=== PATIENT | male | born 1955 | race Caucasian/White ===

== ENCOUNTER → 2016-08-06 | Outpatient (REF) | payer MEDICARE, MEDICAID ==
[~2016-08-06] MED LIST: ASPI81TA83 OR; COLA100C2 OR; INSUDET SC; INSULIN SUBQ; LIPI80TA PO; LISI10TA4 OR; NOVOLOG100 MG/ML SC; POLYSPORIN TOP; PRAV20TA2 OR
[2016-08-06 18:33] LABS: MEAN CORPUSCULAR HEMOGLOBIN 32.2 pg (27.0-33.0); MEAN CORPUSCULAR VOLUME 97.4 fl (80.0-96.0); RED CELL DISTRIBUTION WIDTH 13.8 % (11.5-14.5); WHITE BLOOD COUNT 3.7 K/mm3 (4.0-10.0)
[2016-08-06 19:04] LABS: ALBUMIN 3.6 GM/DL (3.2-5.2); ALBUMIN/GLOBULIN RATIO 1.16 (1.00-1.93); ALKALINE PHOSPHATASE 85 U/L (45-117); ALT/SGPT 12 U/L (12-78); ANION GAP 7 MEQ/L (8-16); AST/SGOT 11 U/L (15-37); BILIRUBIN,TOTAL 0.4 MG/DL (0.2-1.0); BLOOD UREA NITROGEN 5 MG/DL (7-18); CALCIUM LEVEL 8.6 MG/DL (8.8-10.2); CARBON DIOXIDE LEVEL 29 MEQ/L (21-32); CHLORIDE LEVEL 94 MEQ/L (98-107); CHOLESTEROL LEVEL 192 MG/DL (<200); CREATININE FOR GFR 0.78 MG/DL (0.70-1.30); GLOMERULAR FILTRATION RATE > 60.0 (>49); GLUCOSE, FASTING 147 MG/DL (80-110); POTASSIUM SERUM 4.8 MEQ/L (3.5-5.1); SODIUM LEVEL 130 MEQ/L (136-145); TOTAL PROTEIN 6.7 GM/DL (6.4-8.2); TRIGLYCERIDES LEVEL 169 MG/DL (<150)
== END ==
LOC: M SFHCCLAY 08:35
PROVIDERS: ATTEND Nurse Practitioner
DX: D64.9 Anemia, unspecified (principal); Z79.899 Other long term (current) drug therapy
CPT/HCPCS: 36415; 80053; 80061; 83036; 85027; G0463

== ENCOUNTER 2016-09-15 14:47 | Emergency (ER) | payer MEDICARE, MEDICAID ==
[2016-09-15] MEDS ORDERED: DEXTROSE 50% 50 ML SYRINGE IV STA (15:40)
[2016-09-15 16:16] LABS: ANION GAP 6 MEQ/L (8-16); BLOOD UREA NITROGEN 20 MG/DL (7-18); CALCIUM LEVEL 8.8 MG/DL (8.8-10.2); CARBON DIOXIDE LEVEL 30 MEQ/L (21-32); CHLORIDE LEVEL 99 MEQ/L (98-107); CREATININE FOR GFR 0.78 MG/DL (0.70-1.30); GLOMERULAR FILTRATION RATE > 60.0 (>49); GLUCOSE, FASTING 179 MG/DL (80-110); POTASSIUM SERUM 4.4 MEQ/L (3.5-5.1); SODIUM LEVEL 135 MEQ/L (136-145)
[2016-09-15 16:25] LABS: BASO % 0.1 % (0.0-1.0); EOS % 0.5 % (0.0-3.0); LARGE UNSTAINED CELL # 0.1 K/mm3 (0.0-0.4); LARGE UNSTAINED CELL % 1.7 % (0.0-4.0); LYMPH # 0.3 K/mm3 (1.5-4.5); LYMPH % 5.4 % (24.0-44.0); MEAN CORPUSCULAR HEMOGLOBIN 31.7 pg (27.0-33.0); MEAN CORPUSCULAR HGB CONC 32.6 g/dl (32.0-36.5); MEAN CORPUSCULAR VOLUME 97.2 fl (80.0-96.0); MONO # 0.3 K/mm3 (0.0-0.8); MONO % 5.5 % (0.0-5.0); NEUTROPHILS # 5.4 K/mm3 (1.8-7.7); NEUTROPHILS % 86.8 % (36.0-66.0); PLATELET COUNT, AUTOMATED 379 k/mm3 (150-450); RED CELL DISTRIBUTION WIDTH 14.5 % (11.5-14.5); WHITE BLOOD COUNT 6.2 K/mm3 (4.0-10.0)
--- NOTE | 2016-09-15 19:00 | REP ---
Portable chest, single AP view, the patient upright: Comparison is the PA and lateral chest dated 02/27/2015. The lung june are clear. The cardiac size is normal. The milvia, mediastinum, and bony thorax are unremarkable. Impression: Negative portable chest. There is no interval change. Signed by Bakari Kasper MD 09/15/2016 06:51 P
--- NOTE | 2016-09-15 19:10 | REPUSA ---
CLINICAL HISTORY: AMS TECHNIQUE: Multiple axial CT images were obtained through the brain without IV contrast material. COMMENTS: There is normal configuration of sella turcica. There are no intra or extra-axial collections. There is no mass effect or midline shift. There is no evidence of hematoma formation. No hydrocephalus is p resent. The ventricles are symmetrical. No abnormal calcifications are present. There is diffuse age-appropriate cerebellar and cerebral atrophy with proportionally dilated ventricl es and cortical sulci. There are bilateral periventricular and subcortical white matter hypolucencies compatible with mild c hronic microvascular disease. Otherwise, no significant focal abnormalities are seen either in the posterior fossa or supratentoria l compartment. Right sphenoid sinusitis is seen. IMPRESSION: 1. Age-appropriate cerebellar and cerebral atrophy. 2. Mild chronic microvascular disease. 3. No evidence of acute intracranial pathology. 4. Sinusitis. Thank you for your kind referral of this patient.
[2016-09-15 20:30] VITALS: BP 113/69
--- NOTE | 2016-09-16 13:49 | ECGEPIP ---
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
== END 2016-09-15 20:37 | disposition home or self-care (01) ==
LOC: EDBD 14:47 → M ED 15:52
DX: E11.649 Type 2 diabetes mellitus with hypoglycemia without coma (principal); R41.82 Altered mental status, unspecified; Z85.89 Personal history of malignant neoplasm of other organs and systems; Z79.4 Long term (current) use of insulin
CPT/HCPCS: 70450; 71010; 80048; 82140; 85025; 93005; 99283; G0480

== ENCOUNTER → 2016-10-01 | Outpatient (REF) | payer MEDICARE, MEDICAID ==
[2016-10-01 17:39] LABS: MEAN CORPUSCULAR HEMOGLOBIN 33.9 pg (27.0-33.0); MEAN CORPUSCULAR HGB CONC 31.7 g/dl (32.0-36.5); MEAN CORPUSCULAR VOLUME 106.7 fl (80.0-96.0); RED CELL DISTRIBUTION WIDTH 14.3 % (11.5-14.5); WHITE BLOOD COUNT 8.9 K/mm3 (4.0-10.0)
[2016-10-01 18:04] LABS: ALBUMIN 3.9 GM/DL (3.2-5.2); ALBUMIN/GLOBULIN RATIO 1.26 (1.00-1.93); ALKALINE PHOSPHATASE 123 U/L (45-117); ALT/SGPT 15 U/L (12-78); ANION GAP 25 MEQ/L (8-16); AST/SGOT 4 U/L (15-37); BILIRUBIN,TOTAL 0.5 MG/DL (0.2-1.0); BLOOD UREA NITROGEN 30 MG/DL (7-18); CALCIUM LEVEL 9.2 MG/DL (8.8-10.2); CARBON DIOXIDE LEVEL 13 MEQ/L (21-32); CHLORIDE LEVEL 94 MEQ/L (98-107); CREATININE FOR GFR 1.26 MG/DL (0.70-1.30); FERRITIN 154 NG/ML (26-388); GLOMERULAR FILTRATION RATE > 60.0 (>49); SODIUM LEVEL 132 MEQ/L (136-145)
[2016-10-01 18:50] LABS: GLUCOSE, FASTING 584 MG/DL (80-110); POTASSIUM SERUM 5.7 MEQ/L (3.5-5.1)
== END ==
LOC: M SFHCCLAY 11:15
PROVIDERS: ATTEND Nurse Practitioner
DX: I10 Essential (primary) hypertension (principal); M25.473 Effusion, unspecified ankle; D64.9 Anemia, unspecified; E11.65 Type 2 diabetes mellitus with hyperglycemia; Z79.899 Other long term (current) drug therapy; E53.8 Deficiency of other specified B group vitamins; J01.90 Acute sinusitis, unspecified; K11.9 Disease of salivary gland, unspecified; E78.5 Hyperlipidemia, unspecified

== ENCOUNTER 2016-10-18 17:22 | Inpatient (IN) | payer MEDICARE, MEDICAID ==
[~2016-10-18] VITALS: Ht 188 cm; Wt 52.7 kg
[2016-10-18] MEDS ORDERED: NS 1,000 ML IV ONE ×3 (18:00→22:00)
[2016-10-18 19:12] LABS: ABG BASE EXCESS -27.3 (-2.0-2.0); ABG PARTIAL PRESSURE O2 157.2 mmHg (75.0-100.0); ABG STANDARD HCO3 5.4 MEQ/L (22.0-26.0); ABG TOTAL CO2 2.3 MEQ/L (23.0-31.0)
[2016-10-18 19:14] LABS: ABG PARTIAL PRESSURE CO2 8.5 mmHg (35.0-45.0); ABG pH (ARTERIAL) 6.996 UNITS (7.350-7.450)
[2016-10-18 19:18] LABS: MEAN CORPUSCULAR HEMOGLOBIN 33.2 pg (27.0-33.0); MEAN CORPUSCULAR HGB CONC 28.6 g/dl (32.0-36.5); MEAN CORPUSCULAR VOLUME 116.1 fl (80.0-96.0); PLATELET COUNT, AUTOMATED 401 k/mm3 (150-450); RED CELL DISTRIBUTION WIDTH 14.9 % (11.5-14.5); WHITE BLOOD COUNT 11.6 K/mm3 (4.0-10.0)
[2016-10-18 19:32] LABS: OSMOLALITY SERUM 323 MOSM/KG (280-301)
[2016-10-18 19:33] LABS: ALBUMIN 3.3 GM/DL (3.2-5.2); ALBUMIN/GLOBULIN RATIO 1.14 (1.00-1.93); ALKALINE PHOSPHATASE 97 U/L (45-117); ALT/SGPT 16 U/L (12-78); ANION GAP 34 MEQ/L (8-16); AST/SGOT 14 U/L (15-37); BILIRUBIN,DIRECT < 0.1 MG/DL (0.0-0.2); BILIRUBIN,TOTAL 0.5 MG/DL (0.2-1.0); BLOOD UREA NITROGEN 30 MG/DL (7-18); CALCIUM LEVEL 8.7 MG/DL (8.8-10.2); CARBON DIOXIDE LEVEL 3 MEQ/L (21-32); CHLORIDE LEVEL 91 MEQ/L (98-107); CREATININE FOR GFR 1.52 MG/DL (0.70-1.30); GLOMERULAR FILTRATION RATE 49.7 (>49); SODIUM LEVEL 128 MEQ/L (136-145); TOTAL PROTEIN 6.2 GM/DL (6.4-8.2)
[2016-10-18 19:39] LABS: GLUCOSE, FASTING 600 MG/DL (80-110); POTASSIUM SERUM 5.3 MEQ/L (3.5-5.1)
[2016-10-18 19:44] LABS: ANISOCYTOSIS 1+; BANDS 2 % (< 11); POLYCHROMASIA 1+
[2016-10-18 19:45] LABS: PLATELET CLUMPS SMALL AMT
[2016-10-18] MEDS ORDERED: SODIUM BICARBONATE 100 MEQ in D5W 1,000 ML IV SCH (20:00)
[2016-10-18] MEDS ORDERED: HumuLIN R (REGULAR) INSULIN (NovoLIN R) **100U/ML** PER UNIT IV ONE (20:00)
[2016-10-18] MEDS ORDERED: INSULIN IV RATE CHANGE DOCUMENTATION ML/HR XX SCH (20:00)
[2016-10-18] MEDS ORDERED: KCL 20MEQ in NS 1000ML 1,000 ML IV SCH ×3 (20:00→23:45)
[2016-10-18] MEDS ORDERED: MIDAZOLAM INJ 2 MG/2 ML VIAL (J2250) IV ONE (20:00)
[2016-10-18] MEDS ORDERED: PENICILLIN G POTASSIUM IV 5 MU in D5W MINI-BAG PLUS 100 ML IV SCH (20:00)
[2016-10-18] MEDS ORDERED: GENTAMICIN 120 MG in D5W 50 ML IV ONE (20:00)
[2016-10-18] MEDS ORDERED: MIDAZOLAM INJ 5 MG/ML VIAL (J2250) As Ordered ONE (20:02)
[2016-10-18] MEDS ORDERED: LIDOCAINE 1% MDV 20ML VIAL As Ordered ONE (20:27)
[2016-10-18] MEDS ORDERED: ALBU17IN INH (21:03)
[2016-10-18] MEDS ORDERED: INSUH10VL SC (21:03)
[2016-10-18] MEDS ORDERED: LASI20TA PO (21:03)
[2016-10-18] MEDS ORDERED: BREO1INH INH (21:03)
[2016-10-18] MEDS ORDERED: FERR325T PO (21:03)
[2016-10-18] MEDS ORDERED: INSULANT SC (21:03)
[2016-10-18] MEDS ORDERED: ATOR1TAB19 PO (21:03)
[2016-10-18] MEDS ORDERED: ASPI81TA7 PO (21:03)
[2016-10-18 21:08] LABS: ABG HCO3 2.8 MEQ/L (22.0-26.0); ABG PARTIAL PRESSURE O2 178.6 mmHg (75.0-100.0); ABG STANDARD HCO3 5.9 MEQ/L (22.0-26.0); ABG TOTAL CO2 3.1 MEQ/L (23.0-31.0)
[2016-10-18 21:09] LABS: ABG PARTIAL PRESSURE CO2 10.9 mmHg (35.0-45.0); ABG pH (ARTERIAL) 7.027 UNITS (7.350-7.450)
[2016-10-18] MEDS: INSULIN HUMAN REGULAR 100 UNITS in NS 99 ML IV SCH (21:16)
[2016-10-18 21:25] LABS: INR 1.37
[2016-10-18 21:55] LABS: CALCIUM LEVEL 7.7 MG/DL (8.8-10.2); CREATININE FOR GFR 1.36 MG/DL (0.70-1.30); GLOMERULAR FILTRATION RATE 56.5 (>49); POTASSIUM SERUM 4.6 MEQ/L (3.5-5.1)
[2016-10-18 22:18] LABS: ABG BASE EXCESS -22.7 (-2.0-2.0); ABG PARTIAL PRESSURE O2 158.2 mmHg (75.0-100.0); ABG STANDARD HCO3 7.7 MEQ/L (22.0-26.0); ABG TOTAL CO2 4.3 MEQ/L (23.0-31.0)
[2016-10-18 22:20] LABS: ABG PARTIAL PRESSURE CO2 11.7 mmHg (35.0-45.0); ABG pH (ARTERIAL) 7.147 UNITS (7.350-7.450)
[2016-10-18] MEDS ORDERED: ALBUTEROL 90 MCG/ACT 8GM HFA INHALER INH PRN (22:30)
[2016-10-18 23:24] LABS: ABG BASE EXCESS -19.3 (-2.0-2.0); ABG HCO3 5.8 MEQ/L (22.0-26.0); ABG PARTIAL PRESSURE O2 154.1 mmHg (75.0-100.0); ABG STANDARD HCO3 9.9 MEQ/L (22.0-26.0); ABG TOTAL CO2 6.2 MEQ/L (23.0-31.0)
[2016-10-18 23:26] LABS: ABG PARTIAL PRESSURE CO2 13.5 mmHg (35.0-45.0)
[2016-10-19] VITALS (10 sets, daily range): BP systolic 130–158; BP diastolic 71–84
--- NOTE | 2016-10-19 00:03 | HPEPDOC ---
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 He is not accompanied by any family, and his altered mentation secondary to his acidosis prevents him from being able to meaningfully precipitate in this interview. We have been able to glean from EMS that his family called them because he was very lethargic and said he been having high blood sugars. The remainder of this H&P is comprised by reviewing the chart. Of note, I can see that he visited his PCP on 10/01/2016. At that time, the note reveals that his family was concerned because his sugars have been high, but it is also noted that the patient was unable to tell the provider how much insulin he was using, and there was concern that the patient was not consistently take his insulin. A BMP was checked at that time, which revealed a gap of 25 and glucose greater than 500. It is unclear from the note what action was taken on this BMP results. I would presume, that the patient has continued to have hyperglycemia, and potentially even acidosis since then. While in the emergency department, a central line was attempted, and unfortunately he suffered a left pneumothorax. He now has a chest tube on the left side, and a central line on the right side. 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 He is able to answer some simple yes or no questions. He denies any chest pain, abdominal pain , or trouble breathing. Otherwise, he is persistently asking for water, so I presume that he is thirsty. Home meds: See below Physical exam: Vital signs: Vital Sign - Last 24 Hours 10/18/16 10/18/16 10/18/16 10/18/16 17:32 17:47 17:48 17:52 Pulse 98 B/P (MAP) 125/89 (101) 138/86 (103) O2 Delivery Room Air 10/18/16 10/18/16 10/18/16 10/18/16 18:02 18:59 19:07 19:14 Pulse 80 B/P (MAP) 129/78 (95) 124/62 (82) 117/61 (79) Pulse Ox 97 10/18/16 10/18/16 10/18/16 10/18/16 19:22 19:29 19:37 19:44 Pulse 80 76 B/P (MAP) 111/68 (82) 105/62 (76) Pulse Ox 97 97 10/18/16 10/18/16 10/18/16 10/18/16 19:52 19:56 20:00 20:07 Temp 91.7 Pulse 80 104 B/P (MAP) 134/70 (91) Pulse Ox 96 100 10/18/16 10/18/16 10/18/16 10/18/16 20:09 20:10 20:17 20:20 B/P (MAP) 138/70 (92) 134/67 (89) 124/61 (82) 127/62 (83) 10/18/16 10/18/16 10/18/16 10/18/16 20:22 20:24 20:26 20:28 Pulse 106 B/P (MAP) 124/64 (84) 124/64 (84) 125/64 (84) 129/66 (87) Pulse Ox 73 10/18/16 10/18/16 10/18/16 10/18/16 20:30 20:32 20:34 20:36 B/P (MAP) 123/63 (83) 126/69 (88) 133/70 (91) 127/66 (86) 10/18/16 10/18/16 10/18/16 10/18/16 20:37 20:40 20:42 20:44 Pulse 100 B/P (MAP) 143/71 (95) 136/78 (97) 133/76 (95) Pulse Ox 95 10/18/16 10/18/16 10/18/16 10/18/16 20:46 20:48 20:50 20:52 Pulse 102 B/P (MAP) 130/80 (97) 138/71 (93) 138/77 (97) 132/83 (99) Pulse Ox 100 10/18/16 10/18/16 10/18/16 10/18/16 20:54 20:56 20:58 21:00 B/P (MAP) 132/81 (98) 138/81 (100) 134/78 (96) 133/72 (92) 10/18/16 10/18/16 10/18/16 10/18/16 21:02 21:04 21:06 21:07 Pulse 105 B/P (MAP) 144/78 (100) 141/81 (101) 139/79 (99) Pulse Ox 100 10/18/16 10/18/16 10/18/16 10/18/16 21:08 21:10 21:12 21:14 B/P (MAP) 137/73 (94) 137/76 (96) 145/80 (101) 139/82 (101) 10/18/16 10/18/16 10/18/16 10/18/16 21:16 21:18 21:20 21:22 Pulse 103 B/P (MAP) 135/77 (96) 133/69 (90) 139/79 (99) 143/78 (99) Pulse Ox 100 10/18/16 10/18/16 10/18/16 10/18/16 21:24 21:26 21:28 21:30 B/P (MAP) 138/73 (94) 139/67 (91) 135/65 (88) 134/68 (90) 10/18/16 10/18/16 10/18/16 10/18/16 21:32 21:34 21:36 21:37 Pulse 103 B/P (MAP) 138/66 (90) 135/74 (94) 138/76 (96) Pulse Ox 99 10/18/16 10/18/16 10/18/16 10/18/16 21:38 21:40 21:42 21:44 B/P (MAP) 136/75 (95) 132/74 (93) 131/83 (99) 133/86 (102) 10/18/16 10/18/16 10/18/16 10/18/16 21:53 21:56 21:59 22:00 Temp 92.3 92.3 Pulse 98 B/P (MAP) 136/75 (95) Pulse Ox 100 10/18/16 10/18/16 10/18/16 10/18/16 22:02 22:04 22:06 22:08 B/P (MAP) 138/79 (98) 145/79 (101) 143/78 (99) 142/73 (96) 10/18/16 10/18/16 10/18/16 10/18/16 22:10 22:12 22:14 22:16 Pulse 96 B/P (MAP) 137/74 (95) 143/77 (99) 142/78 (99) 144/80 (101) Pulse Ox 100 10/18/16 10/18/16 10/18/16 10/18/16 22:18 22:20 22:22 22:24 B/P (MAP) 146/81 (102) 142/81 (101) 144/79 (100) 148/81 (103) 10/18/16 10/18/16 10/18/16 10/18/16 22:26 22:28 22:29 22:30 Pulse 94 B/P (MAP) 146/80 (102) 147/79 (101) 142/81 (101) Pulse Ox 100 10/18/16 10/18/16 10/18/16 10/18/16 22:45 22:46 23:00 23:01 Pulse 94 99 B/P (MAP) 155/86 (109) 149/83 (105) Pulse Ox 100 100 10/18/16 23:16 Pulse 93 B/P (MAP) 145/85 (105) Pulse Ox 100 Gen.: awake, speech is garbled, patient can answer simple questions with continued redirection Eyes: Extraocular movements intact, normal sclera ENT: Dry mucous membranes Cardiovascular: RRR, no murmurs rubs or gallops Lungs: clear to auscultation bilaterally, no rales, rhonchi, or wheeze Abdomen: Soft, NT/ND, normal BS Extremities: No peripheral edema Neuro: Oriented to self, answers simple questions with redirection Psych: Perseverates on wanting water Labs and radiology: See below Multiple BMPs are reviewed in the EMR Multiple ABGs are reviewed in the EMR Initial lactate 6.6, repeat 3.3 and blood cultures pending Chest x-ray unremarkable for acute infection Assessment and plan: 61-year-old male with diabetes mellitus type 2, hypertension, hyperlipidemia, 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 1. DKA with associated pseudohyponatremia and acute kidney injury: Given the information that I am able to obtain from his recent visits with his PCP, it appears that he is either not taking his insulin consistently, or has inadequate dosing as he was hyperglycemic and acidotic even 2 weeks ago. It seems less likely that an infection has caused this DKA, as a chest x-ray does not show any evidence of infection. The patient's DKA is quite severe as his pH on arrival was 6.9. At this time, his pH has improved to greater than 7. We will stop the bicarbonate drip, will continue with an insulin drip with IV fluids, appropriately replacing his potassium as necessary. We will check an A1c. We are holding his home Lantus and NovoLog. 2. Hypothermia: I suspect this is secondary to his extreme acidosis. Temperature has improved from 91.7-92.3 with a yanira hugger. We will continue yanira hugger. Chest x-ray is unremarkable for acute infection, but we will also check UA, blood cultures, and urine cultures. At this time, I will not be initiating any empiric antibiotics, as I have strong suspicions that the patient has been either been inadequately dosed or has been inconsistently treating his diabetes, which would explain his severe acidosis. Of course, if we identify any source of infection, we will promptly treat that. 3. Elevated ammonia: It is unclear what this is from, as the patient's LFTs are normal, and he is not known to be on any valproic acid. We will continue to trend this in the morning. 4. Lactic acidosis: The patient's greatly elevated lactate is most likely secondary to his DKA. At this time there is no source of infection, so I do not think this represents sepsis. We will continue to trend the lactate. 5. Hypertension: Currently holding the patient's home Lasix. 6. Hyperlipidemia: Continue home statin. 7. Encephalopathy: Metabolic in nature, secondary to DKA. Continue to treat underlying issues. DVT prophylaxis: Lovenox Dispo: admit as an inpatient to the service of Dr. Roper Ray CODE STATUS: Full code Vital Signs Vital Signs Date Time Temp Pulse Resp B/P (MAP) Pulse Ox O2 Delivery O2 Flow Rate FiO2 10/18/16 23:16 93 145/85 (105) 100 10/18/16 21:56 92.3 10/18/16 17:48 Room Air Laboratory Data Labs 24H Laboratory Tests 2 10/18/16 17:39: Bedside Glucose (Misc Panel) 512*H 10/18/16 18:59: Neutrophils 92H, Band Neutrophils 2, Lymphocytes (Manual) 4L, Monocytes (Manual ) 2, Platelet Estimate NORMAL, Clumped Platelets SMALL AMT, Polychromasia 1+, Anisocytosis 1+, Macrocytosis 2+, Anion Gap 34H, Glomerular Filtration Rate 49.7 , Estimated Mean Plasma Glucose 209H, Hemoglobin A1c 8.9H, Osmolality 323H, Calcium Level 8.7L, Aspartate Amino Transf (AST/SGOT) 14L, Alanine Aminotransferase (ALT/SGPT) 16, Alkaline Phosphatase 97, Total Bilirubin 0.5, Direct Bilirubin < 0.1, Total Protein 6.2L, Albumin 3.3, Albumin/Globulin Ratio 1.14, Salicylates Level 6.6, Acetaminophen Level 3.3L, Ethyl Alcohol Level < 0.003 10/18/16 19:05: Blood Gas Bicarbonate Standard 5.4L, Arterial Blood pH 6.996*L, Arterial Blood Partial Pressure CO2 8.5*L, Arterial Blood Partial Pressure O2 157.2H, Arterial Blood Total CO2 2.3L, Arterial Blood HCO3 2.0L, Arterial Blood Base Excess - 27.3L, Arterial Blood Oxygen Saturation 98.6 10/18/16 19:23: Lactic Acid Level 6.6*H, Ammonia 53H 10/18/16 21:02: Blood Gas Bicarbonate Standard 5.9L, Arterial Blood pH 7.027*L, Arterial Blood Partial Pressure CO2 10.9*L, Arterial Blood Partial Pressure O2 178.6H, Arterial Blood Total CO2 3.1L, Arterial Blood HCO3 2.8L, Arterial Blood Base Excess -26.0L, Arterial Blood Oxygen Saturation 99.0 10/18/16 21:10: Prothrombin Time 17.0H, Prothromb Time International Ratio 1.37, Activated Partial Thromboplast Time 30.4, Anion Gap 30H, Glomerular Filtration Rate 56.5, Lactic Acid Level 3.3*H, Blood Urea Nitrogen 32H, Creatinine 1.36H, Sodium Level 136#, Potassium Level 4.6, Chloride Level 101, Carbon Dioxide Level 5L, Calcium Level 7.7L 10/18/16 21:49: Bedside Glucose (Misc Panel) 543*H 10/18/16 22:12: Blood Gas Bicarbonate Standard 7.7L, Arterial Blood pH 7.147*L, Arterial Blood Partial Pressure CO2 11.7*L, Arterial Blood Partial Pressure O2 158.2H, Arterial Blood Total CO2 4.3L, Arterial Blood HCO3 4.0L, Arterial Blood Base Excess -22.7L, Arterial Blood Oxygen Saturation 99.0 10/18/16 23:08: Bedside Glucose (Misc Panel) 545*H 10/18/16 23:19: Blood Gas Bicarbonate Standard 9.9L, Arterial Blood pH 7.250L, Arterial Blood Partial Pressure CO2 13.5*L, Arterial Blood Partial Pressure O2 154.1H, Arterial Blood Total CO2 6.2L, Arterial Blood HCO3 5.8L, Arterial Blood Base Excess -19.3L, Arterial Blood Oxygen Saturation 99.1H CBC/BMP Laboratory Tests 10/18/16 18:59 Red Blood Count 3.07 L, Mean Corpuscular Volume 116.1 H, Mean Corpuscular Hemoglobin 33.2 H, Mean Corpuscular Hemoglobin Concent 28.6 L, Red Cell Distribution Width 14.9 H 10/18/16 21:10 Calcium Level 7.7 L Microbiology Microbiology 10/18/16 Blood Culture, Received Pending 10/18/16 Blood Culture, Received Pending Home Medications Scheduled Aspirin (Aspirin) 81 Mg Tab, 81 MG PO DAILY Atorvastatin Calcium (Atorvastatin Calcium) 10 Mg Tab, 10 MG PO DAILY Ferrous Sulfate (Ferrous Sulfate) 325 Mg Tab, 325 MG PO DAILY Fluticasone/Vilanterol (Breo Ellipta 100-25 Mcg/INH) 1 Inh Inh, 1 PUFF INH DAILY Furosemide (Lasix) 20 Mg Tab, 20 MG PO DAILY Insulin Aspart (Novolog) 100 U/Ml Inj, 5 UNITS SC TID Insulin Glargine (Lantus) 1 Units/0.01 Ml Susp, 10 UNITS SC QHS Scheduled PRN Albuterol Sulfate (Ventolin Hfa) 200 Puff/8 Gm Aers, 2 PUFF INH Q6H PRN for SHORTNESS OF BREATH Allergies Coded Allergies: No Known Drug Allergy (Verified Allergy, Unknown, 09/05/12) ANJU EASTMAN October 19, 2016 00:03
[2016-10-19] MEDS ORDERED: KCL 20MEQ in NS 1000ML 1,000 ML IV SCH (00:23)
[2016-10-19 00:36] LABS: ANION GAP 23 MEQ/L (8-16); BLOOD UREA NITROGEN 28 MG/DL (7-18); CALCIUM LEVEL 7.5 MG/DL (8.8-10.2); CARBON DIOXIDE LEVEL 9 MEQ/L (21-32); CHLORIDE LEVEL 106 MEQ/L (98-107); CREATININE FOR GFR 1.19 MG/DL (0.70-1.30); GLOMERULAR FILTRATION RATE > 60.0 (>49); PHOSPHORUS LEVEL 2.3 MG/DL (2.5-4.9); POTASSIUM SERUM 4.5 MEQ/L (3.5-5.1); SODIUM LEVEL 138 MEQ/L (136-145)
[2016-10-19] MEDS: INSULIN HUMAN REGULAR 100 UNITS in NS 99 ML IV SCH ×3 (02:26→03:39)
[2016-10-19 02:46] LABS: GLUCOSE, FASTING 447 MG/DL (80-110)
[2016-10-19] MEDS: INSULIN IV RATE CHANGE DOCUMENTATION ML/HR XX SCH ×2 (03:42→08:59)
[2016-10-19] MEDS: KCL 20MEQ IN 0.45NS 1000ML 1,000 ML IV SCH ×2 (04:38→07:14)
[2016-10-19 05:06] LABS: METHADONE URINE NEGATIVE (NEGATIVE)
[2016-10-19 05:15] LABS: ANION GAP 12 MEQ/L (8-16); BLOOD UREA NITROGEN 26 MG/DL (7-18); CALCIUM LEVEL 7.7 MG/DL (8.8-10.2); CARBON DIOXIDE LEVEL 20 MEQ/L (21-32); CHLORIDE LEVEL 112 MEQ/L (98-107); CREATININE FOR GFR 1.17 MG/DL (0.70-1.30); GLOMERULAR FILTRATION RATE > 60.0 (>49); GLUCOSE, FASTING 238 MG/DL (80-110); POTASSIUM SERUM 4.2 MEQ/L (3.5-5.1); SODIUM LEVEL 144 MEQ/L (136-145)
[2016-10-19 06:25] LABS: EOS % 0.1 % (0.0-3.0); LARGE UNSTAINED CELL # 0.2 K/mm3 (0.0-0.4); LYMPH # 0.5 K/mm3 (1.5-4.5); LYMPH % 3.9 % (24.0-44.0); MEAN CORPUSCULAR HEMOGLOBIN 34.2 pg (27.0-33.0); MONO # 0.6 K/mm3 (0.0-0.8); MONO % 6.8 % (0.0-5.0); NEUTROPHILS # 7.1 K/mm3 (1.8-7.7); NEUTROPHILS % 87.2 % (36.0-66.0); PLATELET COUNT, AUTOMATED 335 k/mm3 (150-450); RED CELL DISTRIBUTION WIDTH 15.1 % (11.5-14.5); WHITE BLOOD COUNT 8.1 K/mm3 (4.0-10.0)
[2016-10-19 06:30] LABS: MEAN CORPUSCULAR VOLUME 100.5 fl (80.0-96.0)
[2016-10-19 06:45] LABS: ALBUMIN 2.9 GM/DL (3.2-5.2); ALBUMIN/GLOBULIN RATIO 1.21 (1.00-1.93); ALKALINE PHOSPHATASE 85 U/L (45-117); ALT/SGPT 17 U/L (12-78); ANION GAP 11 MEQ/L (8-16); AST/SGOT 23 U/L (15-37); BILIRUBIN,TOTAL 0.4 MG/DL (0.2-1.0); BLOOD UREA NITROGEN 26 MG/DL (7-18); CALCIUM LEVEL 7.8 MG/DL (8.8-10.2); CARBON DIOXIDE LEVEL 20 MEQ/L (21-32); CHLORIDE LEVEL 112 MEQ/L (98-107); CREATININE FOR GFR 1.12 MG/DL (0.70-1.30); GLOMERULAR FILTRATION RATE > 60.0 (>49); GLUCOSE, FASTING 196 MG/DL (80-110); MAGNESIUM LEVEL 1.8 MG/DL (1.8-2.4); PHOSPHORUS LEVEL 1.2 MG/DL (2.5-4.9); POTASSIUM SERUM 4.2 MEQ/L (3.5-5.1); SODIUM LEVEL 143 MEQ/L (136-145); TOTAL PROTEIN 5.3 GM/DL (6.4-8.2)
--- NOTE | 2016-10-19 07:03 | RO ---
DATE OF PROCEDURE: 10/18/2016 PREPROCEDURE DIAGNOSIS: Need for vascular access, hypoglycemia. POSTPROCEDURE DIAGNOSIS: Need for vascular access, hypoglycemia. PROCEDURE: Attempted placement of a left central line. SURGEON: Pritesh Babb MD RESPITE PROVIDER: ANESTHESIA: INDICATIONS: Patient is a 61-year-old white male in severe acidosis probably secondary to diabetic ketoacidosis who has no venous access at all. An internal jugular (IJ) was attempted and femoral was attempted, none with was success. I was therefore called to place a central line. Patient is very emaciated and has a very acute angular clavicle. DESCRIPTION OF PROCEDURE: Patient was prepped and draped in the usual sterile fashion. Left infraclavicular fossa was infiltrated with 1% xylocaine. The patient is very emaciated and cachectic. On passing the needle I elvira air and in fact, multiple attempts elvira air three times. I did find her vein but I could not thread it. Therefore, aborted the procedure. As I elvira air, I suspected, but did not prove a pneumothorax. In the interest of safely, I.did proceed to a chest tube. [facility]
--- NOTE | 2016-10-19 07:06 | RO ---
DATE OF PROCEDURE: 10/18/2016 PREPROCEDURE DIAGNOSIS: Possible pneumothorax left side. POSTPROCEDURE DIAGNOSIS: Possible pneumothorax left side. PROCEDURE: Insertion of left anterior chest tube. SURGEON: Pritesh Babb MD SURGICAL APPLIANCES SALESPERSON: ANESTHESIA: DESCRIPTION OF PROCEDURE: See indications in prior procedure note. Patient was prepped and draped in the usual sterile fashion and the second intercostal space was infiltrated with 1% xylocaine. A tunnel was created into the chest. A #20 chest tube was placed without difficulty and secured to the chest wall with #2 Tevdek suture. It was connected to the Pleur-evac. There was continuous bubbling. Patient tolerated the procedure well. DONNIE
--- NOTE | 2016-10-19 07:12 | RO ---
DATE OF PROCEDURE: 10/18/2016 PREOPERATIVE DIAGNOSIS: Need for vascular access, hypoglycemia. POSTOPERATIVE DIAGNOSIS: Need for vascular access, hypoglycemia. PROCEDURE: Attempted insertion of right internal jugular central line. SURGEON: Pritesh Babb MD DIRECTOR OF IN SERVICE EDUCATION: ANESTHESIA: DESCRIPTION OF PROCEDURE: After attempting left subclavian central line, which could not be placed, the patient's right neck and intraventricular fossa on the right side was prepped and draped in the usual sterile fashion. The patient is extremely cachectic and had good landmarks for internal jugular line. The vein was identified by the exploring of #22 gauge needle and large needle was placed into the vein. It could be found but I could not wire the vein. Three attempts were made to wire the vein, reposition the needle all to no avail. Procedure was therefore abandoned. A right subclavian central line was then attempted. MERED
--- NOTE | 2016-10-19 07:16 | RO ---
DATE OF PROCEDURE: 10/18/2016 PREOPERATIVE DIAGNOSIS: Need for vascular access, hypoglycemia. POSTOPERATIVE DIAGNOSIS: Need for vascular access, hypoglycemia. PROCEDURE: Insertion of right subclavian central line. SURGEON: Pritesh Babb MD MANAGER LAND: ANESTHESIA: DESCRIPTION OF PROCEDURE: Patient interventricular fossa was again prepped and draped in the usual sterile fashion and infiltrated with 1% xylocaine. The vein was found on the second pass. It could not be wired on the first time, but the second time after repositioning the needle it could be wired easily. PVCs were produced. The tract was dilated and a triple lumen catheter was placed by Seldinger technique. The ports were aspirated and flushed easily. The catheter was secured to the chest wall with two #3-0 silk sutures. The patient tolerated the procedure well and a chest x-ray is pending. [facility]
[2016-10-19] MEDS: ADVAIR DISKUS 250/50 INH PWD INH SCH ×2 (07:51→19:27)
[2016-10-19] MEDS: PANTOPRAZOLE 40MG INJ (PROTONIX) (C9113) IV SCH (08:06)
[2016-10-19] MEDS: ENOXAPARIN 40 MG/0.4 ML SYRINGE (J1650) SC SCH (08:06)
[2016-10-19] MEDS: FERROUS SULFATE 325MG TAB PO SCH (08:06)
[2016-10-19] MEDS: ASPIRIN 81 MG ENTERIC TAB PO SCH (08:06)
[2016-10-19] MEDS: ATORVASTATIN 10 MG TAB PO SCH (08:06)
--- NOTE | 2016-10-19 08:13 | REP ---
PORTABLE CHEST: AP portable view of the chest is performed and compared to a prior study of 09/15/2016. Diffuse interstitial prominence is stable. No new infiltrates are seen. Heart is normal is normal in size and there is calcification of the thoracic aorta. Mediastinal silhouette is unchanged. IMPRESSION: Stable exam. No acute infiltrate. Signed by Bakari Newell MD 10/19/2016 12:22 P
--- NOTE | 2016-10-19 08:25 | REP ---
Clinical: Follow up pneumothorax. Comparison: 10/18/2016. Findings: Left apical chest tube in stable position. Right subclavian catheter with tip in the SVC and unchanged in position. Mediastinum and cardiac silhouette are stable and within normal limits. Lung june demonstrate diffuse chronic interstitial changes. Trace right basilar atelectasis is suggested. No obvious pleural effusion or visible pneumothorax. Skeletal structures demonstrate stable osteopenia and degenerative changes. Impression: 1. No significant visible left apical pneumothorax. 2. Trace right basilar atelectasis. Signed by Bandar Alejandro MD 10/19/2016 08:17 A
--- NOTE | 2016-10-19 08:36 | REP ---
Portable chest: Single view. 09:01 p.m. History: Post central line. Comparison study: October 18, 2016 at six p.m. Findings: There is a new left apical chest tube in place. There is no visible pneumothorax. A right subclavian line is seen in place with its tip in the expected location of the superior vena cava. Lung june are clear. Heart size is normal. Impression: Left apical chest tube. Right subclavian central venous line with its tip in the expected location of the superior vena cava. There is no visible pneumothorax. Signed by Shun King MD 10/19/2016 08:27 A
[2016-10-19 08:47] LABS: ANION GAP 9 MEQ/L (8-16); BLOOD UREA NITROGEN 24 MG/DL (7-18); CALCIUM LEVEL 7.6 MG/DL (8.8-10.2); CARBON DIOXIDE LEVEL 21 MEQ/L (21-32); CHLORIDE LEVEL 112 MEQ/L (98-107); CREATININE FOR GFR 1.07 MG/DL (0.70-1.30); GLOMERULAR FILTRATION RATE > 60.0 (>49); GLUCOSE, FASTING 151 MG/DL (80-110); POTASSIUM SERUM 4.1 MEQ/L (3.5-5.1); SODIUM LEVEL 142 MEQ/L (136-145)
--- NOTE | 2016-10-19 10:27 | IPNPDOC ---
Subjective Date Seen The patient was seen on 10/19/16. Subjective Chief Complaint/HPI The patient is a 61-year-old male admitted with a reason for visit of Diabetic Ketoacidosis. Events since last encounter Blood sugars trending down to WNL. Anion gap has normalized. patient with confusion per nursing staff. Constitutional: Denies: Chills, Fever, Night Sweats ENT: Denies: Head Aches, Ear Pain, Dysphagia Skin: Denies: Rash, Lesions, Jaundice, Bruising, Itching, Dry, Breakdown, Nail Changes, Other Pulmonary: Denies: Dyspnea, Cough Cardiovascular: Denies: Chest Pain, Palpitations, Orthopnea, Paroxysmal Noc. Dyspnea, Lt Headedness Gastrointestinal: Denies: Nausea, Vomiting, Abdominal Pain, Diarrhea, Constipation Genitourinary: Reports: Other Symptoms ([place]), Denies: Dysuria, Frequency, Incontinence, Retention Psych: Reports: Memory Issues, Other Psych (vague) Objective Physical Examination General Exam: Positive: Alert, No Acute Distress, Other (cachectic) Eye Exam: Positive: PERRLA, Conjunctiva & lids normal, EOMI, Negative: Sclera icteric Neck Exam: Positive: Supple, Negative: JVD, thyromegaly Chest Exam: Positive: Clear to auscultation, Normal air movement, Other (CT LEFT upper chest) Heart Exam: Positive: Rate Normal, Regular Rhythm, Normal S1, Normal S2, Negative: Murmurs, Rubs Telemetry: Positive: No significant arrhythmia Abdomen Exam: Positive: Normal bowel sounds, Soft, Negative: Tenderness, Hepatospenomegaly Skin Exam: Positive: Nl turgor and temperature, Negative: Rash, Breakdown Psych Exam: Positive: Mental status NL, Mood NL, Oriented x 3, Other ( responses are vague. Unable to articulate medical hx. ) Assessment /Plan Problems (1) Diabetic ketoacidosis Status: Resolved Response to Treatment: Improving Problem Specific Plan: Monitor Clinically Problem Text: Insulin gtt stopped. will check glucose q 1 hr for next 6 hours to monitor for hypoglycemia. Advised to given carb consistent diet. Anion gap 9. renal function stable. Aggressively fluid resuscitated at 2500 cc per hour. has BLE and BUE edema. Will stop IVF. (2) Lyme disease, acute Status: Acute Problem Specific Plan: Consult Specialist Problem Text: CT brain ordered. Will need LP. Will arrange. (3) HTN (hypertension) Status: Chronic Response to Treatment: Stable Problem Specific Plan: Monitor Clinically (4) COPD (chronic obstructive pulmonary disease) Status: Chronic Response to Treatment: Stable Problem Specific Plan: Monitor Clinically Plan/VTE VTE Prophylaxis Ordered?: Yes (Lovenox) Plan Attending note: I saw and evaluated the patient, and agree with the plan of care as discussed and documented by Amy Grove. Recommended MRI brain to follow-up patient's abnormal CT head, especially in light of patient's history of metastatic disease. Infectious disease agreed with this plan. Neuro-Lyme evaluation pending. Cachexia possibly secondary to recurrence of cancer or severe, chronic disease. ID recommending evaluation for HIV and hepatitis C. Patient has microcytic anemia with high RDW. Normal iron studies September 2016. Vinny Ruelas MD VS, I&O, 24H, [facility] Vital Signs/I&O Vital Signs Date Time Temp Pulse Resp B/P (MAP) Pulse Ox O2 Delivery O2 Flow Rate FiO2 10/19/16 06:00 Room Air 10/19/16 06:00 98.4 72 20 131/76 (94) 99 I&O- Last 24 Hours up to 6 AM 10/19/16 06:00 Intake Total 7358 ml Output Total 1500 ml Balance 5858 ml Laboratory Data 24H LABS Laboratory Tests 2 10/18/16 17:39: Bedside Glucose (Misc Panel) 512*H 10/18/16 18:59: Neutrophils 92H, Band Neutrophils 2, Lymphocytes (Manual) 4L, Monocytes (Manual ) 2, Platelet Estimate NORMAL, Clumped Platelets SMALL AMT, Polychromasia 1+, Anisocytosis 1+, Macrocytosis 2+, Anion Gap 34H, Glomerular Filtration Rate 49.7 , Estimated Mean Plasma Glucose 209H, Hemoglobin A1c 8.9H, Osmolality 323H, Calcium Level 8.7L, Aspartate Amino Transf (AST/SGOT) 14L, Alanine Aminotransferase (ALT/SGPT) 16, Alkaline Phosphatase 97, Total Bilirubin 0.5, Direct Bilirubin < 0.1, Total Protein 6.2L, Albumin 3.3, Albumin/Globulin Ratio 1.14, Salicylates Level 6.6, Acetaminophen Level 3.3L, Ethyl Alcohol Level < 0.003 10/18/16 19:05: Blood Gas Bicarbonate Standard 5.4L, Arterial Blood pH 6.996*L, Arterial Blood Partial Pressure CO2 8.5*L, Arterial Blood Partial Pressure O2 157.2H, Arterial Blood Total CO2 2.3L, Arterial Blood HCO3 2.0L, Arterial Blood Base Excess - 27.3L, Arterial Blood Oxygen Saturation 98.6 10/18/16 19:23: Lactic Acid Level 6.6*H, Ammonia 53H 10/18/16 21:02: Blood Gas Bicarbonate Standard 5.9L, Arterial Blood pH 7.027*L, Arterial Blood Partial Pressure CO2 10.9*L, Arterial Blood Partial Pressure O2 178.6H, Arterial Blood Total CO2 3.1L, Arterial Blood HCO3 2.8L, Arterial Blood Base Excess -26.0L, Arterial Blood Oxygen Saturation 99.0 10/18/16 21:10: Prothrombin Time 17.0H, Prothromb Time International Ratio 1.37, Activated Partial Thromboplast Time 30.4, Anion Gap 30H, Glomerular Filtration Rate 56.5, Lactic Acid Level 3.3*H, Blood Urea Nitrogen 32H, Creatinine 1.36H, Sodium Level 136#, Potassium Level 4.6, Chloride Level 101, Carbon Dioxide Level 5L, Calcium Level 7.7L 10/18/16 21:49: Bedside Glucose (Misc Panel) 543*H 10/18/16 22:12: Blood Gas Bicarbonate Standard 7.7L, Arterial Blood pH 7.147*L, Arterial Blood Partial Pressure CO2 11.7*L, Arterial Blood Partial Pressure O2 158.2H, Arterial Blood Total CO2 4.3L, Arterial Blood HCO3 4.0L, Arterial Blood Base Excess -22.7L, Arterial Blood Oxygen Saturation 99.0 10/18/16 23:08: Bedside Glucose (Misc Panel) 545*H 10/18/16 23:19: Blood Gas Bicarbonate Standard 9.9L, Arterial Blood pH 7.250L, Arterial Blood Partial Pressure CO2 13.5*L, Arterial Blood Partial Pressure O2 154.1H, Arterial Blood Total CO2 6.2L, Arterial Blood HCO3 5.8L, Arterial Blood Base Excess -19.3L, Arterial Blood Oxygen Saturation 99.1H 10/19/16 00:00: Anion Gap 23H, Glomerular Filtration Rate > 60.0, Blood Urea Nitrogen 28H, Creatinine 1.19, Sodium Level 138, Potassium Level 4.5, Chloride Level 106, Carbon Dioxide Level 9L, Calcium Level 7.5L, Phosphorus Level 2.3L 10/19/16 00:04: Bedside Glucose (Misc Panel) 471H 10/19/16 01:07: Bedside Glucose (Misc Panel) 393H 10/19/16 02:13: Bedside Glucose (Misc Panel) 319H 10/19/16 03:31: Bedside Glucose (Misc Panel) 298H 10/19/16 04:36: Urine Appearance CLEAR, Urine Color YELLOW, Urine pH 5.0, Urine Specific [place] 1.018, Urine Protein 1+H, Urine Glucose (UA) 3+H, Urine Ketones 2+H, Urine Urobilinogen 0.2, Urine Bilirubin NEGATIVE, Urine Leukocyte Esterase NEGATIVE, Urine Blood 2+H, Urine Nitrite NEGATIVE, Urine WBC (Auto) 3, Urine RBC (Auto) 7H, Urine Hyaline Casts (Auto) 5, Urine Bacteria (Auto) NEGATIVE, Urine Squamous Epithelial Cells 1, Urine Mucus (Auto) SMALL, Urine Sperm (Auto) , Anion Gap 12, Glomerular Filtration Rate > 60.0, Blood Urea Nitrogen 26H, Creatinine 1.17, Sodium Level 144, Potassium Level 4.2, Chloride Level 112H, Carbon Dioxide Level 20L, Calcium Level 7.7L, Urine Amphetamines Screen NEGATIVE , Urine Benzodiazepines Screen POSITIVEH, Urine Opiates Screen NEGATIVE, Urine Methadone Screen NEGATIVE, Urine Barbiturates Screen NEGATIVE, Urine Phencyclidine Screen NEGATIVE, Urine Cocaine Metabolite Screen NEGATIVE, Urine Cannabinoids Screen POSITIVEH 10/19/16 05:07: Bedside Glucose (Misc Panel) 249H 10/19/16 06:06: Bedside Glucose (Misc Panel) 392H 10/19/16 06:08: Bedside Glucose (Misc Panel) 207H 10/19/16 06:13: White Blood Count 8.1, Red Blood Count 2.59L, Hemoglobin 8.9L, Hematocrit 26.1L , Mean Corpuscular Volume 100.5#H, Mean Corpuscular Hemoglobin 34.2H, Mean Corpuscular Hemoglobin Concent 34.0, Red Cell Distribution Width 15.1H, Platelet Count 335, Neutrophils (%) (Auto) 87.2H, Lymphocytes (%) (Auto) 3.9L, Monocytes (%) (Auto) 6.8H, Eosinophils (%) (Auto) 0.1, Basophils (%) (Auto) 0.0 , Neutrophils # (Auto) 7.1, Lymphocytes # (Auto) 0.5L, Monocytes # (Auto) 0.6, Eosinophils # (Auto) 0.0, Basophils # (Auto) 0.0, Large Unclassified Cells % 2.0 , Large Unclassified Cells # 0.2, Anion Gap 11, Glomerular Filtration Rate > 60.0, Blood Urea Nitrogen 26H, Creatinine 1.12, Sodium Level 143, Potassium Level 4.2, Chloride Level 112H, Carbon Dioxide Level 20L, Calcium Level 7.8L, Phosphorus Level 1.2#L, Aspartate Amino Transf (AST/SGOT) 23, Alanine Aminotransferase (ALT/SGPT) 17, Alkaline Phosphatase 85, Total Bilirubin 0.4, Total Protein 5.3L, Albumin 2.9L, Magnesium Level 1.8, Ammonia 15, Albumin/ Globulin Ratio 1.21 10/19/16 07:05: Bedside Glucose (Misc Panel) 207H 10/19/16 08:00: Anion Gap 9, Glomerular Filtration Rate > 60.0, Blood Urea Nitrogen 24H, Creatinine 1.07, Sodium Level 142, Potassium Level 4.1, Chloride Level 112H, Carbon Dioxide Level 21, Calcium Level 7.6L 10/19/16 08:03: Bedside Glucose (Misc Panel) 145H CBC/BMP Laboratory Tests 10/18/16 18:59 Red Blood Count 3.07 L, Mean Corpuscular Volume 116.1 H, Mean Corpuscular Hemoglobin 33.2 H, Mean Corpuscular Hemoglobin Concent 28.6 L, Red Cell Distribution Width 14.9 H 10/18/16 21:10 Calcium Level 7.7 L 10/19/16 00:00 Calcium Level 7.5 L 10/19/16 04:36 Calcium Level 7.7 L 10/19/16 06:13 Red Blood Count 2.59 L, Mean Corpuscular Volume 100.5 #H, Mean Corpuscular Hemoglobin 34.2 H, Mean Corpuscular Hemoglobin Concent 34.0, Red Cell Distribution Width 15.1 H, Neutrophils (%) (Auto) 87.2 H, Lymphocytes (%) (Auto ) 3.9 L, Monocytes (%) (Auto) 6.8 H, Eosinophils (%) (Auto) 0.1, Basophils (%) ( Auto) 0.0, Neutrophils # (Auto) 7.1, Lymphocytes # (Auto) 0.5 L, Monocytes # ( Auto) 0.6, Eosinophils # (Auto) 0.0, Basophils # (Auto) 0.0, Calcium Level 7.8 L , Phosphorus Level 1.2 #L, Aspartate Amino Transf (AST/SGOT) 23, Alanine Aminotransferase (ALT/SGPT) 17, Alkaline Phosphatase 85, Total Bilirubin 0.4, Total Protein 5.3 L, Albumin 2.9 L 10/19/16 08:00 Calcium Level 7.6 L Microbiology Microbiology 10/18/16 Blood Culture, Received Pending 10/18/16 Blood Culture, Received Pending 10/19/16 Urine Culture, Received Pending Milagro Grove October 19, 2016 10:27 VINNY RUELAS MD October 20, 2016 14:30
[2016-10-19] MEDS ORDERED: DOXY-278 PO (10:55)
[2016-10-19 10:57] LABS: ANION GAP 7 MEQ/L (8-16); BLOOD UREA NITROGEN 23 MG/DL (7-18); CALCIUM LEVEL 7.9 MG/DL (8.8-10.2); CARBON DIOXIDE LEVEL 23 MEQ/L (21-32); CHLORIDE LEVEL 111 MEQ/L (98-107); CREATININE FOR GFR 0.99 MG/DL (0.70-1.30); GLOMERULAR FILTRATION RATE > 60.0 (>49); GLUCOSE, FASTING 109 MG/DL (80-110); POTASSIUM SERUM 4.2 MEQ/L (3.5-5.1); SODIUM LEVEL 141 MEQ/L (136-145)
[2016-10-19] MEDS: HumaLOG INSULIN (NovoLOG) PER UNIT SC SCH ×3 (12:00→20:01)
--- NOTE | 2016-10-19 12:07 | REP ---
CT brain without contrast: 10/19/2016. Comparison noncontrast CT brain 09/15/2016, without and with contrast CT brain 03/27/2011. Clinical history confusion. 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 Findings: Noncontrast images through the brain with soft tissue and bone window settings are provided. Lateral ventricles are midline, symmetric, mildly dilated proportionate to the mild diffuse cerebral atrophy. There are some right frontal peripheral and subcortical white matter hypodense areas along with zones of encephalomalacia an AP posterior aspect of the right middle cerebral artery territory with posterior parietal temporal low density appearance as a change from the previous study. This suggests right anterior middle cerebral artery territory interval infarcts or shower of emboli. No hemorrhage. The pattern is not compelling for metastatic disease but some could certainly be hidden by the in the posterior right frontal/anterior temporal lobe larger than on the previous CT in there is a focal zone of atrophy. There are some heterogeneous white matter attenuation changes in the white matter tracts otherwise representing some small vessel white matter ischemic change. These other findings are stable. Brainstem grossly intact cerebellum shows moderately severe atrophy unchanged. No extra-axial hemorrhage is cerebral or cerebellar hemispheres and no intra-axial hemorrhage or mass effect. No midline shift. Third and fourth ventricles mildly prominent but stable. Mastoids and visualized sinuses show no acute finding. No fracture of the skull base or calvarium. There are calcified carotid siphons. Impression: 1. Multiple new areas of low attenuation in the subcortical white matter and cortex of the right anterior and middle cerebral artery territories. Findings suggest subacute infarcts, metastatic disease is somewhat less likely. MRI brain without with contrast would be helpful if the patient is able. There is no bleed, midline shift, mass effect or other interval change. Atrophy cerebral and cerebellar hemispheres stable. No sinus or mastoid abnormalities. Signed by Demetrius Luu MD 10/19/2016 11:58 A
[2016-10-19 14:44] LABS: ANION GAP 9 MEQ/L (8-16); BLOOD UREA NITROGEN 23 MG/DL (7-18); CALCIUM LEVEL 7.8 MG/DL (8.8-10.2); CARBON DIOXIDE LEVEL 23 MEQ/L (21-32); CHLORIDE LEVEL 109 MEQ/L (98-107); CREATININE FOR GFR 0.88 MG/DL (0.70-1.30); GLOMERULAR FILTRATION RATE > 60.0 (>49); GLUCOSE, FASTING 154 MG/DL (80-110); SODIUM LEVEL 141 MEQ/L (136-145)
[2016-10-19] MEDS ORDERED: cefTRIAXone SOD 2 GM VIAL (J0696) IM SCH (16:00)
[2016-10-19] MEDS: cefTRIAXone SOD 2 GM in D5W MINI-BAG PLUS 50 ML IV SCH (16:58)
[2016-10-19 18:24] LABS: ANION GAP 11 MEQ/L (8-16); BLOOD UREA NITROGEN 21 MG/DL (7-18); CALCIUM LEVEL 7.6 MG/DL (8.8-10.2); CARBON DIOXIDE LEVEL 21 MEQ/L (21-32); CHLORIDE LEVEL 109 MEQ/L (98-107); CREATININE FOR GFR 0.81 MG/DL (0.70-1.30); GLOMERULAR FILTRATION RATE > 60.0 (>49); GLUCOSE, FASTING 148 MG/DL (80-110); SODIUM LEVEL 141 MEQ/L (136-145)
[2016-10-20] VITALS: BP 164/88
[2016-10-20 04:00] VITALS: BP 160/88
[2016-10-20 04:46] LABS: BASO % 0.1 % (0.0-1.0); EOS # 0.1 K/mm3 (0.0-0.50); EOS % 0.6 % (0.0-3.0); LARGE UNSTAINED CELL # 0.1 K/mm3 (0.0-0.4); LARGE UNSTAINED CELL % 0.7 % (0.0-4.0); LYMPH # 0.4 K/mm3 (1.5-4.5); MEAN CORPUSCULAR HEMOGLOBIN 32.8 pg (27.0-33.0); MEAN CORPUSCULAR HGB CONC 31.9 g/dl (32.0-36.5); MONO # 0.3 K/mm3 (0.0-0.8); MONO % 3.3 % (0.0-5.0); NEUTROPHILS # 8.8 K/mm3 (1.8-7.7); NEUTROPHILS % 91.3 % (36.0-66.0); PLATELET COUNT, AUTOMATED 286 k/mm3 (150-450); RED CELL DISTRIBUTION WIDTH 15.6 % (11.5-14.5); WHITE BLOOD COUNT 9.6 K/mm3 (4.0-10.0)
--- NOTE | 2016-10-20 05:25 | CR ---
REASON FOR CONSULTATION: Asked to consult by Milagro Grove regarding positive Lyme serology and confusion. HISTORY OF PRESENT ILLNESS: Mr. Husain is a 61-year-old gentleman with a history of uncontrolled insulin-dependent diabetes. Most recent A1c was 8.2, but who has had two admissions for diabetic ketoacidosis. Most recently he was at [facility] on October 02, discharged on October 07, when he was transferred from [facility] with a glucose of 900. He came back to us with a glucose of 600, and he was admitted to the intensive care unit (ICU). He had a head CT which showed subacute infarct versus possible metastasis. While he was in [facility], he was not worked up for his confusion. It was blamed on some possible dementia. He was then seen on October 08 at [facility] again, where a Lyme serology was done and was positive. Patient result just became available, and there was a question whether this is the cause of his confusion. He denies any nausea, vomiting, diarrhea, or abdominal pain. He has no headache. No neck stiffness. There is concern about his confusion. He is anorexic. He has lost a lot of weight. Patient has a history of metastatic squamous cells carcinoma with radical neck dissection in May 2011. At that point he used to weigh 175 pounds. He has lost about 40 pounds since then, but in the past year his weight has fluctuated between 125-140. MEDICAL HISTORY: 1. Insulin-dependent diabetes. 2. Hyperlipidemia. 3. 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 4. Gynecomastia, breast biopsy done February 2011. 5. Anorexia. 6. Hypertension. ALLERGIES: No known drug allergies. MEDICATIONS: - insulin sliding scale - Lovenox 40 mg subcutaneous daily - Protonix 40 mg IV daily - aspirin 81 mg by mouth daily - Lipitor 10 mg by mouth daily - ferrous sulfate 325 mg daily - Advair one puff inhaled twice a day - albuterol two puffs every 6 as needed LABORATORY DATA: White count yesterday was 11.6, today 8.1, hemoglobin 8.9, hematocrit 26.1, platelets 335, 87% neutrophils, 4% lymphocytes, 92% . Sodium 141, potassium 4, chloride 109, bicarbonate 21, BUN 21, creatinine 0.81, glucose 148, calcium 7.6, phosphorus 1.2, magnesium 1.8. AST 23, ALT 17, alkaline phosphatase 85, total protein 5.3, albumin 2.9. Ammonia on 10/18/2016 was 53, and on 10/19/2016 it was 15. Toxicology screen was positive for benzodiazepine and cannabinoids. Beta hydroxybutyrate was 36. Ethyl alcohol was less than 0.03. Tylenol level was 3.3 and salicylate 6.6. Blood cultures, two sets, from October 18 were no growth. Urine culture is pending from October 19. IMAGING DATA: Head CT showed multiple new areas of low attenuation and subcortical white matter in cortex of the right anterior and middle cerebral artery territories. Findings suggestive of subacute infarcts. Metastatic disease is less likely. MRI brain is recommended. There is also atrophy, cerebral and cerebellar hemispheres. Chest x-ray showed no significant left apical pneumothorax. Lung june demonstrate chronic interstitial changes. PHYSICAL EXAMINATION: Anorexic, emaciated gentleman in no acute distress. He is very slow to respond. He is forgetful. When I ask him a question, he forgets half the time what the question is, and then answers most of the time appropriately. Disheveled. Temperature was 92 on admission, currently is 99, pulse 71, respirations 18, blood pressure 130/76, oxygen saturation 100% on room air. HEART: Normal S1, S2, distant. LUNGS: Diminished breath sounds but clear. ABDOMEN: Soft, nontender, emaciated. EXTREMITIES: No edema. NECK: Supple. No stiffness. He has a left radical neck dissection with a brownish discoloration of the left neck where surgery was done. OROPHARYNX: Clear with no thrush. No lesions. He is edentulous. States he has dentures at home that he uses. IMPRESSION: This is a 61-year-old gentleman who seems to have been failing over the past 3- 6 months with weight loss, confusion, and two episodes of diabetic ketoacidosis , requiring admission. This has been treated in the ICU with improvement of his sugars and renal function. The patient's anion gap is 9. He was resuscitated with 2500 mL of fluid. Patient's mental status and confusion need to be further worked up, as his head CT is abnormal, suggests a subacute infarct versus metastatic disease. He has Lyme serology which is positive. If this is chronic Lyme, then it could cause neurocognitive dysfunction, although this is not a typical presentation, but his Lyme serology showed 01/14 Western blot positive. 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 Would send fluid for cell count, total protein, glucose, Gram stain, culture, Lyme serology. This is not bacterial meningitis or herpes encephalitis. Patient does not have a headache or a fever. This is a chronic process. If cell count is abnormal or total protein is abnormal, would also send fungal pathology and acid -fast bacillus (AFB). Also would suggest obtaining an HIV and hepatitis C. MTDD
[2016-10-20 06:02] LABS: ALBUMIN 2.9 GM/DL (3.2-5.2); ALBUMIN/GLOBULIN RATIO 1.16 (1.00-1.93); ALKALINE PHOSPHATASE 90 U/L (45-117); ALT/SGPT 16 U/L (12-78); ANION GAP 17 MEQ/L (8-16); AST/SGOT 22 U/L (15-37); BILIRUBIN,TOTAL 0.4 MG/DL (0.2-1.0); BLOOD UREA NITROGEN 19 MG/DL (7-18); CARBON DIOXIDE LEVEL 17 MEQ/L (21-32); CHLORIDE LEVEL 103 MEQ/L (98-107); CREATININE FOR GFR 0.76 MG/DL (0.70-1.30); GLOMERULAR FILTRATION RATE > 60.0 (>49); GLUCOSE, FASTING 307 MG/DL (80-110); MAGNESIUM LEVEL 1.8 MG/DL (1.8-2.4); POTASSIUM SERUM 4.1 MEQ/L (3.5-5.1); SODIUM LEVEL 137 MEQ/L (136-145); TOTAL PROTEIN 5.4 GM/DL (6.4-8.2)
--- NOTE | 2016-10-20 06:29 | ECGEPIP ---
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
[2016-10-20] MEDS: ADVAIR DISKUS 250/50 INH PWD INH SCH ×2 (07:46→20:16)
[2016-10-20 08:00] VITALS: BP 167/87
--- NOTE | 2016-10-20 08:23 | REP ---
PORTABLE CHEST: CLINICAL: Followup pneumothorax. TECHNIQUE: Portable AP semiupright view. COMPARISON: 10/19/2016 FINDINGS: A left apical chest tube is again identified in stable position. No obvious significant residual pneumothorax is appreciated. Right subclavian catheter with tip in the right atrium. Mediastinum and cardiac silhouette are stable. Lung june demonstrate chronic stable changes without acute consolidation or effusion. IMPRESSION: 1. Left apical chest tube without significant residual pneumothorax identified. 2. Chronic stable changes. No acute cardiopulmonary process otherwise noted. MTDD
[2016-10-20] MEDS: ASPIRIN 81 MG ENTERIC TAB PO SCH (08:42)
[2016-10-20] MEDS: ATORVASTATIN 10 MG TAB PO SCH (08:42)
[2016-10-20] MEDS: FERROUS SULFATE 325MG TAB PO SCH (08:42)
[2016-10-20] MEDS: HumaLOG INSULIN (NovoLOG) PER UNIT SC SCH ×4 (08:43→21:00)
[2016-10-20] MEDS: ENOXAPARIN 40 MG/0.4 ML SYRINGE (J1650) SC SCH (08:43)
[2016-10-20] MEDS: PANTOPRAZOLE 40MG INJ (PROTONIX) (C9113) IV SCH (08:43)
--- NOTE | 2016-10-20 09:41 | IPNPDOC ---
Subjective Date Seen The patient was seen on 10/20/16. Subjective Chief Complaint/HPI The patient is a 61-year-old male admitted with a reason for visit of Diabetic Ketoacidosis. Events since last encounter Blood sugars have been stable. Tolerating po well. Remains in and out of confusion. S/p CT scan of brain. In need of MRI for further investigation into mets/vs infarcts. Chest tube remains in place, patient had a cough with small air leak this am. s/ p ID consult. Patient is pending MRI, LP for further investigation into + Lyme. placed on Rocephin 2 grams IV Constitutional: Denies: Chills, Fever, Night Sweats Skin: Denies: Rash, Lesions, Breakdown Pulmonary: Denies: Dyspnea, Cough Cardiovascular: Denies: Chest Pain, Palpitations, Orthopnea, Paroxysmal Noc. Dyspnea, Lt Headedness Neurological: Reports: Weakness, Confusion Psych: Reports: Mood Normal, Denies: Depression, Memory Issues Objective Physical Examination General Exam: Positive: Alert, No Acute Distress, Other (cachectic) Eye Exam: Positive: PERRLA, Conjunctiva & lids normal, EOMI, Negative: Sclera icteric Neck Exam: Positive: Supple, Negative: JVD, thyromegaly Chest Exam: Positive: Clear to auscultation, Normal air movement, Other (CT LEFT upper chest) Heart Exam: Positive: Rate Normal, Regular Rhythm, Normal S1, Normal S2, Negative: Murmurs, Rubs Telemetry: Positive: No significant arrhythmia Abdomen Exam: Positive: Normal bowel sounds, Soft, Negative: Tenderness, Hepatospenomegaly Skin Exam: Positive: Nl turgor and temperature, Negative: Rash, Breakdown Psych Exam: Positive: Mental status NL, Mood NL, Oriented x 3, Other ( responses are vague. Unable to articulate medical hx. ) Assessment /Plan Problems (1) Lyme disease, acute Status: Acute Problem Specific Plan: Consult Specialist Problem Text: CT head showed subacute infarcts versus metastatic disease. MRI of brain is pending. LP is pending. (2) Diabetic ketoacidosis Status: Resolved Response to Treatment: Improving Problem Specific Plan: Monitor Clinically Problem Text: 10/20/16. DKA has resolved. Has closed. Patient now back on long- acting insulin. Carb consistent diet. (3) HTN (hypertension) Status: Chronic Response to Treatment: Stable Problem Specific Plan: Monitor Clinically (4) COPD (chronic obstructive pulmonary disease) Status: Chronic Response to Treatment: Stable Problem Specific Plan: Monitor Clinically Plan/VTE VTE Prophylaxis Ordered?: Yes (Lovenox) Plan Attending note: I saw and evaluated the patient, and agree with plan of care as discussed and documented by Amy Grove. HIV and hepatitis C labs ordered for workup of anemia of chronic disease and cachexia. MRI brain pending. LP and cell count pending. Infectious disease started ceftriaxone for possible neural Lyme. Vinny Ruelas MD VS, I&O, 24H, Fishbone Vital Signs/I&O Vital Signs Date Time Temp Pulse Resp B/P (MAP) Pulse Ox O2 Delivery O2 Flow Rate FiO2 10/20/16 04:00 99.6 77 18 160/88 (112) 97 Room Air I&O- Last 24 Hours up to 6 AM 10/20/16 06:00 Intake Total 1075 ml Output Total 1895 ml Balance -820 ml Laboratory Data 24H LABS Laboratory Tests 2 10/19/16 10:02: Bedside Glucose (Misc Panel) 142H 10/19/16 10:26: Anion Gap 7L, Glomerular Filtration Rate > 60.0, Blood Urea Nitrogen 23H, Creatinine 0.99, Sodium Level 141, Potassium Level 4.2, Chloride Level 111H, Carbon Dioxide Level 23, Calcium Level 7.9L 10/19/16 12:07: Bedside Glucose (Misc Panel) 123H 10/19/16 13:02: Bedside Glucose (Misc Panel) 130H 10/19/16 14:08: Anion Gap 9, Glomerular Filtration Rate > 60.0, Blood Urea Nitrogen 23H, Creatinine 0.88, Sodium Level 141, Potassium Level 4.0, Chloride Level 109H, Carbon Dioxide Level 23, Calcium Level 7.8L 10/19/16 14:10: Bedside Glucose (Misc Panel) 157H 10/19/16 16:23: Bedside Glucose (Misc Panel) 97 10/19/16 17:47: Bedside Glucose (Misc Panel) 131H 10/19/16 17:49: Anion Gap 11, Glomerular Filtration Rate > 60.0, Blood Urea Nitrogen 21H, Creatinine 0.81, Sodium Level 141, Potassium Level 4.0, Chloride Level 109H, Carbon Dioxide Level 21, Calcium Level 7.6L 10/19/16 20:01: Bedside Glucose (Misc Panel) 71L 10/19/16 22:04: Bedside Glucose (Misc Panel) 167H 10/20/16 04:27: Anion Gap 17H, Glomerular Filtration Rate > 60.0, Blood Urea Nitrogen 19H, Creatinine 0.76, Sodium Level 137, Potassium Level 4.1, Chloride Level 103, Carbon Dioxide Level 17L, Calcium Level 8.0L, Aspartate Amino Transf (AST/SGOT) 22, Alanine Aminotransferase (ALT/SGPT) 16, Alkaline Phosphatase 90, Total Bilirubin 0.4, Total Protein 5.4L, Albumin 2.9L, Magnesium Level 1.8, Albumin/ Globulin Ratio 1.16 10/20/16 04:28: White Blood Count 9.6, Red Blood Count 2.90L, Hemoglobin 9.5L, Hematocrit 29.9L , Mean Corpuscular Volume 103.0H, Mean Corpuscular Hemoglobin 32.8, Mean Corpuscular Hemoglobin Concent 31.9L, Red Cell Distribution Width 15.6H, Platelet Count 286, Neutrophils (%) (Auto) 91.3H, Lymphocytes (%) (Auto) 4.0L, Monocytes (%) (Auto) 3.3, Eosinophils (%) (Auto) 0.6, Basophils (%) (Auto) 0.1, Neutrophils # (Auto) 8.8H, Lymphocytes # (Auto) 0.4L, Monocytes # (Auto) 0.3, Eosinophils # (Auto) 0.1, Basophils # (Auto) 0.0, Large Unclassified Cells % 0.7 , Large Unclassified Cells # 0.1 CBC/BMP Laboratory Tests 10/19/16 10:26 Calcium Level 7.9 L 10/19/16 14:08 Calcium Level 7.8 L 10/19/16 17:49 Calcium Level 7.6 L 10/20/16 04:27 Calcium Level 8.0 L, Aspartate Amino Transf (AST/SGOT) 22, Alanine Aminotransferase (ALT/SGPT) 16, Alkaline Phosphatase 90, Total Bilirubin 0.4, Total Protein 5.4 L, Albumin 2.9 L 10/20/16 04:28 Red Blood Count 2.90 L, Mean Corpuscular Volume 103.0 H, Mean Corpuscular Hemoglobin 32.8, Mean Corpuscular Hemoglobin Concent 31.9 L, Red Cell Distribution Width 15.6 H, Neutrophils (%) (Auto) 91.3 H, Lymphocytes (%) (Auto ) 4.0 L, Monocytes (%) (Auto) 3.3, Eosinophils (%) (Auto) 0.6, Basophils (%) ( Auto) 0.1, Neutrophils # (Auto) 8.8 H, Lymphocytes # (Auto) 0.4 L, Monocytes # ( Auto) 0.3, Eosinophils # (Auto) 0.1, Basophils # (Auto) 0.0 Microbiology Microbiology 10/18/16 Blood Culture - Preliminary, Resulted No growth after 24 hours . All specim... 10/18/16 Blood Culture - Preliminary, Resulted No growth after 24 hours . All specim... 10/19/16 Urine Culture - Final, Complete [place] October 20, 2016 09:41 VINNY RUELAS MD October 20, 2016 14:34
--- NOTE | 2016-10-20 10:03 | IPN ---
DATE: 10/20/2016 Mr. Husain is now in the intensive care unit. He is awake, fairly alert as opposed to last night when he was completely unconscious. His chest tube does not show an air leak and is on 20 cm of suction. The chest x-ray shows his lung fully expanded to the chest wall. PHYSICAL EXAMINATION: Shows equal breath sounds on either side. Percussion note is full to the diaphragm. His chest x-ray shows the lung fully expanded to the chest wall. His right central line is in good place. There is no subcutaneous emphysema. PLAN AND DISCUSSION: I will remove the chest tube from suction today. If there is no leak tomorrow, we will discontinue the chest tube. The remainder of his medical care is left in the hands of the medical service.
[2016-10-20 10:34] LABS: ANION GAP 18 MEQ/L (8-16); BLOOD UREA NITROGEN 17 MG/DL (7-18); CARBON DIOXIDE LEVEL 15 MEQ/L (21-32); CHLORIDE LEVEL 102 MEQ/L (98-107); CREATININE FOR GFR 0.82 MG/DL (0.70-1.30); GLOMERULAR FILTRATION RATE > 60.0 (>49); GLUCOSE, FASTING 295 MG/DL (80-110); POTASSIUM SERUM 3.5 MEQ/L (3.5-5.1); SODIUM LEVEL 135 MEQ/L (136-145)
--- NOTE | 2016-10-20 10:37 | IPN ---
DATE: 10/20/2016 I came in today with the intention of removing the chest tube, however, he now has developed an air leak. Pain is being controlled at the chest tube insertion site and he is not complaining of any shortness of breath. His vital signs show a T-max of 99.6 with a heart rate that ranges between 64 and 75 in a sinus rhythm, respiratory rate of 18 to 16 without the use of accessory muscles who is 100% saturated on room air and has blood pressures ranging between 156/82 to 130/76. Intake and output for the past 24 hours has been recorded as 3081 in and 2520 out for a positivity of 560 mL. He has put out 20 mL from the chest tube and he does have an air leak. PHYSICAL EXAMINATION: His lung show equal breath sounds on either side. Both appear to be equally diminished. Percussion note is full to the diaphragm. Cardiac exam is without murmurs, clicks, gallops or rubs. I cannot feel his PMI. S1 and S2 are normal. Abdomen is soft, nontender, bowel sounds are positive. There is no hepatomegaly. No CVA tenderness. Extremities show no pretibial edema. No calf tenderness. No differential swelling of the upper extremities. Skin is cool, dry and with cyanosis and mottling including that of the nail beds and knees. Neck is supple. There is no jugular venous distention. No subcutaneous emphysema. Trachea is midline. Mouth shows his mucous membranes to be pink and moist. Lips and commissures are without lesions. No thrush. Eyes show his pupils to be equal and reactive. Extraocular motor intact. Sclera anicteric. Neuro shows II through XII intact with gross motor and gross sensation intact. Gait is not tested. Psychiatric shows him to be awake and alert, oriented times three with appropriate mood and affect and conversational. Slightly confused asking if he is going home today. His white count today is 9.6 with hemoglobin and hematocrit of 9.5 and 29.9 down from 10.2 and 35.6 on admission. Platelet count is 286 and differential shows 91% neutrophils, 4% lymphocytes, 3% monocytes. There are no immature forms. No toxic granulations. Electrolytes are normal except for a low total CO2 of 17. BUN and creatinine are 19 and 0.76 respectively with a glucose of 307. Calcium is 8.0 with magnesium of 1.8. There are no blood gases on him today. Chest x-ray today done portably shows his lung fully expanded to the chest wall. I see no subcutaneous emphysema. Costophrenic angles are sharp. There are no infiltrates. The right subclavian line is in good position. Chest tube is in good position right at the apex. IMPRESSION: 1. Alveolar pleural fistula. 2. Diabetic ketoacidosis with continued acidemia. 3. Insulin dependent diabetes. 4. Hyperlipidemia. 5. 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 6. Anorexia. 7. Hypertension. PLAN AND DISCUSSION: As noted above, my intention was to remove the chest tube today, however, he has now developed an air leak. Therefore I will continue his chest tube although I will not place it on suction as his lung is fully expanded to the chest wall. Will change his chest x-rays to PA lateral. DONNIE
[2016-10-20 12:00] VITALS: BP 126/77
[2016-10-20 13:04] LABS: ANION GAP 13 MEQ/L (8-16); BLOOD UREA NITROGEN 16 MG/DL (7-18); CALCIUM LEVEL 8.2 MG/DL (8.8-10.2); CARBON DIOXIDE LEVEL 20 MEQ/L (21-32); CHLORIDE LEVEL 102 MEQ/L (98-107); CREATININE FOR GFR 0.77 MG/DL (0.70-1.30); GLOMERULAR FILTRATION RATE > 60.0 (>49); GLUCOSE, FASTING 250 MG/DL (80-110); POTASSIUM SERUM 3.7 MEQ/L (3.5-5.1); SODIUM LEVEL 135 MEQ/L (136-145)
[2016-10-20 14:25] LABS: GLUCOSE CSF 179 MG/DL (40-75)
[2016-10-20 14:41] LABS: ANION GAP 9 MEQ/L (8-16); BLOOD UREA NITROGEN 16 MG/DL (7-18); CALCIUM LEVEL 8.4 MG/DL (8.8-10.2); CARBON DIOXIDE LEVEL 24 MEQ/L (21-32); CHLORIDE LEVEL 103 MEQ/L (98-107); CREATININE FOR GFR 0.78 MG/DL (0.70-1.30); GLOMERULAR FILTRATION RATE > 60.0 (>49); GLUCOSE, FASTING 198 MG/DL (80-110); POTASSIUM SERUM 3.6 MEQ/L (3.5-5.1); SODIUM LEVEL 136 MEQ/L (136-145)
[2016-10-20 15:18] LABS: RBC CSF AUTO 6 /mm3 (0-0); WBC CSF AUTO 2 /mm3 (0-10)
[2016-10-20 15:19] LABS: RBC CSF AUTO 0 /mm3 (0-0); WBC CSF AUTO 2 /mm3 (0-10)
[2016-10-20 15:21] LABS: APPEARANCE, CSF CLEAR (CLEAR); COLOR, CSF COLORLESS (COLORLESS); CSF TUBE# CELL CNT TUBE 4
[2016-10-20 15:21] LABS: APPEARANCE, CSF CLEAR (CLEAR); COLOR, CSF COLORLESS (COLORLESS); CSF DIFF IF INDICATED? NO (NO); CSF TUBE# CELL CNT TUBE 1
[2016-10-20 15:22] LABS: CSF DIFF IF INDICATED? NO (NO)
[2016-10-20 15:23] LABS: CSF DILUENT LOT # 6165
[2016-10-20 15:23] LABS: CSF DILUENT LOT # 6165
--- NOTE | 2016-10-20 15:53 | IPN ---
DATE: 10/20/2016 Mr. Husain is tolerating oral intake well. He remains confused, although somewhat better. His chest tube is still in place. There was an air leak and therefore it could not be removed. He has no nausea, vomiting, or diarrhea. He is currently day number two of IV Rocephin. MEDICATIONS: - ceftriaxone 2 grams every 24 hours, day number two - insulin sliding scale - Lovenox 40 mg subcutaneous daily - Protonix 40 mg IV daily - aspirin 81 mg daily - Lipitor 10 mg daily - ferrous sulfate - albuterol - Advair LABORATORY DATA: White count is 9.6, hemoglobin 9.5, hematocrit 29.9, platelets 286, 91% neutrophils, 4% lymphocytes. Sodium 136, potassium 3.6, chloride 103, bicarbonate 24, BUN 16, creatinine 0.78, glucose 198, calcium 8.4. Sugars have been ranging between 71 and 167. Blood cultures are no growth times two sets. Urine culture was negative. CSF Gram-stain and culture are pending. CSF was obtained and that had 2 white cells and 0 red cells, but glucose was 174, elevated total protein was high at 102.6. CSF Lyme serology is pending. IMPRESSION: 1. Encephalopathy with positive Lyme serology on serum. Lumbar puncture (LP) has abnormal total protein which could be from Lyme disease versus other possible etiology of confusion. This is not a bacterial infection or a viral encephalitis. There is no pleocytosis. 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 2. History of metastatic squamous cell carcinoma of the left side of the neck. I am not sure if cerebrospinal fluid (CSF) was sent for cytology to rule out leptomeningeal carcinomatosis, that would be on another possibility. Suggest sending some fluid if available. PLAN: Continue IV Rocephin for a total of four weeks. I would agree with peripherally inserted central catheter (PICC) line insertion. Consider HIV and hepatitis C testing if not previously done.
[2016-10-20 16:00] VITALS: BP 124/73
[2016-10-20 16:24] LABS: ANION GAP 8 MEQ/L (8-16); BLOOD UREA NITROGEN 17 MG/DL (7-18); CALCIUM LEVEL 7.9 MG/DL (8.8-10.2); CARBON DIOXIDE LEVEL 25 MEQ/L (21-32); CHLORIDE LEVEL 102 MEQ/L (98-107); CREATININE FOR GFR 0.78 MG/DL (0.70-1.30); GLOMERULAR FILTRATION RATE > 60.0 (>49); GLUCOSE, FASTING 178 MG/DL (80-110); POTASSIUM SERUM 3.7 MEQ/L (3.5-5.1); SODIUM LEVEL 135 MEQ/L (136-145)
[2016-10-20] MEDS: cefTRIAXone SOD 2 GM in D5W MINI-BAG PLUS 50 ML IV SCH (17:37)
[2016-10-20 18:42] LABS: ANION GAP 6 MEQ/L (8-16); BLOOD UREA NITROGEN 17 MG/DL (7-18); CALCIUM LEVEL 7.9 MG/DL (8.8-10.2); CARBON DIOXIDE LEVEL 26 MEQ/L (21-32); CHLORIDE LEVEL 103 MEQ/L (98-107); CREATININE FOR GFR 0.73 MG/DL (0.70-1.30); GLOMERULAR FILTRATION RATE > 60.0 (>49); GLUCOSE, FASTING 145 MG/DL (80-110); POTASSIUM SERUM 3.8 MEQ/L (3.5-5.1); SODIUM LEVEL 135 MEQ/L (136-145)
[2016-10-20 20:00] VITALS: BP 151/88
[2016-10-20 20:06] LABS: ANION GAP 5 MEQ/L (8-16); BLOOD UREA NITROGEN 18 MG/DL (7-18); CARBON DIOXIDE LEVEL 27 MEQ/L (21-32); CHLORIDE LEVEL 103 MEQ/L (98-107); CREATININE FOR GFR 0.67 MG/DL (0.70-1.30); GLOMERULAR FILTRATION RATE > 60.0 (>49); GLUCOSE, FASTING 141 MG/DL (80-110); POTASSIUM SERUM 3.7 MEQ/L (3.5-5.1); SODIUM LEVEL 135 MEQ/L (136-145)
[2016-10-21] VITALS: BP 152/85
[2016-10-21 04:00] VITALS: BP 177/91
[2016-10-21 05:59] LABS: BASO % 0.2 % (0.0-1.0); EOS # 0.1 K/mm3 (0.0-0.50); EOS % 1.3 % (0.0-3.0); LARGE UNSTAINED CELL # 0.1 K/mm3 (0.0-0.4); LARGE UNSTAINED CELL % 0.8 % (0.0-4.0); LYMPH # 0.6 K/mm3 (1.5-4.5); LYMPH % 7.7 % (24.0-44.0); MEAN CORPUSCULAR HEMOGLOBIN 33.3 pg (27.0-33.0); MEAN CORPUSCULAR HGB CONC 32.9 g/dl (32.0-36.5); MEAN CORPUSCULAR VOLUME 101.2 fl (80.0-96.0); MONO # 0.3 K/mm3 (0.0-0.8); MONO % 3.8 % (0.0-5.0); NEUTROPHILS # 6.6 K/mm3 (1.8-7.7); NEUTROPHILS % 86.2 % (36.0-66.0); PLATELET COUNT, AUTOMATED 214 k/mm3 (150-450); RED CELL DISTRIBUTION WIDTH 15.4 % (11.5-14.5); WHITE BLOOD COUNT 7.6 K/mm3 (4.0-10.0)
[2016-10-21 06:21] LABS: ALBUMIN 2.8 GM/DL (3.2-5.2); ALBUMIN/GLOBULIN RATIO 1.04 (1.00-1.93); ALKALINE PHOSPHATASE 95 U/L (45-117); ALT/SGPT 17 U/L (12-78); ANION GAP 8 MEQ/L (8-16); AST/SGOT 13 U/L (15-37); BILIRUBIN,TOTAL 0.5 MG/DL (0.2-1.0); BLOOD UREA NITROGEN 19 MG/DL (7-18); CALCIUM LEVEL 8.2 MG/DL (8.8-10.2); CARBON DIOXIDE LEVEL 25 MEQ/L (21-32); CHLORIDE LEVEL 100 MEQ/L (98-107); CREATININE FOR GFR 0.58 MG/DL (0.70-1.30); GLOMERULAR FILTRATION RATE > 60.0 (>49); GLUCOSE, FASTING 205 MG/DL (80-110); MAGNESIUM LEVEL 1.7 MG/DL (1.8-2.4); POTASSIUM SERUM 4.1 MEQ/L (3.5-5.1); SODIUM LEVEL 133 MEQ/L (136-145); TOTAL PROTEIN 5.5 GM/DL (6.4-8.2)
[2016-10-21] MEDS ORDERED: LISINOPRIL 10 MG TAB PO ONE (06:45)
--- NOTE | 2016-10-21 07:52 | REP ---
Clinical: Altered mental status with abnormal findings on noncontrast head CT. Technique: Standard pre and postcontrast MRI of the brain sequencing using 11 ml ProHance gadolinium based intravenous contrast material. Findings: Multiple small to moderate acute areas of infarction are identified scattered throughout the right cerebral hemisphere primarily involving the right frontal and right parieto-occipital areas. T2-weighted sequences suggest areas of surrounding edema. No significant mass effect or midline shift. No evidence for acute intracranial hemorrhage or extraaxial collection. The ventricles are symmetric. Underlying atrophy and chronic microvascular ischemic changes are appreciated. Postcontrast images without evidence for enhancing mass lesion. Impression: Evidence for acute/subacute areas of infarction involving the right frontal and parieto-occipital lobes. No intracranial hemorrhage, mass effect or mass lesion. No extra-axial collection. No midline shift or hydrocephalus. Signed by Bandar Alejandro MD 10/21/2016 07:43 A
[2016-10-21 08:00] VITALS: BP 141/62
[2016-10-21] MEDS: ADVAIR DISKUS 250/50 INH PWD INH SCH ×2 (08:25→21:21)
[2016-10-21] MEDS: HumaLOG INSULIN (NovoLOG) PER UNIT SC SCH ×4 (08:30→21:00)
[2016-10-21] MEDS: PANTOPRAZOLE 40MG INJ (PROTONIX) (C9113) IV SCH (08:31)
[2016-10-21] MEDS: FERROUS SULFATE 325MG TAB PO SCH (08:31)
[2016-10-21] MEDS: ENOXAPARIN 40 MG/0.4 ML SYRINGE (J1650) SC SCH (08:31)
[2016-10-21] MEDS: ASPIRIN 81 MG ENTERIC TAB PO SCH (08:31)
[2016-10-21] MEDS: ATORVASTATIN 10 MG TAB PO SCH (08:31)
--- NOTE | 2016-10-21 08:34 | REP ---
Clinical: Follow up pneumothorax. Comparison: 10/20/2016. Findings: Left apical chest tube in stable position without significant residual pneumothorax identified. Mediastinum and cardiac silhouette stable. Lung june demonstrate chronic interstitial changes without focal consolidation, effusion, or pneumothorax. Skeletal structures stable. Impression: No obvious residual left apical pneumothorax. No new acute mediastinal or pleuroparenchymal process. Signed by Bandar Alejandro MD 10/21/2016 08:26 A
--- NOTE | 2016-10-21 09:11 | REP ---
Procedure: For guidance for lumbar puncture. History: Mental status change/Lyme disease The procedure was performed under the direct supervision of Dr. King. The risks and benefits of the procedure were explained and informed consent was obtained by the health care proxy. The L 4-5 interspace was localized using fluoroscopic guidance. The skin was prepped and draped in a sterile fashion. 1% lidocaine was used as a local anesthetic. Using fluoroscopic guidance a 22-gauge spinal needle was inserted and advanced into the thecal sac. Opening pressure measured 17 cm of water. 12 ml of spinal fluid was withdrawn and sent to lab. Impression: Opening pressure measured 17 cm of water. The the patient tolerated the procedure well and there were no immediate complications. 13 seconds of fluoro time was utilized for this procedure. Reviewed by PAOLA Martin 10/20/2016 07:19 PSigned by Shun King MD 10/21/2016 09:02 A
--- NOTE | 2016-10-21 09:39 | IPN ---
DATE: 10/21/2016 Mr. Husain still has an air leak today with forceful cough. He is awake and alert but still slightly confusion and asking is he is going to go home today. His extremities are still quite mottled. His vital signs show a T-max of 98.8 with a heart rate that ranges between 72 and 83 in a sinus rhythm, respiratory rate of 18 to 20 without the use of accessory muscles who is 96 to 92% saturated on room air and has blood pressure ranging between 167/87 to 126/77. His intake and output over the past 24 hours has been recorded as 840 in and 1050 out for a negativity of a liter. There is nothing out of the chest tube and he still has an air leak with forceful cough. Weight today is 54.6 kg compared to 54.2 kg yesterday. PHYSICAL EXAMINATION: He has equal breath sounds on either side. The breath sounds are decreased on equality on either side. Percussion note is full to the diaphragm. I hear no wheezes, rhonchi or rales. Cardiac exam is without murmurs, clicks, gallops or rubs. I cannot feel his PMI. S1 and S2 are normal. Abdomen is soft, nontender, bowel sounds are positive. There is no hepatomegaly. No CVA tenderness. Extremities show no pretibial edema. No calf tenderness. No differential swelling of the upper extremities. Skin is cool, mottled including that of the nail beds and knees. He is cyanotic in a mottled pattern. Neck is supple. There is no jugular venous distention. No subcutaneous emphysema. Trachea is midline. He is status post neck dissection on the left side. Mouth shows his mucous membranes to be pink and moist. Lips and commissures are without lesions. No thrush. Eyes show his pupils to be equal and reactive. Extraocular motor intact. Sclera anicteric. Neuro shows II through XII intact with gross motor and gross sensation intact. Gait is not tested. Psychiatric shows him to be awake and alert, oriented times three but still asking if he is going home today, even in the presence of his obvious chest tube. His white count today is 7.6 with hemoglobin and hematocrit of 10.7 and 32.7 respectively. Platelet count is 214. Differential shows 86% neutrophils, 7% lymphocytes, 3% monocytes. There are no immature forms. No toxic granulations. His electrolytes are essentially normal with a marginally low sodium of 133. Total CO2 is now up to 25. BUN and creatinine are 19 and 0.58 respectively with a glucose of 205. Calcium is 8.2 with a magnesium of 1.7. AST and ALT are normal. His albumin is 2.8 with a corresponding calcium of 8.2. His chest x-ray shows the lung fully expanded to the chest wall. I do not see any subcutaneous emphysema. There may or may not be some bullae in the upper lobe, although it is hard to tell and it may be overlying shadows of the bones. He is fairly osteoporotic. Costophrenic angles are sharp. I see no infiltrates. Chest tube is in excellent place at the cupula. IMPRESSION: 1. Alveolar pleural fistula. 2. Diabetic ketoacidosis. 3. Insulin dependent diabetes. 4. Hyperlipidemia. 5. 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 6. Hypertension. 7. Cachexia. PLAN AND DISCUSSION: I will again keep the chest tube off suction and leave the chest tube in place. I am going to obtain a CT without contrast of his chest to see if there are bulla at the top of the lung causing the alveolar pleural fistula.
--- NOTE | 2016-10-21 10:47 | REP ---
Clinical: Pleuroparenchymal fistula. Findings: A left chest tube is identified via anterior approach with through the first intercostal space extending to the apex where a minuscule residual apical pneumothorax is identified. There is a small to moderate amount of subcutaneous emphysema in the left anterior chest wall at the site of the chest tube is identified along with small amount of subcutaneous emphysema in the right thoracic inlet/shoulder. There is a small residual left anterobasilar pneumothorax component as well as small posterior layering left pleural fluid and minimal passive atelectasis. The right hemithorax is relatively well aerated and clear with minimal right posterobasilar atelectasis and dependent pleural reaction. The remainder of lung june are relatively well aerated and without further consolidation, nodule or mass lesion. Tracheobronchial tree appears patent and demonstrates a mild bronchiectasis. Mediastinum demonstrates atherosclerotic changes to the thoracic aorta and coronary arteries without aortic aneurysm, cardiomegaly or pericardial effusion. Limited evaluation of the upper abdomen suggests ascites. The osseous structures demonstrate degenerative changes without evidence for acute fracture. Impression: 1. Chest tube extends to the left apex with miniscule residual left apical pneumothorax and small left anterobasilar pneumothorax along with minimal layering left pleural fluid and trace passive atelectasis. 2. Subcutaneous emphysema as described above. 3. Mild bronchiectasis. Signed by Bandar Alejandro MD 10/21/2016 10:39 A
--- NOTE | 2016-10-21 11:31 | IPNPDOC ---
Subjective Date Seen The patient was seen on 10/21/16. Subjective Chief Complaint/HPI The patient is a 61-year-old male admitted with a reason for visit of Diabetic Ketoacidosis. Events since last encounter Progressive weakness note by nursing staff. Leaning to left. Dropping food/ drinks. Difficulty feeding self. Continues with confusion Constitutional: Denies: Chills, Fever, Night Sweats Skin: Denies: Rash, Lesions, Breakdown Pulmonary: Denies: Dyspnea, Cough Cardiovascular: Denies: Chest Pain, Palpitations, Orthopnea, Paroxysmal Noc. Dyspnea, Lt Headedness Gastrointestinal: Denies: Nausea, Vomiting, Abdominal Pain, Diarrhea, Constipation Genitourinary: Denies: Dysuria, Frequency, Incontinence, Retention Psych: Reports: Memory Issues, Other Psych (confusion) Objective Physical Examination General Exam: Positive: Alert, No Acute Distress, Other (cachectic) Eye Exam: Positive: PERRLA, Conjunctiva & lids normal, EOMI, Negative: Sclera icteric Neck Exam: Positive: Supple, Negative: JVD, thyromegaly Chest Exam: Positive: Clear to auscultation, Normal air movement, Other (CT LEFT upper chest) Heart Exam: Positive: Rate Normal, Regular Rhythm, Normal S1, Normal S2, Negative: Murmurs, Rubs Telemetry: Positive: No significant arrhythmia Abdomen Exam: Positive: Normal bowel sounds, Soft, Negative: Tenderness, Hepatospenomegaly Skin Exam: Positive: Nl turgor and temperature, Negative: Rash, Breakdown Psych Exam: Positive: Mental status NL, Mood NL, Oriented x 3 (Oct, 2016, gloria is president. ), Other (responses are vague. Unable to articulate medical hx. ) Assessment /Plan Problems (1) Lyme disease, acute Status: Acute Problem Specific Plan: Consult Specialist Problem Text: MRI with right frontal and parieto occipital lobe infarctions. neuro consulted. MRA brain and carotids ordered. CT head showed subacute infarcts versus metastatic disease. MRI of brain is pending. LP is pending. (2) Diabetic ketoacidosis Status: Resolved Response to Treatment: Improving Problem Specific Plan: Monitor Clinically Problem Text: 10/20/16. DKA has resolved. Has closed. Patient now back on long- acting insulin. Carb consistent diet. (3) HTN (hypertension) Status: Chronic Response to Treatment: Stable Problem Specific Plan: Monitor Clinically (4) COPD (chronic obstructive pulmonary disease) Status: Chronic Response to Treatment: Stable Problem Specific Plan: Monitor Clinically (5) Ascites Status: Acute Problem Text: Found on CT chest. US abdomen ordered. (6) Pneumothorax Status: Acute Problem Text: chest tube managed by Dr. Babb. CT chest obtained today due to air leak. See report. incidental finding of ascites. (7) Severe protein-calorie malnutrition Status: Acute Problem Text: Glucerna TID (8) Focal infarction of brain Status: Acute Problem Specific Plan: Consult Specialist Problem Text: MRI with right frontal and parieto occipital lobe infarctions. neuro consulted. MRA brain and carotids ordered Plan/VTE VTE Prophylaxis Ordered?: Yes (Lovenox) Plan Attending note: I saw and evaluated the patient, and agree with the plan of care as discussed and documented by Amy Grove. Patient's mentation seems to be improving after initiating ceftriaxone. Patient is severely cachectic, suggestive of severe protein calorie malnutrition. Ordered Glucerna TID. Soha Ruelas MD VS, I&O, [facility]H, [facility] Vital Signs/I&O Vital Signs Date Time Temp Pulse Resp B/P (MAP) Pulse Ox O2 Delivery O2 Flow Rate FiO2 10/21/16 08:00 99.2 73 16 141/62 (88) 98 Room Air I&O- Last 24 Hours up to 6 AM 10/21/16 06:00 Intake Total 840 ml Output Total 975 ml Balance -135 ml Laboratory Data 24H LABS Laboratory Tests 2 10/20/16 12:29: Anion Gap 13, Glomerular Filtration Rate > 60.0, Blood Urea Nitrogen 16, Creatinine 0.77, Sodium Level 135L, Potassium Level 3.7, Chloride Level 102, Carbon Dioxide Level 20L, Calcium Level 8.2L 10/20/16 12:32: CSF Appearance CLEAR, CSF Color COLORLESS, CSF WBC 2, CSF RBC 6H, CSF Glucose ( Tube 1) TUBE 2, CSF Total Protein (Tube 1) TUBE 2, CSF Cell Count Tube # TUBE 1 , CSF Glucose 179H, CSF Total Protein 102.6H 10/20/16 12:33: CSF Appearance CLEAR, CSF Color COLORLESS, CSF WBC 2, CSF RBC 0, CSF Cell Count Tube # TUBE 4 10/20/16 14:02: Anion Gap 9, Glomerular Filtration Rate > 60.0, Blood Urea Nitrogen 16, Creatinine 0.78, Sodium Level 136, Potassium Level 3.6, Chloride Level 103, Carbon Dioxide Level 24, Calcium Level 8.4L 10/20/16 15:54: Anion Gap 8, Glomerular Filtration Rate > 60.0, Blood Urea Nitrogen 17, Creatinine 0.78, Sodium Level 135L, Potassium Level 3.7, Chloride Level 102, Carbon Dioxide Level 25, Calcium Level 7.9L 10/20/16 17:53: Anion Gap 6L, Glomerular Filtration Rate > 60.0, Blood Urea Nitrogen 17, Creatinine 0.73, Sodium Level 135L, Potassium Level 3.8, Chloride Level 103, Carbon Dioxide Level 26, Calcium Level 7.9L 10/20/16 19:33: Anion Gap 5L, Glomerular Filtration Rate > 60.0, Blood Urea Nitrogen 18, Creatinine 0.67L, Sodium Level 135L, Potassium Level 3.7, Chloride Level 103, Carbon Dioxide Level 27, Calcium Level 8.0L 10/20/16 20:58: Bedside Glucose (Misc Panel) 95 10/21/16 05:38: White Blood Count 7.6, Red Blood Count 3.23L, Hemoglobin 10.7L, Hematocrit 32.7L , Mean Corpuscular Volume 101.2H, Mean Corpuscular Hemoglobin 33.3H, Mean Corpuscular Hemoglobin Concent 32.9, Red Cell Distribution Width 15.4H, Platelet Count 214, Neutrophils (%) (Auto) 86.2H, Lymphocytes (%) (Auto) 7.7L, Monocytes (%) (Auto) 3.8, Eosinophils (%) (Auto) 1.3, Basophils (%) (Auto) 0.2, Neutrophils # (Auto) 6.6, Lymphocytes # (Auto) 0.6L, Monocytes # (Auto) 0.3, Eosinophils # (Auto) 0.1, Basophils # (Auto) 0.0, Large Unclassified Cells % 0.8 , Large Unclassified Cells # 0.1, Anion Gap 8, Glomerular Filtration Rate > 60.0 , Blood Urea Nitrogen 19H, Creatinine 0.58L, Sodium Level 133L, Potassium Level 4.1, Chloride Level 100, Carbon Dioxide Level 25, Calcium Level 8.2L, Aspartate Amino Transf (AST/SGOT) 13L, Alanine Aminotransferase (ALT/SGPT) 17, Alkaline Phosphatase 95, Total Bilirubin 0.5, Total Protein 5.5L, Albumin 2.8L, Magnesium Level 1.7L, C-Reactive Protein, Quantitative 0.39H, Albumin/Globulin Ratio 1.04 10/21/16 06:24: Erythrocyte Sedimentation Rate 17 CBC/BMP Laboratory Tests 10/20/16 12:29 Calcium Level 8.2 L 10/20/16 14:02 Calcium Level 8.4 L 10/20/16 15:54 Calcium Level 7.9 L 10/20/16 17:53 Calcium Level 7.9 L 10/20/16 19:33 Calcium Level 8.0 L 10/21/16 05:38 Calcium Level 8.2 L, Red Blood Count 3.23 L, Mean Corpuscular Volume 101.2 H, Mean Corpuscular Hemoglobin 33.3 H, Mean Corpuscular Hemoglobin Concent 32.9, Red Cell Distribution Width 15.4 H, Neutrophils (%) (Auto) 86.2 H, Lymphocytes ( %) (Auto) 7.7 L, Monocytes (%) (Auto) 3.8, Eosinophils (%) (Auto) 1.3, Basophils (%) (Auto) 0.2, Neutrophils # (Auto) 6.6, Lymphocytes # (Auto) 0.6 L, Monocytes # (Auto) 0.3, Eosinophils # (Auto) 0.1, Basophils # (Auto) 0.0, Aspartate Amino Transf (AST/SGOT) 13 L, Alanine Aminotransferase (ALT/SGPT) 17, Alkaline Phosphatase 95, Total Bilirubin 0.5, Total Protein 5.5 L, Albumin 2.8 L Microbiology Microbiology 10/18/16 Blood Culture - Preliminary, Resulted No Growth after 48 hours. All Specime... 10/18/16 Blood Culture - Preliminary, Resulted No Growth after 48 hours. All Specime... 10/20/16 Gram Stain - Final, Resulted 10/20/16 CSF Culture, Resulted Pending 10/19/16 Urine Culture - Final, Complete Milagro [place] October 21, 2016 11:31 SOHA RUELAS MD October 23, 2016 13:27
[2016-10-21 12:00] VITALS: BP 124/76
[2016-10-21 16:00] VITALS: BP 115/74
--- NOTE | 2016-10-21 16:03 | REP ---
MRA BRAIN WITHOUT CONTRAST: 10/21/2016.: Clinical history. Right frontal and prior occipital lobe subacute infarcts on MRI yesterday. Evaluate with MRA brain. Technique: 3-D [id number] gradient echo images with MIP reformatting with rotational display of the volume acquisitions about the longitudinal and horizontal axis of the brain. Wraparound artifact on the source images from the patient's ears projects over both right and left temporal regions peripherally. The volume reconstructions show rotational display about the longitudinal and horizontal axis of the brain. Findings: The posterior fossa demonstrates equal contribution of the vertebral arteries to the basilar artery. There is no basilar stenosis or aneurysm. No basilar tip abnormality. The posterior cerebral artery shows symmetric origin from the basilar tip supply to the posterior fossa. Right internal carotid at the skull base to the carotid siphons without stenosis or aneurysm. Clinoid and intracavernous portions were unremarkable. The A1 and M1 segments were grossly intact. The A2 and M2 segments show no evidence of stenosis or aneurysm. Trifurcation vessels of the middle cerebral were grossly intact. The left internal carotid also demonstrates its course from the skull base to the carotid siphon intact without stenosis or aneurysm. The intracavernous and supraclinoid A1 and M1 segments were all grossly normal. The A2 M2 segments and trifurcation vessels were unremarkable. Impression: 1. No evidence of intracranial aneurysm, vessel cutoff, dissection or stenosis. No vascular malformation or abnormality visible. 2. Negative MRA brain. Signed by Demetrius Luu MD 10/21/2016 05:25 P
--- NOTE | 2016-10-21 16:05 | REP ---
Procedure: PICC line insertion with Jah The procedure was performed under the direct supervision of Dr. King. The risks and benefits of the procedure was explained and informed consent was obtained by the healthcare proxy. The right brachial vein was localized using ultrasound guidance. The skin was prepped and draped in a sterile fashion. 2% lidocaine was used as a local anesthetic. Using ultrasound guidance the brachial vein was cannulated and a 0.018 guidewire was inserted and advanced to the SVC using fluoroscopic guidance. The needle was removed and a 5.5 Greenlandic dilator and peel-away sheath was inserted over the guide wire. A 5.5 Greenlandic dual lumen catheter was cut to length of 44 cm. The dilator was removed and the catheter was inserted over the guide wire with the tip ending in the SVC. The peel-away sheath was removed and the catheter was flushed with heparinized saline as per Hospital protocol. The catheter was affixed to the skin and a sterile dressing was applied. The the patient tolerated the procedure well and there were no immediate complications. 0.2 minutes of fluoro time was utilized for this procedure. Reviewed by PAOLA Martin 10/21/2016 03:36 PSigned by Shun King MD 10/21/2016 03:56 P
[2016-10-21] MEDS: cefTRIAXone SOD 2 GM in D5W MINI-BAG PLUS 50 ML IV SCH (16:47)
--- NOTE | 2016-10-21 17:26 | REP ---
MRA CAROTID WITHOUT AND WITH CONTRAST: 10/21/2016: Clinical history: Recent right frontal lobe infarction. Technique: Axial 2-D [id number]-[id number] without contrast followed by 3-D wcik-kv-qnyizu coronal volume acquisition with a bolus of 25 mL as of ProHance with MIP reformatting of the volume acquisition about the longitudinal and horizontal axis of the neck. Findings: There are three major vessels off the arch of the left subclavian giving rise to the left vertebral artery is typical. There is some stenosis at the origin the left vertebral without post stenotic dilatation. The right vertebral artery arises from the right subclavian without origin stenosis. Both vessels are fairly symmetric and supply to the basilar artery although they each have mild distal stenosis. The basilar artery was smooth and without stenosis or aneurysm. The right common carotid artery arises from the innominate artery without any abnormality. On the CT neck on 02/08/2014, there are some atherosclerotic plaque seen at the bulb and proximal right ICA. Some mild dilatation of that proximal right ICA without visible stenosis. The course of the right ICA is unremarkable to the skull base and carotid siphon. The left common carotid shows its origin directly from the aortic arch with a normal course through the neck bifurcation. There is some atherosclerotic plaque and less than 30% stenosis at the proximal ICA and bulb junction on that left side mid to distal course to the skull base was unremarkable. Impression: 1. Some atherosclerotic plaque in the proximal ICA without significant stenosis at its origin on the right side or on the left side. There is a less than 30% stenosis at the origin of the left ICA from the bulb. Course of both internal carotids is otherwise unremarkable. 2. Symmetric contribution of the vertebral arteries to the basilar artery without basilar stenosis. The distal vertebrals both show mild stenosis. 3. No other significant finding. Signed by Demetrius Luu MD 10/22/2016 10:05 A
--- NOTE | 2016-10-21 19:09 | REP ---
Clinical: Evaluate for possible ascites. Technique: Real time pozo scale evaluation using curved array transducer. Findings: Liver and pancreas are normal in contour, size, echogenicity without focal hepatic or pancreatic lesions identified. The gallbladder is normal and without gallstones, wall thickening, or pericholecystic fluid. The common bile duct is dilated to 10.8 mm. No sonographic Fournier's sign was elicited. The right kidney is normal in reniform shape without hydronephrosis and measures 10.8 x 3.8 x 5.1 cm. Trace infrahepatic free fluid below the threshold for drainage for paracentesis. Impression: Mildly dilated common bile duct. Otherwise essentially normal right upper quadrant ultrasound. Trace free fluid below the threshold for drainage or paracentesis. Signed by Bandar Alejandro MD 10/21/2016 07:01 P
[2016-10-21] MEDS ORDERED: SODIUM CHLORIDE 0.9% INJ 10 ML SYR IV PRN (19:30)
[2016-10-21 20:03] VITALS: BP 115/69
[2016-10-22] VITALS: BP 131/73
[2016-10-22 04:00] VITALS: BP 151/78
[2016-10-22] MEDS: SODIUM CHLORIDE 0.9% INJ 10 ML SYR IV SCH ×2 (05:11→17:35)
[2016-10-22 05:31] LABS: BASO % 0.2 % (0.0-1.0); EOS % 0.8 % (0.0-3.0); LARGE UNSTAINED CELL % 0.9 % (0.0-4.0); LYMPH # 0.4 K/mm3 (1.5-4.5); LYMPH % 8.4 % (24.0-44.0); MEAN CORPUSCULAR HEMOGLOBIN 32.3 pg (27.0-33.0); MEAN CORPUSCULAR HGB CONC 32.2 g/dl (32.0-36.5); MEAN CORPUSCULAR VOLUME 100.3 fl (80.0-96.0); MONO # 0.2 K/mm3 (0.0-0.8); NEUTROPHILS # 3.6 K/mm3 (1.8-7.7); NEUTROPHILS % 85.7 % (36.0-66.0); PLATELET COUNT, AUTOMATED 212 k/mm3 (150-450); RED CELL DISTRIBUTION WIDTH 15.4 % (11.5-14.5); WHITE BLOOD COUNT 4.2 K/mm3 (4.0-10.0)
[2016-10-22 05:50] LABS: ALBUMIN 2.6 GM/DL (3.2-5.2); ALBUMIN/GLOBULIN RATIO 1.04 (1.00-1.93); ALKALINE PHOSPHATASE 81 U/L (45-117); ALT/SGPT 15 U/L (12-78); ANION GAP 12 MEQ/L (8-16); AST/SGOT 8 U/L (15-37); BILIRUBIN,TOTAL 0.5 MG/DL (0.2-1.0); BLOOD UREA NITROGEN 18 MG/DL (7-18); CALCIUM LEVEL 7.5 MG/DL (8.8-10.2); CARBON DIOXIDE LEVEL 23 MEQ/L (21-32); CHLORIDE LEVEL 96 MEQ/L (98-107); CREATININE FOR GFR 0.55 MG/DL (0.70-1.30); GLOMERULAR FILTRATION RATE > 60.0 (>49); GLUCOSE, FASTING 290 MG/DL (80-110); MAGNESIUM LEVEL 1.8 MG/DL (1.8-2.4); SODIUM LEVEL 131 MEQ/L (136-145); TOTAL PROTEIN 5.1 GM/DL (6.4-8.2)
[2016-10-22 08:00] VITALS: BP 132/72
--- NOTE | 2016-10-22 08:34 | CR ---
DATE OF CONSULTATION: 10/21/2016 REFERRING PHYSICIAN: Dr. Lina Waddell. REASON FOR CONSULTATION: Left sided weakness. 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 On presentation, he had altered mental status. He was lethargic. Patient is a poor historian. He is unable to tell me whether he had weakness of his left side of body at home before be came to [facility]. He denies any headaches, neck or back pain. He lives with his . He had a CT scan of head on 10/19/2016 which showed right frontal parietal and posterior temporal subacute ischemic strokes. He had MRI scan of brain same day which showed right frontal parietal and posterior temporal acute-subacute ischemic strokes in watershed areas. MRA brain showed mild internal carotid artery atherosclerosis. MRA of neck also showed mild bilateral internal carotid artery stenosis. He was found to have positive Lyme Western blot for which he has been on antibiotics. He is being seen by Dr. Joyce Back from infectious disease. PAST MEDICAL HISTORY: Type 1 diabetes for 30 years. Hypertension. Dyslipidemia. 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 Glaucoma. Cataract surgery. HOME MEDICATIONS: - aspirin 81 mg by mouth daily - Lipitor 10 mg by mouth daily - insulin Lantus 10 units subcutaneous daily at bedtime - insulin NovoLog 5 units subcutaneous three times daily - Lasix 20 mg by mouth daily SOCIAL HISTORY: He denies smoking. He drinks alcohol 12 years per month. FAMILY HISTORY: Significant for: Diabetes. Vascular disease. Arthritis. Dementia. ALLERGIES: None. REVIEW OF SYSTEMS: All systems were reviewed and found to be noncontributory except as mentioned in history of present illness. PHYSICAL EXAMINATION: Temperature 97.6, pulse 75, respiratory 16, blood pressure 115/74. Heart: Regular rate and rhythm. Lungs: Clear to auscultation. Abdomen: Soft, nontender, nondistended. Neurological exam: Patient is awake, alert, oriented to place, person and time. Normal speech, comprehension and repetition. Extraocular muscles are intact. No facial weakness. Strength in left arm is 4-/5 and left hand 3/5. He has decreased speed of movement and coordination of left hand. Left leg strength is 5/5 throughout. His left plantar is upgoing. Right sided strength is 5/5. He has dysmetria of left arm. Gait was not tested. No gross musculoskeletal abnormalities. Ear, nose, throat examination is within normal limits. He has decreased peripheral pulses. Deep tendon reflexes are 1+ in arms and knees and absent at ankles. DIAGNOSTIC STUDIES: His CT scan and MRI scan of brain are summarized above. His blood sugar was 545 on 10/18/2016. Arterial blood pH 7.14 and arterial blood CO2 11.7. ASSESSMENT: 1. Right frontal parietal and posterior temporal subacute watershed area ischemic strokes. 2. Type 1 diabetes with diabetic ketoacidosis. 3. Possible Lyme disease. PLAN: 1. Aspirin 325 mg by mouth daily. 2. Lipitor 10 mg by mouth daily. 3. Continue appropriate treatment of his diabetic ketoacidosis and optimize his diabetic control with insulin. 4. Physical and occupational therapy and rehabilitation consult. 5. Followup in our office in 2 weeks after hospital discharge.
[2016-10-22] MEDS: HumaLOG INSULIN (NovoLOG) PER UNIT SC SCH ×4 (09:01→21:00)
--- NOTE | 2016-10-22 09:06 | REP ---
Clinical: Bronchopulmonary fistula. Technique: PA and lateral. Comparison: 10/21/2016. Findings: Left apical chest tube in stable position. The minuscule left apical and small left anterobasilar pneumothorax identified on CT dated 10/21/2016 is not visualized by x-ray. A small amount of subcutaneous emphysema along the anterolateral left upper chest wall is again identified. The bilateral aerated lung june are otherwise clear and without new, acute consolidation. No effusion. Mediastinum and cardiac silhouette normal. Right PICC line stable with tip in the SVC. Skeletal structures intact. Impression: 1. No significant change from prior examination. 2. Small amount of subcutaneous emphysema along the left upper lateral chest wall and the previously noted small left pneumothoraces by CT are not visualized by x-ray Signed by Bandar Alejandro MD 10/22/2016 08:57 A
[2016-10-22] MEDS: ADVAIR DISKUS 250/50 INH PWD INH SCH ×2 (09:14→19:38)
[2016-10-22] MEDS: PANTOPRAZOLE 40MG INJ (PROTONIX) (C9113) IV SCH (09:24)
[2016-10-22] MEDS: ENOXAPARIN 40 MG/0.4 ML SYRINGE (J1650) SC SCH (09:24)
[2016-10-22] MEDS: ASPIRIN 81 MG ENTERIC TAB PO SCH (09:28)
[2016-10-22] MEDS: LISINOPRIL 10 MG TAB PO SCH (09:28)
[2016-10-22] MEDS: FERROUS SULFATE 325MG TAB PO SCH (09:28)
[2016-10-22] MEDS: ATORVASTATIN 10 MG TAB PO SCH (09:28)
--- NOTE | 2016-10-22 11:07 | IPNPDOC ---
Subjective Date Seen The patient was seen on 10/22/16. Subjective Chief Complaint/HPI The patient is a 61-year-old male admitted with a reason for visit of Diabetic Ketoacidosis. Events since last encounter Denies c/o. Remains confused. Chest tube has new air leak and new emphysema. Dr. Babb following. s/p Neuro evaluation, recommendations in consult note. Constitutional: Denies: Chills, Fever, Night Sweats ENT: Denies: Head Aches, Ear Pain, Dysphagia Skin: Denies: Rash, Lesions, Breakdown Pulmonary: Reports: Other Symptoms (chest tube), Denies: Dyspnea, Cough Cardiovascular: Denies: Chest Pain, Palpitations, Orthopnea, Paroxysmal Noc. Dyspnea, Lt Headedness Gastrointestinal: Denies: Nausea, Vomiting, Abdominal Pain, Diarrhea, Constipation Genitourinary: Denies: Dysuria, Frequency, Incontinence, Retention Musculoskeletal: Reports: Other Symptoms (weakness) Psych: Reports: Memory Issues Objective Physical Examination General Exam: Positive: Alert, No Acute Distress, Other (cachectic) Eye Exam: Positive: PERRLA, Conjunctiva & lids normal, EOMI, Negative: Sclera icteric Neck Exam: Positive: Supple, Negative: JVD, thyromegaly Chest Exam: Positive: Clear to auscultation, Normal air movement, Other (CT LEFT upper chest) Heart Exam: Positive: Rate Normal, Regular Rhythm, Normal S1, Normal S2, Negative: Murmurs, Rubs Telemetry: Positive: No significant arrhythmia Abdomen Exam: Positive: Normal bowel sounds, Soft, Negative: Tenderness, Hepatospenomegaly Skin Exam: Positive: Nl turgor and temperature, Negative: Rash, Breakdown Psych Exam: Positive: Mental status NL, Mood NL, Oriented x 3 (Oct, 2016, gloria is president. ), Other (responses are vague. Unable to articulate medical hx. ) Assessment /Plan Problems (1) Lyme disease, acute Status: Acute Problem Specific Plan: Consult Specialist Problem Text: MRI with right frontal and parieto occipital lobe infarctions. neuro consulted. MRA brain and carotids ordered. CT head showed subacute infarcts versus metastatic disease. MRI of brain is pending. LP is pending. (2) Diabetic ketoacidosis Status: Resolved Response to Treatment: Improving Problem Specific Plan: Monitor Clinically Problem Text: 10/20/16. DKA has resolved. Has closed. Patient now back on long- acting insulin. Carb consistent diet. (3) HTN (hypertension) Status: Chronic Response to Treatment: Stable Problem Specific Plan: Monitor Clinically (4) COPD (chronic obstructive pulmonary disease) Status: Chronic Response to Treatment: Stable Problem Specific Plan: Monitor Clinically (5) Ascites Status: Acute Problem Text: 10/22/16: US negative for significant amount of fluid. Found on CT chest. US abdomen ordered. (6) Pneumothorax Status: Acute Problem Text: chest tube managed by Dr. Babb. CT chest obtained today due to air leak. See report. incidental finding of ascites. (7) Severe protein-calorie malnutrition Status: Acute (8) Focal infarction of brain Status: Acute Problem Specific Plan: Consult Specialist Problem Text: 10/22/16: PT/OT ordered. Aspirin and atorvastatin. MRI with right frontal and parieto occipital lobe infarctions. neuro consulted. MRA brain and carotids ordered Plan/VTE VTE Prophylaxis Ordered?: Yes (Lovenox) VS, I&O, 24H, Fishbone Vital Signs/I&O Vital Signs Date Time Temp Pulse Resp B/P (MAP) Pulse Ox O2 Delivery O2 Flow Rate FiO2 10/22/16 09:28 132/72 10/22/16 08:00 99.1 84 16 99 Room Air I&O- Last 24 Hours up to 6 AM 10/22/16 06:00 Intake Total 710 ml Output Total 827 ml Balance -117 ml Laboratory Data 24H LABS Laboratory Tests 2 10/21/16 12:08: Bedside Glucose (Misc Panel) 194H 10/21/16 16:43: Bedside Glucose (Misc Panel) 171H 10/21/16 20:53: Bedside Glucose (Misc Panel) 103 10/22/16 05:12: White Blood Count 4.2, Red Blood Count 2.85L, Hemoglobin 9.2L, Hematocrit 28.6L , Mean Corpuscular Volume 100.3H, Mean Corpuscular Hemoglobin 32.3, Mean Corpuscular Hemoglobin Concent 32.2, Red Cell Distribution Width 15.4H, Platelet Count 212, Neutrophils (%) (Auto) 85.7H, Lymphocytes (%) (Auto) 8.4L, Monocytes (%) (Auto) 4.0, Eosinophils (%) (Auto) 0.8, Basophils (%) (Auto) 0.2, Neutrophils # (Auto) 3.6, Lymphocytes # (Auto) 0.4L, Monocytes # (Auto) 0.2, Eosinophils # (Auto) 0.0, Basophils # (Auto) 0.0, Large Unclassified Cells % 0.9 , Large Unclassified Cells # 0.0, Anion Gap 12, Glomerular Filtration Rate > 60.0, Blood Urea Nitrogen 18, Creatinine 0.55L, Sodium Level 131L, Potassium Level 4.0, Chloride Level 96L, Carbon Dioxide Level 23, Calcium Level 7.5L, Aspartate Amino Transf (AST/SGOT) 8L, Alanine Aminotransferase (ALT/SGPT) 15, Alkaline Phosphatase 81, Total Bilirubin 0.5, Total Protein 5.1L, Albumin 2.6L, Magnesium Level 1.8, Albumin/Globulin Ratio 1.04 10/22/16 08:01: Bedside Glucose (Misc Panel) 338H CBC/BMP Laboratory Tests 10/22/16 05:12 Red Blood Count 2.85 L, Mean Corpuscular Volume 100.3 H, Mean Corpuscular Hemoglobin 32.3, Mean Corpuscular Hemoglobin Concent 32.2, Red Cell Distribution Width 15.4 H, Neutrophils (%) (Auto) 85.7 H, Lymphocytes (%) (Auto ) 8.4 L, Monocytes (%) (Auto) 4.0, Eosinophils (%) (Auto) 0.8, Basophils (%) ( Auto) 0.2, Neutrophils # (Auto) 3.6, Lymphocytes # (Auto) 0.4 L, Monocytes # ( Auto) 0.2, Eosinophils # (Auto) 0.0, Basophils # (Auto) 0.0, Calcium Level 7.5 L , Aspartate Amino Transf (AST/SGOT) 8 L, Alanine Aminotransferase (ALT/SGPT) 15 , Alkaline Phosphatase 81, Total Bilirubin 0.5, Total Protein 5.1 L, Albumin 2.6 L Microbiology Microbiology 10/18/16 Blood Culture - Preliminary, Resulted No Growth after 72 hours. All specime... 10/18/16 Blood Culture - Preliminary, Resulted No Growth after 72 hours. All specime... 10/20/16 Gram Stain - Final, Complete 10/20/16 CSF Culture - Final, Complete 10/19/16 Urine Culture - Final, Complete Milagro Grove NUCLEAR ENGINEER October 22, 2016 11:07
[2016-10-22 12:00] VITALS: BP 108/69
[2016-10-22 16:00] VITALS: BP 122/65
--- NOTE | 2016-10-22 16:19 | IPN ---
DATE: 10/22/2016 Mr. Husain still has an air leak with forceful coughing. His vital signs show a maximum temperature (T max) of 99.1 with a heart rate that ranges between 63 and 72 and is sinus rhythm, respiratory rate of 16-22 without the use of accessory muscles, who is 97% saturated on room air and whose blood pressure is ranging between 131/73 to 151/78. His intake and output the past 24 hours has been recorded as 610 in and 450 out for a positivity of 160 mL. He has put nothing out the chest tube. As noted above, there is an air leak. His weight today is 53.6 kg compared to 54.6 kg yesterday. On physical examination, his lungs show equal breath sounds on either side. I hear no wheezes, rhonchi or rales. Percussion note is full to the diaphragm. Cardiac exam is without murmurs, clicks, gallops or rubs. I cannot feel his point of maximum impulse (PMI). S1, S2 normal. Abdomen is soft and nontender but slightly tympanitic. There is no hepatomegaly. No costovertebral angle tenderness. Extremities show no pretibial edema. No calf tenderness. No differential swelling of the upper extremities. His skin is warmer today but still mottled and cyanotic around the knees. Nails and upper extremities look better. Neck is supple. There is no jugular venous distention, no subcutaneous emphysema. Trachea is midline. Mouth shows his mucous membranes to be pink and moist. Lips and commissures without lesions. There is no thrush. Eyes show his pupils to be equal and reactive. Extraocular motions intact. Sclerae anicteric. Neurologic shows II-XII intact along with gross motor and gross sensation intact. Gait is not tested. Psychiatric shows him to be formally awake and alert, knowing time, place and person. He still has an abnormal affect and continues to ask if he is going home today even with his chest tube in. His white count today is 4.2 with a hemoglobin and hematocrit of 9.2 and 28.6, down from 10.7 and 32.7. Platelet count is 212 and differential shows 85% neutrophils, 8% lymphocytes, 4% monocytes. There are no immature forms. No toxic granulations. Electrolytes show a sodium of 131 with the remainder of his electrolytes normal, with a BUN and creatinine of 18 and 0.55, glucose of 290 and a magnesium of 1.8. His calcium is 7.5 with a corresponding albumin of 2.6. I do note that his urine screen was positive for cannabinoids and benzodiazepines upon admission. His HIV antigen antibodies are negative. X-ray today shows his lung fully expanded to the chest wall, good place. Costophrenic angles are sharp. I see no other infiltrates. I did get a chest CT on him yesterday. Again, it shows the chest tube in excellent position. There is a small apical air space at the cupula of the lung along with an anterior air space inferiorly. I have, therefore, placed his chest tube back to suction to get the lung completely up to the chest wall. There were no pulmonary masses and no mediastinal lymphadenopathy. The study was done without contrast. Left adrenal looks to be intact but generous, and I really cannot visualize the right adrenal well. There are no liver lesions seen in that portion of the liver as visualized on the chest CT. IMPRESSION: 1. Pleural fistula, continuing. 2. Diabetic ketoacidosis. 3. Insulin-dependent diabetes. 4. Hyperlipidemia. 5. 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 6. Hypertension. 7. Cachexia. PLAN AND DISCUSSION: I will turn his chest tube back to suction in order to try to get the lung completely back to the chest wall. If the lung does get back to the chest wall, then it should be able to seal the air leak.
[2016-10-22] MEDS: cefTRIAXone SOD 2 GM in D5W MINI-BAG PLUS 50 ML IV SCH (17:35)
[2016-10-22 20:00] VITALS: BP 131/78
[2016-10-23] VITALS (7 sets, daily range): BP systolic 94–128; BP diastolic 58–76; PULSE 88
[2016-10-23 00:06] LABS: CSFLYM10 Absent (.); CSFLYM11 Present (.); CSFLYM12 Positive (.); CSFLYM14 Absent (.); CSFLYM15 Absent (.); CSFLYM16 Absent (.); CSFLYM17 Negative (.); CSFLYM2 Present (.); CSFLYM3 Present (.); CSFLYM4 Present (.); CSFLYM5 Present (.); CSFLYM6 Present (.); CSFLYM7 Present (.); CSFLYM8 Absent (.); CSFLYM9 Present (.)
[2016-10-23] MEDS: SODIUM CHLORIDE 0.9% INJ 10 ML SYR IV SCH ×2 (05:43→17:39)
[2016-10-23 06:02] LABS: BASO % 0.4 % (0.0-1.0); EOS % 1.3 % (0.0-3.0); LARGE UNSTAINED CELL # 0.1 K/mm3 (0.0-0.4); LARGE UNSTAINED CELL % 2.7 % (0.0-4.0); LYMPH # 0.4 K/mm3 (1.5-4.5); LYMPH % 12.8 % (24.0-44.0); MEAN CORPUSCULAR HEMOGLOBIN 33.1 pg (27.0-33.0); MEAN CORPUSCULAR HGB CONC 32.4 g/dl (32.0-36.5); MEAN CORPUSCULAR VOLUME 102.2 fl (80.0-96.0); MONO # 0.2 K/mm3 (0.0-0.8); MONO % 7.1 % (0.0-5.0); NEUTROPHILS # 2.5 K/mm3 (1.8-7.7); NEUTROPHILS % 75.6 % (36.0-66.0); PLATELET COUNT, AUTOMATED 210 k/mm3 (150-450); RED CELL DISTRIBUTION WIDTH 14.9 % (11.5-14.5); WHITE BLOOD COUNT 3.3 K/mm3 (4.0-10.0)
[2016-10-23 06:30] LABS: ALBUMIN 2.6 GM/DL (3.2-5.2); ALBUMIN/GLOBULIN RATIO 0.93 (1.00-1.93); ALKALINE PHOSPHATASE 83 U/L (45-117); ALT/SGPT 14 U/L (12-78); ANION GAP 10 MEQ/L (8-16); AST/SGOT 5 U/L (15-37); BILIRUBIN,TOTAL 0.4 MG/DL (0.2-1.0); BLOOD UREA NITROGEN 12 MG/DL (7-18); CALCIUM LEVEL 8.1 MG/DL (8.8-10.2); CARBON DIOXIDE LEVEL 27 MEQ/L (21-32); CHLORIDE LEVEL 97 MEQ/L (98-107); CREATININE FOR GFR 0.51 MG/DL (0.70-1.30); GLOMERULAR FILTRATION RATE > 60.0 (>49); GLUCOSE, FASTING 193 MG/DL (80-110); MAGNESIUM LEVEL 1.7 MG/DL (1.8-2.4); POTASSIUM SERUM 3.9 MEQ/L (3.5-5.1); SODIUM LEVEL 134 MEQ/L (136-145); TOTAL PROTEIN 5.4 GM/DL (6.4-8.2)
[2016-10-23] MEDS: ADVAIR DISKUS 250/50 INH PWD INH SCH ×2 (07:59→19:48)
--- NOTE | 2016-10-23 08:13 | REP ---
Clinical: Bronchopulmonary fistula. Comparison: 10/22/2016. Findings: Left apical chest tube and right PICC line in stable position. Lateral view suggest small posterobasilar pleural reactions. The bilateral lung june appear well-aerated and without pulmonary parenchymal consolidation. No obvious residual pneumothorax is appreciated. A small amount of subcutaneous emphysema along the lateral chest wall is similar to prior examination. No new acute process identified. Mediastinum and cardiac silhouette stable. Impression: No significant change from prior examination. No new, acute process identified. No obvious pneumothorax appreciated by radiographic evaluation. Signed by Bandar Alejandro MD 10/23/2016 08:05 A
[2016-10-23] MEDS: FERROUS SULFATE 325MG TAB PO SCH (08:31)
[2016-10-23] MEDS: PANTOPRAZOLE 40MG INJ (PROTONIX) (C9113) IV SCH (08:31)
[2016-10-23] MEDS: HumaLOG INSULIN (NovoLOG) PER UNIT SC SCH ×4 (08:31→20:46)
[2016-10-23] MEDS: ASPIRIN 325 MG TAB PO SCH (08:31)
[2016-10-23] MEDS: ATORVASTATIN 10 MG TAB PO SCH (08:31)
[2016-10-23] MEDS: LISINOPRIL 10 MG TAB PO SCH (08:32)
[2016-10-23] MEDS: ENOXAPARIN 40 MG/0.4 ML SYRINGE (J1650) SC SCH (08:32)
--- NOTE | 2016-10-23 10:36 | IPNPDOC ---
Subjective Date Seen The patient was seen on 10/23/16. Subjective Chief Complaint/HPI The patient is a 61-year-old male admitted with a reason for visit of Diabetic Ketoacidosis. Events since last encounter Blood sugars continue to fluctuate. Mentation slowly improving. responses remain vague. CT with air leak and waiting for resolve to remove. PICC line in place: plan is for Ceftriaxine 2 grams daily x 28 days for lyme. Per PT: appropriate for subacute rehab when medically stable. General: Denies: Normal Appetite Constitutional: Denies: Chills, Fever, Night Sweats Skin: Denies: Rash, Lesions, Breakdown Pulmonary: Reports: Other Symptoms (Chest tube), Denies: Dyspnea, Cough Gastrointestinal: Denies: Nausea, Vomiting, Abdominal Pain, Diarrhea, Constipation Genitourinary: Denies: Dysuria, Frequency, Incontinence, Retention Psych: Reports: Mood Normal Objective Physical Examination General Exam: Positive: Alert, No Acute Distress, Other (cachectic) Eye Exam: Positive: PERRLA, Conjunctiva & lids normal, EOMI, Negative: Sclera icteric Neck Exam: Positive: Supple, Negative: JVD, thyromegaly Chest Exam: Positive: Clear to auscultation, Normal air movement, Other (CT LEFT upper chest) Heart Exam: Positive: Rate Normal, Regular Rhythm, Normal S1, Normal S2, Negative: Murmurs, Rubs Telemetry: Positive: No significant arrhythmia Abdomen Exam: Positive: Normal bowel sounds, Soft, Negative: Tenderness, Hepatospenomegaly Skin Exam: Positive: Nl turgor and temperature, Negative: Rash, Breakdown Psych Exam: Positive: Mental status NL, Mood NL, Oriented x 3 (Oct, 2016, gloria is president. ), Other (responses are vague. Unable to articulate medical hx. ) Assessment /Plan Problems (1) Lyme disease, acute Status: Acute Problem Specific Plan: Consult Specialist Problem Text: MRI with right frontal and parieto occipital lobe infarctions. neuro consulted. MRA brain and carotids ordered. LP had elevated protein, consistent with possible neural Lyme. Patient was started on ceftriaxone. Per ID , patient will be on ceftriaxone for 28 days. Mentation seems to be clearing. (2) Pneumothorax Status: Acute Problem Text: chest tube managed by Dr. Babb. CT chest obtained today due to air leak. See report. incidental finding of ascites. (3) Severe protein-calorie malnutrition Status: Acute Problem Text: Glucerdominic gonzalez tid. HIV and hepatitis C negative. No Virchow's node palpated. (4) COPD (chronic obstructive pulmonary disease) Status: Chronic Response to Treatment: Stable Problem Specific Plan: Monitor Clinically (5) HTN (hypertension) Status: Chronic Response to Treatment: Stable Problem Specific Plan: Monitor Clinically (6) Focal infarction of brain Status: Acute Problem Specific Plan: Consult Specialist Problem Text: 10/23/2016: see PT Note. patient deviating to LEFT. Good candidate for subacute rehab. - echo 10/22/16: PT/OT ordered. Aspirin and atorvastatin. MRI with right frontal and parieto occipital lobe infarctions. neuro consulted. MRA brain and carotids ordered (7) Diabetic ketoacidosis Status: Resolved Response to Treatment: Improving Problem Specific Plan: Monitor Clinically Problem Text: 10/20/16. DKA has resolved. Has closed. Patient now back on long- acting insulin. Carb consistent diet. (8) Ascites Status: Acute Problem Text: 10/22/16: US negative for significant amount of fluid. Found on CT chest. US abdomen ordered. Plan/VTE VTE Prophylaxis Ordered?: Yes (Lovenox) Plan Attending note: I saw and evaluated the patient, and agree with plan of care as discussed and documented by Amy Grove. Patient has been evaluated with MRI and MRA. There is insignificant stenosis of the carotids and basilar artery. MRI shows acute/ subacute areas of infarction involving the right frontal and parietal occipital lobes. Patient has not yet been evaluated with echocardiogram, so this was ordered. Could possibly be contributing to the patient's cachexia, although it seems by mouth intake is poor. Will add mirtazapine and dietary consult. Soha Webb MD VS, I&O, [facility]H, [facility] Vital Signs/I&O Vital Signs Date Time Temp Pulse Resp B/P (MAP) Pulse Ox O2 Delivery O2 Flow Rate FiO2 10/23/16 08:32 123/75 10/23/16 08:00 Room Air 10/23/16 08:00 99.1 80 20 97 I&O- Last 24 Hours up to 6 AM 10/23/16 06:00 Intake Total 1480 ml Output Total 1154 ml Balance 326 ml Laboratory Data 24H LABS Laboratory Tests 2 10/22/16 12:13: Bedside Glucose (Misc Panel) 239H 10/22/16 16:46: Bedside Glucose (Misc Panel) 134H 10/22/16 21:06: Bedside Glucose (Misc Panel) 583*H 10/22/16 23:28: Bedside Glucose (Misc Panel) 246H 10/23/16 05:43: White Blood Count 3.3L, Red Blood Count 2.81L, Hemoglobin 9.3L, Hematocrit 28.7L , Mean Corpuscular Volume 102.2H, Mean Corpuscular Hemoglobin 33.1H, Mean Corpuscular Hemoglobin Concent 32.4, Red Cell Distribution Width 14.9H, Platelet Count 210, Neutrophils (%) (Auto) 75.6H, Lymphocytes (%) (Auto) 12.8L, Monocytes (%) (Auto) 7.1H, Eosinophils (%) (Auto) 1.3, Basophils (%) (Auto) 0.4 , Neutrophils # (Auto) 2.5, Lymphocytes # (Auto) 0.4L, Monocytes # (Auto) 0.2, Eosinophils # (Auto) 0.0, Basophils # (Auto) 0.0, Large Unclassified Cells % 2.7 , Large Unclassified Cells # 0.1, Anion Gap 10, Glomerular Filtration Rate > 60.0, Blood Urea Nitrogen 12, Creatinine 0.51L, Sodium Level 134L, Potassium Level 3.9, Chloride Level 97L, Carbon Dioxide Level 27, Calcium Level 8.1L, Aspartate Amino Transf (AST/SGOT) 5L, Alanine Aminotransferase (ALT/SGPT) 14, Alkaline Phosphatase 83, Total Bilirubin 0.4, Total Protein 5.4L, Albumin 2.6L, Magnesium Level 1.7L, Albumin/Globulin Ratio 0.93L CBC/BMP Laboratory Tests 10/23/16 05:43 Red Blood Count 2.81 L, Mean Corpuscular Volume 102.2 H, Mean Corpuscular Hemoglobin 33.1 H, Mean Corpuscular Hemoglobin Concent 32.4, Red Cell Distribution Width 14.9 H, Neutrophils (%) (Auto) 75.6 H, Lymphocytes (%) (Auto ) 12.8 L, Monocytes (%) (Auto) 7.1 H, Eosinophils (%) (Auto) 1.3, Basophils (%) (Auto) 0.4, Neutrophils # (Auto) 2.5, Lymphocytes # (Auto) 0.4 L, Monocytes # ( Auto) 0.2, Eosinophils # (Auto) 0.0, Basophils # (Auto) 0.0, Calcium Level 8.1 L , Aspartate Amino Transf (AST/SGOT) 5 L, Alanine Aminotransferase (ALT/SGPT) 14 , Alkaline Phosphatase 83, Total Bilirubin 0.4, Total Protein 5.4 L, Albumin 2.6 L Microbiology Microbiology 10/18/16 Blood Culture - Preliminary, Resulted No Growth after 72 hours. All specime... 10/18/16 Blood Culture - Preliminary, Resulted No Growth after 72 hours. All specime... 10/20/16 Gram Stain - Final, Complete 10/20/16 CSF Culture - Final, Complete 10/19/16 Urine Culture - Final, Complete Milagro Grove October 23, 2016 10:36 SOHA WEBB MD October 23, 2016 13:43
--- NOTE | 2016-10-23 16:11 | REP ---
Clinical: Left upper extremity pain. Technique: Newell scale and color Doppler evaluation using linear high frequency transducer. Findings: Ultrasound examination of the left upper extremity deep venous structures from the jugular, subclavian, axillary, brachial, basilic, and cephalic veins demonstrate normal compressibility, flow and wave patterns in response to respiration and augmentation. There is no evidence for deep venous thrombosis. Impression: No evidence for deep venous thrombosis involving the left upper extremity. Signed by Bandar Alejandro MD 10/23/2016 04:02 P
--- NOTE | 2016-10-23 16:18 | IPN ---
DATE: 10/23/2016 Mr. Husain is no longer leaking from his chest tube after placing him back on suction. His pain is being well controlled at the chest tube insertion site. His vital signs show a maximum temperature (T max) of 99.1 with a heart rate that ranges between 70 and 80 in a sinus rhythm with a respiratory rate of 20 to 22 without the use of accessory muscles, who is 97% to 96% saturated on room air and whose blood pressure is ranging between 122/65 to 131/78. His intake and output the past 24 hours has been recorded as 1530 in and 977 out for a positivity of 553 mL. He has taken in now 1480 mL in by mouth intake. He has had 2 mL out of the chest tube and there is no air leak. On physical examination, his lungs show equal breath sounds on either side with normal vesicular sounds without wheezes, rhonchi or rales. Cardiac exam shows distant heart sounds without murmurs, clicks, gallops or rubs. I cannot feel his point of maximum impulse (PMI). S1, S2 normal. Abdomen is soft and nontender and bowel sounds are positive. There is no hepatomegaly. No costovertebral angle tenderness. Extremities show no pretibial edema. No calf tenderness. No differential swelling of the upper extremities. His skin is warm, dry and perfused without cyanosis or mottling including the nail bed and knees. Neck is supple. There is no jugular venous distention, no subcutaneous emphysema. Trachea is midline. Mouth shows his mucous membranes to be pink and moist. Lips and commissures without lesions. There is no thrush. Eyes show his pupils to be equal and reactive. Extraocular motions intact. Sclerae anicteric. Neurologic shows II-XII intact along with gross motor and gross sensation intact. Gait is not tested. Psychiatric shows him to be awake, alert, and oriented times three with appropriate mood and affect and conversational. His white count today is 3.3 with a hemoglobin and hematocrit of 9.3 and 28.7, unchanged from yesterday with a platelet count of 210. Differential shows 75% neutrophils, 12% lymphocytes, 7% monocytes. There are no immature forms. No toxic granulations. There are no blood gases on him today. Electrolytes show a marginally low sodium of 134 with the remainder of his electrolytes normal. BUN and creatinine of 12 and 0.51. Calcium is 8.1 with magnesium of 1.7. Albumin is 2.6 with a corresponding calcium of 8.1. His chest x-ray today shows his lung fully expanded to the chest wall, what little subcutaneous emphysema seen yesterday is even better today. No infiltrates. Costophrenic angles are sharp. IMPRESSION: 1. Alveolar pleural fistula, hopefully resolved. 2. Diabetic ketoacidosis, resolving. 3. Insulin-dependent diabetes. 4. Hyperlipidemia. 5. 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 6. Hypertension. 7. Cachexia. 8. Swollen left hand. PLAN AND DISCUSSION: As noted above I will keep the chest tube on suction today. I will obtain a ultrasound of his upper extremity. The hand does not look infected. The nurses tell me there was not an IV in there, so I can not assign that as a cause. He has full range of motion of the fingers without pain.
[2016-10-23] MEDS: cefTRIAXone SOD 2 GM in D5W MINI-BAG PLUS 50 ML IV SCH (17:38)
[2016-10-23] MEDS: MIRTAZAPINE 15 MG TAB PO SCH (20:46)
[2016-10-23] MEDS: MUPIROCIN 2% OINT 22 GM TUBE TOP SCH (23:55)
[2016-10-24] VITALS (8 sets, daily range): BP systolic 97–197; BP diastolic 55–91; PULSE 62–66
[2016-10-24] MEDS: SODIUM CHLORIDE 0.9% INJ 10 ML SYR IV SCH ×2 (06:00→17:28)
[2016-10-24] MEDS: ADVAIR DISKUS 250/50 INH PWD INH SCH ×2 (08:18→19:45)
--- NOTE | 2016-10-24 08:34 | REP ---
Clinical: Bronchopulmonary fistula. Comparison: 10/23/2016. Findings: Left apical chest tube is again appreciated. Right PICC line with tip in the SVC stable. Mediastinum and cardiac silhouette are within normal limits. There is loss of the left costophrenic angle suggesting increased anterobasilar portion of the previously noted pneumothorax. There is no new acute consolidation. Skeletal structures are intact. Small amount of subcutaneous emphysema along the left lateral chest wall is again noted. Impression: Findings raise the possibility of increased left anterobasilar pneumothorax. Signed by Bandar Alejandro MD 10/24/2016 08:25 A
[2016-10-24 09:18] LABS: BASO % 0.1 % (0.0-1.0); EOS # 0.1 K/mm3 (0.0-0.50); EOS % 1.1 % (0.0-3.0); LARGE UNSTAINED CELL # 0.1 K/mm3 (0.0-0.4); LARGE UNSTAINED CELL % 1.1 % (0.0-4.0); LYMPH # 0.4 K/mm3 (1.5-4.5); LYMPH % 6.3 % (24.0-44.0); MEAN CORPUSCULAR HEMOGLOBIN 33.2 pg (27.0-33.0); MEAN CORPUSCULAR HGB CONC 31.3 g/dl (32.0-36.5); MEAN CORPUSCULAR VOLUME 105.8 fl (80.0-96.0); MONO # 0.2 K/mm3 (0.0-0.8); MONO % 3.5 % (0.0-5.0); NEUTROPHILS # 5.2 K/mm3 (1.8-7.7); NEUTROPHILS % 87.9 % (36.0-66.0); PLATELET COUNT, AUTOMATED 267 k/mm3 (150-450); RED CELL DISTRIBUTION WIDTH 15.1 % (11.5-14.5); WHITE BLOOD COUNT 5.9 K/mm3 (4.0-10.0)
[2016-10-24] MEDS: ASPIRIN 325 MG TAB PO SCH (09:33)
[2016-10-24] MEDS: FERROUS SULFATE 325MG TAB PO SCH (09:33)
[2016-10-24] MEDS: ATORVASTATIN 10 MG TAB PO SCH (09:33)
[2016-10-24] MEDS: HumaLOG INSULIN (NovoLOG) PER UNIT SC SCH ×4 (09:33→21:00)
[2016-10-24] MEDS: LISINOPRIL 10 MG TAB PO SCH (09:33)
[2016-10-24] MEDS: PANTOPRAZOLE 40MG INJ (PROTONIX) (C9113) IV SCH (09:33)
[2016-10-24] MEDS: ENOXAPARIN 40 MG/0.4 ML SYRINGE (J1650) SC SCH (09:34)
[2016-10-24] MEDS: MUPIROCIN 2% OINT 22 GM TUBE TOP SCH ×3 (09:34→21:19)
[2016-10-24 09:43] LABS: ALBUMIN 2.9 GM/DL (3.2-5.2); ALBUMIN/GLOBULIN RATIO 1.04 (1.00-1.93); ALKALINE PHOSPHATASE 103 U/L (45-117); ALT/SGPT 15 U/L (12-78); ANION GAP 15 MEQ/L (8-16); AST/SGOT 7 U/L (15-37); BILIRUBIN,TOTAL 0.4 MG/DL (0.2-1.0); BLOOD UREA NITROGEN 17 MG/DL (7-18); CALCIUM LEVEL 7.9 MG/DL (8.8-10.2); CARBON DIOXIDE LEVEL 23 MEQ/L (21-32); CHLORIDE LEVEL 95 MEQ/L (98-107); CREATININE FOR GFR 0.66 MG/DL (0.70-1.30); GLOMERULAR FILTRATION RATE > 60.0 (>49); POTASSIUM SERUM 4.5 MEQ/L (3.5-5.1); SODIUM LEVEL 133 MEQ/L (136-145); TOTAL PROTEIN 5.7 GM/DL (6.4-8.2)
[2016-10-24 10:06] LABS: GLUCOSE, FASTING 410 MG/DL (80-110)
--- NOTE | 2016-10-24 12:42 | IPNPDOC ---
Subjective Date Seen The patient was seen on 10/24/16. Subjective Chief Complaint/HPI The patient is a 61-year-old male admitted with a reason for visit of Diabetic Ketoacidosis. Objective Physical Examination General Exam: Positive: Alert, No Acute Distress, Other (cachectic) Eye Exam: Positive: PERRLA, Conjunctiva & lids normal, EOMI, Negative: Sclera icteric Neck Exam: Positive: Supple, Negative: JVD, thyromegaly Chest Exam: Positive: Clear to auscultation, Normal air movement, Other (CT LEFT upper chest) Heart Exam: Positive: Rate Normal, Regular Rhythm, Normal S1, Normal S2, Negative: Murmurs, Rubs Telemetry: Positive: No significant arrhythmia Abdomen Exam: Positive: Normal bowel sounds, Soft, Negative: Tenderness, Hepatospenomegaly Skin Exam: Positive: Nl turgor and temperature, Negative: Rash, Breakdown Psych Exam: Positive: Mental status NL, Mood NL, Oriented x 3 (Oct, 2016, gloria is president. ), Other (responses are vague. Unable to articulate medical hx. ) Assessment /Plan Problems (1) CVA (cerebral vascular accident) Status: Acute Response to Treatment: Improving Problem Text: aspirin 81 (HD) increased to 325/atorva 10 (HD) increased to 40 PT/OT, favor STR given need of IV abx 10/19/16 MRI brain acute/subacute areas of infarction involving the right frontal /parietal/occipital lobes (2) Lyme disease, acute Status: Acute Problem Specific Plan: Consult Specialist Problem Text: ceftriaxone 2 IV QD D6/28 per ID MRI with right frontal and parieto occipital lobe infarctions. neuro consulted. LP had elevated protein, consistent with possible neural Lyme. Mentation seems to be clearing. (3) Pneumothorax Status: Acute Problem Text: 2 alveolar-pleural fistula 10/24 CXR increased PTX chest tube managed by Dr. Babb. (4) Severe protein-calorie malnutrition Status: Acute Problem Text: Glucerna shakes tid. HIV and hepatitis C negative. No Virchow's node palpated. (5) COPD (chronic obstructive pulmonary disease) Status: Chronic Response to Treatment: Stable Problem Specific Plan: Monitor Clinically (6) HTN (hypertension) Status: Chronic Response to Treatment: Stable Problem Specific Plan: Monitor Clinically (7) T2DM (type 2 diabetes mellitus) Status: Chronic Problem Text: T2DM insulin dependent-HD Lantus 10 qhs, Novolog 10 TID 10/2016 A1C 8.9 and presented in DKA 10/24 BS 200-low 400s on only SSNI, restart HD basal Plan/VTE VTE Prophylaxis Ordered?: Yes (Lovenox) Disposition 10/22 PT not safe-STR vs home c services VS, I&O, 24H, Fishbone Vital Signs/I&O Vital Signs Date Time Temp Pulse Resp B/P (MAP) Pulse Ox O2 Delivery O2 Flow Rate FiO2 10/24/16 09:33 152/91 10/24/16 08:26 Nasal Cannula 2.0 10/24/16 08:00 98.6 75 22 90 I&O- Last 24 Hours up to 6 AM 10/24/16 06:00 Intake Total 1200 ml Output Total 1175 ml Balance 25 ml Laboratory Data 24H LABS Laboratory Tests 2 10/23/16 16:29: Bedside Glucose (Misc Panel) 184H 10/23/16 20:17: Bedside Glucose (Misc Panel) 229H 10/24/16 07:39: Bedside Glucose (Misc Panel) 426H 10/24/16 08:55: White Blood Count 5.9, Red Blood Count 3.02L, Hemoglobin 10.0L, Hematocrit 32.0L , Mean Corpuscular Volume 105.8H, Mean Corpuscular Hemoglobin 33.2H, Mean Corpuscular Hemoglobin Concent 31.3L, Red Cell Distribution Width 15.1H, Platelet Count 267, Neutrophils (%) (Auto) 87.9H, Lymphocytes (%) (Auto) 6.3L, Monocytes (%) (Auto) 3.5, Eosinophils (%) (Auto) 1.1, Basophils (%) (Auto) 0.1, Neutrophils # (Auto) 5.2, Lymphocytes # (Auto) 0.4L, Monocytes # (Auto) 0.2, Eosinophils # (Auto) 0.1, Basophils # (Auto) 0.0, Large Unclassified Cells % 1.1 , Large Unclassified Cells # 0.1, Anion Gap 15, Glomerular Filtration Rate > 60.0, Blood Urea Nitrogen 17, Creatinine 0.66L, Sodium Level 133L, Potassium Level 4.5, Chloride Level 95L, Carbon Dioxide Level 23, Calcium Level 7.9L, Aspartate Amino Transf (AST/SGOT) 7L, Alanine Aminotransferase (ALT/SGPT) 15, Alkaline Phosphatase 103, Total Bilirubin 0.4, Total Protein 5.7L, Albumin 2.9L , Magnesium Level 2.0, Albumin/Globulin Ratio 1.04 10/24/16 11:29: [facility] CBC/BMP Laboratory Tests 10/24/16 08:55 Red Blood Count 3.02 L, Mean Corpuscular Volume 105.8 H, Mean Corpuscular Hemoglobin 33.2 H, Mean Corpuscular Hemoglobin Concent 31.3 L, Red Cell Distribution Width 15.1 H, Neutrophils (%) (Auto) 87.9 H, Lymphocytes (%) (Auto ) 6.3 L, Monocytes (%) (Auto) 3.5, Eosinophils (%) (Auto) 1.1, Basophils (%) ( Auto) 0.1, Neutrophils # (Auto) 5.2, Lymphocytes # (Auto) 0.4 L, Monocytes # ( Auto) 0.2, Eosinophils # (Auto) 0.1, Basophils # (Auto) 0.0, Calcium Level 7.9 L , Aspartate Amino Transf (AST/SGOT) 7 L, Alanine Aminotransferase (ALT/SGPT) 15 , Alkaline Phosphatase 103, Total Bilirubin 0.4, Total Protein 5.7 L, Albumin 2.9 L Microbiology Microbiology 10/18/16 Blood Culture - Final, Complete NO GROWTH AFTER 5 DAYS 10/18/16 Blood Culture - Final, Complete NO GROWTH AFTER 5 DAYS 10/20/16 Gram Stain - Final, Complete 10/20/16 CSF Culture - Final, Complete 10/19/16 Urine Culture - Final, Complete Aamir Lopez M.D. October 24, 2016 12:42
--- NOTE | 2016-10-24 15:21 | ECHO ---
DATE OF PROCEDURE: 10/24/2016 HEIGHT: 74 inches. WEIGHT: 119 pounds. BODY SURFACE AREA: 1.74 meters squared LOCATION: Inpatient PCU room 3221 REFERRING PHYSICIAN: Dr. Vinny Webb INDICATIONS: CVA? cardiac source of embolic material. MEASUREMENTS: 2-D Measurements: RV - 3.0 cm LV - 3.1 cm Septum - 1.0 cm Posterior wall - 1.0 cm Aortic root - 2.2 cm LA - 3.4 cm LVEF - 75% DOPPLER MEASUREMENTS: AV - 1.9 meters per second LVOT - 1.1 meters per second MV - E 76, A - 70, E/A ratio 1.1 Early mitral deceleration time not measured. E prime - 9.2, A prime -14, E/E prime ratio - 8.3 PV - 1.2 meters per second Pulmonary artery acceleration time 86 milliseconds Unable to measure right ventricular systolic pressure. COMMENTS: Normal sinus rhythm. Sinus tachycardia without intraventricular conduction disturbance. Technically challenging study in light of the patient's left upper anterior chest tube and dressing. Diagnostically useful information was obtained from the subcostal projections. Normal cardiac chamber sizes and wall thickness. From the subcostal projections wall motion appeared to be symmetrical and hyperkinetic. Slightly thickened mitral annulus but normal leaflet thickness. Aortic valve also appeared to be marginally thickened with adequate cusp separation. Normal aortic root size. Minuscule pericardial effusion. No apparent intracardiac mass. Color flow Doppler study taken from the parasternal and subcostal projections failed to show any significant valvular insufficiency. Guided continuous wave Doppler of his aortic valve showed a peak systolic velocity upper limits of normal against any significant degree of LV outflow tract obstruction. Pulsed and continuous wave Doppler of his LV inflow tract taken from the apical four-chamber projection showed normal diastolic filling velocities against mitral stenosis. The filling pattern was also normal. Estimated mean left atrial pressure using pulsed and tissue Doppler of his mitral annulus was within normal limits. Pulsed Doppler and continuous wave Doppler of his pulmonary trunk taken from the parasternal and subcostal projections showed a normal peak systolic velocity against RV outflow tract obstruction. His pulmonary artery acceleration time was borderline abbreviated possible related to his fast heart rate. CONCLUSIONS: Unable to detect a clear intracardiac source of embolic material. The patient has some mild mitral annular thickening and aortic valvular sclerosis but no visible vegetation or minuscule pericardial effusion without cardiac compression. Echocardiogram was otherwise within normal limits.
[2016-10-24] MEDS: cefTRIAXone SOD 2 GM in D5W MINI-BAG PLUS 50 ML IV SCH (16:52)
[2016-10-24] MEDS: NYSTATIN 500,000 U/5 ML SUSP UDC SS SCH ×2 (16:52→21:16)
[2016-10-24] MEDS ORDERED: LEVEMIR (INSULIN DETEMIR) 1 UNITS/0.01ML SC SCH (21:00)
[2016-10-24] MEDS: MIRTAZAPINE 15 MG TAB PO SCH (21:16)
[2016-10-24] MEDS: LEVEMIR (INSULIN DETEMIR) 1 UNITS/0.01ML SC SCH (21:16)
[2016-10-25] VITALS (7 sets, daily range): BP systolic 88–138; BP diastolic 52–75
[2016-10-25] MEDS: SODIUM CHLORIDE 0.9% INJ 10 ML SYR IV SCH ×2 (06:10→17:06)
[2016-10-25 06:45] LABS: BASO % 0.2 % (0.0-1.0); EOS # 0.2 K/mm3 (0.0-0.50); EOS % 3.1 % (0.0-3.0); LARGE UNSTAINED CELL # 0.1 K/mm3 (0.0-0.4); LARGE UNSTAINED CELL % 2.2 % (0.0-4.0); LYMPH # 0.7 K/mm3 (1.5-4.5); LYMPH % 11.4 % (24.0-44.0); MEAN CORPUSCULAR HEMOGLOBIN 33.3 pg (27.0-33.0); MEAN CORPUSCULAR VOLUME 100.9 fl (80.0-96.0); MONO # 0.4 K/mm3 (0.0-0.8); MONO % 7.9 % (0.0-5.0); NEUTROPHILS # 3.8 K/mm3 (1.8-7.7); NEUTROPHILS % 75.2 % (36.0-66.0); PLATELET COUNT, AUTOMATED 283 k/mm3 (150-450); RED CELL DISTRIBUTION WIDTH 15.6 % (11.5-14.5); WHITE BLOOD COUNT 5.1 K/mm3 (4.0-10.0)
[2016-10-25] MEDS ORDERED: DEXTROSE 50% 50 ML SYRINGE As Ordered ONE (06:55)
[2016-10-25] MEDS ORDERED: GLUCAGON FOR INJ 1 MG VIAL (J1610) SC PRN (07:00)
[2016-10-25] MEDS ORDERED: GLUCOSE 4 GM CHEW TABLET PO PRN (07:00)
[2016-10-25] MEDS: HumaLOG INSULIN (NovoLOG) PER UNIT SC SCH ×4 (07:08→21:00)
[2016-10-25] MEDS: DEXTROSE 50% 50 ML SYRINGE IV PRN (07:08)
[2016-10-25 07:10] LABS: ALBUMIN 2.7 GM/DL (3.2-5.2); ALBUMIN/GLOBULIN RATIO 1.13 (1.00-1.93); ALKALINE PHOSPHATASE 87 U/L (45-117); ALT/SGPT 13 U/L (12-78); ANION GAP 7 MEQ/L (8-16); AST/SGOT 5 U/L (15-37); BILIRUBIN,TOTAL 0.2 MG/DL (0.2-1.0); BLOOD UREA NITROGEN 15 MG/DL (7-18); CALCIUM LEVEL 7.9 MG/DL (8.8-10.2); CARBON DIOXIDE LEVEL 31 MEQ/L (21-32); CHLORIDE LEVEL 102 MEQ/L (98-107); CREATININE FOR GFR 0.48 MG/DL (0.70-1.30); GLOMERULAR FILTRATION RATE > 60.0 (>49); MAGNESIUM LEVEL 2.1 MG/DL (1.8-2.4); POTASSIUM SERUM 3.6 MEQ/L (3.5-5.1); SODIUM LEVEL 140 MEQ/L (136-145); TOTAL PROTEIN 5.1 GM/DL (6.4-8.2)
[2016-10-25 07:20] LABS: GLUCOSE, FASTING 33 MG/DL (80-110)
[2016-10-25] MEDS: ADVAIR DISKUS 250/50 INH PWD INH SCH ×2 (07:37→20:09)
[2016-10-25] MEDS ORDERED: DEXTROSE 50% 50 ML SYRINGE IV STA (08:29)
--- NOTE | 2016-10-25 08:31 | IPN ---
DATE: 10/25/2016 Mr. Husain does not have an air leak today. I continues him on suction yesterday. He is not complaining of shortness of breath. His pain is well controlled at the chest tube insertion site. His vital signs show a T-max of 99.1 with a heart rate that ranges between 75 and 61 and in sinus rhythm. Respiratory rate of 20-22 without the use of accessory muscles, who is 99% saturated on 2 liters nasal cannula. His blood pressure ranges between 127 over 70 to 197/87. His intake and output over the past 24 hours is recorded as 1130 in and 979 out for a positivity of 151 mL. His has put out 4 mL out the chest tube. There is no air leak. Weight today is 54.3 kg compared to 54 kg yesterday. On physical exam, he has equal breath sounds on either side. I hear no wheezes ,rhonchi or rales today. Percussion note is full to the diaphragm. Cardiac exam is without murmurs, clicks, gallops or rubs. I cannot feel his point of maximum impulse (PMI). S1 and S2 are normal. Abdomen is soft and nontender. Bowel sounds are positive but he is tympanitic and slightly distended. There is no hepatomegaly. No CVA tenderness. Extremities show 1+ pretibial edema without calf tenderness. Skin is cool with some mottling of the knees but better than it was. There is no cyanosis. There is no diaphroesis. Neck is supple. There is no jugular venous distention. No subcutaneous emphysema. Trachea is midline. Mouth shows his mucous membranes to be pink and moist. Lips and commissures are without lesions. There is no thrush. Eyes show his pupils to be equal and reactive. Extraocular movements intact. Sclerae nonicteric. Neurologic shows II-XII intact along with gross motor and gross sensation intact. Gait is not tested. Psychiatric showed him to be awake, alert and oriented times three with appropriate and affect and conversational. His white count today is 5.9 with a hemoglobin and hematocrit at 10.0 and 32.0 and a platelet count of 267. Differential shows 87% neutrophils, 6% lymphocytes, 3% monocytes. There are no immature forms. No toxic granulations. His chemistries today show normal electrolytes with a BUN and creatinine of 17 and 0.66. His glucose is elevated 410 with a calcium 7.9 and a corresponding albumin of 2.9. His chest x-ray today shows the lung fully expanded to the chest wall. However, I do see more subcutaneous emphysema on the lateral chest wall than I did yesterday. Chest tube is in good place. Costophrenic angle is slightly blunted. I do not think there is an air fluid level but rather air within the colon beneath the diaphragm. IMPRESSION: 1. Alveolar pleural fistula, hopefully resolving. 2. Diabetic ketoacidosis, resolving. 3. Insulin dependent diabetes. 4. Hyperlipidemia. 5. 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 6. Hypertension. 7. Cachexia. 8. Swollen left hand. His left hand is better today. Imaging yesterday via vascular ultrasound did not show any deep venous thrombosis in the left upper extremity. PLAN AND DISCUSSION: I will take his chest tube off suction today. Hopefully, he will not leak and I will be able to remove it tomorrow. I am a bit concerned about the subcutaneous emphysema that I see on the lateral chest wall.
[2016-10-25] MEDS: ENOXAPARIN 40 MG/0.4 ML SYRINGE (J1650) SC SCH (08:41)
[2016-10-25] MEDS: ASPIRIN 325 MG TAB PO SCH (08:41)
[2016-10-25] MEDS: PANTOPRAZOLE 40MG INJ (PROTONIX) (C9113) IV SCH (08:41)
[2016-10-25] MEDS: FERROUS SULFATE 325MG TAB PO SCH (08:42)
[2016-10-25] MEDS: MUPIROCIN 2% OINT 22 GM TUBE TOP SCH ×3 (08:44→22:46)
[2016-10-25] MEDS: ATORVASTATIN 20 MG TAB PO SCH (08:44)
[2016-10-25] MEDS: LISINOPRIL 10 MG TAB PO SCH (08:44)
[2016-10-25] MEDS: NYSTATIN 500,000 U/5 ML SUSP UDC SS SCH ×4 (08:44→22:47)
--- NOTE | 2016-10-25 10:59 | REP ---
Clinical: Bronchopulmonary fistula. Technique: PA and lateral. Comparison: 10/24/2016. Findings: Left apical chest tube in stable position. Right PICC line with tip in the SVC. Moderate subcutaneous emphysema overlies the left hemithorax similar to prior examination. The bilateral lung june are relatively clear without consolidation, effusion, or obvious pneumothorax. The left costophrenic angle now appears relatively sharp and improved as compared to prior examination. Mediastinum and cardiac silhouette stable and within normal limits. Skeletal structures intact. Impression: Moderate left-sided subcutaneous emphysema. Lung june are clear and without obvious consolidation, effusion, or pneumothorax. The left costophrenic angle is improved in appearance. Signed by Bandar Alejandro MD 10/25/2016 10:50 A
--- NOTE | 2016-10-25 11:44 | IPNPDOC ---
Subjective Date Seen The patient was seen on 10/25/16. Subjective Chief Complaint/HPI The patient is a 61-year-old male admitted with a reason for visit of Diabetic Ketoacidosis. Objective Physical Examination General Exam: Positive: Alert, No Acute Distress, Other (cachectic) Eye Exam: Positive: PERRLA, Conjunctiva & lids normal, EOMI, Negative: Sclera icteric Neck Exam: Positive: Supple, Negative: JVD, thyromegaly Chest Exam: Positive: Clear to auscultation, Normal air movement, Other (CT LEFT upper chest) Heart Exam: Positive: Rate Normal, Regular Rhythm, Normal S1, Normal S2, Negative: Murmurs, Rubs Telemetry: Positive: No significant arrhythmia Abdomen Exam: Positive: Normal bowel sounds, Soft, Negative: Tenderness, Hepatospenomegaly Skin Exam: Positive: Nl turgor and temperature, Negative: Rash, Breakdown Psych Exam: Positive: Mental status NL, Mood NL, Oriented x 3 (Oct, 2016, gloria is president. ), Other (responses are vague. Unable to articulate medical hx. ) Assessment /Plan Problems (1) T2DM (type 2 diabetes mellitus) Status: Chronic Problem Text: T2DM insulin dependent-HD Lantus 30 qhs!!! (per patient), Novolog 10 TID 10/2016 A1C 8.9 and presented in DKA 10/25 BS asx down to 26! (had only received 10 Levemir and 6 Novolog coverage at qhs), up to 200 p 1.5 amp dextrose (again HD is 30 units Lantus)-therefore, basal held-favor hypo 2 poor po intake-although patient states this is his baseline 10/24 BS 200-low 400s on only SSNI; therefore, started Levemir 10 qhs ? T1DM, check C-peptide (2) CVA (cerebral vascular accident) Status: Acute Response to Treatment: Improving Problem Text: aspirin 81 (HD) increased to 325/atorva 10 (HD) increased to 40 PT/OT, favor STR given need of IV abx 10/19/16 MRI brain acute/subacute areas of infarction involving the right frontal /parietal/occipital lobes 10/24/16 normal TTE (3) Lyme disease, acute Status: Acute Problem Specific Plan: Consult Specialist Problem Text: ceftriaxone 2 IV QD D7/28 per ID -plan PICC once CT out-OK per Skinny MRI with right frontal and parieto occipital lobe infarctions. LP had elevated protein, consistent with possible neural Lyme. (4) Pneumothorax Status: Acute Problem Text: 2 alveolar-pleural fistula 10/24 CXR increased PTX; therefore, replaced by Skinny chest tube managed by Dr. Babb. (5) Severe protein-calorie malnutrition Status: Acute Problem Text: Glucerna shakes tid. HIV and hepatitis C negative. No Virchow's node palpated. (6) COPD (chronic obstructive pulmonary disease) Status: Chronic Response to Treatment: Stable Problem Specific Plan: Monitor Clinically (7) HTN (hypertension) Status: Chronic Response to Treatment: Stable Problem Specific Plan: Monitor Clinically Plan/VTE VTE Prophylaxis Ordered?: Yes (Lovenox) Disposition PMR once medically stable VS, I&O, 24H, Fishbone Vital Signs/I&O Vital Signs Date Time Temp Pulse Resp B/P (MAP) Pulse Ox O2 Delivery O2 Flow Rate FiO2 10/25/16 08:44 122/75 10/25/16 08:09 97.2 76 22 99 Nasal Cannula 2.0 I&O- Last 24 Hours up to 6 AM 10/25/16 05:59 Intake Total 1530 ml Output Total 900 ml Balance 630 ml Laboratory Data 24H LABS Laboratory Tests 2 10/24/16 16:43: Bedside Glucose (Misc Panel) 181H 10/24/16 21:15: Bedside Glucose (Misc Panel) 206H 10/25/16 06:14: Bedside Glucose (Misc Panel) 52L 10/25/16 06:20: White Blood Count 5.1, Red Blood Count 2.79L, Hemoglobin 9.3L, Hematocrit 28.1L , Mean Corpuscular Volume 100.9H, Mean Corpuscular Hemoglobin 33.3H, Mean Corpuscular Hemoglobin Concent 33.0, Red Cell Distribution Width 15.6H, Platelet Count 283, Neutrophils (%) (Auto) 75.2H, Lymphocytes (%) (Auto) 11.4L, Monocytes (%) (Auto) 7.9H, Eosinophils (%) (Auto) 3.1H, Basophils (%) (Auto) 0.2 , Neutrophils # (Auto) 3.8, Lymphocytes # (Auto) 0.7L, Monocytes # (Auto) 0.4, Eosinophils # (Auto) 0.2, Basophils # (Auto) 0.0, Large Unclassified Cells % 2.2 , Large Unclassified Cells # 0.1, Bedside Glucose Confirm (Misc) 33*L, Anion Gap 7L, Glomerular Filtration Rate > 60.0, Blood Urea Nitrogen 15, Creatinine 0.48L, Sodium Level 140#, Potassium Level 3.6, Chloride Level 102, Carbon Dioxide Level 31, Calcium Level 7.9L, Aspartate Amino Transf (AST/SGOT) 5L, Alanine Aminotransferase (ALT/SGPT) 13, Alkaline Phosphatase 87, Total Bilirubin 0.2, Total Protein 5.1L, Albumin 2.7L, Magnesium Level 2.1, Albumin/ Globulin Ratio 1.13 10/25/16 06:46: Bedside Glucose (Misc Panel) 29*L 10/25/16 06:57: Bedside Glucose (Misc Panel) 38*L 10/25/16 08:05: Bedside Glucose (Misc Panel) 26*L 10/25/16 08:20: Bedside Glucose Confirm (Misc) 200 10/25/16 09:12: Bedside Glucose Confirm (Misc) 126 10/25/16 10:59: Bedside Glucose (Misc Panel) 202H CBC/BMP Laboratory Tests 10/25/16 06:20 Red Blood Count 2.79 L, Mean Corpuscular Volume 100.9 H, Mean Corpuscular Hemoglobin 33.3 H, Mean Corpuscular Hemoglobin Concent 33.0, Red Cell Distribution Width 15.6 H, Neutrophils (%) (Auto) 75.2 H, Lymphocytes (%) (Auto ) 11.4 L, Monocytes (%) (Auto) 7.9 H, Eosinophils (%) (Auto) 3.1 H, Basophils (% ) (Auto) 0.2, Neutrophils # (Auto) 3.8, Lymphocytes # (Auto) 0.7 L, Monocytes # (Auto) 0.4, Eosinophils # (Auto) 0.2, Basophils # (Auto) 0.0, Calcium Level 7.9 L, Aspartate Amino Transf (AST/SGOT) 5 L, Alanine Aminotransferase (ALT/SGPT) 13 , Alkaline Phosphatase 87, Total Bilirubin 0.2, Total Protein 5.1 L, Albumin 2.7 L Microbiology Microbiology 10/18/16 Blood Culture - Final, Complete NO GROWTH AFTER 5 DAYS 10/18/16 Blood Culture - Final, Complete NO GROWTH AFTER 5 DAYS 10/20/16 Gram Stain - Final, Complete 10/20/16 CSF Culture - Final, Complete 10/19/16 Urine Culture - Final, Complete Aamir Lopez M.D. October 25, 2016 11:44
[2016-10-25] MEDS: cefTRIAXone SOD 2 GM in D5W MINI-BAG PLUS 50 ML IV SCH (16:46)
[2016-10-25] MEDS: LEVEMIR (INSULIN DETEMIR) 1 UNITS/0.01ML SC SCH (22:47)
[2016-10-25] MEDS: MIRTAZAPINE 15 MG TAB PO SCH (22:47)
[2016-10-26] VITALS (8 sets, daily range): BP systolic 98–144; BP diastolic 59–77; O2SAT 95
[2016-10-26] MEDS: DEXTROSE 50% 50 ML SYRINGE IV PRN (04:24)
[2016-10-26] MEDS: SODIUM CHLORIDE 0.9% INJ 10 ML SYR IV SCH ×2 (05:07→18:18)
[2016-10-26 05:25] LABS: BASO % 0.3 % (0.0-1.0); EOS # 0.2 K/mm3 (0.0-0.50); EOS % 3.8 % (0.0-3.0); LARGE UNSTAINED CELL # 0.1 K/mm3 (0.0-0.4); LYMPH # 0.3 K/mm3 (1.5-4.5); LYMPH % 7.1 % (24.0-44.0); MEAN CORPUSCULAR HEMOGLOBIN 32.9 pg (27.0-33.0); MEAN CORPUSCULAR HGB CONC 31.9 g/dl (32.0-36.5); MEAN CORPUSCULAR VOLUME 103.4 fl (80.0-96.0); MONO # 0.3 K/mm3 (0.0-0.8); MONO % 6.2 % (0.0-5.0); NEUTROPHILS # 3.8 K/mm3 (1.8-7.7); NEUTROPHILS % 80.7 % (36.0-66.0); PLATELET COUNT, AUTOMATED 286 k/mm3 (150-450); WHITE BLOOD COUNT 4.6 K/mm3 (4.0-10.0)
[2016-10-26 05:37] LABS: ALBUMIN 2.6 GM/DL (3.2-5.2); ALKALINE PHOSPHATASE 87 U/L (45-117); ALT/SGPT 16 U/L (12-78); ANION GAP 7 MEQ/L (8-16); AST/SGOT 9 U/L (15-37); BILIRUBIN,TOTAL 0.1 MG/DL (0.2-1.0); BLOOD UREA NITROGEN 10 MG/DL (7-18); CALCIUM LEVEL 8.2 MG/DL (8.8-10.2); CARBON DIOXIDE LEVEL 31 MEQ/L (21-32); CHLORIDE LEVEL 101 MEQ/L (98-107); CREATININE FOR GFR 0.61 MG/DL (0.70-1.30); GLOMERULAR FILTRATION RATE > 60.0 (>49); GLUCOSE, FASTING 130 MG/DL (80-110); POTASSIUM SERUM 3.6 MEQ/L (3.5-5.1); SODIUM LEVEL 139 MEQ/L (136-145); TOTAL PROTEIN 5.5 GM/DL (6.4-8.2)
--- NOTE | 2016-10-26 06:28 | IPN ---
DATE: 10/25/2016 Mr. Husain had a very low blood glucose this morning. However, according to the nursing staff, he was not symptomatic. His pain is being well controlled at the chest tube insertion site. He is not complaining of shortness of breath. His vital signs show a maximum temperature (Tmax) of 98.6 with a heart rate that ranges between 78-71 in sinus rhythm, respiratory rate of 18-22 without the use of accessory muscles, who is 99% saturated on 2 liters nasal cannula and his blood pressure ranges between 122/75 to 96/52. His intake and output over the past 24 hours is recorded as 1530 in and 1250 out for a positivity of 280 mL. His has put out nothing from the chest tube. I see no air leak in the chest today. However, the nursing staff reported one this morning. On physical exam, his lungs show equal breath sounds on either side with normal vesicular sounds. I hear no wheezes ,rhonchi or rales. Percussion note is full to the diaphragm. Cardiac exam is without murmurs, clicks, gallops or rubs. I cannot feel his point of maximum impulse (PMI). S1 and S2 are normal. Abdomen is soft, nontender. Bowel sounds are positive. There is no hepatomegaly, no costovertebral angle (CVA) tenderness. Extremities show no pretibial edema, no calf tenderness. No differential swelling of the upper extremities. Skin is warm, dry and perfused without cyanosis or mottling. Neck is supple. There is no jugular venous distention, no subcutaneous emphysema. Trachea is midline. Mouth shows his mucous membranes to be pink and moist. Lips and commissures without lesions. There is a small amount of thrush but better than yesterday. Eyes show his pupils to be equal and reactive. Extraocular movements intact. Sclerae nonicteric. Neurologic shows II-XII intact along with gross motor and gross sensation intact. Gait is not tested. Psychiatric shows him to be awake and alert, oriented times three with appropriate and affect and conversational. His electrolytes today are normal with a potassium of 3.6. BUN and creatinine are 15 and 0.48. Glucose was 33 this morning. Calcium is 7.9 with magnesium of 2.1 and an albumin of 2.7. Recheck of his glucose after treatment showed to 202. His chest x-ray shows his lung fully expanded to the chest wall. The subcutaneous emphysema looks to be dissipating. Costophrenic angles are sharp. The chest tube is in good place. IMPRESSION: 1. Alveolar pleural fistula, hopefully resolved. 2. Diabetic ketoacidosis, resolving. 3. Insulin dependent diabetes. 4. Hyperlipidemia. 5. 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 6. Hypertension. 7. Cachexia. 8. Hypoglycemia. PLAN AND DISCUSSION: I would of taken out the chest tube today, however the nursing did see an air leak this morning. I am therefore going to clamp the chest tube. If the chest x-ray is okay tomorrow, we will therefore pull it.
[2016-10-26] MEDS: HumaLOG INSULIN (NovoLOG) PER UNIT SC SCH ×4 (07:30→20:24)
[2016-10-26] MEDS: ADVAIR DISKUS 250/50 INH PWD INH SCH ×2 (07:49→20:44)
--- NOTE | 2016-10-26 09:04 | REP ---
Clinical: Bronchopulmonary fistula. Technique: PA and lateral. Comparison: 10/25/2016. Findings: Left apical chest tube stable position. Right PICC line with tip in the SVC stable. Moderate amount of subcutaneous emphysema appears to be mildly improved. Bilateral hemithoraces appear well-aerated and without pneumothorax. Lateral view suggests posterior basilar pleuroparenchymal changes similar to prior examination. Mediastinum and cardiac silhouette are normal. Skeletal structures are intact. Impression: 1. No obvious pneumothorax. 2. Posterobasilar pleuroparenchymal changes identified on lateral radiograph similar to prior examination. 3. No new acute process. Signed by Bandar Alejandro MD 10/26/2016 08:55 A
[2016-10-26] MEDS: PANTOPRAZOLE 40MG INJ (PROTONIX) (C9113) IV SCH (09:16)
[2016-10-26] MEDS: LISINOPRIL 10 MG TAB PO SCH (09:27)
[2016-10-26] MEDS: ASPIRIN 325 MG TAB PO SCH (09:27)
[2016-10-26] MEDS: FERROUS SULFATE 325MG TAB PO SCH (09:27)
[2016-10-26] MEDS: ATORVASTATIN 20 MG TAB PO SCH (09:27)
[2016-10-26] MEDS: NYSTATIN 500,000 U/5 ML SUSP UDC SS SCH ×4 (09:28→20:25)
[2016-10-26] MEDS: ENOXAPARIN 40 MG/0.4 ML SYRINGE (J1650) SC SCH (09:29)
--- NOTE | 2016-10-26 09:30 | IPNPDOC ---
Subjective Date Seen The patient was seen on 10/26/16. Subjective Chief Complaint/HPI The patient is a 61-year-old male admitted with a reason for visit of Diabetic Ketoacidosis. Events since last encounter Pt seems to be moving about on his own a little better this morning. He denies pain, cough. Responds "I'm alive aren't I?" with any questions pertaining to his breathing. No BM in 2-3 days, denies abd pain or bloating. General: Denies: Fatigue Constitutional: Denies: Chills, Fever Cardiovascular: Denies: Chest Pain, Palpitations Gastrointestinal: Denies: Nausea, Vomiting, Diarrhea Neurological: Reports: Weakness Psych: Reports: Mood Normal Objective Physical Examination General Exam: Positive: Alert, No Acute Distress, Other (cachectic) Eye Exam: Negative: Sclera icteric Neck Exam: Positive: Supple, Negative: JVD, thyromegaly Chest Exam: Positive: Diminished (fibrotic rales at the bases), Other (Chest tube L ant upper chest) Heart Exam: Positive: Rate Normal, Regular Rhythm, Normal S1, Normal S2, Negative: Murmurs, Rubs Telemetry: Positive: No significant arrhythmia Abdomen Exam: Positive: Normal bowel sounds, Soft, Negative: Tenderness, Hepatospenomegaly Extremity Exam: Negative: Edema Skin Exam: Positive: Nl turgor and temperature, Negative: Rash, Breakdown Psych Exam: Positive: Mental status NL, Mood NL, Oriented x 3 (Oct, 2016, gloria is president. ), Other (responses are vague. Unable to articulate medical hx. ) Assessment /Plan Problems (1) T2DM (type 2 diabetes mellitus) Status: Chronic Problem Text: 10/26 - SSI coverage, received Levemir 10 units last night, glu this morning was 130, will decreased Levemir to 7 units QHS, as yest AM glu of . 10/2016 A1C 8.9 and presented in DKA 10/25 BS asx down to 26! (had only received 10 Levemir and 6 Novolog coverage at qhs), up to 200 p 1.5 amp dextrose (again HD is 30 units Lantus)-therefore, basal held-favor hypo 2 poor po intake-although patient states this is his baseline T2DM insulin dependent-HD Lantus 30 qhs!!! (per patient), Novolog 10 TID 10/24 BS 200-low 400s on only SSNI; therefore, started Levemir 10 qhs ? T1DM, check C-peptide (2) CVA (cerebral vascular accident) Status: Acute Response to Treatment: Improving Problem Text: aspirin 81 (HD) increased to 325/atorva 10 (HD) increased to 40 PT/OT, favor STR given need of IV abx 10/19/16 MRI brain acute/subacute areas of infarction involving the right frontal /parietal/occipital lobes 10/24/16 normal TTE (3) Lyme disease, acute Status: Acute Problem Specific Plan: Consult Specialist Problem Text: ceftriaxone 2 IV QD D8/28 per ID -plan PICC once CT out-OK per Skinny - prob can have today or tomorrow. Plan is for CT to come out today 10/26. MRI with right frontal and parieto occipital lobe infarctions. LP had elevated protein, consistent with possible neural Lyme. (4) Pneumothorax Status: Acute Problem Text: 10/26 - Plan for chest tube to be d/c today. 10/24 CXR increased PTX; therefore, replaced by Skinny 2 alveolar-pleural fistula chest tube managed by Dr. Babb. (5) Severe protein-calorie malnutrition Status: Acute Problem Text: Glucerna shakes tid. HIV and hepatitis C negative. No Virchow's node palpated. (6) COPD (chronic obstructive pulmonary disease) Status: Chronic Response to Treatment: Stable Problem Specific Plan: Monitor Clinically (7) HTN (hypertension) Status: Chronic Response to Treatment: Stable Problem Specific Plan: Monitor Clinically Plan/VTE VTE Prophylaxis Ordered?: Yes (Lovenox) Plan 10/26 - plan to PICC once CT d/c'd then d/c planning either SNF for STR or PMR. Im not sure he will tolerate PMR. Attending note: I saw and evaluated the patient, and agree to plan of care as discussed and documented by Vanessa Conley. Soha Webb MD VS, I&O, 24H, Fishbone Vital Signs/I&O Vital Signs Date Time Temp Pulse Resp B/P (MAP) Pulse Ox O2 Delivery O2 Flow Rate FiO2 10/26/16 08:00 97.7 76 18 140/77 (98) 95 Nasal Cannula 2.0 I&O- Last 24 Hours up to 6 AM 10/26/16 05:59 Intake Total 2380 ml Output Total 1025 ml Balance 1355 ml Laboratory Data 24H LABS Laboratory Tests 2 10/25/16 10:59: Bedside Glucose (Misc Panel) 202H 10/25/16 12:11: Bedside Glucose (Misc Panel) 91 10/25/16 16:57: Bedside Glucose (Misc Panel) 380H 10/25/16 21:19: Bedside Glucose (Misc Panel) 130H 10/26/16 03:42: Bedside Glucose (Misc Panel) 53L 10/26/16 04:11: Bedside Glucose (Misc Panel) 47L 10/26/16 04:29: Bedside Glucose (Misc Panel) 88 10/26/16 05:06: White Blood Count 4.6, Red Blood Count 2.76L, Hemoglobin 9.1L, Hematocrit 28.5L , Mean Corpuscular Volume 103.4H, Mean Corpuscular Hemoglobin 32.9, Mean Corpuscular Hemoglobin Concent 31.9L, Red Cell Distribution Width 15.0H, Platelet Count 286, Neutrophils (%) (Auto) 80.7H, Lymphocytes (%) (Auto) 7.1L, Monocytes (%) (Auto) 6.2H, Eosinophils (%) (Auto) 3.8H, Basophils (%) (Auto) 0.3 , Neutrophils # (Auto) 3.8, Lymphocytes # (Auto) 0.3L, Monocytes # (Auto) 0.3, Eosinophils # (Auto) 0.2, Basophils # (Auto) 0.0, Large Unclassified Cells % 2.0 , Large Unclassified Cells # 0.1, Anion Gap 7L, Glomerular Filtration Rate > 60.0, Blood Urea Nitrogen 10, Creatinine 0.61L, Sodium Level 139, Potassium Level 3.6, Chloride Level 101, Carbon Dioxide Level 31, Calcium Level 8.2L, Aspartate Amino Transf (AST/SGOT) 9L, Alanine Aminotransferase (ALT/SGPT) 16, Alkaline Phosphatase 87, Total Bilirubin 0.1L, Total Protein 5.5L, Albumin 2.6L , Albumin/Globulin Ratio 0.90L CBC/BMP Laboratory Tests 10/26/16 05:06 Red Blood Count 2.76 L, Mean Corpuscular Volume 103.4 H, Mean Corpuscular Hemoglobin 32.9, Mean Corpuscular Hemoglobin Concent 31.9 L, Red Cell Distribution Width 15.0 H, Neutrophils (%) (Auto) 80.7 H, Lymphocytes (%) (Auto ) 7.1 L, Monocytes (%) (Auto) 6.2 H, Eosinophils (%) (Auto) 3.8 H, Basophils (% ) (Auto) 0.3, Neutrophils # (Auto) 3.8, Lymphocytes # (Auto) 0.3 L, Monocytes # (Auto) 0.3, Eosinophils # (Auto) 0.2, Basophils # (Auto) 0.0, Calcium Level 8.2 L, Aspartate Amino Transf (AST/SGOT) 9 L, Alanine Aminotransferase (ALT/SGPT) 16 , Alkaline Phosphatase 87, Total Bilirubin 0.1 L, Total Protein 5.5 L, Albumin 2.6 L Microbiology Microbiology 10/18/16 Blood Culture - Final, Complete NO GROWTH AFTER 5 DAYS 10/18/16 Blood Culture - Final, Complete NO GROWTH AFTER 5 DAYS 10/20/16 Gram Stain - Final, Complete 10/20/16 CSF Culture - Final, Complete 10/19/16 Urine Culture - Final, Complete VANESSA CONLEY PA-C October 26, 2016 09:30 SOHA WEBB MD October 26, 2016 17:12
[2016-10-26] MEDS: MUPIROCIN 2% OINT 22 GM TUBE TOP SCH ×3 (09:35→20:26)
--- NOTE | 2016-10-26 11:09 | IPN ---
DATE: 10/26/2016 Mr. Husain is not complaining of shortness of breath. Pain at his chest tube insertion site is being well controlled. Chest tube has been clamped now for 24 hours and his chest x-ray does not show any pneumothorax. I am therefore going to remove his chest tube today. His vital signs show a T-max of 99.2 with a heart rate that ranges between 79 and 76 in a sinus rhythm, respiratory rate that is constant at 18 who is 96 to 99% saturated on 2 liters nasal cannula and has blood pressures ranging between 144/66 to 116/68. His intake and output over the past 24 hours has been recorded as 1860 in and 700 out for a positivity of 1160 mL. PHYSICAL EXAMINATION: He has equal breath sounds on either side. There are some scattered rales and scattered rhonchi which basically clear with coughing. Percussion note is full to the diaphragm. Cardiac exam is without murmurs, clicks, gallops or rubs. I cannot feel his PMI. S1 and S2 are normal. Abdomen is soft, nontender, bowel sounds are positive. There is no hepatomegaly. No CVA tenderness. Extremities show no pretibial edema. No calf tenderness. No differential swelling of the upper extremities. Skin is warm, dry and perfused without cyanosis or mottling. Neck is supple. There is no jugular venous distention. No subcutaneous emphysema. Trachea is midline. Mouth shows his mucous membranes to be pink and moist. Lips and commissures are without lesions. No thrush. Eyes show his pupils to be equal and reactive. Extraocular motor intact. Sclera anicteric. Neuro shows II through XII intact with gross motor and gross sensation intact. Gait is not tested. Psychiatric shows him to be awake and alert, oriented times three with appropriate mood and affect and conversational. His white count today is 4.6 with hemoglobin and hematocrit of 9.1 and 28.5, unchanged from yesterday with a platelet count of 286. Differential shows 80% neutrophils, 7% lymphocytes, 6% monocytes. Chemistries today show normal electrolytes with a BUN and creatinine of 10 and 0.61 with a glucose of 130 and a calcium of 8.2 and a corresponding albumin of 2.6. His chest x-ray today shows his lung fully expanded to the chest wall. There is no pneumothorax and no infiltrates. IMPRESSION: 1. Alveolar pleural fistula, resolved. 2. Diabetic ketoacidosis, resolving. 3. Insulin dependent diabetes. 4. Hyperlipidemia. 5. Squamous cell carcinoma of the left neck status post radical neck dissection 2010. 6. Hypertension. 7. Cachectica. 8. Hypoglycemia. 9. Lyme disease. 10. Cerebrovascular accident (CVA). PLAN AND DISCUSSION: I will remove his chest tubes today. I will get a chest x-ray tomorrow. If the x-ray is alright, I will then sign off his care.
[2016-10-26] MEDS: cefTRIAXone SOD 2 GM in D5W MINI-BAG PLUS 50 ML IV SCH (18:12)
[2016-10-26] MEDS: MIRTAZAPINE 15 MG TAB PO SCH (20:25)
[2016-10-26] MEDS ORDERED: LEVEMIR (INSULIN DETEMIR) 1 UNITS/0.01ML SC SCH (21:00)
[2016-10-27] MEDS: SODIUM CHLORIDE 0.9% INJ 10 ML SYR IV SCH (04:14)
[2016-10-27 04:45] VITALS: BP 127/71
[2016-10-27 05:13] LABS: ALKALINE PHOSPHATASE 82 U/L (45-117); ALT/SGPT 14 U/L (12-78); ANION GAP 5 MEQ/L (8-16); AST/SGOT 10 U/L (15-37); BILIRUBIN,TOTAL 0.1 MG/DL (0.2-1.0); BLOOD UREA NITROGEN 9 MG/DL (7-18); CARBON DIOXIDE LEVEL 31 MEQ/L (21-32); CHLORIDE LEVEL 107 MEQ/L (98-107); CREATININE FOR GFR 0.32 MG/DL (0.70-1.30); GLOMERULAR FILTRATION RATE > 60.0 (>49); GLUCOSE, FASTING 70 MG/DL (80-110); POTASSIUM SERUM 3.4 MEQ/L (3.5-5.1); SODIUM LEVEL 143 MEQ/L (136-145); TOTAL PROTEIN 4.7 GM/DL (6.4-8.2)
[2016-10-27 05:23] LABS: MEAN CORPUSCULAR HEMOGLOBIN 32.8 pg (27.0-33.0); MEAN CORPUSCULAR HGB CONC 32.3 g/dl (32.0-36.5); MEAN CORPUSCULAR VOLUME 101.6 fl (80.0-96.0); RED CELL DISTRIBUTION WIDTH 15.8 % (11.5-14.5); WHITE BLOOD COUNT 3.2 K/mm3 (4.0-10.0)
[2016-10-27 05:25] LABS: ALBUMIN 2.1 GM/DL (3.2-5.2); ALBUMIN/GLOBULIN RATIO 0.81 (1.00-1.93)
[2016-10-27 05:32] LABS: CALCIUM LEVEL 6.8 MG/DL (8.8-10.2)
[2016-10-27 07:30] VITALS: BP 138/73
[2016-10-27] MEDS: HumaLOG INSULIN (NovoLOG) PER UNIT SC SCH ×2 (07:30→12:00)
[2016-10-27] MEDS: ADVAIR DISKUS 250/50 INH PWD INH SCH (07:42)
[2016-10-27] MEDS: PANTOPRAZOLE 40MG INJ (PROTONIX) (C9113) IV SCH (08:43)
[2016-10-27] MEDS: ASPIRIN 325 MG TAB PO SCH (08:43)
[2016-10-27] MEDS: ENOXAPARIN 40 MG/0.4 ML SYRINGE (J1650) SC SCH (08:43)
[2016-10-27] MEDS: ATORVASTATIN 20 MG TAB PO SCH (08:43)
[2016-10-27 08:44] VITALS: BP 138/73
[2016-10-27] MEDS: LISINOPRIL 10 MG TAB PO SCH (08:44)
[2016-10-27] MEDS: FERROUS SULFATE 325MG TAB PO SCH (08:45)
[2016-10-27] MEDS: MUPIROCIN 2% OINT 22 GM TUBE TOP SCH (08:45)
[2016-10-27] MEDS: NYSTATIN 500,000 U/5 ML SUSP UDC SS SCH ×2 (08:45→12:12)
--- NOTE | 2016-10-27 09:34 | REP ---
Clinical: Bronchopulmonary fistula. Technique: PA and lateral. Comparison: 10/26/2016. Findings: Mediastinum and cardiac silhouette are normal. PICC line extends into the right atrium in stable position. The bilateral lung june are well-aerated and clear. No obvious pneumothorax is appreciated. Lung bases demonstrate improved aeration of both frontal and lateral projections. Small amount of residual subcutaneous emphysema along the lateral left chest wall appears improved. Skeletal structures are intact. Impression: 1. Mildly improved appearance with improved aeration to the bilateral lung bases. 2. No obvious pneumothorax. 3. Decreased subcutaneous emphysema along the left lateral chest wall. Signed by Bandar Alejandro MD 10/27/2016 09:25 A
--- NOTE | 2016-10-27 11:57 | IPNPDOC ---
Subjective Date Seen The patient was seen on 10/27/16. Subjective Chief Complaint/HPI The patient is a 61-year-old male admitted with a reason for visit of Diabetic Ketoacidosis. Events since last encounter No new complaints. Pulmonary: Denies: Dyspnea, Cough Cardiovascular: Denies: Chest Pain, Palpitations Gastrointestinal: Denies: Nausea, Vomiting, Abdominal Pain, Diarrhea, Constipation Objective Physical Examination General Exam: Positive: Alert, No Acute Distress, Other (cachectic) Eye Exam: Negative: Sclera icteric Neck Exam: Positive: Supple, Negative: JVD, thyromegaly Chest Exam: Positive: Diminished (Insp creps left base. Right CTA), Other ( Bandage left chest) Heart Exam: Positive: Rate Normal, Regular Rhythm, Normal S1, Normal S2, Negative: Murmurs, Rubs Telemetry: Positive: No significant arrhythmia Abdomen Exam: Positive: Normal bowel sounds, Soft, Negative: Tenderness, Hepatospenomegaly Male Exam: Negative: Edema Extremity Exam: Negative: Edema Skin Exam: Negative: Rash, Breakdown Psych Exam: Positive: Mental status NL Assessment /Plan Problems (1) T2DM (type 2 diabetes mellitus) Status: Chronic Problem Text: There is consideration that this patient actually has Type 1DM. Check C-peptide 10/27 - Patient admitted with DKA. He had no idea how much insulin he was taking but was discharged from hospital ([facility]) recently on Lantus 10 units daily DKA has resolved Now on Levemir 6 units daily with SSI coverage. His blood sugars last 24 hours are 47/88/185/234/339/70/59. Low blood sugars typically occurring in am. Afternoon and pm sugars are higher. At this point I will d/c hs coverage. encourage hs snack. Continue Levemir 6 units for now. Get diabetic diet teaching (2) CVA (cerebral vascular accident) Status: Acute Response to Treatment: Improving Problem Text: 10/27 - Has significant left sided weakness with a fall last pm. will need ST rehab if patient and agreeable. PFS trying to contact . Patient wants to go home, but really not physically able to do so and doubt could care for him safely aspirin 81 (HD) increased to 325/atorva 10 (HD) increased to 40 10/19/16 MRI brain acute/subacute areas of infarction involving the right frontal /parietal/occipital lobes 10/24/16 normal TTE (3) Lyme disease, acute Status: Acute Problem Specific Plan: Consult Specialist Problem Text: 10/27 - ceftriaxone 2 IV QD via PICC. D03/04 per ID Has coverage for home IV abx if goes home with this. MRI with right frontal and parieto occipital lobe infarctions. LP had elevated protein, consistent with possible neural Lyme. (4) Pneumothorax Status: Acute Problem Text: 10/27 Pneumothorax occurred during Central Line placement on admission. Managed by Dr. Babb. Chest tube d/c'd yesterday. Lung volume improved. Dr. Babb signed off today (5) Severe protein-calorie malnutrition Status: Acute Problem Text: Glucerna shakes tid. HIV and hepatitis C negative. No Virchow's node palpated. (6) COPD (chronic obstructive pulmonary disease) Status: Chronic Response to Treatment: Stable Problem Specific Plan: Monitor Clinically (7) HTN (hypertension) Status: Chronic Response to Treatment: Stable Problem Specific Plan: Monitor Clinically (8) Macrocytic anemia Status: Chronic Response to Treatment: Stable Problem Text: H/O B12 def. 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 s/o chemo/Rt - followed by ENT apparently clear of disease Plan/VTE VTE Prophylaxis Ordered?: Yes (Lovenox) Disposition PFS involved and will attempt to contact to discuss Subacute rehab option VS, I&O, 24H, Fishbone Vital Signs/I&O Vital Signs Date Time Temp Pulse Resp B/P (MAP) Pulse Ox O2 Delivery O2 Flow Rate FiO2 10/27/16 08:44 138/73 10/27/16 08:00 Room Air 10/27/16 07:30 98.2 78 20 100 10/27/16 04:45 2.0 I&O- Last 24 Hours up to 6 AM 10/27/16 06:00 Intake Total 1480 ml Output Total 2225 ml Balance -745 ml Laboratory Data 24H LABS Laboratory Tests 2 10/26/16 11:55: Bedside Glucose (Misc Panel) 185H 10/26/16 17:31: Bedside Glucose (Misc Panel) 234H 10/26/16 20:16: Bedside Glucose (Misc Panel) 339H 10/27/16 04:20: Anion Gap 5L, Glomerular Filtration Rate > 60.0, Blood Urea Nitrogen 9, Creatinine 0.32L, Sodium Level 143, Potassium Level 3.4L, Chloride Level 107, Carbon Dioxide Level 31, Calcium Level 6.8#L, Aspartate Amino Transf (AST/SGOT) 10L, Alanine Aminotransferase (ALT/SGPT) 14, Alkaline Phosphatase 82, Total Bilirubin 0.1L, Total Protein 4.7L, Albumin 2.1L, Albumin/Globulin Ratio 0.81L CBC/BMP Laboratory Tests 10/27/16 04:20 Calcium Level 6.8 #L, Aspartate Amino Transf (AST/SGOT) 10 L, Alanine Aminotransferase (ALT/SGPT) 14, Alkaline Phosphatase 82, Total Bilirubin 0.1 L, Total Protein 4.7 L, Albumin 2.1 L 10/27/16 04:21 Red Blood Count 2.62 L, Mean Corpuscular Volume 101.6 H, Mean Corpuscular Hemoglobin 32.8, Mean Corpuscular Hemoglobin Concent 32.3, Red Cell Distribution Width 15.8 H Microbiology Microbiology 10/18/16 Blood Culture - Final, Complete NO GROWTH AFTER 5 DAYS 10/18/16 Blood Culture - Final, Complete NO GROWTH AFTER 5 DAYS 10/20/16 Gram Stain - Final, Complete 10/20/16 CSF Culture - Final, Complete 10/19/16 Urine Culture - Final, Complete DOMINIC YAÑEZ PA-C October 27, 2016 11:57
[2016-10-27 12:00] VITALS: BP 118/72
[2016-10-27] MEDS ORDERED: ASPI325T PO (12:38)
[2016-10-27] MEDS ORDERED: MUPI2OI TOP (12:38)
[2016-10-27] MEDS ORDERED: INSUDET SC (12:38)
[2016-10-27] MEDS ORDERED: INSUHUMDS SC (12:38)
[2016-10-27] MEDS ORDERED: NYST50SS SS (12:38)
[2016-10-27] MEDS ORDERED: GLUC4CHW PO (12:38)
[2016-10-27] MEDS ORDERED: HEPA100SYR IV ×2 (12:38)
[2016-10-27] MEDS ORDERED: LISI10TA4 PO (12:38)
[2016-10-27] MEDS ORDERED: LOVE1INJ SC (12:38)
[2016-10-27] MEDS ORDERED: ATOR1TAB21 PO (12:38)
[2016-10-27] MEDS ORDERED: GLUC1VL SC (12:38)
[2016-10-27] MEDS ORDERED: DEXT50IN6 IV (12:38)
[2016-10-27] MEDS ORDERED: SLF IV ×2 (12:38)
[2016-10-27] MEDS ORDERED: MIRT15TA3 PO (12:38)
--- NOTE | 2016-10-29 01:07 | DSES ---
DATE OF ADMISSION: 10/19/2016 DATE OF DISCHARGE: 10/27/2016 BRIEF HISTORY AND PHYSICAL: The patient is a 61-year-old patient of Dr. Garcia recently hospitalized in [facility] for diabetic ketoacidosis, who followed up with is primary care physician (PCP) on 10/01/2016. The patient has been having some high sugars at home and was not certain how much insulin he was supposed to be taking nor was he consistently taking his insulin. 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 HOSPITAL COURSE: 1. The patient was admitted for diabetic ketoacidosis (DKA), placed in the intensive care unit (ICU). His DKA was severe. He was placed on a bicarb drip, as well as insulin drip and potassium replacement. The sugars eventually improved and he has been placed on long-acting insulin. The interesting part of his diabetes is that he presented now with DKA on two occasions, but he has supposedly a type 2 diabetes, but his severe acidosis and high anion gap and ketoacidosis suggest that he probably has type 1. Oddly, he is only on 6 units of Levemir with some sliding scale coverage; and despite this, tends to have hypoglycemic episodes in the morning. His HS coverage as been discontinued in an effort to prevent the hypoglycemic episodes that are occurring in the morning. Also, he has been encouraged to have at bedtime snack. He will remain on Levemir 6 units for now and further adjustments in his dose as needed depending on how his blood sugars are running 2. Acute Lyme disease. He has had weight loss, confusion, two episodes of diabetic ketoacidosis requiring admission in the intensive care unit (ICU) management. Lyme test was positive. He was followed by Dr. Back who suggest a starting IV Rocephin, although this did not exactly fit the picture of neuro lyme. Lumbar puncture was performed showing no cells or organisms. So at this point, he will remain on Rocephin per the recommendations of infectious disease. He is on day 9 of 28. 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 3. Pneumothorax. He had a central line placed on admission, caused a pneuothorax. Chest tube was placed by Dr. Babb and managed for several days. Chest tube has been successfully removed and lung volumes have normalized without recurrence of pneumothorax. Respiratory status is stable. 4. Cerebrovascular accident (CVA). He has significant left-sided weakness and unsteady gait. Magnetic Resonance Imaging (MRI) of the brain showed acute and subacute areas of infarction involving the right frontal parietal and occipital lobes. He is on aspirin which was increased at high-dose 325 mg daily and atorvastatin which was increased from 10 to 40 mg daily and he has been referred to physical medicine rehabilitation for acute rehabilitation. 5. Severe protein calorie malnutrition with severe weight loss. He does have a history of metastatic squamous cell carcinoma of the left neck with an unknown primary. He is status post modified radical neck dissection in 2010 and his weight has dropped since then. Human immunodeficiency virus (HIV) and hepatitis tests were done; and at this point, the etiology of his weight loss is uncertain. He had a CT of the chest that shows subcutaneous emphysema, mild bronchiectasis. No masses were seen. Liver ultrasound showed mildly dilated common bile duct otherwise normal right upper quadrant. He states he does have some macrocytic anemia and I will order an S-Pap, U-Pap. 6. Macrocytosis. B12 and folate levels will be ordered, as well as S-Pap and U-Pap. <<8:58>> . DISPOSITION: He is stable for transfer to acute rehabilitation. MEDICATIONS: - Lovenox 40 mg daily - aspirin and his 325 mg daily - Lipitor 40 mg daily - iron sulfate 325 mg daily - Lasix 20 mg daily - Prinivil 10 mg - Colace 100 mg twice a day - Eliquis twice a day - Senokot one tablet at bedtime - Levemir 6 units at bedtime - Remeron 15 mg at bedtime - Sliding scale coverage before meals (ac), but not (hs) at bedtime - ceftriaxone 2 grams daily - Fleet's enema as needed - milk of magnesia as needed - Tylenol as needed - Proventil 2 puffs every 6 hours as needed - Hypoglycemic protocol is ordered. DISCHARGE DIAGNOSES 1. Diabetic ketoacidosis (DKA). 2. Hypoglycemia. 3. Acute neuro Lyme disease 4. Severe protein calorie malnutrition 5. Subacute and chronic cerebrovascular accident (CVA). 6. Macrocytic anemia. 7. Pneumothorax, <<10:50>> ascites. 9. Chronic obstructive pulmonary disease (COPD) 10. Hypertension
[2016-10-30 00:06] LABS: FREE KAPPA LIGHT CHAINS SERUM 11.04 mg/L (3.30-19.40); FREE LAMBDA LIGHT CHAINS SERUM 7.38 mg/L (5.71-26.30); KAPPA/LAMBDA RATIO SERUM 1.5 (0.26-1.65)
== END 2016-10-27 14:21 | DRG 637 ==
LOC: EDBD 17:22 → M ED 18:32 → M ED INP 22:27 → M ICU 10-19 04:04 → M PCU 10-23 14:50
PROVIDERS: ADMIT Hospitalist; ATTEND Family Medicine
PROC: 0W9B30Z Drainage of Left Pleural Cavity with Drainage Device, Percutaneous Approach (ICD-10-PCS; principal; 2016-10-18)
PROC: 02HV33Z Insertion of Infusion Device into Superior Vena Cava, Percutaneous Approach (ICD-10-PCS; 2016-10-18)
PROC: 009U3ZX Drainage of Spinal Canal, Percutaneous Approach, Diagnostic (ICD-10-PCS; 2016-10-20)
PROC: 02HV33Z Insertion of Infusion Device into Superior Vena Cava, Percutaneous Approach (ICD-10-PCS; 2016-10-21)
DX: E13.10 Other specified diabetes mellitus with ketoacidosis without coma (principal); J86.0 Pyothorax with fistula; E43 Unspecified severe protein-calorie malnutrition; I63.9 Cerebral infarction, unspecified; A69.20 Lyme disease, unspecified; J95.811 Postprocedural pneumothorax; R18.8 Other ascites; R64 Cachexia; I69.354 Hemiplegia and hemiparesis following cerebral infarction affecting left non-dominant side; R79.89 Other specified abnormal findings of blood chemistry; E78.5 Hyperlipidemia, unspecified; I10 Essential (primary) hypertension; J44.9 Chronic obstructive pulmonary disease, unspecified; D53.9 Nutritional anemia, unspecified; Z79.4 Long term (current) use of insulin; Z79.899 Other long term (current) drug therapy; Z79.01 Long term (current) use of anticoagulants; Z85.828 Personal history of other malignant neoplasm of skin; Z83.3 Family history of diabetes mellitus; Z82.61 Family history of arthritis; Z82.8 Family history of other disabilities and chronic diseases leading to disablement, not elsewhere classified; Z82.49 Family history of ischemic heart disease and other diseases of the circulatory system; Z79.82 Long term (current) use of aspirin

== ENCOUNTER 2016-10-27 13:26 | Inpatient (IN) | payer MEDICARE, MEDICAID ==
[~2016-10-27] VITALS: Ht 188 cm; Wt 51.0 kg
[~2016-10-27 13:26] MED LIST changes: +ALBU17IN INH; +ASPI325T PO; +ASPI81TA7 PO; +ATOR1TAB19 PO; +ATOR1TAB21 PO; +BREO1INH INH; +DEXT50IN6 IV; +DOXY-278 PO; +FERR325T PO; +GLUC1VL SC; +GLUC4CHW PO; +HEPA100SYR IV; +INSUH10VL SC; +INSUHUMDS SC; +INSULANT SC; +LASI20TA PO; +LISI10TA4 PO; +LOVE1INJ SC; +MIRT15TA3 PO; +MUPI2OI TOP; +NYST50SS SS; +SLF IV
[2016-10-27] MEDS ORDERED: DEXTROSE 50% 50 ML VIAL IV PRN (13:45)
[2016-10-27] MEDS ORDERED: GLUCAGON FOR INJ 1 MG VIAL (J1610) SC PRN (13:45)
[2016-10-27] MEDS ORDERED: GLUCOSE 4 GM CHEW TABLET PO PRN (13:45)
[2016-10-27] MEDS ORDERED: ACETAMINOPHEN TAB 650MG DOSE (2X325MG) PO PRN (13:45)
[2016-10-27] MEDS ORDERED: MOM 30ML SUSPENSION UDC PO PRN (13:45)
[2016-10-27] MEDS ORDERED: FLEET ENEMA PR PRN (13:45)
[2016-10-27] MEDS ORDERED: ALBUTEROL 90 MCG/ACT 8GM HFA INHALER INH PRN (13:45)
[2016-10-27 14:25] VITALS: BP 144/73
[2016-10-27] MEDS: MUPIROCIN 2% OINT 22 GM TUBE TOP SCH ×2 (16:52→21:13)
[2016-10-27] MEDS: NYSTATIN 500,000 U/5 ML SUSP UDC SS SCH ×2 (16:52→21:13)
[2016-10-27] MEDS: cefTRIAXone SOD 2 GM in D5W MINI-BAG PLUS 50 ML IV SCH (17:04)
[2016-10-27] MEDS: HumaLOG INSULIN (NovoLOG) PER UNIT SC SCH (17:36)
[2016-10-27] MEDS: SODIUM CHLORIDE 0.9% INJ 10 ML SYR IV SCH (17:37)
[2016-10-27 20:00] VITALS: BP 132/77
[2016-10-27] MEDS ORDERED: LEVEMIR (INSULIN DETEMIR) 1 UNITS/0.01ML SC SCH (21:00)
[2016-10-27] MEDS: MIRTAZAPINE 15 MG TAB PO SCH (21:13)
[2016-10-27] MEDS: SENNA 8.6 MG TAB (SENOKOT) PO SCH (21:13)
[2016-10-27] MEDS: DOCUSATE SODIUM 100 MG CAP PO SCH (21:13)
[2016-10-28 06:00] VITALS: BP 108/62
[2016-10-28] MEDS: SODIUM CHLORIDE 0.9% INJ 10 ML SYR IV SCH ×2 (06:05→17:19)
[2016-10-28 06:27] LABS: BASO % 0.5 % (0.0-1.0); EOS # 0.1 K/mm3 (0.0-0.50); EOS % 3.2 % (0.0-3.0); LARGE UNSTAINED CELL # 0.1 K/mm3 (0.0-0.4); LARGE UNSTAINED CELL % 3.6 % (0.0-4.0); LYMPH # 0.9 K/mm3 (1.5-4.5); LYMPH % 22.2 % (24.0-44.0); MEAN CORPUSCULAR HGB CONC 32.4 g/dl (32.0-36.5); MEAN CORPUSCULAR VOLUME 101.9 fl (80.0-96.0); MONO # 0.3 K/mm3 (0.0-0.8); MONO % 7.9 % (0.0-5.0); NEUTROPHILS # 2.1 K/mm3 (1.8-7.7); NEUTROPHILS % 62.5 % (36.0-66.0); PLATELET COUNT, AUTOMATED 368 k/mm3 (150-450); RED CELL DISTRIBUTION WIDTH 15.5 % (11.5-14.5); WHITE BLOOD COUNT 3.3 K/mm3 (4.0-10.0)
[2016-10-28 06:49] LABS: ALBUMIN 2.6 GM/DL (3.2-5.2); ALBUMIN/GLOBULIN RATIO 0.93 (1.00-1.93); ALKALINE PHOSPHATASE 102 U/L (45-117); ALT/SGPT 18 U/L (12-78); ANION GAP 4 MEQ/L (8-16); AST/SGOT 16 U/L (15-37); BILIRUBIN,TOTAL 0.2 MG/DL (0.2-1.0); BLOOD UREA NITROGEN 10 MG/DL (7-18); CALCIUM LEVEL 8.3 MG/DL (8.8-10.2); CARBON DIOXIDE LEVEL 35 MEQ/L (21-32); CHLORIDE LEVEL 101 MEQ/L (98-107); CREATININE FOR GFR 0.39 MG/DL (0.70-1.30); GLOMERULAR FILTRATION RATE > 60.0 (>49); POTASSIUM SERUM 3.9 MEQ/L (3.5-5.1); SODIUM LEVEL 140 MEQ/L (136-145); TOTAL PROTEIN 5.4 GM/DL (6.4-8.2)
[2016-10-28 06:51] LABS: GLUCOSE, FASTING 39 MG/DL (80-110)
[2016-10-28] MEDS: HumaLOG INSULIN (NovoLOG) PER UNIT SC SCH ×3 (07:00→16:43)
[2016-10-28] MEDS: ENOXAPARIN 40 MG/0.4 ML SYRINGE (J1650) SC SCH (08:39)
[2016-10-28] MEDS: LISINOPRIL 10 MG TAB PO SCH (08:40)
[2016-10-28] MEDS: DOCUSATE SODIUM 100 MG CAP PO SCH ×2 (08:40→20:38)
[2016-10-28] MEDS: ASPIRIN 325 MG TAB PO SCH (08:40)
[2016-10-28] MEDS: FERROUS SULFATE 325MG TAB PO SCH (08:40)
[2016-10-28] MEDS: NYSTATIN 500,000 U/5 ML SUSP UDC SS SCH ×4 (08:40→20:37)
[2016-10-28] MEDS: ATORVASTATIN 20 MG TAB PO SCH (08:40)
[2016-10-28] MEDS: MUPIROCIN 2% OINT 22 GM TUBE TOP SCH ×3 (08:41→20:38)
[2016-10-28] MEDS: FUROSEMIDE 20 MG TAB PO SCH (08:41)
--- NOTE | 2016-10-28 11:56 | IPNPDOC ---
Subjective Date Seen The patient was seen on 10/28/16. Subjective Chief Complaint/HPI The patient is a 61-year-old male admitted with a reason for visit of CVA. Events since last encounter Street hypoglycemia again this morning. Eating well. No new issue or concerns Constitutional: Denies: Chills, Fever Pulmonary: Denies: Dyspnea, Cough Cardiovascular: Denies: Chest Pain, Palpitations, Orthopnea Gastrointestinal: Denies: Nausea, Vomiting, Abdominal Pain, Diarrhea, Constipation Objective Physical Examination General Exam: Positive: Alert, No Acute Distress Chest Exam: Positive: Clear to auscultation Heart Exam: Positive: Rate Normal Abdomen Exam: Positive: Normal bowel sounds, Negative: Tenderness Extremity Exam: Negative: Edema Assessment /Plan Problems (1) T2DM (type 2 diabetes mellitus) Status: Chronic Problem Text: Still having hypoglycemia in am despite d/c hs SSI coverage and hs snack. 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 Status: Chronic Problem Text: may need f/u as outpatient (7) Pneumothorax Status: Resolved Problem Text: s/p chest tube - d/c'd with no recurrence of pneumothorax (8) Ascites Status: Chronic (9) COPD (chronic obstructive pulmonary disease) Status: Chronic Response to Treatment: Stable (10) HTN (hypertension) Status: Chronic Response to Treatment: Stable Plan/VTE VTE Prophylaxis Ordered?: Yes (Lovenox) VS, I&O, 24H, Fishbone Vital Signs/I&O Vital Signs Date Time Temp Pulse Resp B/P (MAP) Pulse Ox O2 Delivery O2 Flow Rate FiO2 10/28/16 08:40 108/62 10/28/16 08:00 Room Air 10/28/16 06:00 98.0 78 18 98 I&O- Last 24 Hours up to 6 AM 10/28/16 06:00 Intake Total 480 ml Output Total 1175 ml Balance -695 ml Laboratory Data 24H LABS Laboratory Tests 2 10/27/16 16:53: Bedside Glucose (Misc Panel) 206H 10/27/16 20:43: Bedside Glucose (Misc Panel) 259H 10/27/16 20:53: Urine Appearance CLEAR, Urine Color STRAW, Urine pH 5.0, Urine Specific [place] 1.014, Urine Protein NEGATIVE, Urine Glucose (UA) 3+H, Urine Ketones TRACEH, Urine Urobilinogen 0.2, Urine Bilirubin NEGATIVE, Urine Leukocyte Esterase NEGATIVE, Urine Blood NEGATIVE, Urine Nitrite NEGATIVE, Urine WBC (Auto) 0, Urine RBC (Auto) 1, Urine Hyaline Casts (Auto) 0, Urine Bacteria (Auto) NEGATIVE , Urine Squamous Epithelial Cells 0, Urine Sperm (Auto) SMALLH 10/28/16 06:06: Bedside Glucose (Misc Panel) 42L 10/28/16 06:17: White Blood Count 3.3L, Red Blood Count 2.77L, Hemoglobin 9.1L, Hematocrit 28.2L , Mean Corpuscular Volume 101.9H, Mean Corpuscular Hemoglobin 33.0, Mean Corpuscular Hemoglobin Concent 32.4, Red Cell Distribution Width 15.5H, Platelet Count 368, Neutrophils (%) (Auto) 62.5, Lymphocytes (%) (Auto) 22.2L, Monocytes (%) (Auto) 7.9H, Eosinophils (%) (Auto) 3.2H, Basophils (%) (Auto) 0.5 , Neutrophils # (Auto) 2.1, Lymphocytes # (Auto) 0.9L, Monocytes # (Auto) 0.3, Eosinophils # (Auto) 0.1, Basophils # (Auto) 0.0, Large Unclassified Cells % 3.6 , Large Unclassified Cells # 0.1, Anion Gap 4L, Glomerular Filtration Rate > 60.0, Blood Urea Nitrogen 10, Creatinine 0.39L, Sodium Level 140, Potassium Level 3.9, Chloride Level 101, Carbon Dioxide Level 35H, Calcium Level 8.3#L, Aspartate Amino Transf (AST/SGOT) 16, Alanine Aminotransferase (ALT/SGPT) 18, Alkaline Phosphatase 102, Total Bilirubin 0.2#, Total Protein 5.4L, Albumin 2.6# L, Albumin/Globulin Ratio 0.93L 10/28/16 06:37: Bedside Glucose (Misc Panel) 33*L 10/28/16 07:07: Bedside Glucose (Misc Panel) 109 CBC/BMP Laboratory Tests 10/28/16 06:17 Red Blood Count 2.77 L, Mean Corpuscular Volume 101.9 H, Mean Corpuscular Hemoglobin 33.0, Mean Corpuscular Hemoglobin Concent 32.4, Red Cell Distribution Width 15.5 H, Neutrophils (%) (Auto) 62.5, Lymphocytes (%) (Auto) 22.2 L, Monocytes (%) (Auto) 7.9 H, Eosinophils (%) (Auto) 3.2 H, Basophils (%) (Auto) 0.5, Neutrophils # (Auto) 2.1, Lymphocytes # (Auto) 0.9 L, Monocytes # ( Auto) 0.3, Eosinophils # (Auto) 0.1, Basophils # (Auto) 0.0, Calcium Level 8.3 # L, Aspartate Amino Transf (AST/SGOT) 16, Alanine Aminotransferase (ALT/SGPT) 18 , Alkaline Phosphatase 102, Total Bilirubin 0.2 #, Total Protein 5.4 L, Albumin 2.6 #L DOMINIC YAÑEZ PA-C October 28, 2016 11:56
--- NOTE | 2016-10-28 12:44 | IPNPDOC ---
[employer] Progress Note DATE OF SERVICE: 10/28/16 DATE OF ADMISSION: October 27, 2016 at 14:25 INPATIENT REHABILITATION ADMISSION DAY: #1 SUBJECTIVE: Patient is a 61-year-old white male with right frontal and occipital parietal CVAs with left hemiparesis and neglect and balance deficit. Patient without complaints today including GI, , cardiac, respiratory and pain. ALLERGIES: See Below MEDICATIONS: Reviewed, see below. OBJECTIVE: VITAL SIGNS: Please see below. PHYSICAL EXAMINATION: GENERAL: Cachectic middle-age white male who is alert and oriented 4. Patient is in minimal musculoskeletal distress around the left upper chest and the former chest tube site. HEENT: Essentially normocephalic/atraumatic. CARDIOVASCULAR: Regular rate and rhythm with normal S1-S2. 2/4 bilateral radial pulses. LUNGS: All june clear to auscultation. ABDOMEN: Benign with normal bowel sounds abdomen is scaphoid. NEUROLOGICAL: No significant change from admission. SKIN: Less erythema in the left upper chest chest tube site. Hands continue to be purplish blue. LABORATORY DATA: Reviewed. Please see below. MICROBIOLOGY: Please see below. IMAGING: Some improvement seen on yesterday's chest x-ray versus prior studies. No acute findings requiring action. DVT prophylaxis ordered?: Patient continues on Lovenox. ASSESSMENT AND PLAN: 1. Rehabilitation of multiple CVAs: Patient's during course of evaluation with physical and occupational therapy. However he yesterday's orders for these was not apparent in the electronic health record so I'm reordering. 2. Anemia: Patient continued with a moderate anemia of H&H being 9.1 and 28.2% with elevation of MCV at approximately 102. 3. Diabetes: Patient had a very low level this morning responded to treatment. We will need to continue to watch this and may need to adjust insulin. TIME SPENT: Chart Review, examination and documentation greater 25 minutes. Allergies Coded Allergies: No Known Drug Allergy (Verified Allergy, Unknown, 09/05/12) Vital Signs Vital Signs Date Time Temp Pulse Resp B/P (MAP) Pulse Ox O2 Delivery O2 Flow Rate FiO2 10/28/16 08:40 108/62 10/28/16 08:00 Room Air 10/28/16 06:00 98.0 78 18 98 Laboratory Data CBC/BMP Laboratory Tests 10/28/16 06:17 Red Blood Count 2.77 L, Mean Corpuscular Volume 101.9 H, Mean Corpuscular Hemoglobin 33.0, Mean Corpuscular Hemoglobin Concent 32.4, Red Cell Distribution Width 15.5 H, Neutrophils (%) (Auto) 62.5, Lymphocytes (%) (Auto) 22.2 L, Monocytes (%) (Auto) 7.9 H, Eosinophils (%) (Auto) 3.2 H, Basophils (%) (Auto) 0.5, Neutrophils # (Auto) 2.1, Lymphocytes # (Auto) 0.9 L, Monocytes # ( Auto) 0.3, Eosinophils # (Auto) 0.1, Basophils # (Auto) 0.0, Calcium Level 8.3 # L, Aspartate Amino Transf (AST/SGOT) 16, Alanine Aminotransferase (ALT/SGPT) 18 , Alkaline Phosphatase 102, Total Bilirubin 0.2 #, Total Protein 5.4 L, Albumin 2.6 #L Labs 24H Laboratory Tests 2 10/27/16 16:53: Bedside Glucose (Misc Panel) 206H 10/27/16 20:43: Bedside Glucose (Misc Panel) 259H 10/27/16 20:53: Urine Appearance CLEAR, Urine Color STRAW, Urine pH 5.0, Urine Specific [place] 1.014, Urine Protein NEGATIVE, Urine Glucose (UA) 3+H, Urine Ketones TRACEH, Urine Urobilinogen 0.2, Urine Bilirubin NEGATIVE, Urine Leukocyte Esterase NEGATIVE, Urine Blood NEGATIVE, Urine Nitrite NEGATIVE, Urine WBC (Auto) 0, Urine RBC (Auto) 1, Urine Hyaline Casts (Auto) 0, Urine Bacteria (Auto) NEGATIVE , Urine Squamous Epithelial Cells 0, Urine Sperm (Auto) SMALLH 10/28/16 06:06: Bedside Glucose (Misc Panel) 42L 10/28/16 06:17: White Blood Count 3.3L, Red Blood Count 2.77L, Hemoglobin 9.1L, Hematocrit 28.2L , Mean Corpuscular Volume 101.9H, Mean Corpuscular Hemoglobin 33.0, Mean Corpuscular Hemoglobin Concent 32.4, Red Cell Distribution Width 15.5H, Platelet Count 368, Neutrophils (%) (Auto) 62.5, Lymphocytes (%) (Auto) 22.2L, Monocytes (%) (Auto) 7.9H, Eosinophils (%) (Auto) 3.2H, Basophils (%) (Auto) 0.5 , Neutrophils # (Auto) 2.1, Lymphocytes # (Auto) 0.9L, Monocytes # (Auto) 0.3, Eosinophils # (Auto) 0.1, Basophils # (Auto) 0.0, Large Unclassified Cells % 3.6 , Large Unclassified Cells # 0.1, Anion Gap 4L, Glomerular Filtration Rate > 60.0, Blood Urea Nitrogen 10, Creatinine 0.39L, Sodium Level 140, Potassium Level 3.9, Chloride Level 101, Carbon Dioxide Level 35H, Calcium Level 8.3#L, Aspartate Amino Transf (AST/SGOT) 16, Alanine Aminotransferase (ALT/SGPT) 18, Alkaline Phosphatase 102, Total Bilirubin 0.2#, Total Protein 5.4L, Albumin 2.6# L, Albumin/Globulin Ratio 0.93L 10/28/16 06:37: Bedside Glucose (Misc Panel) 33*L 10/28/16 07:07: Bedside Glucose (Misc Panel) 109 10/28/16 11:46: Bedside Glucose (Misc Panel) 175H Current Medications Current Medications Current Medications Acetaminophen (Tylenol Tab) 650 mg Q4HP PRN PO MILD PAIN (PS 1-4); Start at 13:45; Stop 11/26/16 at 13:44 Albuterol Sulfate (Proventil, Ventolin Hfa) 2 puff Q6H PRN INH SHORTNESS OF BREATH; Start 10/27/16 at 13:45; Stop 11/26/16 at 13:44 Aspirin (Aspirin) 325 mg DAILY PO Last administered on 10/28/16 08:40; Start 10/28/16 at 09:00; Stop 11/27/16 at 08:59 Atorvastatin Calcium (Lipitor) 40 mg DAILY PO Last administered on 10/28/16 08 :40; Start 10/28/16 at 09:00; Stop 11/27/16 at 08:59 Ceftriaxone Sodium 2 gm/ Dextrose 50 ml @ 100 mls/hr Q24H IV Last administered on 10/27/16 17:04; Start 10/27/16 at 17:00; Stop 11/03/16 at 16:59 Dextrose (Dextrose 50%) 25 ml ASDIRECTED PRN IV SEE LABEL COMMENTS; Start 10/27 at 13:45; Stop 11/26/16 at 13:44 Docusate Sodium (Colace) 100 mg BID PO Last administered on 10/27/16 21:13; Start 10/27/16 at 21:00; Stop 11/26/16 at 20:59 Enoxaparin Sodium (Lovenox) 40 mg DAILY SC Last administered on 10/28/16 08:39 ; Start 10/28/16 at 09:00; Stop 11/02/16 at 08:59 Ferrous Sulfate (Ferrous Sulfate) 325 mg DAILY PO Last administered on 08:40; Start 10/28/16 at 09:00; Stop 11/27/16 at 08:59 Folic Acid (Folic Acid) 1 mg DAILY PO ; Start 10/29/16 at 09:00; Stop 11/28/16 at 08:59 Furosemide (Lasix) 20 mg DAILY PO Last administered on 10/28/16 08:41; Start 10/28/16 at 09:00; Stop 11/27/16 at 08:59 Glucagon (Glucagon) 1 mg ASDIRECTED PRN SC SEE LABEL COMMENTS; Start 10/27/16 at 13:45; Stop 11/26/16 at 13:44 Glucose (Glucose) ASDIRECTED PRN PO SEE LABEL COMMENTS; Start 10/27/16 at 13: 45; Stop 11/26/16 at 13:44 Heparin Sodium (Heparin (Flush)) 200 units ASDIRECTED PRN IV SEE LABEL COMMENTS ; Start 10/27/16 at 13:45; Stop 11/26/16 at 13:44 Heparin Sodium (Heparin (Flush)) 200 units PICC IV Last administered on 06:05; Start 10/27/16 at 18:00; Stop 11/26/16 at 17:59 Insulin Detemir (Levemir Insulin) 6 units QHS SC Last administered on 21:13; Start 10/27/16 at 21:00; Stop 11/26/16 at 20:59 Insulin Human Lispro (HumaLOG INSULIN) AC SC Last administered on 10/27/16 17 :36; Start 10/27/16 at 17:30; Stop 11/26/16 at 17:29 Lisinopril (Prinivil) 10 mg DAILY PO Last administered on 10/28/16 08:40; Start 10/28/16 at 09:00; Stop 11/27/16 at 08:59 Magnesium Hydroxide (Milk Of Magnesia) 30 ml DAILYPRN PRN PO CONSTIPATION; Start 10/27/16 at 13:45; Stop 11/26/16 at 13:44 Mirtazapine (Remeron) 15 mg QHS PO Last administered on 10/27/16 21:13; Start 10/27/16 at 21:00; Stop 11/26/16 at 20:59 Mupirocin (Bactroban 2% Ointment) TID TOP Last administered on 10/28/16 08:41 ; Start 10/27/16 at 16:00; Stop 11/26/16 at 15:59 Nystatin (Mycostatin) 5 ml QID SS Last administered on 10/28/16 08:40; Start 10/27/16 at 17:00; Stop 11/03/16 at 16:59 Senna (Senokot) 1 tab QHS PO Last administered on 10/27/16 21:13; Start at 21:00; Stop 11/26/16 at 20:59 Sodium Biphosphate/ Sodium Phosphate (Fleet Enema) 1 ea DAILYPRN PRN CA CONSTIPATION; Start 10/27/16 at 13:45; Stop 11/26/16 at 13:44 Sodium Chloride (Saline Lock Flush) 10 ml ASDIRECTED PRN IV SEE LABEL COMMENTS ; Start 10/27/16 at 13:45; Stop 11/26/16 at 13:44 Sodium Chloride (Saline Lock Flush) 10 ml PICC IV Last administered on 06:05; Start 10/27/16 at 18:00; Stop 11/26/16 at 17:59 URIAH DAVIS MD October 28, 2016 12:44
[2016-10-28] MEDS: LEVEMIR (INSULIN DETEMIR) 1 UNITS/0.01ML SC SCH (12:45)
[2016-10-28 14:00] VITALS: BP 124/73
[2016-10-28] MEDS: cefTRIAXone SOD 2 GM in D5W MINI-BAG PLUS 50 ML IV SCH (16:42)
[2016-10-28 19:44] VITALS: BP 125/78
[2016-10-28] MEDS: MIRTAZAPINE 15 MG TAB PO SCH (20:38)
[2016-10-28] MEDS: SENNA 8.6 MG TAB (SENOKOT) PO SCH (20:39)
--- NOTE | 2016-10-28 21:50 | PMRHPE ---
DATE OF ADMISSION: 10/27/2016 CHIEF COMPLAINT: Rehabilitation of right frontal plus occipitoparietal cerebrovascular accidents (CVAs) complicated by Lyme disease encephalopathy. DIAGNOSES: 1. Lyme disease encephalopathy. 2. Left hemiparesis with left neglect. 3. Type 1 diabetes mellitus times 30 years. 4. Atherosclerotic cardiovascular disease. 5. Hyperlipidemia. 6. Hypertension. 7. 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 8. Anorexia. 9. Gynecomastia status post breast biopsy in February 2011. ALLERGIES: No known drug allergies. MEDICATIONS: - Rocephin 2 grams intravenous (IV) every 24 hours for 14-day course for Lyme increase. To continue to stoppage on 10/24/2016. - Tylenol 650 mg every 4 hours as needed - Proventil inhaler two puffs every 6 hours as needed shortness of breath - aspirin 325 mg a day - atorvastatin 40 mg by mouth daily - Colace 100 mg twice a day - Lovenox 40 mg subcutaneous daily - iron sulfate 325 mg daily - Lasix 20 mg daily - glucagon, glucose, and dextrose for hypoglycemia, as patient is on 6 units of insulin at bedtime, and Lispro Humalog sliding scale - lisinopril 10 mg daily for hypertension - milk of magnesia 30 mL for constipation - Remeron 15 mg by mouth at bedtime - Bactroban 2% ointment topically three times a day - nystatin suspension 5 mL SS four times a day - Senokot one tablet by mouth at bedtime for bowel program - sodium chloride and heparin flushes of central line - Fleet enema one per rectum as needed constipation SOCIAL HISTORY: Patient is disabled. He lives with his in a 2-story home with three to five steps entrance and approximately 12-14 steps to go to the second floor where the bedrooms are. Patient does not smoke. He does drink approximately 12 beers per month. FAMILY HISTORY: Positive for diabetes, vascular disease, arthritis, and dementia. REVIEW OF SYSTEMS: Patient does have some tiredness and fatigue and is cold. Otherwise negative 10-point review of systems. PHYSICAL EXAMINATION: Patient is a right-handed 61-year-old white male who is cachectic but alert, somewhat bundled in blankets, asking for an additional blanket when I met him as he was lying in bed. Vital signs show temperature of 97.7, blood pressure of 144/73 with a pulse of 70, respirations 18, pulse oximetry 95% on room air. HEENT: Normocephalic, atraumatic. Patient using glasses for visual support. His extraocular motions are intact. Pupils equal, round, reactive to light and accommodation. Hearing is good. Nares are clear. Septum is straight. No drainage is seen in the nose. Oropharynx showed a little irritation in the back, but tongue and uvula are midline. There are no carotid bruits. Thyroid feels normal size and without any notable nodules or goiter. Neck is supple. Lungs are clear in all june to auscultation. Coronary shows a regular rate and rhythm with normal S1, S2. The fingers are somewhat cold and bluish to purplish; however, mid palms measured out at a normal 91.5 in both hands. Capillary perfusion in the fingers is good, returning within 2 seconds, both hands. Chest wall shows mild inflammation and soft eschar formed in the left lateral upper chest at the site of the chest tube removal yesterday. In spite of the erythema, temperature of this area is equal on infrared measurement to the right lateral superior chest in the same spot. Abdomen is scaphoid. Bowel sounds are present in all quadrants. No palpable masses or tenderness. Normal adult male genitalia. Extremities with good functional range of motion and full minus strength on the right for the upper and lower extremities. Good on the left with some control. Right touch is intact from mid luna proximally in the lower extremities and on the wrist/forearm proximally in the upper extremity but some decrease in vibratory sensation in the feet and ankles but intact from the wrist and the upper extremities. Deep tendon reflexes show trace ankles, 2/4 knee jerks, 2+/4 biceps, brachioradialis, and 2/4 triceps. Patient not tested for balance at this time. White count at 3.2, hemoglobin and hematocrit 8.6 and 26.6 on a slightly declining curve. Comprehensive metabolic panel shows mild hypokalemia with potassium of 3.4. Otherwise, normal electrolytes as well as BUN with a slightly low creatinine and a fasting glucose this morning of 70. Calcium was very low at 6.8 this morning. Liver function tests were within normal limits except for AST being mildly low at 10, and patient hypoalbuminemic at 2.1 with total protein low at 4.7, folate low at 2.0, and normal B12 level . ASSESSMENT/PLAN: 1. Rehabilitation of right cerebrovascular accidents (CVAs). Will go ahead and start patient on a program of physical and occupational therapy at this point in time. Will consider speech therapy, but it appears patient is not having any swallowing problems, and his communication skills are intact. Overall his cognition also appears to be intact, as he is alert and oriented times four. Patient's main deficit is poor endurance partially related to his cachexia as well as his recent multiple medical problems and the CVA with left-sided weakness. Physical therapy (PT) and occupational therapy (OT) will use neuromuscular facilitation of the left upper and lower extremity but also will concentration on balance and left-sided perception. I feel his distal sensorium problem is related to his many years of diabetes and his diabetic polyneuropathy , which will not particularly respond to treatment, but is overcome by compensation and use of appropriate adaptive equipment for balance and mobility. Our biggest goal is to regain stair climbing to allow patient to function safely inside his home as well as good balance and modified to at least standby assistance level in his activities of daily living (ADLs). 2. Lyme encephalopathy. Patient is continuing on treatment course with Rocephin 2 grams per day, and we will watch blood counts and other signs of change and treatment of the infection, which appears to be improving with time. 3. Type 1 diabetes mellitus. Will continue to monitor blood sugars and continue using insulin support for this gentleman. 4. Pneumothorax secondary to intravenous (IV) line. His tube was pulled yesterday, and this appears to be stable. We will keep an eye on it for any changes in cardiopulmonary function. If he starts to have a leak, I will be having the site covered with Op-Site after wound cleaning twice a day. 5. Deep vein thrombosis (DVT) prophylaxis. Will go ahead and use thromboembolic deterrent (KRISS) hose and Lovenox. POSTADMISSION PHYSICIAN EVALUATION: I do feel patient is consistent with the preadmission screen and records and is able to participate and benefit from therapy. Furthermore, he is willing and motivated to do this and appears that he will have no problem tolerating the 3 hours of therapy per day. I do anticipated that with this he will be able to be discharged to home, and his prognosis is fair to good with an anticipated length of stay of 10-14 days. Time spent on chart review, history and physical, and documentation is greater than 70 minutes. MTDD
[2016-10-29 03:29] VITALS: BP 157/67
[2016-10-29] MEDS: SODIUM CHLORIDE 0.9% INJ 10 ML SYR IV SCH ×2 (05:24→17:22)
[2016-10-29] MEDS: HumaLOG INSULIN (NovoLOG) PER UNIT SC SCH ×3 (07:30→17:21)
[2016-10-29] MEDS: DOCUSATE SODIUM 100 MG CAP PO SCH ×2 (09:00→20:27)
[2016-10-29] MEDS: LEVEMIR (INSULIN DETEMIR) 1 UNITS/0.01ML SC SCH (09:01)
[2016-10-29] MEDS: NYSTATIN 500,000 U/5 ML SUSP UDC SS SCH ×4 (09:02→20:27)
[2016-10-29] MEDS: MUPIROCIN 2% OINT 22 GM TUBE TOP SCH ×3 (09:02→20:27)
[2016-10-29] MEDS: LISINOPRIL 10 MG TAB PO SCH (09:02)
[2016-10-29] MEDS: ENOXAPARIN 40 MG/0.4 ML SYRINGE (J1650) SC SCH (09:02)
[2016-10-29] MEDS: ATORVASTATIN 20 MG TAB PO SCH (09:03)
[2016-10-29] MEDS: FOLIC ACID 1 MG TAB PO SCH (09:03)
[2016-10-29] MEDS: FUROSEMIDE 20 MG TAB PO SCH (09:03)
[2016-10-29] MEDS: FERROUS SULFATE 325MG TAB PO SCH (09:03)
[2016-10-29] MEDS: ASPIRIN 325 MG TAB PO SCH (09:03)
[2016-10-29 10:01] VITALS: BP 117/66
--- NOTE | 2016-10-29 11:34 | IPNPDOC ---
Insulation Board Head Saw Operator Progress Note DATE OF SERVICE: 10/29/2016 DATE OF ADMISSION: October 27, 2016 at 14:25 INPATIENT REHABILITATION ADMISSION DAY: #2 SUBJECTIVE: Patient is a 61-year-old white male with right frontal and occipital parietal CVAs with left hemiparesis and neglect and balance deficit. Patient without complaints today including GI, , cardiac, respiratory and pain. Patient while attempting to get blanket more wrapped slid out of his chair onto his buttock without injury or pain. Patient was expressing some resistance to OT this morning. ALLERGIES: See Below MEDICATIONS: Reviewed, see below. OBJECTIVE: VITAL SIGNS: Please see below. PHYSICAL EXAMINATION: GENERAL: Cachectic middle-age white male who is alert and oriented 4. Patient is in good spirits when I have seen him. HEENT: Essentially normocephalic/atraumatic. CARDIOVASCULAR: Regular rate and rhythm with normal S1-S2 with 2 out of 4 bilateral radial pulses. LUNGS: All june clear to auscultation. ABDOMEN: Benign with normal bowel sounds abdomen is scaphoid. NEUROLOGICAL: No significant change from admission. SKIN: Less erythema in the left upper chest chest tube site. Hands continue to be purplish blue. LABORATORY DATA: Reviewed. Please see below. MICROBIOLOGY: Please see below. IMAGING: Some improvement seen on yesterday's chest x-ray versus prior studies. No acute findings requiring action. DVT prophylaxis ordered?: Patient continues on Lovenox. ASSESSMENT AND PLAN: 1. Rehabilitation of multiple CVAs: PT/OT/FOOT CASTER, Rehab. Nursing and Physiatry evals are proceeding. We will review at team rounds this afternoon. Patient discussed at team rounds and is doing well except expressing resistance to OT. I have met with him and discussed the need for him to be continent and SBA to Modified [place] to return home with his and therefore, OT with ADL's is as important as PT with Gaiting. FOOT CASTER to assess cognition. Current estimated date of discharge to home with his is November 17, 2016. 2. Anemia: Patient continued with a moderate anemia of H&H being 9.1 and 28.2% with elevation of MCV at approximately 102. 3. Diabetes: Patient running in upper 200's to 308 today. TIME SPENT: Chart Review, examination and documentation is greater than 35 minutes. Allergies Coded Allergies: No Known Drug Allergy (Verified Allergy, Unknown, 09/05/12) Vital Signs Vital Signs Date Time Temp Pulse Resp B/P (MAP) Pulse Ox O2 Delivery O2 Flow Rate FiO2 10/29/16 10:01 98.6 96 18 117/66 (83) 94 Room Air Laboratory Data Labs 24H Laboratory Tests 2 10/28/16 11:46: Bedside Glucose (Misc Panel) 175H 10/28/16 16:31: Bedside Glucose (Misc Panel) 131H 10/29/16 05:23: 10/29/16 06:17: Bedside Glucose (Misc Panel) 289H 10/29/16 10:29: Bedside Glucose (Misc Panel) 308H Current Medications Current Medications Current Medications Acetaminophen (Tylenol Tab) 650 mg Q4HP PRN PO MILD PAIN (PS 1-4); Start at 13:45; Stop 11/26/16 at 13:44 Albuterol Sulfate (Proventil, Ventolin Hfa) 2 puff Q6H PRN INH SHORTNESS OF BREATH; Start 10/27/16 at 13:45; Stop 11/26/16 at 13:44 Aspirin (Aspirin) 325 mg DAILY PO Last administered on 10/29/16 09:03; Start 10/28/16 at 09:00; Stop 11/27/16 at 08:59 Atorvastatin Calcium (Lipitor) 40 mg DAILY PO Last administered on 10/29/16 09 :03; Start 10/28/16 at 09:00; Stop 11/27/16 at 08:59 Ceftriaxone Sodium 2 gm/ Dextrose 50 ml @ 100 mls/hr Q24H IV Last administered on 10/28/16 16:42; Start 10/27/16 at 17:00; Stop 11/03/16 at 16:59 Dextrose (Dextrose 50%) 25 ml ASDIRECTED PRN IV SEE LABEL COMMENTS; Start 10/27 at 13:45; Stop 11/26/16 at 13:44 Docusate Sodium (Colace) 100 mg BID PO Last administered on 10/27/16 21:13; Start 10/27/16 at 21:00; Stop 11/26/16 at 20:59 Enoxaparin Sodium (Lovenox) 40 mg DAILY SC Last administered on 10/29/16 09:02 ; Start 10/28/16 at 09:00; Stop 11/02/16 at 08:59 Ferrous Sulfate (Ferrous Sulfate) 325 mg DAILY PO Last administered on 09:03; Start 10/28/16 at 09:00; Stop 11/27/16 at 08:59 Folic Acid (Folic Acid) 1 mg DAILY PO Last administered on 10/29/16 09:03; Start 10/29/16 at 09:00; Stop 11/28/16 at 08:59 Furosemide (Lasix) 20 mg DAILY PO Last administered on 10/29/16 09:03; Start 10/28/16 at 09:00; Stop 11/27/16 at 08:59 Glucagon (Glucagon) 1 mg ASDIRECTED PRN SC SEE LABEL COMMENTS; Start 10/27/16 at 13:45; Stop 11/26/16 at 13:44 Glucose (Glucose) ASDIRECTED PRN PO SEE LABEL COMMENTS; Start 10/27/16 at 13: 45; Stop 11/26/16 at 13:44 Heparin Sodium (Heparin (Flush)) 200 units ASDIRECTED PRN IV SEE LABEL COMMENTS ; Start 10/27/16 at 13:45; Stop 11/26/16 at 13:44 Heparin Sodium (Heparin (Flush)) 200 units PICC IV Last administered on 05:24; Start 10/27/16 at 18:00; Stop 11/26/16 at 17:59 Insulin Detemir (Levemir Insulin) 4 units DAILY SC Last administered on 09:01; Start 10/28/16 at 09:00; Stop 11/27/16 at 08:59 Insulin Detemir (Levemir Insulin) 6 units QHS SC Last administered on 21:13; Start 10/27/16 at 21:00; Stop 10/28/16 at 12:12; Status DC Insulin Human Lispro (HumaLOG INSULIN) AC SC Last administered on 10/29/16 07 :30; Start 10/27/16 at 17:30; Stop 11/26/16 at 17:29 Lisinopril (Prinivil) 10 mg DAILY PO Last administered on 10/29/16 09:02; Start 10/28/16 at 09:00; Stop 11/27/16 at 08:59 Magnesium Hydroxide (Milk Of Magnesia) 30 ml DAILYPRN PRN PO CONSTIPATION; Start 10/27/16 at 13:45; Stop 11/26/16 at 13:44 Mirtazapine (Remeron) 15 mg QHS PO Last administered on 10/28/16 20:38; Start 10/27/16 at 21:00; Stop 11/26/16 at 20:59 Mupirocin (Bactroban 2% Ointment) TID TOP Last administered on 10/29/16 09:02 ; Start 10/27/16 at 16:00; Stop 11/26/16 at 15:59 Nystatin (Mycostatin) 5 ml QID SS Last administered on 10/29/16 09:02; Start 10/27/16 at 17:00; Stop 11/03/16 at 16:59 Senna (Senokot) 1 tab QHS PO Last administered on 10/27/16 21:13; Start at 21:00; Stop 11/26/16 at 20:59 Sodium Biphosphate/ Sodium Phosphate (Fleet Enema) 1 ea DAILYPRN PRN [place] CONSTIPATION; Start 10/27/16 at 13:45; Stop 11/26/16 at 13:44 Sodium Chloride (Saline Lock Flush) 10 ml ASDIRECTED PRN IV SEE LABEL COMMENTS ; Start 10/27/16 at 13:45; Stop 11/26/16 at 13:44 Sodium Chloride (Saline Lock Flush) 10 ml PICC IV Last administered on 05:24; Start 10/27/16 at 18:00; Stop 11/26/16 at 17:59 URIAH DAVIS MD October 29, 2016 11:34
[2016-10-29 14:00] VITALS: BP 96/58
[2016-10-29] MEDS: cefTRIAXone SOD 2 GM in D5W MINI-BAG PLUS 50 ML IV SCH (16:14)
[2016-10-29 19:39] VITALS: BP 101/63
[2016-10-29] MEDS: SENNA 8.6 MG TAB (SENOKOT) PO SCH (20:27)
[2016-10-29] MEDS: MIRTAZAPINE 15 MG TAB PO SCH (20:27)
[2016-10-30 03:46] VITALS: BP 121/73
[2016-10-30] MEDS: SODIUM CHLORIDE 0.9% INJ 10 ML SYR IV SCH ×2 (05:23→17:26)
[2016-10-30] MEDS: LEVEMIR (INSULIN DETEMIR) 1 UNITS/0.01ML SC SCH (08:31)
[2016-10-30] MEDS: ASPIRIN 325 MG TAB PO SCH (08:31)
[2016-10-30] MEDS: HumaLOG INSULIN (NovoLOG) PER UNIT SC SCH ×3 (08:31→17:26)
[2016-10-30] MEDS: NYSTATIN 500,000 U/5 ML SUSP UDC SS SCH ×4 (08:31→21:35)
[2016-10-30] MEDS: ENOXAPARIN 40 MG/0.4 ML SYRINGE (J1650) SC SCH (08:31)
[2016-10-30] MEDS: LISINOPRIL 10 MG TAB PO SCH (08:32)
[2016-10-30] MEDS: ATORVASTATIN 20 MG TAB PO SCH (08:32)
[2016-10-30] MEDS: DOCUSATE SODIUM 100 MG CAP PO SCH ×2 (08:32→21:35)
[2016-10-30] MEDS: FUROSEMIDE 20 MG TAB PO SCH (08:32)
[2016-10-30] MEDS: FERROUS SULFATE 325MG TAB PO SCH (08:32)
[2016-10-30] MEDS: FOLIC ACID 1 MG TAB PO SCH (08:32)
[2016-10-30] MEDS: MUPIROCIN 2% OINT 22 GM TUBE TOP SCH ×3 (08:33→21:35)
--- NOTE | 2016-10-30 10:21 | IPNPDOC ---
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 Patient without complaints today including GI, , cardiac, respiratory and pain. Patient agrees to work with all disciplines to improve as he wishes to get better to return to home with his . Patient still with some urinary incontinence, but may improve with brain healing. UA on admission did not show signs of infection. ALLERGIES: See Below MEDICATIONS: Reviewed, see below. OBJECTIVE: VITAL SIGNS: Please see below. PHYSICAL EXAMINATION: GENERAL: Cachectic middle-age white male who is alert and oriented 4. Patient is in good spirits. HEENT: Essentially normocephalic/atraumatic. CARDIOVASCULAR: Regular rate and rhythm with normal S1-S2 with 2 out of 4 bilateral radial pulses. LUNGS: All june clear to auscultation. ABDOMEN: Benign with normal bowel sounds abdomen is scaphoid. NEUROLOGICAL: Mild diffuse weakness greater on the left. He does not seem as impulsive today. SKIN: Less erythema in the left upper chest chest tube site. Hands less purplish blue. LABORATORY DATA: Reviewed. Please see below. MICROBIOLOGY: Please see below. IMAGING: Some improvement seen on yesterday's chest x-ray versus prior studies. No acute findings requiring action. DVT prophylaxis ordered?: Patient continues on Lovenox. ASSESSMENT AND PLAN: 1. Rehabilitation of right CVAs: Speech language pathology will assess patient' s cognition including frontal lobe function on the right. Patient agreed to work with occupational therapy as report doing better with a change of therapist may represent some internal conflict the patient has with see another therapist. Patient otherwise doing well with physical therapy and will focus on his endurance balance and mobility especially stairs as he is able. 2. Anemia: Patient continues on Lovenox and is to have a CBC today to make sure that H&H is not dropping. 3. Pulmonary: Patient doing well no signs of recurrence of his pneumothorax and the tube insertion site continues to heal respiratory rate is 16 with pulse oximetry 98% on room air. TIME SPENT: Chart Review, examination and documentation required greater than 25 minutes. Allergies Coded Allergies: No Known Drug Allergy (Verified Allergy, Unknown, 4/1/13) Vital Signs Vital Signs Date Time Temp Pulse Resp B/P (MAP) Pulse Ox O2 Delivery O2 Flow Rate FiO2 10/30/16 08:32 121/73 10/30/16 03:46 99.0 70 16 98 Room Air Laboratory Data Labs 24H Laboratory Tests 2 10/29/16 10:29: Bedside Glucose (Misc Panel) 308H 10/29/16 11:39: Bedside Glucose (Misc Panel) 243H 10/29/16 16:50: Bedside Glucose (Misc Panel) 126H 10/30/16 05:20: Bedside Glucose (Misc Panel) 199H Current Medications Current Medications Current Medications Acetaminophen (Tylenol Tab) 650 mg Q4HP PRN PO MILD PAIN (PS 1-4); Start at 13:45; Stop 11/26/16 at 13:44 Albuterol Sulfate (Proventil, Ventolin Hfa) 2 puff Q6H PRN INH SHORTNESS OF BREATH; Start 10/27/16 at 13:45; Stop 11/26/16 at 13:44 Aspirin (Aspirin) 325 mg DAILY PO Last administered on 10/30/16 08:31; Start 10/28/16 at 09:00; Stop 11/27/16 at 08:59 Atorvastatin Calcium (Lipitor) 40 mg DAILY PO Last administered on 10/30/16 08 :32; Start 10/28/16 at 09:00; Stop 11/27/16 at 08:59 Ceftriaxone Sodium 2 gm/ Dextrose 50 ml @ 100 mls/hr Q24H IV Last administered on 10/29/16 16:14; Start 10/27/16 at 17:00; Stop 11/03/16 at 16:59 Dextrose (Dextrose 50%) 25 ml ASDIRECTED PRN IV SEE LABEL COMMENTS; Start 10/27 at 13:45; Stop 11/26/16 at 13:44 Docusate Sodium (Colace) 100 mg BID PO Last administered on 10/30/16 08:32; Start 10/27/16 at 21:00; Stop 11/26/16 at 20:59 Enoxaparin Sodium (Lovenox) 40 mg DAILY SC Last administered on 10/30/16 08:31 ; Start 10/28/16 at 09:00; Stop 11/02/16 at 08:59 Ferrous Sulfate (Ferrous Sulfate) 325 mg DAILY PO Last administered on 08:32; Start 10/28/16 at 09:00; Stop 11/27/16 at 08:59 Folic Acid (Folic Acid) 1 mg DAILY PO Last administered on 10/30/16 08:32; Start 10/29/16 at 09:00; Stop 11/28/16 at 08:59 Furosemide (Lasix) 20 mg DAILY PO Last administered on 10/30/16 08:32; Start 10/28/16 at 09:00; Stop 11/27/16 at 08:59 Glucagon (Glucagon) 1 mg ASDIRECTED PRN SC SEE LABEL COMMENTS; Start 10/27/16 at 13:45; Stop 11/26/16 at 13:44 Glucose (Glucose) ASDIRECTED PRN PO SEE LABEL COMMENTS; Start 10/27/16 at 13: 45; Stop 11/26/16 at 13:44 Heparin Sodium (Heparin (Flush)) 200 units ASDIRECTED PRN IV SEE LABEL COMMENTS ; Start 10/27/16 at 13:45; Stop 11/26/16 at 13:44 Heparin Sodium (Heparin (Flush)) 200 units PICC IV Last administered on 05:23; Start 10/27/16 at 18:00; Stop 11/26/16 at 17:59 Insulin Detemir (Levemir Insulin) 4 units DAILY SC Last administered on 08:31; Start 10/28/16 at 09:00; Stop 10/30/16 at 09:23; Status DC Insulin Detemir (Levemir Insulin) 6 units DAILY SC ; Start 10/31/16 at 09:00; Stop 11/30/16 at 08:59 Insulin Detemir (Levemir Insulin) 6 units QHS SC Last administered on 21:13; Start 10/27/16 at 21:00; Stop 10/28/16 at 12:12; Status DC Insulin Human Lispro (HumaLOG INSULIN) AC SC Last administered on 10/30/16 08 :31; Start 10/27/16 at 17:30; Stop 11/26/16 at 17:29 Lisinopril (Prinivil) 10 mg DAILY PO Last administered on 10/30/16 08:32; Start 10/28/16 at 09:00; Stop 11/27/16 at 08:59 Magnesium Hydroxide (Milk Of Magnesia) 30 ml DAILYPRN PRN PO CONSTIPATION; Start 10/27/16 at 13:45; Stop 11/26/16 at 13:44 Mirtazapine (Remeron) 15 mg QHS PO Last administered on 10/29/16 20:27; Start 10/27/16 at 21:00; Stop 11/26/16 at 20:59 Mupirocin (Bactroban 2% Ointment) TID TOP Last administered on 10/30/16 08:33 ; Start 10/27/16 at 16:00; Stop 11/26/16 at 15:59 Nystatin (Mycostatin) 5 ml QID SS Last administered on 10/30/16 08:31; Start 10/27/16 at 17:00; Stop 11/03/16 at 16:59 Senna (Senokot) 1 tab QHS PO Last administered on 10/27/16 21:13; Start at 21:00; Stop 11/26/16 at 20:59 Sodium Biphosphate/ Sodium Phosphate (Fleet Enema) 1 ea DAILYPRN PRN [place] CONSTIPATION; Start 10/27/16 at 13:45; Stop 11/26/16 at 13:44 Sodium Chloride (Saline Lock Flush) 10 ml ASDIRECTED PRN IV SEE LABEL COMMENTS ; Start 10/27/16 at 13:45; Stop 11/26/16 at 13:44 Sodium Chloride (Saline Lock Flush) 10 ml PICC IV Last administered on 05:23; Start 10/27/16 at 18:00; Stop 11/26/16 at 17:59 URIAH DAVIS MD October 30, 2016 10:21
[2016-10-30 14:00] VITALS: BP 96/53
[2016-10-30 15:18] LABS: MEAN CORPUSCULAR HGB CONC 32.4 g/dl (32.0-36.5); MEAN CORPUSCULAR VOLUME 101.6 fl (80.0-96.0); RED CELL DISTRIBUTION WIDTH 15.7 % (11.5-14.5); WHITE BLOOD COUNT 4.2 K/mm3 (4.0-10.0)
[2016-10-30] MEDS: cefTRIAXone SOD 2 GM in D5W MINI-BAG PLUS 50 ML IV SCH (17:25)
[2016-10-30 20:00] VITALS: BP 103/66
[2016-10-30] MEDS: MIRTAZAPINE 15 MG TAB PO SCH (21:35)
[2016-10-30] MEDS: SENNA 8.6 MG TAB (SENOKOT) PO SCH (21:35)
[2016-10-31 06:00] VITALS: BP 114/73
[2016-10-31] MEDS: SODIUM CHLORIDE 0.9% INJ 10 ML SYR IV SCH ×2 (06:20→17:18)
[2016-10-31] MEDS: HumaLOG INSULIN (NovoLOG) PER UNIT SC SCH ×3 (07:30→17:17)
[2016-10-31] MEDS: LISINOPRIL 10 MG TAB PO SCH (08:40)
[2016-10-31] MEDS: NYSTATIN 500,000 U/5 ML SUSP UDC SS SCH ×4 (08:40→20:22)
[2016-10-31] MEDS: DOCUSATE SODIUM 100 MG CAP PO SCH ×3 (08:41→20:22)
[2016-10-31] MEDS: ASPIRIN 325 MG TAB PO SCH (08:41)
[2016-10-31] MEDS: FOLIC ACID 1 MG TAB PO SCH (08:42)
[2016-10-31] MEDS: FERROUS SULFATE 325MG TAB PO SCH (08:42)
[2016-10-31] MEDS: ATORVASTATIN 20 MG TAB PO SCH (08:42)
[2016-10-31] MEDS: FUROSEMIDE 20 MG TAB PO SCH (08:42)
[2016-10-31] MEDS: MUPIROCIN 2% OINT 22 GM TUBE TOP SCH ×3 (08:43→20:22)
[2016-10-31] MEDS: ENOXAPARIN 40 MG/0.4 ML SYRINGE (J1650) SC SCH (08:50)
[2016-10-31] MEDS ORDERED: LEVEMIR (INSULIN DETEMIR) 1 UNITS/0.01ML SC SCH (09:00)
--- NOTE | 2016-10-31 12:54 | IPN ---
DATE: 10/31/2016 I was reviewing Pritesh's blood sugars. He was hypoglycemic yesterday afternoon with blood sugar of 53. Blood sugar was 300 this morning. He was given 6 units of Levemir and then a sliding scale of insulin based upon fingerstick blood sugars. His diabetic control is challenging. He has had diabetic ketoacidosis (DKA) on few occasions with significant acidosis and ketones on admission, so I do believe he is a type 1 diabetic. However, he is prone to hypoglycemia, despite minimal basal insulin. I reduced his basal insulin by only a unit, but that is a 15% decrease in the dose. I will review his blood sugars again tomorrow.
[2016-10-31 14:00] VITALS: BP 95/56
[2016-10-31] MEDS: cefTRIAXone SOD 2 GM in D5W MINI-BAG PLUS 50 ML IV SCH (17:17)
[2016-10-31] MEDS: SODIUM CHLORIDE 0.9% INJ 10 ML SYR IV PRN (17:18)
[2016-10-31] MEDS: MIRTAZAPINE 15 MG TAB PO SCH (20:22)
[2016-10-31] MEDS: SENNA 8.6 MG TAB (SENOKOT) PO SCH (20:22)
[2016-10-31 22:00] VITALS: BP 119/62
[2016-11-01 06:00] VITALS: BP 135/73
[2016-11-01] MEDS: SODIUM CHLORIDE 0.9% INJ 10 ML SYR IV SCH ×2 (06:03→17:01)
[2016-11-01 06:33] LABS: BASO % 0.5 % (0.0-1.0); EOS # 0.1 K/mm3 (0.0-0.50); EOS % 1.4 % (0.0-3.0); LARGE UNSTAINED CELL # 0.1 K/mm3 (0.0-0.4); LARGE UNSTAINED CELL % 2.2 % (0.0-4.0); LYMPH # 0.5 K/mm3 (1.5-4.5); LYMPH % 12.5 % (24.0-44.0); MEAN CORPUSCULAR HGB CONC 31.7 g/dl (32.0-36.5); MEAN CORPUSCULAR VOLUME 104.1 fl (80.0-96.0); MONO # 0.3 K/mm3 (0.0-0.8); MONO % 6.5 % (0.0-5.0); NEUTROPHILS # 3.3 K/mm3 (1.8-7.7); NEUTROPHILS % 76.9 % (36.0-66.0); PLATELET COUNT, AUTOMATED 481 k/mm3 (150-450); RED CELL DISTRIBUTION WIDTH 15.7 % (11.5-14.5); WHITE BLOOD COUNT 4.3 K/mm3 (4.0-10.0)
[2016-11-01 06:37] LABS: ANION GAP 7 MEQ/L (8-16); BLOOD UREA NITROGEN 17 MG/DL (7-18); CALCIUM LEVEL 7.9 MG/DL (8.8-10.2); CARBON DIOXIDE LEVEL 30 MEQ/L (21-32); CHLORIDE LEVEL 96 MEQ/L (98-107); CREATININE FOR GFR 0.74 MG/DL (0.70-1.30); GLOMERULAR FILTRATION RATE > 60.0 (>49); GLUCOSE, FASTING 365 MG/DL (80-110); SODIUM LEVEL 133 MEQ/L (136-145)
[2016-11-01] MEDS: HumaLOG INSULIN (NovoLOG) PER UNIT SC SCH ×3 (07:55→17:01)
[2016-11-01] MEDS: LISINOPRIL 10 MG TAB PO SCH (08:46)
[2016-11-01] MEDS: ATORVASTATIN 20 MG TAB PO SCH (08:47)
[2016-11-01] MEDS: LEVEMIR (INSULIN DETEMIR) 1 UNITS/0.01ML SC SCH (08:47)
[2016-11-01] MEDS: MUPIROCIN 2% OINT 22 GM TUBE TOP SCH ×3 (08:48→21:22)
[2016-11-01] MEDS: ASPIRIN 325 MG TAB PO SCH (08:48)
[2016-11-01] MEDS: ENOXAPARIN 40 MG/0.4 ML SYRINGE (J1650) SC SCH (08:48)
[2016-11-01] MEDS: NYSTATIN 500,000 U/5 ML SUSP UDC SS SCH ×4 (08:48→21:22)
[2016-11-01] MEDS: DOCUSATE SODIUM 100 MG CAP PO SCH ×2 (08:49→21:00)
[2016-11-01] MEDS: FUROSEMIDE 20 MG TAB PO SCH (08:49)
[2016-11-01] MEDS: FERROUS SULFATE 325MG TAB PO SCH (08:49)
[2016-11-01] MEDS: FOLIC ACID 1 MG TAB PO SCH (08:49)
[2016-11-01 14:16] VITALS: BP 84/50
[2016-11-01] MEDS: cefTRIAXone SOD 2 GM in D5W MINI-BAG PLUS 50 ML IV SCH (17:01)
[2016-11-01 20:00] VITALS: BP 115/72
[2016-11-01] MEDS: SENNA 8.6 MG TAB (SENOKOT) PO SCH (21:00)
[2016-11-01] MEDS: MIRTAZAPINE 15 MG TAB PO SCH (21:22)
[2016-11-02] MEDS: SODIUM CHLORIDE 0.9% INJ 10 ML SYR IV SCH ×2 (05:45→17:36)
[2016-11-02 06:00] VITALS: BP 133/68
[2016-11-02 06:04] LABS: MEAN CORPUSCULAR HEMOGLOBIN 33.8 pg (27.0-33.0); MEAN CORPUSCULAR HGB CONC 32.9 g/dl (32.0-36.5); MEAN CORPUSCULAR VOLUME 102.9 fl (80.0-96.0); RED CELL DISTRIBUTION WIDTH 15.5 % (11.5-14.5); WHITE BLOOD COUNT 4.1 K/mm3 (4.0-10.0)
[2016-11-02 08:18] VITALS: BP 104/75
[2016-11-02] MEDS: ATORVASTATIN 20 MG TAB PO SCH (08:19)
[2016-11-02] MEDS: ASPIRIN 325 MG TAB PO SCH (08:19)
[2016-11-02] MEDS: FOLIC ACID 1 MG TAB PO SCH (08:19)
[2016-11-02] MEDS: NYSTATIN 500,000 U/5 ML SUSP UDC SS SCH ×4 (08:19→20:38)
[2016-11-02] MEDS: HumaLOG INSULIN (NovoLOG) PER UNIT SC SCH ×3 (08:19→16:45)
[2016-11-02] MEDS: FERROUS SULFATE 325MG TAB PO SCH (08:19)
[2016-11-02] MEDS: MUPIROCIN 2% OINT 22 GM TUBE TOP SCH ×3 (08:20→20:39)
[2016-11-02] MEDS: LEVEMIR (INSULIN DETEMIR) 1 UNITS/0.01ML SC SCH (08:20)
[2016-11-02] MEDS: FUROSEMIDE 20 MG TAB PO SCH (08:20)
[2016-11-02] MEDS: LISINOPRIL 10 MG TAB PO SCH (08:20)
[2016-11-02] MEDS: DOCUSATE SODIUM 100 MG CAP PO SCH ×2 (08:20→20:38)
[2016-11-02] MEDS: ENOXAPARIN 40 MG/0.4 ML SYRINGE (J1650) SC SCH (11:54)
[2016-11-02 14:00] VITALS: BP 93/58
[2016-11-02] MEDS: cefTRIAXone SOD 2 GM in D5W MINI-BAG PLUS 50 ML IV SCH (16:44)
[2016-11-02 20:00] VITALS: BP 99/64
[2016-11-02] MEDS: SENNA 8.6 MG TAB (SENOKOT) PO SCH (20:38)
[2016-11-02] MEDS: MIRTAZAPINE 15 MG TAB PO SCH (20:38)
[2016-11-03] MEDS: SODIUM CHLORIDE 0.9% INJ 10 ML SYR IV SCH ×2 (05:06→18:09)
[2016-11-03 06:00] VITALS: BP 139/72
[2016-11-03] MEDS: HumaLOG INSULIN (NovoLOG) PER UNIT SC SCH ×3 (07:02→18:09)
[2016-11-03 08:40] VITALS: BP 88/60
[2016-11-03] MEDS: DOCUSATE SODIUM 100 MG CAP PO SCH ×2 (08:40→20:26)
[2016-11-03] MEDS: ENOXAPARIN 40 MG/0.4 ML SYRINGE (J1650) SC SCH (08:41)
[2016-11-03] MEDS: LEVEMIR (INSULIN DETEMIR) 1 UNITS/0.01ML SC SCH (08:41)
[2016-11-03] MEDS: MUPIROCIN 2% OINT 22 GM TUBE TOP SCH ×3 (08:41→20:27)
[2016-11-03] MEDS: NYSTATIN 500,000 U/5 ML SUSP UDC SS SCH ×4 (08:41→20:26)
[2016-11-03] MEDS: FUROSEMIDE 20 MG TAB PO SCH (08:42)
[2016-11-03] MEDS: FOLIC ACID 1 MG TAB PO SCH (08:42)
[2016-11-03] MEDS: FERROUS SULFATE 325MG TAB PO SCH (08:42)
[2016-11-03] MEDS: LISINOPRIL 10 MG TAB PO SCH (08:42)
[2016-11-03] MEDS: ATORVASTATIN 20 MG TAB PO SCH (08:42)
[2016-11-03] MEDS: ASPIRIN 325 MG TAB PO SCH (08:42)
--- NOTE | 2016-11-03 12:40 | IPNPDOC ---
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 Patient without complaints today including GI, , cardiac, respiratory and pain. Patient still with some urinary incontinence and neglect evidence by spill of his soup into his lap and onto the floor and moving his feet around in it. ALLERGIES: See Below MEDICATIONS: Reviewed, see below. OBJECTIVE: VITAL SIGNS: Please see below. PHYSICAL EXAMINATION: GENERAL: Cachectic middle-age white male who is alert and oriented 4. Patient is in good spirits. HEENT: Essentially normocephalic/atraumatic. CARDIOVASCULAR: Regular rate and rhythm with normal S1-S2 with 2 out of 4 bilateral radial pulses. LUNGS: All june clear to auscultation. ABDOMEN: Benign with normal bowel sounds abdomen is scaphoid. NEUROLOGICAL: Mild diffuse weakness greater on the left. He does seem to be still mildly impulsive today. SKIN: Less erythema in the left upper chest chest tube site. Hands less purplish blue. LABORATORY DATA: Reviewed. Please see below. MICROBIOLOGY: Please see below. IMAGING: Some improvement seen on yesterday's chest x-ray versus prior studies. No acute findings requiring action. DVT prophylaxis ordered?: Patient continues on Lovenox. ASSESSMENT AND PLAN: 1. Rehabilitation of right CVAs: Speech language pathology will assess patient' s cognition including frontal lobe function on the right. Patient otherwise doing well with physical therapy and will focus on his endurance balance and mobility especially stairs as he is able. Patient needs to develop more awareness especially to the left. 2. Anemia: Patient continues on Lovenox and is to had a CBC yesterday, that showed his H&H is not dropping. 3. Pulmonary: Patient doing well no signs of recurrence of his pneumothorax and the tube insertion site continues to heal respiratory rate is 16 with pulse oximetry 98% on room air. TIME SPENT: Chart Review, examination and documentation required greater than 25 minutes. Allergies Coded Allergies: No Known Drug Allergy (Verified Allergy, Unknown, 09/05/12) Vital Signs Vital Signs Date Time Temp Pulse Resp B/P (MAP) Pulse Ox O2 Delivery O2 Flow Rate FiO2 11/03/16 08:42 88/60 11/03/16 08:40 95 11/03/16 08:00 Room Air 11/03/16 06:00 99.1 18 97 Laboratory Data Labs 24H Laboratory Tests 2 11/02/16 16:14: Bedside Glucose (Misc Panel) 188H 11/02/16 19:51: Bedside Glucose (Misc Panel) 89 11/03/16 06:48: Bedside Glucose (Misc Panel) 368H 11/03/16 06:53: Bedside Glucose (Misc Panel) 362H 11/03/16 11:25: Bedside Glucose (Misc Panel) 150H Current Medications Current Medications Current Medications Acetaminophen (Tylenol Tab) 650 mg Q4HP PRN PO MILD PAIN (PS 1-4); Start at 13:45; Stop 11/26/16 at 13:44 Albuterol Sulfate (Proventil, Ventolin Hfa) 2 puff Q6H PRN INH SHORTNESS OF BREATH; Start 10/27/16 at 13:45; Stop 11/26/16 at 13:44 Aspirin (Aspirin) 325 mg DAILY PO Last administered on 11/03/16 08:42; Start 10/28/16 at 09:00; Stop 11/27/16 at 08:59 Atorvastatin Calcium (Lipitor) 40 mg DAILY PO Last administered on 11/03/16 08 :42; Start 10/28/16 at 09:00; Stop 11/27/16 at 08:59 Ceftriaxone Sodium 2 gm/ Dextrose 50 ml @ 100 mls/hr Q24H IV Last administered on 11/02/16 16:44; Start 10/27/16 at 17:00; Stop 11/03/16 at 16:59 Dextrose (Dextrose 50%) 25 ml ASDIRECTED PRN IV SEE LABEL COMMENTS; Start 10/27 at 13:45; Stop 11/26/16 at 13:44 Docusate Sodium (Colace) 100 mg BID PO Last administered on 11/01/16 08:49; Start 10/27/16 at 21:00; Stop 11/26/16 at 20:59 Enoxaparin Sodium (Lovenox) 40 mg DAILY SC Last administered on 11/03/16 08:41 ; Start 10/28/16 at 09:00; Stop 11/07/16 at 08:59 Ferrous Sulfate (Ferrous Sulfate) 325 mg DAILY PO Last administered on 08:42; Start 10/28/16 at 09:00; Stop 11/27/16 at 08:59 Folic Acid (Folic Acid) 1 mg DAILY PO Last administered on 11/03/16 08:42; Start 10/29/16 at 09:00; Stop 11/28/16 at 08:59 Furosemide (Lasix) 20 mg DAILY PO Last administered on 11/02/16 08:20; Start 10/28/16 at 09:00; Stop 11/27/16 at 08:59 Glucagon (Glucagon) 1 mg ASDIRECTED PRN SC SEE LABEL COMMENTS; Start 10/27/16 at 13:45; Stop 11/26/16 at 13:44 Glucose (Glucose) ASDIRECTED PRN PO SEE LABEL COMMENTS; Start 10/27/16 at 13: 45; Stop 11/26/16 at 13:44 Heparin Sodium (Heparin (Flush)) 200 units ASDIRECTED PRN IV SEE LABEL COMMENTS Last administered on 10/31/16 17:18; Start 10/27/16 at 13:45; Stop at 13:44 Heparin Sodium (Heparin (Flush)) 200 units PICC IV Last administered on 05:06; Start 10/27/16 at 18:00; Stop 11/26/16 at 17:59 Insulin Detemir (Levemir Insulin) 4 units DAILY SC Last administered on 08:31; Start 10/28/16 at 09:00; Stop 10/30/16 at 09:23; Status DC Insulin Detemir (Levemir Insulin) 5 units DAILY SC Last administered on 08:41; Start 11/01/16 at 09:00; Stop 12/01/16 at 08:59 Insulin Detemir (Levemir Insulin) 6 units DAILY SC Last administered on 08:35; Start 10/31/16 at 09:00; Stop 10/31/16 at 12:04; Status DC Insulin Detemir (Levemir Insulin) 6 units QHS SC Last administered on 21:13; Start 10/27/16 at 21:00; Stop 10/28/16 at 12:12; Status DC Insulin Human Lispro (HumaLOG INSULIN) AC SC Last administered on 10/30/16 12 :38; Start 10/27/16 at 17:30; Stop 10/31/16 at 08:11; Status DC Insulin Human Lispro (HumaLOG INSULIN) See Protocol Table AC SC Last administered on 11/03/16 12:06; Start 10/31/16 at 07:30; Stop 11/30/16 at 07:29 Lisinopril (Prinivil) 10 mg DAILY PO Last administered on 11/02/16 08:20; Start 10/28/16 at 09:00; Stop 11/27/16 at 08:59 Magnesium Hydroxide (Milk Of Magnesia) 30 ml DAILYPRN PRN PO CONSTIPATION; Start 10/27/16 at 13:45; Stop 11/26/16 at 13:44 Mirtazapine (Remeron) 15 mg QHS PO Last administered on 11/02/16 20:38; Start 10/27/16 at 21:00; Stop 11/26/16 at 20:59 Mupirocin (Bactroban 2% Ointment) TID TOP Last administered on 11/03/16 08:41 ; Start 10/27/16 at 16:00; Stop 11/26/16 at 15:59 Nystatin (Mycostatin) 5 ml QID SS Last administered on 11/03/16 12:06; Start 10/27/16 at 17:00; Stop 11/09/16 at 16:59 Senna (Senokot) 1 tab QHS PO Last administered on 10/31/16 20:22; Start at 21:00; Stop 11/26/16 at 20:59 Sodium Biphosphate/ Sodium Phosphate (Fleet Enema) 1 ea DAILYPRN PRN [place] CONSTIPATION; Start 10/27/16 at 13:45; Stop 11/26/16 at 13:44 Sodium Chloride (Saline Lock Flush) 10 ml ASDIRECTED PRN IV SEE LABEL COMMENTS Last administered on 10/31/16 17:18; Start 10/27/16 at 13:45; Stop 11/26/16 at 13:44 Sodium Chloride (Saline Lock Flush) 10 ml PICC IV Last administered on 05:06; Start 10/27/16 at 18:00; Stop 11/26/16 at 17:59 URIAH DAVIS MD November 03, 2016 12:40
[2016-11-03 14:00] VITALS: BP 95/64
[2016-11-03 20:00] VITALS: BP 112/78
[2016-11-03] MEDS ORDERED: cefTRIAXone SOD 2 GM in D5W MINI-BAG PLUS 50 ML IV SCH (20:00)
[2016-11-03] MEDS: SENNA 8.6 MG TAB (SENOKOT) PO SCH (20:26)
[2016-11-03] MEDS: MIRTAZAPINE 15 MG TAB PO SCH (20:26)
[2016-11-03] MEDS: SODIUM CHLORIDE 0.9% INJ 10 ML SYR IV PRN ×2 (20:27→21:30)
[2016-11-04] MEDS: SODIUM CHLORIDE 0.9% INJ 10 ML SYR IV SCH ×2 (05:27→17:37)
[2016-11-04] MEDS: HumaLOG INSULIN (NovoLOG) PER UNIT SC SCH ×3 (05:57→17:36)
[2016-11-04 06:00] VITALS: BP 110/70
[2016-11-04] MEDS: ASPIRIN 325 MG TAB PO SCH (08:30)
[2016-11-04] MEDS: FOLIC ACID 1 MG TAB PO SCH (08:30)
[2016-11-04] MEDS: ATORVASTATIN 20 MG TAB PO SCH (08:30)
[2016-11-04] MEDS: NYSTATIN 500,000 U/5 ML SUSP UDC SS SCH ×4 (08:30→21:55)
[2016-11-04] MEDS: FUROSEMIDE 20 MG TAB PO SCH (08:30)
[2016-11-04] MEDS: DOCUSATE SODIUM 100 MG CAP PO SCH ×2 (08:30→21:55)
[2016-11-04] MEDS: ENOXAPARIN 40 MG/0.4 ML SYRINGE (J1650) SC SCH (08:30)
[2016-11-04] MEDS: FERROUS SULFATE 325MG TAB PO SCH (08:30)
[2016-11-04] MEDS: LEVEMIR (INSULIN DETEMIR) 1 UNITS/0.01ML SC SCH (08:31)
[2016-11-04] MEDS: LISINOPRIL 10 MG TAB PO SCH (08:31)
[2016-11-04] MEDS: MUPIROCIN 2% OINT 22 GM TUBE TOP SCH ×3 (08:32→21:56)
[2016-11-04] MEDS ORDERED: METHYLPHENIDATE 5 MG TAB PO ONE (09:15)
[2016-11-04] MEDS: METHYLPHENIDATE 5 MG TAB PO SCH ×2 (10:51→14:36)
--- NOTE | 2016-11-04 11:55 | IPNPDOC ---
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 Patient without complaints today including GI, , cardiac, respiratory and pain. Patient still with some urinary incontinence and neglect. Patient's is explained to him what she can and cannot providing care for him. However patient still declining gaining up and going to the bathroom regularly to help his bladder control and ADL's with OT. I have discussed with him the importance of these activities and his need to do home if he wishes to avoid ending up and group home. He expresses some understanding but also some apathy. Patient expresses not remembering turning down nursing or OT on their requests. I suspect this is a defense mechanism the patient is using with selective memory. ALLERGIES: See Below MEDICATIONS: Reviewed, see below. OBJECTIVE: VITAL SIGNS: Please see below. PHYSICAL EXAMINATION: GENERAL: Cachectic middle-age white male who is alert and oriented 4. Patient is showing some increased flattening of affect. HEENT: Essentially normocephalic/atraumatic. CARDIOVASCULAR: Regular rate and rhythm with normal S1-S2 with 2 out of 4 bilateral radial pulses. LUNGS: All june clear to auscultation. ABDOMEN: Benign with normal bowel sounds in all quadrants. Abdomen is scaphoid. NEUROLOGICAL: Mild diffuse weakness greater on the left. He does seem to be still mildly impulsive today, but mood has shown increased flattening especially after discussing non-participation leads to group home placement. SKIN: Less erythema in the left upper chest chest tube site. Hands less purplish blue. LABORATORY DATA: Reviewed. Please see below. MICROBIOLOGY: Please see below. IMAGING: Some improvement seen on yesterday's chest x-ray versus prior studies. No acute findings requiring action. DVT prophylaxis ordered?: Patient continues on Lovenox. ASSESSMENT AND PLAN: 1. Rehabilitation of right CVAs: Patient otherwise doing well with physical therapy and will focus on his endurance balance and mobility especially stairs as he is able. Patient needs to develop more awareness especially to the left. Patient needs to appreciate the importance of developing his ADL skills if he wishes to go home. He needs to recognize that his will not be rescuing him from his lack of effort. 2. Depression: I will go ahead and start patient on Ritalin 2.5 mg with breakfast and lunch to try and increase his attention, concentration and energy or participating in learning from his therapies. 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 I will therefore continue it out to November 16 which should be 28 days of treatment. TIME SPENT: Chart Review, examination and documentation required greater than 25 minutes. Allergies Coded Allergies: No Known Drug Allergy (Verified Allergy, Unknown, 09/05/12) Vital Signs Vital Signs Date Time Temp Pulse Resp B/P (MAP) Pulse Ox O2 Delivery O2 Flow Rate FiO2 11/04/16 08:31 115/70 11/04/16 06:00 99.2 85 18 97 Room Air Laboratory Data Labs 24H Laboratory Tests 2 11/03/16 16:31: Bedside Glucose (Misc Panel) 154H 11/03/16 20:36: Bedside Glucose (Misc Panel) 108 11/04/16 05:49: Bedside Glucose (Misc Panel) 343H 11/04/16 11:29: Bedside Glucose (Misc Panel) 146H Current Medications Current Medications Current Medications Acetaminophen (Tylenol Tab) 650 mg Q4HP PRN PO MILD PAIN (PS 1-4); Start at 13:45; Stop 11/26/16 at 13:44 Albuterol Sulfate (Proventil, Ventolin Hfa) 2 puff Q6H PRN INH SHORTNESS OF BREATH; Start 10/27/16 at 13:45; Stop 11/26/16 at 13:44 Aspirin (Aspirin) 325 mg DAILY PO Last administered on 11/04/16 08:30; Start 10/28/16 at 09:00; Stop 11/27/16 at 08:59 Atorvastatin Calcium (Lipitor) 40 mg DAILY PO Last administered on 11/04/16 08 :30; Start 10/28/16 at 09:00; Stop 11/27/16 at 08:59 Ceftriaxone Sodium 2 gm/ Dextrose 50 ml @ 100 mls/hr Q24H IV Last administered on 11/02/16 16:44; Start 10/27/16 at 17:00; Stop 11/03/16 at 16:59 ; Status DC Ceftriaxone Sodium 2 gm/ Dextrose 50 ml @ 100 mls/hr Q24H IV Last administered on 11/03/16 20:27; Start 11/03/16 at 20:00; Stop 11/04/16 at 10:25 ; Status DC Ceftriaxone Sodium 2 gm/ Dextrose 50 ml @ 100 mls/hr Q24H IV ; Start 11/04/16 at 20:00; Stop 11/16/16 at 23:59 Dextrose (Dextrose 50%) 25 ml ASDIRECTED PRN IV SEE LABEL COMMENTS; Start 10/27 at 13:45; Stop 11/26/16 at 13:44 Docusate Sodium (Colace) 100 mg BID PO Last administered on 11/04/16 08:30; Start 10/27/16 at 21:00; Stop 11/26/16 at 20:59 Enoxaparin Sodium (Lovenox) 40 mg DAILY SC Last administered on 11/04/16 08:30 ; Start 10/28/16 at 09:00; Stop 11/07/16 at 08:59 Ferrous Sulfate (Ferrous Sulfate) 325 mg DAILY PO Last administered on 08:30; Start 10/28/16 at 09:00; Stop 11/27/16 at 08:59 Folic Acid (Folic Acid) 1 mg DAILY PO Last administered on 11/04/16 08:30; Start 10/29/16 at 09:00; Stop 11/28/16 at 08:59 Furosemide (Lasix) 20 mg DAILY PO Last administered on 11/04/16 08:30; Start 10/28/16 at 09:00; Stop 11/27/16 at 08:59 Glucagon (Glucagon) 1 mg ASDIRECTED PRN SC SEE LABEL COMMENTS; Start 10/27/16 at 13:45; Stop 11/26/16 at 13:44 Glucose (Glucose) ASDIRECTED PRN PO SEE LABEL COMMENTS; Start 10/27/16 at 13: 45; Stop 11/26/16 at 13:44 Heparin Sodium (Heparin (Flush)) 200 units ASDIRECTED PRN IV SEE LABEL COMMENTS Last administered on 11/03/16 21:30; Start 10/27/16 at 13:45; Stop at 13:44 Heparin Sodium (Heparin (Flush)) 200 units PICC IV Last administered on 05:28; Start 10/27/16 at 18:00; Stop 11/26/16 at 17:59 Insulin Detemir (Levemir Insulin) 4 units DAILY SC Last administered on 08:31; Start 10/28/16 at 09:00; Stop 10/30/16 at 09:23; Status DC Insulin Detemir (Levemir Insulin) 5 units DAILY SC Last administered on 08:31; Start 11/01/16 at 09:00; Stop 12/01/16 at 08:59 Insulin Detemir (Levemir Insulin) 6 units DAILY SC Last administered on 08:35; Start 10/31/16 at 09:00; Stop 10/31/16 at 12:04; Status DC Insulin Detemir (Levemir Insulin) 6 units QHS SC Last administered on 21:13; Start 10/27/16 at 21:00; Stop 10/28/16 at 12:12; Status DC Insulin Human Lispro (HumaLOG INSULIN) AC SC Last administered on 10/30/16 12 :38; Start 10/27/16 at 17:30; Stop 10/31/16 at 08:11; Status DC Insulin Human Lispro (HumaLOG INSULIN) See Protocol Table AC SC Last administered on 11/04/16 05:57; Start 10/31/16 at 07:30; Stop 11/30/16 at 07:29 Lisinopril (Prinivil) 10 mg DAILY PO Last administered on 11/04/16 08:31; Start 10/28/16 at 09:00; Stop 11/27/16 at 08:59 Magnesium Hydroxide (Milk Of Magnesia) 30 ml DAILYPRN PRN PO CONSTIPATION; Start 10/27/16 at 13:45; Stop 11/26/16 at 13:44 Methylphenidate HCl (Ritalin) 2.5 mg BID@,14 PO Last administered on 10:51; Start 11/04/16 at 14:00; Stop 11/09/16 at 17:00 Mirtazapine (Remeron) 15 mg QHS PO Last administered on 11/03/16 20:26; Start 10/27/16 at 21:00; Stop 11/26/16 at 20:59 Mupirocin (Bactroban 2% Ointment) TID TOP Last administered on 11/04/16 08:32 ; Start 10/27/16 at 16:00; Stop 11/26/16 at 15:59 Nystatin (Mycostatin) 5 ml QID SS Last administered on 11/04/16 08:30; Start 10/27/16 at 17:00; Stop 11/09/16 at 16:59 Senna (Senokot) 1 tab QHS PO Last administered on 11/03/16 20:26; Start at 21:00; Stop 11/26/16 at 20:59 Sodium Biphosphate/ Sodium Phosphate (Fleet Enema) 1 ea DAILYPRN PRN [place] CONSTIPATION; Start 10/27/16 at 13:45; Stop 11/26/16 at 13:44 Sodium Chloride (Saline Lock Flush) 10 ml ASDIRECTED PRN IV SEE LABEL COMMENTS Last administered on 11/03/16 21:30; Start 10/27/16 at 13:45; Stop 11/26/16 at 13:44 Sodium Chloride (Saline Lock Flush) 10 ml PICC IV Last administered on 05:27; Start 10/27/16 at 18:00; Stop 11/26/16 at 17:59 URIAH DAVIS MD November 04, 2016 11:55
[2016-11-04 14:37] VITALS: BP 104/70
[2016-11-04 20:00] VITALS: BP 106/65
[2016-11-04 21:02] VITALS: BP 132/78
[2016-11-04] MEDS: cefTRIAXone SOD 2 GM in D5W MINI-BAG PLUS 50 ML IV SCH (21:55)
[2016-11-04] MEDS: SENNA 8.6 MG TAB (SENOKOT) PO SCH (21:55)
[2016-11-04] MEDS: MIRTAZAPINE 15 MG TAB PO SCH (21:56)
[2016-11-04] MEDS: SODIUM CHLORIDE 0.9% INJ 10 ML SYR IV PRN (21:56)
[2016-11-05] MEDS: SODIUM CHLORIDE 0.9% INJ 10 ML SYR IV SCH ×2 (05:33→17:41)
[2016-11-05 06:00] VITALS: BP 140/75
[2016-11-05 06:00] LABS: MEAN CORPUSCULAR HEMOGLOBIN 33.5 pg (27.0-33.0); MEAN CORPUSCULAR HGB CONC 32.1 g/dl (32.0-36.5); MEAN CORPUSCULAR VOLUME 104.2 fl (80.0-96.0); RED CELL DISTRIBUTION WIDTH 15.8 % (11.5-14.5); WHITE BLOOD COUNT 4.9 K/mm3 (4.0-10.0)
[2016-11-05] MEDS: NYSTATIN 500,000 U/5 ML SUSP UDC SS SCH ×4 (08:48→20:17)
[2016-11-05] MEDS: HumaLOG INSULIN (NovoLOG) PER UNIT SC SCH ×3 (08:49→17:30)
[2016-11-05] MEDS: FERROUS SULFATE 325MG TAB PO SCH (08:50)
[2016-11-05] MEDS: LEVEMIR (INSULIN DETEMIR) 1 UNITS/0.01ML SC SCH (08:50)
[2016-11-05] MEDS: METHYLPHENIDATE 5 MG TAB PO SCH ×2 (08:50→14:43)
[2016-11-05] MEDS: ASPIRIN 325 MG TAB PO SCH (08:51)
[2016-11-05] MEDS: DOCUSATE SODIUM 100 MG CAP PO SCH ×2 (08:51→20:17)
[2016-11-05] MEDS: FUROSEMIDE 20 MG TAB PO SCH (08:51)
[2016-11-05] MEDS: ATORVASTATIN 20 MG TAB PO SCH (08:51)
[2016-11-05] MEDS: FOLIC ACID 1 MG TAB PO SCH (08:52)
[2016-11-05] MEDS: LISINOPRIL 10 MG TAB PO SCH (08:54)
[2016-11-05] MEDS: MUPIROCIN 2% OINT 22 GM TUBE TOP SCH ×3 (08:55→20:17)
[2016-11-05] MEDS: ENOXAPARIN 40 MG/0.4 ML SYRINGE (J1650) SC SCH (08:57)
--- NOTE | 2016-11-05 11:45 | IPNPDOC ---
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 Patient without complaints today including GI, , cardiac, respiratory and pain. Patient still with some urinary incontinence and neglect. Patient with some impulsivity last night resulting in fall to floor without injury. Patient without complaints of pain. Importance of following the treatment plan and getting help for transfers and mobility was reinforced. ALLERGIES: See Below MEDICATIONS: Reviewed, see below. OBJECTIVE: VITAL SIGNS: Please see below. PHYSICAL EXAMINATION: GENERAL: Cachectic middle-age white male who is alert and oriented 4. Patient is showing some increased flattening of affect. HEENT: Essentially normocephalic/atraumatic. CARDIOVASCULAR: Regular rate and rhythm with normal S1-S2 with 2 out of 4 bilateral radial pulses. LUNGS: All june clear to auscultation. ABDOMEN: Benign with normal bowel sounds in all quadrants. Abdomen is scaphoid. NEUROLOGICAL: Mild diffuse weakness greater on the left. He does seem to be still mildly impulsive today, but mood has shown increased flattening especially after discussing non-participation leads to half-way placement. LABORATORY DATA: Reviewed. Please see below. MICROBIOLOGY: Please see below. IMAGING: No new imaging. DVT prophylaxis ordered?: Patient continues on Lovenox. ASSESSMENT AND PLAN: 1. Rehabilitation of right CVAs: Patient otherwise doing well with physical therapy and will focus on his endurance balance and mobility especially stairs as he is able. Patient needs to develop more awareness especially to the left. Patient needs to appreciate the importance of developing his ADL skills if he wishes to go home. He needs to recognize that his will not be rescuing him from his lack of effort and that an impulsive act and fall would set him back and cause increased pain. 2. Depression: I will go ahead and have started the patient on Ritalin 2.5 mg with breakfast and lunch to try and increase his attention, concentration and energy or participating in learning from his therapies. I will review his response with team today and look at increase to 5mg from 2.5. Patient denies any problems with the new medication. 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 I will therefore continue it out to November 16 which should be 28 days of treatment. 4. Anemia: Stable though some rise in WBC's to 12.6K. TIME SPENT: Chart Review, examination and documentation required greater than 35 minutes. Allergies Coded Allergies: No Known Drug Allergy (Verified Allergy, Unknown, 09/05/12) Vital Signs Vital Signs Date Time Temp Pulse Resp B/P (MAP) Pulse Ox O2 Delivery O2 Flow Rate FiO2 11/05/16 08:54 118/74 11/05/16 06:00 98.1 71 16 100 Room Air Laboratory Data CBC/BMP Laboratory Tests 11/05/16 05:39 Red Blood Count 2.86 L, Mean Corpuscular Volume 104.2 H, Mean Corpuscular Hemoglobin 33.5 H, Mean Corpuscular Hemoglobin Concent 32.1, Red Cell Distribution Width 15.8 H Labs 24H Laboratory Tests 2 11/04/16 17:10: Bedside Glucose (Misc Panel) 152H 11/04/16 20:03: Bedside Glucose (Misc Panel) 93 11/05/16 05:53: Bedside Glucose (Misc Panel) 357H Current Medications Current Medications Current Medications Acetaminophen (Tylenol Tab) 650 mg Q4HP PRN PO MILD PAIN (PS 1-4); Start at 13:45; Stop 11/26/16 at 13:44 Albuterol Sulfate (Proventil, Ventolin Hfa) 2 puff Q6H PRN INH SHORTNESS OF BREATH; Start 10/27/16 at 13:45; Stop 11/26/16 at 13:44 Aspirin (Aspirin) 325 mg DAILY PO Last administered on 11/05/16 08:51; Start at 09:00; Stop 11/27/16 at 08:59 Atorvastatin Calcium (Lipitor) 40 mg DAILY PO Last administered on 11/05/16 08: 51; Start 10/28/16 at 09:00; Stop 11/27/16 at 08:59 Ceftriaxone Sodium 2 gm/ Dextrose 50 ml @ 100 mls/hr Q24H IV Last administered on 11/02/16 16:44; Start 10/27/16 at 17:00; Stop 11/03/16 at 16:59 ; Status DC Ceftriaxone Sodium 2 gm/ Dextrose 50 ml @ 100 mls/hr Q24H IV Last administered on 11/03/16 20:27; Start 11/03/16 at 20:00; Stop 11/04/16 at 10:25 ; Status DC Ceftriaxone Sodium 2 gm/ Dextrose 50 ml @ 100 mls/hr Q24H IV Last administered on 11/04/16 21:55; Start 11/04/16 at 20:00; Stop 11/16/16 at 23:59 Dextrose (Dextrose 50%) 25 ml ASDIRECTED PRN IV SEE LABEL COMMENTS; Start 10/27 at 13:45; Stop 11/26/16 at 13:44 Docusate Sodium (Colace) 100 mg BID PO Last administered on 11/05/16 08:51; Start 10/27/16 at 21:00; Stop 11/26/16 at 20:59 Enoxaparin Sodium (Lovenox) 40 mg DAILY SC Last administered on 11/05/16 08:57 ; Start 10/28/16 at 09:00; Stop 11/07/16 at 08:59 Ferrous Sulfate (Ferrous Sulfate) 325 mg DAILY PO Last administered on 08:50; Start 10/28/16 at 09:00; Stop 11/27/16 at 08:59 Folic Acid (Folic Acid) 1 mg DAILY PO Last administered on 11/05/16 08:52; Start 10/29/16 at 09:00; Stop 11/28/16 at 08:59 Furosemide (Lasix) 20 mg DAILY PO Last administered on 11/05/16 08:51; Start at 09:00; Stop 11/27/16 at 08:59 Glucagon (Glucagon) 1 mg ASDIRECTED PRN SC SEE LABEL COMMENTS; Start 10/27/16 at 13:45; Stop 11/26/16 at 13:44 Glucose (Glucose) ASDIRECTED PRN PO SEE LABEL COMMENTS; Start 10/27/16 at 13: 45; Stop 11/26/16 at 13:44 Heparin Sodium (Heparin (Flush)) 200 units ASDIRECTED PRN IV SEE LABEL COMMENTS Last administered on 11/04/16 21:56; Start 10/27/16 at 13:45; Stop at 13:44 Heparin Sodium (Heparin (Flush)) 200 units PICC IV Last administered on 05:33; Start 10/27/16 at 18:00; Stop 11/26/16 at 17:59 Insulin Detemir (Levemir Insulin) 4 units DAILY SC Last administered on 08:31; Start 10/28/16 at 09:00; Stop 10/30/16 at 09:23; Status DC Insulin Detemir (Levemir Insulin) 5 units DAILY SC Last administered on 08:50; Start 11/01/16 at 09:00; Stop 12/01/16 at 08:59 Insulin Detemir (Levemir Insulin) 6 units DAILY SC Last administered on 08:35; Start 10/31/16 at 09:00; Stop 10/31/16 at 12:04; Status DC Insulin Detemir (Levemir Insulin) 6 units QHS SC Last administered on 21:13; Start 10/27/16 at 21:00; Stop 10/28/16 at 12:12; Status DC Insulin Human Lispro (HumaLOG INSULIN) AC SC Last administered on 10/30/16 12 :38; Start 10/27/16 at 17:30; Stop 10/31/16 at 08:11; Status DC Insulin Human Lispro (HumaLOG INSULIN) See Protocol Table AC SC Last administered on 11/05/16 08:49; Start 10/31/16 at 07:30; Stop 11/30/16 at 07:29 Lisinopril (Prinivil) 10 mg DAILY PO Last administered on 11/05/16 08:54; Start 10/28/16 at 09:00; Stop 11/27/16 at 08:59 Magnesium Hydroxide (Milk Of Magnesia) 30 ml DAILYPRN PRN PO CONSTIPATION; Start 10/27/16 at 13:45; Stop 11/26/16 at 13:44 Methylphenidate HCl (Ritalin) 2.5 mg BID@08,14 PO Last administered on 08:50; Start 11/04/16 at 14:00; Stop 11/09/16 at 17:00 Mirtazapine (Remeron) 15 mg QHS PO Last administered on 11/04/16 21:56; Start 10/27/16 at 21:00; Stop 11/26/16 at 20:59 Mupirocin (Bactroban 2% Ointment) TID TOP Last administered on 11/05/16 08:55 ; Start 10/27/16 at 16:00; Stop 11/26/16 at 15:59 Nystatin (Mycostatin) 5 ml QID SS Last administered on 11/05/16 08:48; Start at 17:00; Stop 11/09/16 at 16:59 Senna (Senokot) 1 tab QHS PO Last administered on 11/04/16 21:55; Start at 21:00; Stop 11/26/16 at 20:59 Sodium Biphosphate/ Sodium Phosphate (Fleet Enema) 1 ea DAILYPRN PRN [place] CONSTIPATION; Start 10/27/16 at 13:45; Stop 11/26/16 at 13:44 Sodium Chloride (Saline Lock Flush) 10 ml ASDIRECTED PRN IV SEE LABEL COMMENTS Last administered on 11/04/16 21:56; Start 10/27/16 at 13:45; Stop 11/26/16 at 13:44 Sodium Chloride (Saline Lock Flush) 10 ml PICC IV Last administered on 05:33; Start 10/27/16 at 18:00; Stop 11/26/16 at 17:59 URIAH DAVIS MD Nov 05, 2016 11:45
[2016-11-05 14:45] VITALS: BP 104/66
[2016-11-05 20:00] VITALS: BP 109/66
[2016-11-05] MEDS: SENNA 8.6 MG TAB (SENOKOT) PO SCH (20:17)
[2016-11-05] MEDS: MIRTAZAPINE 15 MG TAB PO SCH (20:17)
[2016-11-05] MEDS: cefTRIAXone SOD 2 GM in D5W MINI-BAG PLUS 50 ML IV SCH (20:17)
[2016-11-06] MEDS: SODIUM CHLORIDE 0.9% INJ 10 ML SYR IV SCH ×2 (05:50→17:08)
[2016-11-06 06:00] VITALS: BP 129/64
[2016-11-06 08:19] VITALS: BP 129/79
[2016-11-06] MEDS: HumaLOG INSULIN (NovoLOG) PER UNIT SC SCH ×3 (08:20→17:07)
[2016-11-06] MEDS: NYSTATIN 500,000 U/5 ML SUSP UDC SS SCH ×4 (08:20→21:00)
[2016-11-06] MEDS: LEVEMIR (INSULIN DETEMIR) 1 UNITS/0.01ML SC SCH (08:20)
[2016-11-06] MEDS: ENOXAPARIN 40 MG/0.4 ML SYRINGE (J1650) SC SCH (08:20)
[2016-11-06] MEDS: ASPIRIN 325 MG TAB PO SCH (08:20)
[2016-11-06] MEDS: ATORVASTATIN 20 MG TAB PO SCH (08:21)
[2016-11-06] MEDS: FERROUS SULFATE 325MG TAB PO SCH (08:21)
[2016-11-06] MEDS: FOLIC ACID 1 MG TAB PO SCH (08:21)
[2016-11-06] MEDS: FUROSEMIDE 20 MG TAB PO SCH (08:21)
[2016-11-06] MEDS: METHYLPHENIDATE 5 MG TAB PO SCH ×2 (08:21→13:25)
[2016-11-06] MEDS: LISINOPRIL 10 MG TAB PO SCH (08:21)
[2016-11-06] MEDS: DOCUSATE SODIUM 100 MG CAP PO SCH ×2 (08:22→21:00)
[2016-11-06] MEDS: MUPIROCIN 2% OINT 22 GM TUBE TOP SCH ×3 (08:22→21:01)
[2016-11-06 11:29] LABS: ANION GAP 11 MEQ/L (8-16); BLOOD UREA NITROGEN 19 MG/DL (7-18); CALCIUM LEVEL 8.4 MG/DL (8.8-10.2); CARBON DIOXIDE LEVEL 24 MEQ/L (21-32); CHLORIDE LEVEL 97 MEQ/L (98-107); CREATININE FOR GFR 1.04 MG/DL (0.70-1.30); GLOMERULAR FILTRATION RATE > 60.0 (>49); GLUCOSE, FASTING 279 MG/DL (80-110); POTASSIUM SERUM 5.1 MEQ/L (3.5-5.1); SODIUM LEVEL 132 MEQ/L (136-145)
--- NOTE | 2016-11-06 12:21 | IPNPDOC ---
Concrete Panel Installer Progress Note DATE OF SERVICE: 11/06/16 DATE OF ADMISSION: October 27, 2016 at 14:25 INPATIENT REHABILITATION ADMISSION DAY: #10 SUBJECTIVE: Patient is a 61-year-old white male with CVAs and left hemiparesis and possible Lyme's encephalopathy. Patient continues on antibiotic treatment to complete a 28 day course. Patient with no specific complaints today when seen in gym at physical therapy. ALLERGIES: See Below MEDICATIONS: Reviewed, see below. OBJECTIVE: VITAL SIGNS: Please see below. PHYSICAL EXAMINATION: GENERAL: Well-nourished well-developed middle-aged white male in no acute distress with some weakness in right lateral upper and lower extremity greater on the left than the right. HEENT: Normocephalic/atraumatic. CARDIOVASCULAR: Regular rate and rhythm with normal S1-S2 being good bilateral radial pulses. LUNGS: All june clear to auscultation. ABDOMEN: Benign with normal bowel sounds in all quadrants. NEUROLOGICAL: Patient is alert and clearly oriented 2 but does not seem to have total awareness of time and situation. There is some flattening of affect and general patient is pleasant and cooperative. SKIN: Intact. LABORATORY DATA: Reviewed. Please see below. MICROBIOLOGY: Please see below. IMAGING: No new imaging. DVT prophylaxis ordered?: Patient continues on Lovenox. ASSESSMENT AND PLAN: 1. Rehabilitation the CVAs: Patient continuing make progress in improving strength and endurance and balance. 2. Depression: Patient seems to be a low bit less depressed since starting the Ritalin. Hopefully he understands the importance of the request by nursing and OT and no longer declines. This is low to some of the incontinence problems he has which may block his ability to return to home with his . 3. Hyponatremia: Still reduced at 132 for sodium and 97 for chloride. I will go ahead and start patient on fluid restrictions and recheck a BMP on Wednesday. TIME SPENT: Chart Review, examination and documentation requires greater than 20 minutes minutes. Allergies Coded Allergies: No Known Drug Allergy (Verified Allergy, Unknown, 09/05/12) Vital Signs Vital Signs Date Time Temp Pulse Resp B/P (MAP) Pulse Ox O2 Delivery O2 Flow Rate FiO2 11/06/16 08:21 129/79 11/06/16 08:19 85 11/06/16 08:00 Room Air 11/06/16 06:00 99.5 18 100 Laboratory Data CBC/BMP Laboratory Tests 11/06/16 10:32 Calcium Level 8.4 L Labs 24H Laboratory Tests 2 11/05/16 17:03: Bedside Glucose (Misc Panel) 77L 11/05/16 20:15: Bedside Glucose (Misc Panel) 169H 11/06/16 06:43: Bedside Glucose (Misc Panel) 327H 11/06/16 10:32: Anion Gap 11, Glomerular Filtration Rate > 60.0, Blood Urea Nitrogen 19H, Creatinine 1.04, Sodium Level 132L, Potassium Level 5.1, Chloride Level 97L, Carbon Dioxide Level 24, Calcium Level 8.4L 11/06/16 11:18: Bedside Glucose (Misc Panel) 346H Current Medications Current Medications Current Medications Acetaminophen (Tylenol Tab) 650 mg Q4HP PRN PO MILD PAIN (PS 1-4); Start at 13:45; Stop 11/26/16 at 13:44 Albuterol Sulfate (Proventil, Ventolin Hfa) 2 puff Q6H PRN INH SHORTNESS OF BREATH; Start 10/27/16 at 13:45; Stop 11/26/16 at 13:44 Aspirin (Aspirin) 325 mg DAILY PO Last administered on 11/06/16 08:20; Start at 09:00; Stop 11/27/16 at 08:59 Atorvastatin Calcium (Lipitor) 40 mg DAILY PO Last administered on 11/06/16 08: 21; Start 10/28/16 at 09:00; Stop 11/27/16 at 08:59 Ceftriaxone Sodium 2 gm/ Dextrose 50 ml @ 100 mls/hr Q24H IV Last administered on 11/02/16 16:44; Start 10/27/16 at 17:00; Stop 11/03/16 at 16:59 ; Status DC Ceftriaxone Sodium 2 gm/ Dextrose 50 ml @ 100 mls/hr Q24H IV Last administered on 11/03/16 20:27; Start 11/03/16 at 20:00; Stop 11/04/16 at 10:25 ; Status DC Ceftriaxone Sodium 2 gm/ Dextrose 50 ml @ 100 mls/hr Q24H IV Last administered on 11/05/16 20:17; Start 11/04/16 at 20:00; Stop 11/16/16 at 23:59 Dextrose (Dextrose 50%) 25 ml ASDIRECTED PRN IV SEE LABEL COMMENTS; Start 10/27 at 13:45; Stop 11/26/16 at 13:44 Docusate Sodium (Colace) 100 mg BID PO Last administered on 11/05/16 20:17; Start 10/27/16 at 21:00; Stop 11/26/16 at 20:59 Enoxaparin Sodium (Lovenox) 40 mg DAILY SC Last administered on 11/06/16 08:20 ; Start 10/28/16 at 09:00; Stop 11/07/16 at 08:59 Ferrous Sulfate (Ferrous Sulfate) 325 mg DAILY PO Last administered on 08:21; Start 10/28/16 at 09:00; Stop 11/27/16 at 08:59 Folic Acid (Folic Acid) 1 mg DAILY PO Last administered on 11/06/16 08:21; Start 10/29/16 at 09:00; Stop 11/28/16 at 08:59 Furosemide (Lasix) 20 mg DAILY PO Last administered on 11/06/16 08:21; Start at 09:00; Stop 11/27/16 at 08:59 Glucagon (Glucagon) 1 mg ASDIRECTED PRN SC SEE LABEL COMMENTS; Start 10/27/16 at 13:45; Stop 11/26/16 at 13:44 Glucose (Glucose) ASDIRECTED PRN PO SEE LABEL COMMENTS; Start 10/27/16 at 13: 45; Stop 11/26/16 at 13:44 Heparin Sodium (Heparin (Flush)) 200 units ASDIRECTED PRN IV SEE LABEL COMMENTS Last administered on 11/04/16 21:56; Start 10/27/16 at 13:45; Stop at 13:44 Heparin Sodium (Heparin (Flush)) 200 units PICC IV Last administered on 05:50; Start 10/27/16 at 18:00; Stop 11/26/16 at 17:59 Insulin Detemir (Levemir Insulin) 4 units DAILY SC Last administered on 08:31; Start 10/28/16 at 09:00; Stop 10/30/16 at 09:23; Status DC Insulin Detemir (Levemir Insulin) 5 units DAILY SC Last administered on 08:20; Start 11/01/16 at 09:00; Stop 12/01/16 at 08:59 Insulin Detemir (Levemir Insulin) 6 units DAILY SC Last administered on 08:35; Start 10/31/16 at 09:00; Stop 10/31/16 at 12:04; Status DC Insulin Detemir (Levemir Insulin) 6 units QHS SC Last administered on 21:13; Start 10/27/16 at 21:00; Stop 10/28/16 at 12:12; Status DC Insulin Human Lispro (HumaLOG INSULIN) AC SC Last administered on 10/30/16 12 :38; Start 10/27/16 at 17:30; Stop 10/31/16 at 08:11; Status DC Insulin Human Lispro (HumaLOG INSULIN) See Protocol Table AC SC Last administered on 11/06/16 11:58; Start 10/31/16 at 07:30; Stop 11/30/16 at 07:29 Lisinopril (Prinivil) 10 mg DAILY PO Last administered on 11/06/16 08:21; Start 10/28/16 at 09:00; Stop 11/27/16 at 08:59 Magnesium Hydroxide (Milk Of Magnesia) 30 ml DAILYPRN PRN PO CONSTIPATION; Start 10/27/16 at 13:45; Stop 11/26/16 at 13:44 Methylphenidate HCl (Ritalin) 2.5 mg BID@08,14 PO Last administered on 08:50; Start 11/04/16 at 14:00; Stop 11/05/16 at 14:14; Status DC Methylphenidate HCl (Ritalin) 5 mg BID@08,14 PO Last administered on 11/06/16 08:21; Start 11/05/16 at 14:00; Stop 11/12/16 at 13:59 Mirtazapine (Remeron) 15 mg QHS PO Last administered on 11/05/16 20:17; Start 10/27/16 at 21:00; Stop 11/26/16 at 20:59 Mupirocin (Bactroban 2% Ointment) TID TOP Last administered on 11/06/16 08:22 ; Start 10/27/16 at 16:00; Stop 11/26/16 at 15:59 Nystatin (Mycostatin) 5 ml QID SS Last administered on 11/06/16 11:58; Start at 17:00; Stop 11/09/16 at 16:59 Senna (Senokot) 1 tab QHS PO Last administered on 11/05/16 20:17; Start at 21:00; Stop 11/26/16 at 20:59 Sodium Biphosphate/ Sodium Phosphate (Fleet Enema) 1 ea DAILYPRN PRN [place] CONSTIPATION; Start 10/27/16 at 13:45; Stop 11/26/16 at 13:44 Sodium Chloride (Saline Lock Flush) 10 ml ASDIRECTED PRN IV SEE LABEL COMMENTS Last administered on 11/04/16 21:56; Start 10/27/16 at 13:45; Stop 11/26/16 at 13:44 Sodium Chloride (Saline Lock Flush) 10 ml PICC IV Last administered on 05:50; Start 10/27/16 at 18:00; Stop 11/26/16 at 17:59 URIAH DAVIS MD Nov 06, 2016 12:21
[2016-11-06 14:05] VITALS: BP 111/62
[2016-11-06] MEDS: SODIUM CHLORIDE 0.9% INJ 10 ML SYR IV PRN ×2 (19:27→20:06)
[2016-11-06] MEDS: cefTRIAXone SOD 2 GM in D5W MINI-BAG PLUS 50 ML IV SCH (19:27)
[2016-11-06 20:32] VITALS: BP 102/68
[2016-11-06] MEDS: SENNA 8.6 MG TAB (SENOKOT) PO SCH (21:00)
[2016-11-06] MEDS: MIRTAZAPINE 15 MG TAB PO SCH (21:00)
[2016-11-07] MEDS: SODIUM CHLORIDE 0.9% INJ 10 ML SYR IV SCH ×2 (05:02→17:59)
[2016-11-07 05:10] VITALS: BP 127/76
[2016-11-07] MEDS: HumaLOG INSULIN (NovoLOG) PER UNIT SC SCH ×3 (08:09→17:30)
[2016-11-07] MEDS: NYSTATIN 500,000 U/5 ML SUSP UDC SS SCH ×4 (08:09→20:55)
[2016-11-07] MEDS: LEVEMIR (INSULIN DETEMIR) 1 UNITS/0.01ML SC SCH (08:09)
[2016-11-07] MEDS: ASPIRIN 325 MG TAB PO SCH (08:09)
[2016-11-07] MEDS: DOCUSATE SODIUM 100 MG CAP PO SCH ×2 (08:10→20:55)
[2016-11-07] MEDS: METHYLPHENIDATE 5 MG TAB PO SCH ×2 (08:10→14:11)
[2016-11-07] MEDS: FERROUS SULFATE 325MG TAB PO SCH (08:10)
[2016-11-07] MEDS: FOLIC ACID 1 MG TAB PO SCH (08:10)
[2016-11-07] MEDS: ATORVASTATIN 20 MG TAB PO SCH (08:11)
[2016-11-07] MEDS: ENOXAPARIN 40 MG/0.4 ML SYRINGE (J1650) SC SCH (08:11)
[2016-11-07] MEDS: LISINOPRIL 10 MG TAB PO SCH (08:11)
[2016-11-07] MEDS: MUPIROCIN 2% OINT 22 GM TUBE TOP SCH ×3 (08:12→20:55)
[2016-11-07] MEDS: FUROSEMIDE 20 MG TAB PO SCH (08:12)
[2016-11-07 14:00] VITALS: BP 99/58
[2016-11-07] MEDS: GLUCOSE 4 GM CHEW TABLET PO PRN (17:08)
[2016-11-07] MEDS ORDERED: GLUCAGON FOR INJ 1 MG VIAL (J1610) SC PRN (17:30)
[2016-11-07] MEDS: cefTRIAXone SOD 2 GM in D5W MINI-BAG PLUS 50 ML IV SCH (19:48)
[2016-11-07 20:00] VITALS: BP 97/58
[2016-11-07] MEDS: SODIUM CHLORIDE 0.9% INJ 10 ML SYR IV PRN (20:20)
[2016-11-07] MEDS: MIRTAZAPINE 15 MG TAB PO SCH (20:55)
[2016-11-07] MEDS: SENNA 8.6 MG TAB (SENOKOT) PO SCH (20:55)
[2016-11-08] MEDS: SODIUM CHLORIDE 0.9% INJ 10 ML SYR IV SCH ×2 (05:10→17:39)
[2016-11-08 05:39] LABS: MEAN CORPUSCULAR HEMOGLOBIN 34.4 pg (27.0-33.0); MEAN CORPUSCULAR HGB CONC 33.1 g/dl (32.0-36.5); WHITE BLOOD COUNT 3.4 K/mm3 (4.0-10.0)
[2016-11-08 06:00] VITALS: BP 139/72
[2016-11-08] MEDS: DOCUSATE SODIUM 100 MG CAP PO SCH ×2 (08:57→20:12)
[2016-11-08] MEDS: LEVEMIR (INSULIN DETEMIR) 1 UNITS/0.01ML SC SCH (08:57)
[2016-11-08] MEDS: HumaLOG INSULIN (NovoLOG) PER UNIT SC SCH ×3 (08:57→17:39)
[2016-11-08] MEDS: NYSTATIN 500,000 U/5 ML SUSP UDC SS SCH ×4 (08:57→20:12)
[2016-11-08] MEDS: FUROSEMIDE 20 MG TAB PO SCH (08:58)
[2016-11-08] MEDS: FERROUS SULFATE 325MG TAB PO SCH (08:58)
[2016-11-08] MEDS: FOLIC ACID 1 MG TAB PO SCH (08:58)
[2016-11-08] MEDS: ATORVASTATIN 20 MG TAB PO SCH (08:58)
[2016-11-08] MEDS: LISINOPRIL 10 MG TAB PO SCH (08:58)
[2016-11-08] MEDS: ASPIRIN 325 MG TAB PO SCH (08:58)
[2016-11-08] MEDS: METHYLPHENIDATE 5 MG TAB PO SCH ×2 (08:58→14:39)
[2016-11-08] MEDS: ENOXAPARIN 40 MG/0.4 ML SYRINGE (J1650) SC SCH (08:59)
[2016-11-08] MEDS: MUPIROCIN 2% OINT 22 GM TUBE TOP SCH ×3 (08:59→20:14)
[2016-11-08 14:00] VITALS: BP 117/65
[2016-11-08] MEDS: GLUCOSE 4 GM CHEW TABLET PO PRN (16:46)
[2016-11-08] MEDS ORDERED: DEXTROSE 50% 50 ML SYRINGE IV PRN (18:50)
[2016-11-08 20:00] VITALS: BP 105/64
[2016-11-08] MEDS: MIRTAZAPINE 15 MG TAB PO SCH (20:12)
[2016-11-08] MEDS: cefTRIAXone SOD 2 GM in D5W MINI-BAG PLUS 50 ML IV SCH (20:12)
[2016-11-08] MEDS: SENNA 8.6 MG TAB (SENOKOT) PO SCH (20:12)
[2016-11-09 06:00] VITALS: BP 136/75
[2016-11-09] MEDS: SODIUM CHLORIDE 0.9% INJ 10 ML SYR IV SCH ×2 (06:00→17:19)
[2016-11-09 06:50] LABS: ANION GAP 8 MEQ/L (8-16); BLOOD UREA NITROGEN 15 MG/DL (7-18); CALCIUM LEVEL 8.2 MG/DL (8.8-10.2); CARBON DIOXIDE LEVEL 28 MEQ/L (21-32); CHLORIDE LEVEL 99 MEQ/L (98-107); GLOMERULAR FILTRATION RATE > 60.0 (>49); GLUCOSE, FASTING 303 MG/DL (80-110); POTASSIUM SERUM 4.8 MEQ/L (3.5-5.1); SODIUM LEVEL 135 MEQ/L (136-145)
[2016-11-09 08:20] VITALS: BP 106/70
[2016-11-09] MEDS: HumuLIN (NovoLIN)70/30 INSULIN INJ PER UNIT SC SCH (08:21)
[2016-11-09] MEDS: NYSTATIN 500,000 U/5 ML SUSP UDC SS SCH ×4 (08:21→20:28)
[2016-11-09] MEDS: ENOXAPARIN 40 MG/0.4 ML SYRINGE (J1650) SC SCH (08:22)
[2016-11-09] MEDS: MUPIROCIN 2% OINT 22 GM TUBE TOP SCH ×3 (08:22→20:27)
[2016-11-09] MEDS: ATORVASTATIN 20 MG TAB PO SCH (08:23)
[2016-11-09] MEDS: FUROSEMIDE 20 MG TAB PO SCH (08:23)
[2016-11-09] MEDS: FERROUS SULFATE 325MG TAB PO SCH (08:23)
[2016-11-09] MEDS: FOLIC ACID 1 MG TAB PO SCH (08:23)
[2016-11-09] MEDS: HumaLOG INSULIN (NovoLOG) PER UNIT SC SCH ×3 (08:23→17:19)
[2016-11-09] MEDS: METHYLPHENIDATE 5 MG TAB PO SCH ×2 (08:24→14:41)
[2016-11-09] MEDS: LISINOPRIL 10 MG TAB PO SCH (08:24)
[2016-11-09] MEDS: DOCUSATE SODIUM 100 MG CAP PO SCH ×2 (08:24→20:28)
[2016-11-09] MEDS: ASPIRIN 325 MG TAB PO SCH (08:24)
--- NOTE | 2016-11-09 11:31 | IPNPDOC ---
Title Insurance Sales Representative Progress Note DATE OF SERVICE: 11/09/16 DATE OF ADMISSION: October 27, 2016 at 14:25 INPATIENT REHABILITATION ADMISSION DAY: #13 SUBJECTIVE: Patient is a 61-year-old white male with CVAs and left hemiparesis and possible Lyme's encephalopathy. Patient continues on antibiotic treatment to complete a 28 day course. Patient with no specific complaints today when seen in room today. However, patient opted this am to do exercises rather than gaiting and stair. We discussed the importance of gait training and work on stairs even when he feels a little lightheaded. ALLERGIES: See Below MEDICATIONS: Reviewed, see below. OBJECTIVE: VITAL SIGNS: Please see below. PHYSICAL EXAMINATION: GENERAL: Well-nourished well-developed middle-aged white male in no acute distress with some weakness in right lateral upper and lower extremity greater on the left than the right. HEENT: Normocephalic/atraumatic. CARDIOVASCULAR: Regular rate and rhythm with normal S1-S2 being good bilateral radial pulses. LUNGS: All june clear to auscultation. ABDOMEN: Benign with normal bowel sounds in all quadrants. NEUROLOGICAL: Patient is alert and clearly oriented 2 but still does not seem to have total awareness of time and situation. There is less flattening of affect and in general the patient is pleasant and cooperative. SKIN: Intact. LABORATORY DATA: Reviewed. Please see below. MICROBIOLOGY: Please see below. IMAGING: No new imaging. DVT prophylaxis ordered?: Patient continues on Lovenox. ASSESSMENT AND PLAN: 1. Rehabilitation the CVAs: Patient continuing make progress in improving strength and endurance and balance. However impulsivity remains a concern for his safety. He continues to want to pick and choose his therapies and the activities within. This raises concern about his ability to regain a level of function they'll allow him to be safe at home while his is off working. Because of these concerns as discussed in team rounds is unclear whether patient remains on a progress curve to return home around November 17 as previously estimated. Therefore we will arrange a patient family conference with the patient, his , PT, OT, rehabilitation nursing, case management and physiatry as soon as possible. 2. Depression: Patient seems to be a less depressed since starting the Ritalin. Hopefully he understands the importance of the request by nursing and OT/PT and no longer declines. This is to head off and decrease some of the incontinence problems he has which may block his ability to return to home with his . 3. Hyponatremia: Better at 135 today. TIME SPENT: Chart Review, examination and documentation required greater than 35 minutes. Allergies Coded Allergies: No Known Drug Allergy (Verified Allergy, Unknown, 09/05/12) Vital Signs Vital Signs Date Time Temp Pulse Resp B/P (MAP) Pulse Ox O2 Delivery O2 Flow Rate FiO2 11/09/16 08:24 106/70 11/09/16 08:20 94 11/09/16 08:00 Room Air 11/09/16 06:00 98.7 18 98 Laboratory Data CBC/BMP Laboratory Tests 11/09/16 06:09 Calcium Level 8.2 L Labs 24H Laboratory Tests 2 11/08/16 11:31: Bedside Glucose (Misc Panel) 243H 11/08/16 16:37: Bedside Glucose (Misc Panel) 46L 11/08/16 16:52: Bedside Glucose Confirm (Misc) 46 11/08/16 17:15: Bedside Glucose (Misc Panel) 113 11/08/16 19:38: Bedside Glucose (Misc Panel) 184H 11/09/16 06:09: Anion Gap 8, Glomerular Filtration Rate > 60.0, Blood Urea Nitrogen 15, Creatinine 0.70, Sodium Level 135L, Potassium Level 4.8, Chloride Level 99, Carbon Dioxide Level 28, Calcium Level 8.2L Current Medications Current Medications Current Medications Acetaminophen (Tylenol Tab) 650 mg Q4HP PRN PO MILD PAIN (PS 1-4); Start at 13:45; Stop 11/26/16 at 13:44 Albuterol Sulfate (Proventil, Ventolin Hfa) 2 puff Q6H PRN INH SHORTNESS OF BREATH; Start 10/27/16 at 13:45; Stop 11/26/16 at 13:44 Aspirin (Aspirin) 325 mg DAILY PO Last administered on 11/09/16 08:24; Start at 09:00; Stop 11/27/16 at 08:59 Atorvastatin Calcium (Lipitor) 40 mg DAILY PO Last administered on 11/09/16 08: 23; Start 10/28/16 at 09:00; Stop 11/27/16 at 08:59 Ceftriaxone Sodium 2 gm/ Dextrose 50 ml @ 100 mls/hr Q24H IV Last administered on 11/02/16 16:44; Start 10/27/16 at 17:00; Stop 11/03/16 at 16:59 ; Status DC Ceftriaxone Sodium 2 gm/ Dextrose 50 ml @ 100 mls/hr Q24H IV Last administered on 11/03/16 20:27; Start 11/03/16 at 20:00; Stop 11/04/16 at 10:25 ; Status DC Ceftriaxone Sodium 2 gm/ Dextrose 50 ml @ 100 mls/hr Q24H IV Last administered on 11/08/16 20:12; Start 11/04/16 at 20:00; Stop 11/16/16 at 23:59 Dextrose (Dextrose 50%) 25 ml ASDIRECTED PRN IV SEE LABEL COMMENTS; Start 10/27 at 13:45; Stop 11/08/16 at 18:50; Status DC Dextrose (Dextrose 50%) 25 ml ASDIRECTED PRN IV SEE LABEL COMMENTS; Start at 18:50; Stop 11/26/16 at 13:44 Docusate Sodium (Colace) 100 mg BID PO Last administered on 11/08/16 20:12; Start 10/27/16 at 21:00; Stop 11/26/16 at 20:59 Enoxaparin Sodium (Lovenox) 40 mg DAILY SC Last administered on 11/09/16 08:22 ; Start 10/28/16 at 09:00; Stop 11/11/16 at 08:59 Ferrous Sulfate (Ferrous Sulfate) 325 mg DAILY PO Last administered on 08:23; Start 10/28/16 at 09:00; Stop 11/27/16 at 08:59 Folic Acid (Folic Acid) 1 mg DAILY PO Last administered on 11/09/16 08:23; Start 10/29/16 at 09:00; Stop 11/28/16 at 08:59 Furosemide (Lasix) 20 mg DAILY PO Last administered on 11/09/16 08:23; Start at 09:00; Stop 11/27/16 at 08:59 Glucagon (Glucagon) 1 mg ASDIRECTED PRN SC SEE LABEL COMMENTS; Start 10/27/16 at 13:45; Stop 11/07/16 at 17:28; Status DC Glucagon (Glucagon) 1 mg ASDIRECTED PRN SC SEE LABEL COMMENTS; Start 11/07/16 at 17:30; Stop 12/07/16 at 17:29 Glucose (Glucose) ASDIRECTED PRN PO SEE LABEL COMMENTS; Start 10/27/16 at 13: 45; Stop 11/07/16 at 17:28; Status DC Glucose (Glucose) 16GM'S (4 TABS) ASDIRECTED PRN PO SEE LABEL COMMENTS Last administered on 11/08/16 16:46; Start 11/07/16 at 17:30; Stop 12/07/16 at 17:29 Heparin Sodium (Heparin (Flush)) 200 units ASDIRECTED PRN IV SEE LABEL COMMENTS Last administered on 11/07/16 20:20; Start 10/27/16 at 13:45; Stop at 13:44 Heparin Sodium (Heparin (Flush)) 200 units PICC IV Last administered on 06:00; Start 10/27/16 at 18:00; Stop 11/26/16 at 17:59 Insulin Detemir (Levemir Insulin) 4 units DAILY SC Last administered on 08:31; Start 10/28/16 at 09:00; Stop 10/30/16 at 09:23; Status DC Insulin Detemir (Levemir Insulin) 5 units DAILY SC Last administered on 08:57; Start 11/01/16 at 09:00; Stop 11/08/16 at 17:55; Status DC Insulin Detemir (Levemir Insulin) 6 units DAILY SC Last administered on 08:35; Start 10/31/16 at 09:00; Stop 10/31/16 at 12:04; Status DC Insulin Detemir (Levemir Insulin) 6 units QHS SC Last administered on 21:13; Start 10/27/16 at 21:00; Stop 10/28/16 at 12:12; Status DC Insulin Human Isoph/Insulin Regular (HumuLIN 70/30 INSULIN) 5 units DAILY@0730 SC Last administered on 11/09/16 08:21; Start 11/09/16 at 07:30; Stop 12/09/16 at 07:29 Insulin Human Lispro (HumaLOG INSULIN) AC SC Last administered on 10/30/16 12 :38; Start 10/27/16 at 17:30; Stop 10/31/16 at 08:11; Status DC Insulin Human Lispro (HumaLOG INSULIN) See Protocol Table AC SC Last administered on 11/09/16 08:23; Start 10/31/16 at 07:30; Stop 11/30/16 at 07:29 Lisinopril (Prinivil) 10 mg DAILY PO Last administered on 11/09/16 08:24; Start 10/28/16 at 09:00; Stop 11/27/16 at 08:59 Magnesium Hydroxide (Milk Of Magnesia) 30 ml DAILYPRN PRN PO CONSTIPATION; Start 10/27/16 at 13:45; Stop 11/26/16 at 13:44 Methylphenidate HCl (Ritalin) 2.5 mg BID@,14 PO Last administered on 08:50; Start 11/04/16 at 14:00; Stop 11/05/16 at 14:14; Status DC Methylphenidate HCl (Ritalin) 5 mg BID@,14 PO Last administered on 11/09/16 08:24; Start 11/05/16 at 14:00; Stop 11/12/16 at 13:59 Mirtazapine (Remeron) 15 mg QHS PO Last administered on 11/08/16 20:12; Start 10/27/16 at 21:00; Stop 11/26/16 at 20:59 Mupirocin (Bactroban 2% Ointment) TID TOP Last administered on 11/09/16 08:22 ; Start 10/27/16 at 16:00; Stop 11/26/16 at 15:59 Nystatin (Mycostatin) 5 ml QID SS Last administered on 11/09/16 08:21; Start at 17:00; Stop 11/16/16 at 16:59 Senna (Senokot) 1 tab QHS PO Last administered on 11/08/16 20:12; Start at 21:00; Stop 11/26/16 at 20:59 Sodium Biphosphate/ Sodium Phosphate (Fleet Enema) 1 ea DAILYPRN PRN [place] CONSTIPATION; Start 10/27/16 at 13:45; Stop 11/26/16 at 13:44 Sodium Chloride (Saline Lock Flush) 10 ml ASDIRECTED PRN IV SEE LABEL COMMENTS Last administered on 11/07/16 20:20; Start 10/27/16 at 13:45; Stop 11/26/16 at 13:44 Sodium Chloride (Saline Lock Flush) 10 ml PICC IV Last administered on 06:00; Start 10/27/16 at 18:00; Stop 11/26/16 at 17:59 URIAH DAVIS MD Nov 09, 2016 11:31
[2016-11-09 14:00] VITALS: BP 94/57
[2016-11-09] MEDS: cefTRIAXone SOD 2 GM in D5W MINI-BAG PLUS 50 ML IV SCH (20:07)
[2016-11-09] MEDS: SODIUM CHLORIDE 0.9% INJ 10 ML SYR IV PRN ×2 (20:08→20:33)
[2016-11-09 20:15] VITALS: BP 92/58
[2016-11-09] MEDS: MIRTAZAPINE 15 MG TAB PO SCH (20:28)
[2016-11-09] MEDS: SENNA 8.6 MG TAB (SENOKOT) PO SCH (20:28)
[2016-11-10] MEDS: SODIUM CHLORIDE 0.9% INJ 10 ML SYR IV SCH ×2 (06:13→16:56)
[2016-11-10 06:17] VITALS: BP 111/74
[2016-11-10] MEDS: FOLIC ACID 1 MG TAB PO SCH (08:56)
[2016-11-10] MEDS: ASPIRIN 325 MG TAB PO SCH (08:56)
[2016-11-10] MEDS: METHYLPHENIDATE 5 MG TAB PO SCH ×2 (08:56→15:16)
[2016-11-10] MEDS: FUROSEMIDE 20 MG TAB PO SCH (08:56)
[2016-11-10] MEDS: FERROUS SULFATE 325MG TAB PO SCH (08:56)
[2016-11-10] MEDS: ATORVASTATIN 20 MG TAB PO SCH (08:57)
[2016-11-10] MEDS: NYSTATIN 500,000 U/5 ML SUSP UDC SS SCH ×4 (08:57→20:11)
[2016-11-10] MEDS: DOCUSATE SODIUM 100 MG CAP PO SCH ×2 (08:57→20:11)
[2016-11-10] MEDS: HumuLIN (NovoLIN)70/30 INSULIN INJ PER UNIT SC SCH (08:58)
[2016-11-10] MEDS: HumaLOG INSULIN (NovoLOG) PER UNIT SC SCH ×3 (08:58→16:55)
[2016-11-10] MEDS: MUPIROCIN 2% OINT 22 GM TUBE TOP SCH ×3 (08:59→20:12)
[2016-11-10] MEDS: LISINOPRIL 10 MG TAB PO SCH (08:59)
[2016-11-10] MEDS: ENOXAPARIN 40 MG/0.4 ML SYRINGE (J1650) SC SCH (09:00)
--- NOTE | 2016-11-10 09:13 | IPNPDOC ---
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 We are reinforcing the patient's importance of his compliance with safety training and full participation activities to facilitate him being reasonably safe at home so that his will support him returning home. Patient without any complaints today occluding pain, GI/ or other areas. ALLERGIES: See Below MEDICATIONS: Reviewed, see below. OBJECTIVE: VITAL SIGNS: Please see below. PHYSICAL EXAMINATION: GENERAL: Well-nourished well-developed middle-aged white male in no acute distress with some weakness in right lateral upper and lower extremity greater on the left than the right. HEENT: Normocephalic/atraumatic. CARDIOVASCULAR: Regular rate and rhythm with normal S1-S2 being good bilateral radial pulses. LUNGS: All june clear to auscultation. ABDOMEN: Benign with normal bowel sounds in all quadrants. NEUROLOGICAL: Patient is alert and clearly oriented 2 but does not seem to have total awareness of time and situation. There is some flattening of affect remains improved and in general patient is pleasant and cooperative. SKIN: Intact. LABORATORY DATA: Reviewed. Please see below. MICROBIOLOGY: Please see below. IMAGING: No new imaging. DVT prophylaxis ordered?: Patient continues on Lovenox. ASSESSMENT AND PLAN: 1. Rehabilitation the CVAs: Patient continuing make progress in improving strength and endurance and balance. Impulsivity and breeches of safety techniques remain the main concern. 2. Depression: Patient seems to be less depressed since starting the Ritalin and in spite of the hard reality of yesterday's patient family conference. Hopefully he understands the importance of the request by nursing and OT and no longer declines. TIME SPENT: Chart Review, examination and documentation requires greater than 15 minutes minutes. Allergies Coded Allergies: No Known Drug Allergy (Verified Allergy, Unknown, 09/05/12) Vital Signs Vital Signs Date Time Temp Pulse Resp B/P (MAP) Pulse Ox O2 Delivery O2 Flow Rate FiO2 11/10/16 06:17 99.2 76 16 111/74 (86) 98 Room Air Laboratory Data Labs 24H Laboratory Tests 2 11/09/16 11:19: Bedside Glucose (Misc Panel) 277H 11/09/16 16:36: Bedside Glucose (Misc Panel) 125H 11/09/16 20:13: Bedside Glucose (Misc Panel) 83 11/10/16 06:11: Bedside Glucose (Misc Panel) 290H Current Medications Current Medications Current Medications Acetaminophen (Tylenol Tab) 650 mg Q4HP PRN PO MILD PAIN (PS 1-4); Start at 13:45; Stop 11/26/16 at 13:44 Albuterol Sulfate (Proventil, Ventolin Hfa) 2 puff Q6H PRN INH SHORTNESS OF BREATH; Start 10/27/16 at 13:45; Stop 11/26/16 at 13:44 Aspirin (Aspirin) 325 mg DAILY PO Last administered on 11/09/16 08:24; Start at 09:00; Stop 11/27/16 at 08:59 Atorvastatin Calcium (Lipitor) 40 mg DAILY PO Last administered on 11/09/16 08: 23; Start 10/28/16 at 09:00; Stop 11/27/16 at 08:59 Ceftriaxone Sodium 2 gm/ Dextrose 50 ml @ 100 mls/hr Q24H IV Last administered on 11/02/16 16:44; Start 10/27/16 at 17:00; Stop 11/03/16 at 16:59 ; Status DC Ceftriaxone Sodium 2 gm/ Dextrose 50 ml @ 100 mls/hr Q24H IV Last administered on 11/03/16 20:27; Start 11/03/16 at 20:00; Stop 11/04/16 at 10:25 ; Status DC Ceftriaxone Sodium 2 gm/ Dextrose 50 ml @ 100 mls/hr Q24H IV Last administered on 11/09/16 20:07; Start 11/04/16 at 20:00; Stop 11/16/16 at 23:59 Dextrose (Dextrose 50%) 25 ml ASDIRECTED PRN IV SEE LABEL COMMENTS; Start 10/27 at 13:45; Stop 11/08/16 at 18:50; Status DC Dextrose (Dextrose 50%) 25 ml ASDIRECTED PRN IV SEE LABEL COMMENTS; Start at 18:50; Stop 11/26/16 at 13:44 Docusate Sodium (Colace) 100 mg BID PO Last administered on 11/08/16 20:12; Start 10/27/16 at 21:00; Stop 11/26/16 at 20:59 Enoxaparin Sodium (Lovenox) 40 mg DAILY SC Last administered on 11/09/16 08:22 ; Start 10/28/16 at 09:00; Stop 11/11/16 at 08:59 Ferrous Sulfate (Ferrous Sulfate) 325 mg DAILY PO Last administered on 08:23; Start 10/28/16 at 09:00; Stop 11/27/16 at 08:59 Folic Acid (Folic Acid) 1 mg DAILY PO Last administered on 11/09/16 08:23; Start 10/29/16 at 09:00; Stop 11/28/16 at 08:59 Furosemide (Lasix) 20 mg DAILY PO Last administered on 11/09/16 08:23; Start at 09:00; Stop 11/27/16 at 08:59 Glucagon (Glucagon) 1 mg ASDIRECTED PRN SC SEE LABEL COMMENTS; Start 10/27/16 at 13:45; Stop 11/07/16 at 17:28; Status DC Glucagon (Glucagon) 1 mg ASDIRECTED PRN SC SEE LABEL COMMENTS; Start 11/07/16 at 17:30; Stop 12/07/16 at 17:29 Glucose (Glucose) ASDIRECTED PRN PO SEE LABEL COMMENTS; Start 10/27/16 at 13: 45; Stop 11/07/16 at 17:28; Status DC Glucose (Glucose) 16GM'S (4 TABS) ASDIRECTED PRN PO SEE LABEL COMMENTS Last administered on 11/08/16 16:46; Start 11/07/16 at 17:30; Stop 12/07/16 at 17:29 Heparin Sodium (Heparin (Flush)) 200 units ASDIRECTED PRN IV SEE LABEL COMMENTS Last administered on 11/09/16 20:33; Start 10/27/16 at 13:45; Stop at 13:44 Heparin Sodium (Heparin (Flush)) 200 units PICC IV Last administered on 06:13; Start 10/27/16 at 18:00; Stop 11/26/16 at 17:59 Insulin Detemir (Levemir Insulin) 4 units DAILY SC Last administered on 08:31; Start 10/28/16 at 09:00; Stop 10/30/16 at 09:23; Status DC Insulin Detemir (Levemir Insulin) 5 units DAILY SC Last administered on 08:57; Start 11/01/16 at 09:00; Stop 11/08/16 at 17:55; Status DC Insulin Detemir (Levemir Insulin) 6 units DAILY SC Last administered on 08:35; Start 10/31/16 at 09:00; Stop 10/31/16 at 12:04; Status DC Insulin Detemir (Levemir Insulin) 6 units QHS SC Last administered on 21:13; Start 10/27/16 at 21:00; Stop 10/28/16 at 12:12; Status DC Insulin Human Isoph/Insulin Regular (HumuLIN 70/30 INSULIN) 5 units DAILY@0730 SC Last administered on 11/09/16 08:21; Start 11/09/16 at 07:30; Stop 12/09/16 at 07:29 Insulin Human Lispro (HumaLOG INSULIN) AC SC Last administered on 10/30/16 12 :38; Start 10/27/16 at 17:30; Stop 10/31/16 at 08:11; Status DC Insulin Human Lispro (HumaLOG INSULIN) See Protocol Table AC SC Last administered on 11/09/16 17:19; Start 10/31/16 at 07:30; Stop 11/30/16 at 07:29 Lisinopril (Prinivil) 10 mg DAILY PO Last administered on 11/09/16 08:24; Start 10/28/16 at 09:00; Stop 11/27/16 at 08:59 Magnesium Hydroxide (Milk Of Magnesia) 30 ml DAILYPRN PRN PO CONSTIPATION; Start 10/27/16 at 13:45; Stop 11/26/16 at 13:44 Methylphenidate HCl (Ritalin) 2.5 mg BID@08,14 PO Last administered on 08:50; Start 11/04/16 at 14:00; Stop 11/05/16 at 14:14; Status DC Methylphenidate HCl (Ritalin) 5 mg BID@08,14 PO Last administered on 11/09/16 14:41; Start 11/05/16 at 14:00; Stop 11/12/16 at 13:59 Mirtazapine (Remeron) 15 mg QHS PO Last administered on 11/09/16 20:28; Start 10/27/16 at 21:00; Stop 11/26/16 at 20:59 Mupirocin (Bactroban 2% Ointment) TID TOP Last administered on 11/09/16 20:27 ; Start 10/27/16 at 16:00; Stop 11/26/16 at 15:59 Nystatin (Mycostatin) 5 ml QID SS Last administered on 11/09/16 20:28; Start at 17:00; Stop 11/16/16 at 16:59 Senna (Senokot) 1 tab QHS PO Last administered on 11/08/16 20:12; Start at 21:00; Stop 11/26/16 at 20:59 Sodium Biphosphate/ Sodium Phosphate (Fleet Enema) 1 ea DAILYPRN PRN [place] CONSTIPATION; Start 10/27/16 at 13:45; Stop 11/26/16 at 13:44 Sodium Chloride (Saline Lock Flush) 10 ml ASDIRECTED PRN IV SEE LABEL COMMENTS Last administered on 11/09/16 20:33; Start 10/27/16 at 13:45; Stop 11/26/16 at 13:44 Sodium Chloride (Saline Lock Flush) 10 ml PICC IV Last administered on 06:13; Start 10/27/16 at 18:00; Stop 11/26/16 at 17:59 URIAH DAVIS MD Nov 10, 2016 09:13
[2016-11-10 14:00] VITALS: BP 103/55
[2016-11-10 20:00] VITALS: BP 102/63
[2016-11-10] MEDS: cefTRIAXone SOD 2 GM in D5W MINI-BAG PLUS 50 ML IV SCH (20:10)
[2016-11-10] MEDS: SODIUM CHLORIDE 0.9% INJ 10 ML SYR IV PRN ×2 (20:10→20:44)
[2016-11-10] MEDS: MIRTAZAPINE 15 MG TAB PO SCH (20:11)
[2016-11-10] MEDS: SENNA 8.6 MG TAB (SENOKOT) PO SCH (20:11)
[2016-11-11 06:00] VITALS: BP 115/80
[2016-11-11] MEDS: SODIUM CHLORIDE 0.9% INJ 10 ML SYR IV SCH ×2 (06:05→18:36)
[2016-11-11] MEDS: HumaLOG INSULIN (NovoLOG) PER UNIT SC SCH ×3 (08:15→17:27)
[2016-11-11] MEDS: LISINOPRIL 10 MG TAB PO SCH (08:16)
[2016-11-11] MEDS: FUROSEMIDE 20 MG TAB PO SCH (08:16)
[2016-11-11] MEDS: HumuLIN (NovoLIN)70/30 INSULIN INJ PER UNIT SC SCH (08:16)
[2016-11-11] MEDS: ASPIRIN 325 MG TAB PO SCH (08:16)
[2016-11-11] MEDS: METHYLPHENIDATE 5 MG TAB PO SCH ×2 (08:16→14:19)
[2016-11-11] MEDS: FERROUS SULFATE 325MG TAB PO SCH (08:16)
[2016-11-11] MEDS: ENOXAPARIN 40 MG/0.4 ML SYRINGE (J1650) SC SCH (08:17)
[2016-11-11] MEDS: FOLIC ACID 1 MG TAB PO SCH (08:17)
[2016-11-11] MEDS: MUPIROCIN 2% OINT 22 GM TUBE TOP SCH ×3 (08:17→20:35)
[2016-11-11] MEDS: ATORVASTATIN 20 MG TAB PO SCH (08:17)
[2016-11-11] MEDS: DOCUSATE SODIUM 100 MG CAP PO SCH ×2 (08:17→20:34)
[2016-11-11] MEDS: NYSTATIN 500,000 U/5 ML SUSP UDC SS SCH ×4 (08:17→20:34)
--- NOTE | 2016-11-11 10:23 | IPNPDOC ---
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 Patient continues on antibiotic treatment to complete a 28 day course. Patient with no specific complaints today when seen in PT and his room today. ALLERGIES: See Below MEDICATIONS: Reviewed, see below. OBJECTIVE: VITAL SIGNS: Please see below. PHYSICAL EXAMINATION: GENERAL: Well-nourished well-developed middle-aged white male in no acute distress with some weakness in right lateral upper and lower extremity greater on the left than the right. HEENT: Normocephalic/atraumatic. CARDIOVASCULAR: Regular rate and rhythm with normal S1-S2 without S3, S4, Murmurs, or rubs. He has 2/4 bilateral radial pulses. LUNGS: All june clear to auscultation. ABDOMEN: Benign with normal bowel sounds in all quadrants. NEUROLOGICAL: Patient is alert and clearly oriented 2 but still does not seem to have total awareness of time and situation. There is less flattening of affect and in general the patient is pleasant and cooperative. SKIN: Intact. LABORATORY DATA: Reviewed. Please see below. MICROBIOLOGY: Please see below. IMAGING: No new imaging. DVT prophylaxis ordered?: Patient continues on Lovenox. ASSESSMENT AND PLAN: 1. Rehabilitation the CVAs: Patient continuing make progress in improving strength and endurance and balance. However impulsivity remains a concern for his safety. He continues to want to pick and choose his therapies and the activities within. This raises concern about his ability to regain a level of function they'll allow him to be safe at home while his is off working. Because of these concerns as discussed in team rounds is unclear whether patient remains on a progress curve to return home around November 17 as previously estimated. Therefore we will arrange a patient family conference with the patient, his , PT, OT, rehabilitation nursing, case management and physiatry as soon as possible. 2. Depression: Patient seems to be a less depressed since starting the Ritalin. Hopefully he understands the importance of the request by nursing and OT/PT and PT reports good participation this morning. 3. Diabetes Mellitus Type 2: This remains fairly stable. 4. Bladder Control: Patient without incontinence for 6 days per nursing notes. TIME SPENT: Chart Review, examination and documentation required greater than 25 minutes. Allergies Coded Allergies: No Known Drug Allergy (Verified Allergy, Unknown, 09/05/12) Vital Signs Vital Signs Date Time Temp Pulse Resp B/P (MAP) Pulse Ox O2 Delivery O2 Flow Rate FiO2 11/11/16 09:00 Room Air 11/11/16 08:16 115/80 11/11/16 06:00 99.3 76 18 100 Laboratory Data Labs 24H Laboratory Tests 2 11/10/16 11:30: Bedside Glucose (Misc Panel) 305H 11/10/16 16:27: Bedside Glucose (Misc Panel) 130H 11/10/16 20:01: Bedside Glucose (Misc Panel) 273H 11/11/16 06:07: Bedside Glucose (Misc Panel) 365H Current Medications Current Medications Current Medications Acetaminophen (Tylenol Tab) 650 mg Q4HP PRN PO MILD PAIN (PS 1-4); Start at 13:45; Stop 11/26/16 at 13:44 Albuterol Sulfate (Proventil, Ventolin Hfa) 2 puff Q6H PRN INH SHORTNESS OF BREATH; Start 10/27/16 at 13:45; Stop 11/26/16 at 13:44 Aspirin (Aspirin) 325 mg DAILY PO Last administered on 11/11/16 08:16; Start at 09:00; Stop 11/27/16 at 08:59 Atorvastatin Calcium (Lipitor) 40 mg DAILY PO Last administered on 11/11/16 08: 17; Start 10/28/16 at 09:00; Stop 11/27/16 at 08:59 Ceftriaxone Sodium 2 gm/ Dextrose 50 ml @ 100 mls/hr Q24H IV Last administered on 11/02/16 16:44; Start 10/27/16 at 17:00; Stop 11/03/16 at 16:59 ; Status DC Ceftriaxone Sodium 2 gm/ Dextrose 50 ml @ 100 mls/hr Q24H IV Last administered on 11/03/16 20:27; Start 11/03/16 at 20:00; Stop 11/04/16 at 10:25 ; Status DC Ceftriaxone Sodium 2 gm/ Dextrose 50 ml @ 100 mls/hr Q24H IV Last administered on 11/10/16 20:10; Start 11/04/16 at 20:00; Stop 11/16/16 at 23:59 Dextrose (Dextrose 50%) 25 ml ASDIRECTED PRN IV SEE LABEL COMMENTS; Start 10/27 at 13:45; Stop 11/08/16 at 18:50; Status DC Dextrose (Dextrose 50%) 25 ml ASDIRECTED PRN IV SEE LABEL COMMENTS; Start at 18:50; Stop 11/26/16 at 13:44 Docusate Sodium (Colace) 100 mg BID PO Last administered on 11/11/16 08:17; Start 10/27/16 at 21:00; Stop 11/26/16 at 20:59 Enoxaparin Sodium (Lovenox) 40 mg DAILY SC Last administered on 11/11/16 08:17 ; Start 10/28/16 at 09:00; Stop 11/21/16 at 12:00 Ferrous Sulfate (Ferrous Sulfate) 325 mg DAILY PO Last administered on 08:16; Start 10/28/16 at 09:00; Stop 11/27/16 at 08:59 Folic Acid (Folic Acid) 1 mg DAILY PO Last administered on 11/11/16 08:17; Start 10/29/16 at 09:00; Stop 11/28/16 at 08:59 Furosemide (Lasix) 20 mg DAILY PO Last administered on 11/11/16 08:16; Start at 09:00; Stop 11/27/16 at 08:59 Glucagon (Glucagon) 1 mg ASDIRECTED PRN SC SEE LABEL COMMENTS; Start 10/27/16 at 13:45; Stop 11/07/16 at 17:28; Status DC Glucagon (Glucagon) 1 mg ASDIRECTED PRN SC SEE LABEL COMMENTS; Start 11/07/16 at 17:30; Stop 12/07/16 at 17:29 Glucose (Glucose) ASDIRECTED PRN PO SEE LABEL COMMENTS; Start 10/27/16 at 13: 45; Stop 11/07/16 at 17:28; Status DC Glucose (Glucose) 16GM'S (4 TABS) ASDIRECTED PRN PO SEE LABEL COMMENTS Last administered on 11/08/16 16:46; Start 11/07/16 at 17:30; Stop 12/07/16 at 17:29 Heparin Sodium (Heparin (Flush)) 200 units ASDIRECTED PRN IV SEE LABEL COMMENTS Last administered on 11/10/16 20:44; Start 10/27/16 at 13:45; Stop at 13:44 Heparin Sodium (Heparin (Flush)) 200 units PICC IV Last administered on 06:05; Start 10/27/16 at 18:00; Stop 11/26/16 at 17:59 Insulin Detemir (Levemir Insulin) 4 units DAILY SC Last administered on 08:31; Start 10/28/16 at 09:00; Stop 10/30/16 at 09:23; Status DC Insulin Detemir (Levemir Insulin) 5 units DAILY SC Last administered on 08:57; Start 11/01/16 at 09:00; Stop 11/08/16 at 17:55; Status DC Insulin Detemir (Levemir Insulin) 6 units DAILY SC Last administered on 08:35; Start 10/31/16 at 09:00; Stop 10/31/16 at 12:04; Status DC Insulin Detemir (Levemir Insulin) 6 units QHS SC Last administered on 21:13; Start 10/27/16 at 21:00; Stop 10/28/16 at 12:12; Status DC Insulin Human Isoph/Insulin Regular (HumuLIN 70/30 INSULIN) 5 units DAILY@0730 SC Last administered on 11/11/16 08:16; Start 11/09/16 at 07:30; Stop 12/09/16 at 07:29 Insulin Human Lispro (HumaLOG INSULIN) AC SC Last administered on 10/30/16 12 :38; Start 10/27/16 at 17:30; Stop 10/31/16 at 08:11; Status DC Insulin Human Lispro (HumaLOG INSULIN) See Protocol Table AC SC Last administered on 11/11/16 08:15; Start 10/31/16 at 07:30; Stop 11/30/16 at 07:29 Lisinopril (Prinivil) 10 mg DAILY PO Last administered on 11/11/16 08:16; Start 10/28/16 at 09:00; Stop 11/27/16 at 08:59 Magnesium Hydroxide (Milk Of Magnesia) 30 ml DAILYPRN PRN PO CONSTIPATION; Start 10/27/16 at 13:45; Stop 11/26/16 at 13:44 Methylphenidate HCl (Ritalin) 2.5 mg BID@08,14 PO Last administered on 08:50; Start 11/04/16 at 14:00; Stop 11/05/16 at 14:14; Status DC Methylphenidate HCl (Ritalin) 5 mg BID@08,14 PO Last administered on 11/11/16 08:16; Start 11/05/16 at 14:00; Stop 11/21/16 at 12:00 Mirtazapine (Remeron) 15 mg QHS PO Last administered on 11/10/16 20:11; Start 10/27/16 at 21:00; Stop 11/26/16 at 20:59 Mupirocin (Bactroban 2% Ointment) TID TOP Last administered on 11/11/16 08:17 ; Start 10/27/16 at 16:00; Stop 11/26/16 at 15:59 Nystatin (Mycostatin) 5 ml QID SS Last administered on 11/11/16 08:17; Start at 17:00; Stop 11/16/16 at 16:59 Senna (Senokot) 1 tab QHS PO Last administered on 11/08/16 20:12; Start at 21:00; Stop 11/26/16 at 20:59 Sodium Biphosphate/ Sodium Phosphate (Fleet Enema) 1 ea DAILYPRN PRN [place] CONSTIPATION; Start 10/27/16 at 13:45; Stop 11/26/16 at 13:44 Sodium Chloride (Saline Lock Flush) 10 ml ASDIRECTED PRN IV SEE LABEL COMMENTS Last administered on 11/10/16 20:44; Start 10/27/16 at 13:45; Stop 11/26/16 at 13:44 Sodium Chloride (Saline Lock Flush) 10 ml PICC IV Last administered on 06:05; Start 10/27/16 at 18:00; Stop 11/26/16 at 17:59 URIAH DAVIS MD Nov 11, 2016 10:23
[2016-11-11 14:00] VITALS: BP 85/50
[2016-11-11 15:53] VITALS: BP 92/56
[2016-11-11] MEDS: cefTRIAXone SOD 2 GM in D5W MINI-BAG PLUS 50 ML IV SCH (19:46)
[2016-11-11 19:53] VITALS: BP 109/66
[2016-11-11] MEDS: MIRTAZAPINE 15 MG TAB PO SCH (20:34)
[2016-11-11] MEDS: SENNA 8.6 MG TAB (SENOKOT) PO SCH (20:34)
[2016-11-11] MEDS: SODIUM CHLORIDE 0.9% INJ 10 ML SYR IV PRN (20:35)
[2016-11-12 04:45] VITALS: BP 130/73
[2016-11-12] MEDS: SODIUM CHLORIDE 0.9% INJ 10 ML SYR IV SCH ×2 (05:27→18:31)
[2016-11-12] MEDS: ENOXAPARIN 40 MG/0.4 ML SYRINGE (J1650) SC SCH (08:36)
[2016-11-12] MEDS: HumaLOG INSULIN (NovoLOG) PER UNIT SC SCH ×3 (08:36→18:31)
[2016-11-12] MEDS: ASPIRIN 325 MG TAB PO SCH (08:36)
[2016-11-12] MEDS: HumuLIN (NovoLIN)70/30 INSULIN INJ PER UNIT SC SCH (08:36)
[2016-11-12] MEDS: LISINOPRIL 10 MG TAB PO SCH (08:37)
[2016-11-12] MEDS: METHYLPHENIDATE 5 MG TAB PO SCH ×2 (08:37→14:17)
[2016-11-12] MEDS: DOCUSATE SODIUM 100 MG CAP PO SCH ×2 (08:37→20:20)
[2016-11-12] MEDS: NYSTATIN 500,000 U/5 ML SUSP UDC SS SCH ×4 (08:37→20:19)
[2016-11-12] MEDS: FERROUS SULFATE 325MG TAB PO SCH (08:37)
[2016-11-12] MEDS: ATORVASTATIN 20 MG TAB PO SCH (08:37)
[2016-11-12] MEDS: FOLIC ACID 1 MG TAB PO SCH (08:37)
[2016-11-12] MEDS: FUROSEMIDE 20 MG TAB PO SCH (08:37)
[2016-11-12] MEDS: MUPIROCIN 2% OINT 22 GM TUBE TOP SCH ×3 (08:38→20:20)
--- NOTE | 2016-11-12 10:33 | IPNPDOC ---
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 Patient continues on antibiotic treatment to complete a 28 day course due to end 11/16/16. Patient with no specific complaints today when seen in PT today. He has been doing better with safety. ALLERGIES: See Below MEDICATIONS: Reviewed, see below. OBJECTIVE: VITAL SIGNS: Please see below. PHYSICAL EXAMINATION: GENERAL: Well-nourished well-developed middle-aged white male in no acute distress with some weakness in right lateral upper and lower extremity greater on the left than the right. HEENT: Normocephalic/atraumatic. CARDIOVASCULAR: Regular rate and rhythm with normal S1-S2 without S3, S4, Murmurs, or rubs. He has 2/4 bilateral radial pulses. LUNGS: All june clear to auscultation. ABDOMEN: Benign with normal bowel sounds in all quadrants. NEUROLOGICAL: Patient is alert and clearly oriented 2, but he still does not seem to have total awareness of time and situation. There is less flattening of affect and in general the patient is pleasant and cooperative. SKIN: Intact. LABORATORY DATA: Reviewed. Please see below. MICROBIOLOGY: Please see below. IMAGING: No new imaging. DVT prophylaxis ordered?: Patient continues on Lovenox. ASSESSMENT AND PLAN: 1. Rehabilitation the CVAs: Patient continuing make progress in improving strength and endurance and balance. However impulsivity remains a concern for his safety. Patient doing better with self and safety awareness. to do family training. We will review progress and discharge planning at team rounds today. 2. Depression: Patient continues to seem to be a less depressed since starting the Ritalin. 3. Diabetes Mellitus Type 2: This remains fairly stable. 4. Bladder Control: Patient without incontinence for 7 days per nursing notes. TIME SPENT: Chart Review, examination and documentation required greater than 35 minutes. Allergies Coded Allergies: No Known Drug Allergy (Verified Allergy, Unknown, 09/05/12) Vital Signs Vital Signs Date Time Temp Pulse Resp B/P (MAP) Pulse Ox O2 Delivery O2 Flow Rate FiO2 11/12/16 09:00 Room Air 11/12/16 08:37 114/56 11/12/16 04:45 98.5 72 16 100 Laboratory Data Labs 24H Laboratory Tests 2 11/11/16 11:46: Bedside Glucose (Misc Panel) 228H 11/11/16 16:49: Bedside Glucose (Misc Panel) 70L 11/11/16 20:18: Bedside Glucose (Misc Panel) 242H 11/12/16 06:07: Bedside Glucose (Misc Panel) 465H Current Medications Current Medications Current Medications Acetaminophen (Tylenol Tab) 650 mg Q4HP PRN PO MILD PAIN (PS 1-4); Start at 13:45; Stop 11/26/16 at 13:44 Albuterol Sulfate (Proventil, Ventolin Hfa) 2 puff Q6H PRN INH SHORTNESS OF BREATH; Start 10/27/16 at 13:45; Stop 11/26/16 at 13:44 Aspirin (Aspirin) 325 mg DAILY PO Last administered on 11/12/16 08:36; Start at 09:00; Stop 11/27/16 at 08:59 Atorvastatin Calcium (Lipitor) 40 mg DAILY PO Last administered on 11/12/16 08: 37; Start 10/28/16 at 09:00; Stop 11/27/16 at 08:59 Ceftriaxone Sodium 2 gm/ Dextrose 50 ml @ 100 mls/hr Q24H IV Last administered on 11/02/16 16:44; Start 10/27/16 at 17:00; Stop 11/03/16 at 16:59 ; Status DC Ceftriaxone Sodium 2 gm/ Dextrose 50 ml @ 100 mls/hr Q24H IV Last administered on 11/03/16 20:27; Start 11/03/16 at 20:00; Stop 11/04/16 at 10:25 ; Status DC Ceftriaxone Sodium 2 gm/ Dextrose 50 ml @ 100 mls/hr Q24H IV Last administered on 11/11/16 19:46; Start 11/04/16 at 20:00; Stop 11/16/16 at 23:59 Dextrose (Dextrose 50%) 25 ml ASDIRECTED PRN IV SEE LABEL COMMENTS; Start 10/27 at 13:45; Stop 11/08/16 at 18:50; Status DC Dextrose (Dextrose 50%) 25 ml ASDIRECTED PRN IV SEE LABEL COMMENTS; Start at 18:50; Stop 11/26/16 at 13:44 Docusate Sodium (Colace) 100 mg BID PO Last administered on 11/12/16 08:37; Start 10/27/16 at 21:00; Stop 11/26/16 at 20:59 Enoxaparin Sodium (Lovenox) 40 mg DAILY SC Last administered on 11/12/16 08:36 ; Start 10/28/16 at 09:00; Stop 11/21/16 at 12:00 Ferrous Sulfate (Ferrous Sulfate) 325 mg DAILY PO Last administered on 08:37; Start 10/28/16 at 09:00; Stop 11/27/16 at 08:59 Folic Acid (Folic Acid) 1 mg DAILY PO Last administered on 11/12/16 08:37; Start 10/29/16 at 09:00; Stop 11/28/16 at 08:59 Furosemide (Lasix) 20 mg DAILY PO Last administered on 11/12/16 08:37; Start at 09:00; Stop 11/27/16 at 08:59 Glucagon (Glucagon) 1 mg ASDIRECTED PRN SC SEE LABEL COMMENTS; Start 10/27/16 at 13:45; Stop 11/07/16 at 17:28; Status DC Glucagon (Glucagon) 1 mg ASDIRECTED PRN SC SEE LABEL COMMENTS; Start 11/07/16 at 17:30; Stop 12/07/16 at 17:29 Glucose (Glucose) ASDIRECTED PRN PO SEE LABEL COMMENTS; Start 10/27/16 at 13: 45; Stop 11/07/16 at 17:28; Status DC Glucose (Glucose) 16GM'S (4 TABS) ASDIRECTED PRN PO SEE LABEL COMMENTS Last administered on 11/08/16 16:46; Start 11/07/16 at 17:30; Stop 12/07/16 at 17:29 Heparin Sodium (Heparin (Flush)) 200 units ASDIRECTED PRN IV SEE LABEL COMMENTS Last administered on 11/11/16 20:35; Start 10/27/16 at 13:45; Stop at 13:44 Heparin Sodium (Heparin (Flush)) 200 units PICC IV Last administered on 05:27; Start 10/27/16 at 18:00; Stop 11/26/16 at 17:59 Insulin Detemir (Levemir Insulin) 4 units DAILY SC Last administered on 08:31; Start 10/28/16 at 09:00; Stop 10/30/16 at 09:23; Status DC Insulin Detemir (Levemir Insulin) 5 units DAILY SC Last administered on 08:57; Start 11/01/16 at 09:00; Stop 11/08/16 at 17:55; Status DC Insulin Detemir (Levemir Insulin) 6 units DAILY SC Last administered on 08:35; Start 10/31/16 at 09:00; Stop 10/31/16 at 12:04; Status DC Insulin Detemir (Levemir Insulin) 6 units QHS SC Last administered on 21:13; Start 10/27/16 at 21:00; Stop 10/28/16 at 12:12; Status DC Insulin Human Isoph/Insulin Regular (HumuLIN 70/30 INSULIN) 5 units DAILY@0730 SC Last administered on 11/12/16 08:36; Start 11/09/16 at 07:30; Stop 12/09/16 at 07:29 Insulin Human Lispro (HumaLOG INSULIN) AC SC Last administered on 10/30/16 12 :38; Start 10/27/16 at 17:30; Stop 10/31/16 at 08:11; Status DC Insulin Human Lispro (HumaLOG INSULIN) See Protocol Table AC SC Last administered on 11/12/16 08:36; Start 10/31/16 at 07:30; Stop 11/30/16 at 07:29 Lisinopril (Prinivil) 10 mg DAILY PO Last administered on 11/12/16 08:37; Start 10/28/16 at 09:00; Stop 11/27/16 at 08:59 Magnesium Hydroxide (Milk Of Magnesia) 30 ml DAILYPRN PRN PO CONSTIPATION; Start 10/27/16 at 13:45; Stop 11/26/16 at 13:44 Methylphenidate HCl (Ritalin) 2.5 mg BID@08,14 PO Last administered on 08:50; Start 11/04/16 at 14:00; Stop 11/05/16 at 14:14; Status DC Methylphenidate HCl (Ritalin) 5 mg BID@08,14 PO Last administered on 11/12/16 08:37; Start 11/05/16 at 14:00; Stop 11/21/16 at 12:00 Mirtazapine (Remeron) 15 mg QHS PO Last administered on 11/11/16 20:34; Start 10/27/16 at 21:00; Stop 11/26/16 at 20:59 Mupirocin (Bactroban 2% Ointment) TID TOP Last administered on 11/12/16 08:38 ; Start 10/27/16 at 16:00; Stop 11/26/16 at 15:59 Nystatin (Mycostatin) 5 ml QID SS Last administered on 11/12/16 08:37; Start at 17:00; Stop 11/16/16 at 16:59 Senna (Senokot) 1 tab QHS PO Last administered on 11/11/16 20:34; Start at 21:00; Stop 11/26/16 at 20:59 Sodium Biphosphate/ Sodium Phosphate (Fleet Enema) 1 ea DAILYPRN PRN [place] CONSTIPATION; Start 10/27/16 at 13:45; Stop 11/26/16 at 13:44 Sodium Chloride (Saline Lock Flush) 10 ml ASDIRECTED PRN IV SEE LABEL COMMENTS Last administered on 11/11/16 20:35; Start 10/27/16 at 13:45; Stop 11/26/16 at 13:44 Sodium Chloride (Saline Lock Flush) 10 ml PICC IV Last administered on 05:27; Start 10/27/16 at 18:00; Stop 11/26/16 at 17:59 URIAH DAVIS MD Nov 12, 2016 10:33
[2016-11-12 14:00] VITALS: BP 97/69
[2016-11-12 20:00] VITALS: BP 105/59
[2016-11-12] MEDS: cefTRIAXone SOD 2 GM in D5W MINI-BAG PLUS 50 ML IV SCH (20:20)
[2016-11-12] MEDS: MIRTAZAPINE 15 MG TAB PO SCH (20:20)
[2016-11-12] MEDS: SENNA 8.6 MG TAB (SENOKOT) PO SCH (20:20)
[2016-11-12] MEDS: SODIUM CHLORIDE 0.9% INJ 10 ML SYR IV PRN (21:06)
[2016-11-13 06:00] VITALS: BP 117/74
[2016-11-13] MEDS: SODIUM CHLORIDE 0.9% INJ 10 ML SYR IV SCH ×2 (06:00→17:23)
[2016-11-13] MEDS: NYSTATIN 500,000 U/5 ML SUSP UDC SS SCH ×4 (10:19→20:55)
[2016-11-13] MEDS: HumuLIN (NovoLIN)70/30 INSULIN INJ PER UNIT SC SCH (10:20)
[2016-11-13] MEDS: HumaLOG INSULIN (NovoLOG) PER UNIT SC SCH ×3 (10:21→17:23)
[2016-11-13] MEDS: FUROSEMIDE 20 MG TAB PO SCH (10:22)
[2016-11-13] MEDS: METHYLPHENIDATE 5 MG TAB PO SCH ×2 (10:22→13:39)
[2016-11-13] MEDS: FERROUS SULFATE 325MG TAB PO SCH (10:22)
[2016-11-13] MEDS: FOLIC ACID 1 MG TAB PO SCH (10:22)
[2016-11-13] MEDS: DOCUSATE SODIUM 100 MG CAP PO SCH ×2 (10:22→20:55)
[2016-11-13] MEDS: ASPIRIN 325 MG TAB PO SCH (10:22)
[2016-11-13] MEDS: ENOXAPARIN 40 MG/0.4 ML SYRINGE (J1650) SC SCH (10:22)
[2016-11-13] MEDS: ATORVASTATIN 20 MG TAB PO SCH (10:22)
[2016-11-13] MEDS: LISINOPRIL 10 MG TAB PO SCH (10:23)
[2016-11-13] MEDS: MUPIROCIN 2% OINT 22 GM TUBE TOP SCH ×3 (10:23→21:07)
--- NOTE | 2016-11-13 12:17 | IPNPDOC ---
[employer] Progress Note DATE OF SERVICE: 11/13/16 DATE OF ADMISSION: October 27, 2016 at 14:25 INPATIENT REHABILITATION ADMISSION DAY: #18 SUBJECTIVE: Patient is a 61-year-old white male with CVA and hemiparesis. No complaints except about feeling of not being discharge to home on 11/17/16 he was hoping for. Patient encouraged to keep working to skill/consistent safety awareness and utilization to allow for returning home. ALLERGIES: See Below MEDICATIONS: Reviewed, see below. OBJECTIVE: VITAL SIGNS: Please see below. PHYSICAL EXAMINATION: GENERAL: Well-nourished well-developed middle-aged white male in no acute distress with some weakness in right lateral upper and lower extremity greater on the left than the right. HEENT: Normocephalic/atraumatic. CARDIOVASCULAR: Regular rate and rhythm with normal S1-S2 without S3, S4, Murmurs, or rubs. He has 2/4 bilateral radial pulses. LUNGS: All june clear to auscultation. ABDOMEN: Benign with normal bowel sounds in all quadrants. NEUROLOGICAL: Patient is alert and clearly oriented 2, but he still does not seem to have total awareness of time and situation. There is less flattening of affect and in general the patient is pleasant and cooperative. SKIN: Intact. LABORATORY DATA: Reviewed. Please see below. MICROBIOLOGY: Please see below. IMAGING: No new imaging. DVT prophylaxis ordered?: Patient continues on Lovenox. ASSESSMENT AND PLAN: 1. Rehabilitation the CVAs: Patient continuing make progress in improving strength and endurance and balance. However impulsivity remains a concern for his safety. 2. Depression: Patient continues to seem to be a less depressed since starting the Ritalin, but some increased flattening after yesterday's meeting. Patient encouraged to continue to work on safety and consistency with techniques in mobility and ADL's. 3. Diabetes Mellitus Type 2: This continues to remains fairly stable. 4. Bladder Control: Patient without incontinence for 8 days per nursing notes. TIME SPENT: Chart Review, examination and documentation required greater than 25 minutes. Allergies Coded Allergies: No Known Drug Allergy (Verified Allergy, Unknown, 09/05/12) Vital Signs Vital Signs Date Time Temp Pulse Resp B/P (MAP) Pulse Ox O2 Delivery O2 Flow Rate FiO2 11/13/16 10:23 110/70 11/13/16 08:00 Room Air 11/13/16 06:00 97.8 71 16 97 Laboratory Data Labs 24H Laboratory Tests 2 11/12/16 16:53: Bedside Glucose (Misc Panel) 102 11/12/16 20:03: Bedside Glucose (Misc Panel) 144H 11/13/16 05:46: Bedside Glucose (Misc Panel) 367H 11/13/16 11:28: Bedside Glucose (Misc Panel) 401H Current Medications Current Medications Current Medications Acetaminophen (Tylenol Tab) 650 mg Q4HP PRN PO MILD PAIN (PS 1-4); Start at 13:45; Stop 11/26/16 at 13:44 Albuterol Sulfate (Proventil, Ventolin Hfa) 2 puff Q6H PRN INH SHORTNESS OF BREATH; Start 10/27/16 at 13:45; Stop 11/26/16 at 13:44 Aspirin (Aspirin) 325 mg DAILY PO Last administered on 11/13/16 10:22; Start at 09:00; Stop 11/27/16 at 08:59 Atorvastatin Calcium (Lipitor) 40 mg DAILY PO Last administered on 11/13/16 10: 22; Start 10/28/16 at 09:00; Stop 11/27/16 at 08:59 Ceftriaxone Sodium 2 gm/ Dextrose 50 ml @ 100 mls/hr Q24H IV Last administered on 11/02/16 16:44; Start 10/27/16 at 17:00; Stop 11/03/16 at 16:59 ; Status DC Ceftriaxone Sodium 2 gm/ Dextrose 50 ml @ 100 mls/hr Q24H IV Last administered on 11/03/16 20:27; Start 11/03/16 at 20:00; Stop 11/04/16 at 10:25 ; Status DC Ceftriaxone Sodium 2 gm/ Dextrose 50 ml @ 100 mls/hr Q24H IV Last administered on 11/12/16 20:20; Start 11/04/16 at 20:00; Stop 11/16/16 at 23:59 Dextrose (Dextrose 50%) 25 ml ASDIRECTED PRN IV SEE LABEL COMMENTS; Start 10/27 at 13:45; Stop 11/08/16 at 18:50; Status DC Dextrose (Dextrose 50%) 25 ml ASDIRECTED PRN IV SEE LABEL COMMENTS; Start at 18:50; Stop 11/26/16 at 13:44 Docusate Sodium (Colace) 100 mg BID PO Last administered on 11/13/16 10:22; Start 10/27/16 at 21:00; Stop 11/26/16 at 20:59 Enoxaparin Sodium (Lovenox) 40 mg DAILY SC Last administered on 11/13/16 10:22 ; Start 10/28/16 at 09:00; Stop 11/21/16 at 12:00 Ferrous Sulfate (Ferrous Sulfate) 325 mg DAILY PO Last administered on 10:22; Start 10/28/16 at 09:00; Stop 11/27/16 at 08:59 Folic Acid (Folic Acid) 1 mg DAILY PO Last administered on 11/13/16 10:22; Start 10/29/16 at 09:00; Stop 11/28/16 at 08:59 Furosemide (Lasix) 20 mg DAILY PO Last administered on 11/13/16 10:22; Start at 09:00; Stop 11/27/16 at 08:59 Glucagon (Glucagon) 1 mg ASDIRECTED PRN SC SEE LABEL COMMENTS; Start 10/27/16 at 13:45; Stop 11/07/16 at 17:28; Status DC Glucagon (Glucagon) 1 mg ASDIRECTED PRN SC SEE LABEL COMMENTS; Start 11/07/16 at 17:30; Stop 12/07/16 at 17:29 Glucose (Glucose) ASDIRECTED PRN PO SEE LABEL COMMENTS; Start 10/27/16 at 13: 45; Stop 11/07/16 at 17:28; Status DC Glucose (Glucose) 16GM'S (4 TABS) ASDIRECTED PRN PO SEE LABEL COMMENTS Last administered on 11/08/16 16:46; Start 11/07/16 at 17:30; Stop 12/07/16 at 17:29 Heparin Sodium (Heparin (Flush)) 200 units ASDIRECTED PRN IV SEE LABEL COMMENTS Last administered on 11/12/16 21:05; Start 10/27/16 at 13:45; Stop at 13:44 Heparin Sodium (Heparin (Flush)) 200 units PICC IV Last administered on 06:00; Start 10/27/16 at 18:00; Stop 11/26/16 at 17:59 Insulin Detemir (Levemir Insulin) 4 units DAILY SC Last administered on 08:31; Start 10/28/16 at 09:00; Stop 10/30/16 at 09:23; Status DC Insulin Detemir (Levemir Insulin) 5 units DAILY SC Last administered on 08:57; Start 11/01/16 at 09:00; Stop 11/08/16 at 17:55; Status DC Insulin Detemir (Levemir Insulin) 6 units DAILY SC Last administered on 08:35; Start 10/31/16 at 09:00; Stop 10/31/16 at 12:04; Status DC Insulin Detemir (Levemir Insulin) 6 units QHS SC Last administered on 21:13; Start 10/27/16 at 21:00; Stop 10/28/16 at 12:12; Status DC Insulin Human Isoph/Insulin Regular (HumuLIN 70/30 INSULIN) 5 units DAILY@0730 SC Last administered on 11/13/16 10:20; Start 11/09/16 at 07:30; Stop 12/09/16 at 07:29 Insulin Human Lispro (HumaLOG INSULIN) AC SC Last administered on 10/30/16 12 :38; Start 10/27/16 at 17:30; Stop 10/31/16 at 08:11; Status DC Insulin Human Lispro (HumaLOG INSULIN) See Protocol Table AC SC Last administered on 11/13/16 10:21; Start 10/31/16 at 07:30; Stop 11/30/16 at 07:29 Lisinopril (Prinivil) 10 mg DAILY PO Last administered on 11/13/16 10:23; Start 10/28/16 at 09:00; Stop 11/27/16 at 08:59 Magnesium Hydroxide (Milk Of Magnesia) 30 ml DAILYPRN PRN PO CONSTIPATION; Start 10/27/16 at 13:45; Stop 11/26/16 at 13:44 Methylphenidate HCl (Ritalin) 2.5 mg BID@08,14 PO Last administered on 08:50; Start 11/04/16 at 14:00; Stop 11/05/16 at 14:14; Status DC Methylphenidate HCl (Ritalin) 5 mg BID@08,14 PO Last administered on 11/13/16 10:22; Start 11/05/16 at 14:00; Stop 11/21/16 at 12:00 Mirtazapine (Remeron) 15 mg QHS PO Last administered on 11/12/16 20:20; Start 10/27/16 at 21:00; Stop 11/26/16 at 20:59 Mupirocin (Bactroban 2% Ointment) TID TOP Last administered on 11/13/16 10:23 ; Start 10/27/16 at 16:00; Stop 11/26/16 at 15:59 Nystatin (Mycostatin) 5 ml QID SS Last administered on 11/13/16 10:19; Start at 17:00; Stop 11/16/16 at 16:59 Senna (Senokot) 1 tab QHS PO Last administered on 11/12/16 20:20; Start at 21:00; Stop 11/26/16 at 20:59 Sodium Biphosphate/ Sodium Phosphate (Fleet Enema) 1 ea DAILYPRN PRN MS CONSTIPATION; Start 10/27/16 at 13:45; Stop 11/26/16 at 13:44 Sodium Chloride (Saline Lock Flush) 10 ml ASDIRECTED PRN IV SEE LABEL COMMENTS Last administered on 11/12/16 21:06; Start 10/27/16 at 13:45; Stop 11/26/16 at 13:44 Sodium Chloride (Saline Lock Flush) 10 ml PICC IV Last administered on 06:00; Start 10/27/16 at 18:00; Stop 11/26/16 at 17:59 URIAH DAVIS MD Nov 13, 2016 12:17
[2016-11-13 14:00] VITALS: BP 92/61
[2016-11-13 20:00] VITALS: BP 107/70
[2016-11-13] MEDS: MIRTAZAPINE 15 MG TAB PO SCH (20:55)
[2016-11-13] MEDS: cefTRIAXone SOD 2 GM in D5W MINI-BAG PLUS 50 ML IV SCH (20:55)
[2016-11-13] MEDS: SENNA 8.6 MG TAB (SENOKOT) PO SCH (20:55)
[2016-11-13] MEDS: SODIUM CHLORIDE 0.9% INJ 10 ML SYR IV PRN (21:07)
[2016-11-14 06:00] VITALS: BP 121/72
[2016-11-14] MEDS: SODIUM CHLORIDE 0.9% INJ 10 ML SYR IV SCH ×2 (06:47→17:10)
[2016-11-14 07:17] LABS: MEAN CORPUSCULAR HEMOGLOBIN 33.6 pg (27.0-33.0); MEAN CORPUSCULAR HGB CONC 31.9 g/dl (32.0-36.5); MEAN CORPUSCULAR VOLUME 105.4 fl (80.0-96.0); RED CELL DISTRIBUTION WIDTH 15.7 % (11.5-14.5); WHITE BLOOD COUNT 4.2 K/mm3 (4.0-10.0)
[2016-11-14 07:29] LABS: ANION GAP 6 MEQ/L (8-16); BLOOD UREA NITROGEN 14 MG/DL (7-18); CALCIUM LEVEL 8.5 MG/DL (8.8-10.2); CARBON DIOXIDE LEVEL 30 MEQ/L (21-32); CHLORIDE LEVEL 99 MEQ/L (98-107); CREATININE FOR GFR 0.67 MG/DL (0.70-1.30); GLOMERULAR FILTRATION RATE > 60.0 (>49); GLUCOSE, FASTING 319 MG/DL (80-110); SODIUM LEVEL 135 MEQ/L (136-145)
[2016-11-14] MEDS: FOLIC ACID 1 MG TAB PO SCH (08:11)
[2016-11-14] MEDS: FERROUS SULFATE 325MG TAB PO SCH (08:11)
[2016-11-14] MEDS: HumuLIN (NovoLIN)70/30 INSULIN INJ PER UNIT SC SCH (08:11)
[2016-11-14] MEDS: HumaLOG INSULIN (NovoLOG) PER UNIT SC SCH ×3 (08:11→17:09)
[2016-11-14] MEDS: NYSTATIN 500,000 U/5 ML SUSP UDC SS SCH ×4 (08:11→21:08)
[2016-11-14] MEDS: ENOXAPARIN 40 MG/0.4 ML SYRINGE (J1650) SC SCH (08:11)
[2016-11-14] MEDS: ATORVASTATIN 20 MG TAB PO SCH (08:12)
[2016-11-14] MEDS: METHYLPHENIDATE 5 MG TAB PO SCH ×2 (08:12→13:00)
[2016-11-14] MEDS: ASPIRIN 325 MG TAB PO SCH (08:12)
[2016-11-14] MEDS: FUROSEMIDE 20 MG TAB PO SCH (08:13)
[2016-11-14] MEDS: MUPIROCIN 2% OINT 22 GM TUBE TOP SCH ×3 (08:13→21:08)
[2016-11-14] MEDS: DOCUSATE SODIUM 100 MG CAP PO SCH ×2 (08:14→21:08)
[2016-11-14] MEDS: LISINOPRIL 10 MG TAB PO SCH (08:14)
[2016-11-14 14:00] VITALS: BP 86/53
[2016-11-14 21:00] VITALS: BP 99/64
[2016-11-14] MEDS: MIRTAZAPINE 15 MG TAB PO SCH (21:08)
[2016-11-14] MEDS: SENNA 8.6 MG TAB (SENOKOT) PO SCH (21:08)
[2016-11-14] MEDS: cefTRIAXone SOD 2 GM in D5W MINI-BAG PLUS 50 ML IV SCH (21:08)
[2016-11-15 06:00] VITALS: BP 128/82
[2016-11-15] MEDS: SODIUM CHLORIDE 0.9% INJ 10 ML SYR IV SCH ×2 (06:27→17:22)
[2016-11-15] MEDS: NYSTATIN 500,000 U/5 ML SUSP UDC SS SCH ×4 (07:53→21:27)
[2016-11-15] MEDS: FERROUS SULFATE 325MG TAB PO SCH (07:53)
[2016-11-15] MEDS: MUPIROCIN 2% OINT 22 GM TUBE TOP SCH ×3 (07:53→21:27)
[2016-11-15] MEDS: ENOXAPARIN 40 MG/0.4 ML SYRINGE (J1650) SC SCH (07:53)
[2016-11-15] MEDS: FUROSEMIDE 20 MG TAB PO SCH (07:54)
[2016-11-15] MEDS: FOLIC ACID 1 MG TAB PO SCH (07:54)
[2016-11-15] MEDS: ATORVASTATIN 20 MG TAB PO SCH (07:54)
[2016-11-15] MEDS: METHYLPHENIDATE 5 MG TAB PO SCH ×2 (07:54→13:59)
[2016-11-15] MEDS: LISINOPRIL 10 MG TAB PO SCH (07:54)
[2016-11-15] MEDS: ASPIRIN 325 MG TAB PO SCH (07:54)
[2016-11-15] MEDS: HumuLIN (NovoLIN)70/30 INSULIN INJ PER UNIT SC SCH (07:55)
[2016-11-15] MEDS: HumaLOG INSULIN (NovoLOG) PER UNIT SC SCH ×3 (07:55→17:30)
[2016-11-15] MEDS: DOCUSATE SODIUM 100 MG CAP PO SCH ×2 (07:58→21:00)
[2016-11-15 14:00] VITALS: BP 104/62
[2016-11-15] MEDS: cefTRIAXone SOD 2 GM in D5W MINI-BAG PLUS 50 ML IV SCH (19:25)
[2016-11-15] MEDS: SODIUM CHLORIDE 0.9% INJ 10 ML SYR IV PRN (19:25)
[2016-11-15 20:00] VITALS: BP 111/66
[2016-11-15] MEDS: SENNA 8.6 MG TAB (SENOKOT) PO SCH (21:00)
[2016-11-15] MEDS: MIRTAZAPINE 15 MG TAB PO SCH (21:27)
[2016-11-16 06:00] VITALS: BP 136/85
[2016-11-16] MEDS: SODIUM CHLORIDE 0.9% INJ 10 ML SYR IV SCH ×2 (06:05→17:51)
[2016-11-16] MEDS: HumaLOG INSULIN (NovoLOG) PER UNIT SC SCH ×3 (08:28→17:51)
[2016-11-16] MEDS: METHYLPHENIDATE 5 MG TAB PO SCH ×2 (08:28→14:02)
[2016-11-16] MEDS: HumuLIN (NovoLIN)70/30 INSULIN INJ PER UNIT SC SCH (08:28)
[2016-11-16] MEDS: LISINOPRIL 10 MG TAB PO SCH (08:29)
[2016-11-16] MEDS: FUROSEMIDE 20 MG TAB PO SCH (08:29)
[2016-11-16] MEDS: ATORVASTATIN 20 MG TAB PO SCH (08:29)
[2016-11-16] MEDS: FOLIC ACID 1 MG TAB PO SCH (08:29)
[2016-11-16] MEDS: FERROUS SULFATE 325MG TAB PO SCH (08:29)
[2016-11-16] MEDS: ASPIRIN 325 MG TAB PO SCH (08:29)
[2016-11-16] MEDS: MUPIROCIN 2% OINT 22 GM TUBE TOP SCH ×3 (08:30→20:44)
[2016-11-16] MEDS: DOCUSATE SODIUM 100 MG CAP PO SCH ×2 (08:30→20:43)
[2016-11-16] MEDS: ENOXAPARIN 40 MG/0.4 ML SYRINGE (J1650) SC SCH (08:30)
[2016-11-16] MEDS: NYSTATIN 500,000 U/5 ML SUSP UDC SS SCH (08:30)
--- NOTE | 2016-11-16 11:37 | IPNPDOC ---
[employer] Progress Note DATE OF SERVICE: 11/16/16 DATE OF ADMISSION: October 27, 2016 at 14:25 INPATIENT REHABILITATION ADMISSION DAY: #21 SUBJECTIVE: Patient is a 61-year-old white male with CVA and hemiparesis. No complaints except about feeling of not being discharge to home on 11/17/16 he was hoping for. Patient encouraged to keep working to skill/consistent safety awareness and utilization to allow for returning home. Patient finishing Ceftriaxone today. Patient frustrated by not being able to return home tomorrow. ALLERGIES: See Below MEDICATIONS: Reviewed, see below. OBJECTIVE: VITAL SIGNS: Please see below. PHYSICAL EXAMINATION: GENERAL: Well-nourished well-developed middle-aged white male in no acute distress with some weakness in right lateral upper and lower extremity greater on the left than the right. HEENT: Normocephalic/atraumatic. CARDIOVASCULAR: Regular rate and rhythm with normal S1-S2. 2/4 bilateral radial pulses. LUNGS: All june clear to auscultation. ABDOMEN: Benign with normal bowel sounds in all quadrants. NEUROLOGICAL: Patient is alert and clearly oriented 2, but he still does not seem to have total awareness of time and situation. There is less flattening of affect and in general the patient is pleasant and cooperative. SKIN: Intact. LABORATORY DATA: Reviewed. Please see below. MICROBIOLOGY: Please see below. IMAGING: No new imaging. DVT prophylaxis ordered?: Patient continues on Lovenox. ASSESSMENT AND PLAN: 1. Rehabilitation the CVAs: Patient continuing make progress in improving strength and endurance and balance. However impulsivity remains a concern for his safety. Patient to be reviewed at Team Rounds this afternoon. Patient still participating in therapy and making some progress, but not on a curve to reach skills needed to be safe alone at home. Currently, we are awaiting options to continue patient's training and progress back to the community with the support he needs. 2. Depression: Patient continues to seem to be a less depressed since starting the Ritalin, but some increased flattening with not meeting D/C to home goals due to safety inconsistency. Patient still encouraged to continue to work on safety and consistency with techniques in mobility and ADL's. 3. Diabetes Mellitus Type 2: This continues to remains fairly stable. TIME SPENT: Chart Review, examination and documentation required greater than 35 minutes. Allergies Coded Allergies: No Known Drug Allergy (Verified Allergy, Unknown, 09/05/12) Vital Signs Vital Signs Date Time Temp Pulse Resp B/P (MAP) Pulse Ox O2 Delivery O2 Flow Rate FiO2 11/16/16 09:00 Room Air 11/16/16 08:29 136/85 11/16/16 06:00 99.5 77 18 98 Laboratory Data Labs 24H Laboratory Tests 2 11/15/16 16:28: Bedside Glucose (Misc Panel) 144H 11/15/16 21:14: Bedside Glucose (Misc Panel) 174H 11/16/16 06:24: Bedside Glucose (Misc Panel) 368H 11/16/16 11:21: Bedside Glucose (Misc Panel) 280H Current Medications Current Medications Current Medications Acetaminophen (Tylenol Tab) 650 mg Q4HP PRN PO MILD PAIN (PS 1-4); Start at 13:45; Stop 11/26/16 at 13:44 Albuterol Sulfate (Proventil, Ventolin Hfa) 2 puff Q6H PRN INH SHORTNESS OF BREATH; Start 10/27/16 at 13:45; Stop 11/26/16 at 13:44 Aspirin (Aspirin) 325 mg DAILY PO Last administered on 11/16/16 08:29; Start 10/28/16 at 09:00; Stop 11/27/16 at 08:59 Atorvastatin Calcium (Lipitor) 40 mg DAILY PO Last administered on 11/16/16 08 :29; Start 10/28/16 at 09:00; Stop 11/27/16 at 08:59 Ceftriaxone Sodium 2 gm/ Dextrose 50 ml @ 100 mls/hr Q24H IV Last administered on 11/02/16 16:44; Start 10/27/16 at 17:00; Stop 11/03/16 at 16:59 ; Status DC Ceftriaxone Sodium 2 gm/ Dextrose 50 ml @ 100 mls/hr Q24H IV Last administered on 11/03/16 20:27; Start 11/03/16 at 20:00; Stop 11/04/16 at 10:25 ; Status DC Ceftriaxone Sodium 2 gm/ Dextrose 50 ml @ 100 mls/hr Q24H IV Last administered on 11/15/16 19:25; Start 11/04/16 at 20:00; Stop 11/16/16 at 23:59 Dextrose (Dextrose 50%) 25 ml ASDIRECTED PRN IV SEE LABEL COMMENTS; Start 10/27 at 13:45; Stop 11/08/16 at 18:50; Status DC Dextrose (Dextrose 50%) 25 ml ASDIRECTED PRN IV SEE LABEL COMMENTS; Start at 18:50; Stop 11/26/16 at 13:44 Docusate Sodium (Colace) 100 mg BID PO Last administered on 11/16/16 08:30; Start 10/27/16 at 21:00; Stop 11/26/16 at 20:59 Enoxaparin Sodium (Lovenox) 40 mg DAILY SC Last administered on 11/16/16 08:30 ; Start 10/28/16 at 09:00; Stop 11/21/16 at 12:00 Ferrous Sulfate (Ferrous Sulfate) 325 mg DAILY PO Last administered on 08:29; Start 10/28/16 at 09:00; Stop 11/27/16 at 08:59 Folic Acid (Folic Acid) 1 mg DAILY PO Last administered on 11/16/16 08:29; Start 10/29/16 at 09:00; Stop 11/28/16 at 08:59 Furosemide (Lasix) 20 mg DAILY PO Last administered on 11/16/16 08:29; Start 10/28/16 at 09:00; Stop 11/27/16 at 08:59 Glucagon (Glucagon) 1 mg ASDIRECTED PRN SC SEE LABEL COMMENTS; Start 10/27/16 at 13:45; Stop 11/07/16 at 17:28; Status DC Glucagon (Glucagon) 1 mg ASDIRECTED PRN SC SEE LABEL COMMENTS; Start 11/07/16 at 17:30; Stop 12/07/16 at 17:29 Glucose (Glucose) ASDIRECTED PRN PO SEE LABEL COMMENTS; Start 10/27/16 at 13: 45; Stop 11/07/16 at 17:28; Status DC Glucose (Glucose) 16GM'S (4 TABS) ASDIRECTED PRN PO SEE LABEL COMMENTS Last administered on 11/08/16 16:46; Start 11/07/16 at 17:30; Stop 12/07/16 at 17:29 Heparin Sodium (Heparin (Flush)) 200 units ASDIRECTED PRN IV SEE LABEL COMMENTS Last administered on 11/15/16 19:26; Start 10/27/16 at 13:45; Stop at 13:44 Heparin Sodium (Heparin (Flush)) 200 units PICC IV Last administered on 06:06; Start 10/27/16 at 18:00; Stop 11/26/16 at 17:59 Insulin Detemir (Levemir Insulin) 4 units DAILY SC Last administered on 08:31; Start 10/28/16 at 09:00; Stop 10/30/16 at 09:23; Status DC Insulin Detemir (Levemir Insulin) 5 units DAILY SC Last administered on 08:57; Start 11/01/16 at 09:00; Stop 11/08/16 at 17:55; Status DC Insulin Detemir (Levemir Insulin) 6 units DAILY SC Last administered on 08:35; Start 10/31/16 at 09:00; Stop 10/31/16 at 12:04; Status DC Insulin Detemir (Levemir Insulin) 6 units QHS SC Last administered on 21:13; Start 10/27/16 at 21:00; Stop 10/28/16 at 12:12; Status DC Insulin Human Isoph/Insulin Regular (HumuLIN 70/30 INSULIN) 5 units DAILY@0730 SC Last administered on 11/16/16 08:28; Start 11/09/16 at 07:30; Stop 12/09/16 at 07:29 Insulin Human Lispro (HumaLOG INSULIN) AC SC Last administered on 10/30/16 12 :38; Start 10/27/16 at 17:30; Stop 10/31/16 at 08:11; Status DC Insulin Human Lispro (HumaLOG INSULIN) See Protocol Table AC SC Last administered on 11/16/16 08:28; Start 10/31/16 at 07:30; Stop 11/30/16 at 07:29 Lisinopril (Prinivil) 10 mg DAILY PO Last administered on 11/16/16 08:29; Start 10/28/16 at 09:00; Stop 11/27/16 at 08:59 Magnesium Hydroxide (Milk Of Magnesia) 30 ml DAILYPRN PRN PO CONSTIPATION; Start 10/27/16 at 13:45; Stop 11/26/16 at 13:44 Methylphenidate HCl (Ritalin) 2.5 mg BID@08,14 PO Last administered on 08:50; Start 11/04/16 at 14:00; Stop 11/05/16 at 14:14; Status DC Methylphenidate HCl (Ritalin) 5 mg BID@08,14 PO Last administered on 11/16/16 08:28; Start 11/05/16 at 14:00; Stop 11/21/16 at 12:00 Mirtazapine (Remeron) 15 mg QHS PO Last administered on 11/15/16 21:27; Start 10/27/16 at 21:00; Stop 11/26/16 at 20:59 Mupirocin (Bactroban 2% Ointment) TID TOP Last administered on 11/16/16 08:30 ; Start 10/27/16 at 16:00; Stop 11/26/16 at 15:59 Nystatin (Mycostatin) 5 ml QID SS Last administered on 11/16/16 08:30; Start 10/27/16 at 17:00; Stop 11/16/16 at 08:45; Status DC Senna (Senokot) 1 tab QHS PO Last administered on 11/14/16 21:08; Start at 21:00; Stop 11/26/16 at 20:59 Sodium Biphosphate/ Sodium Phosphate (Fleet Enema) 1 ea DAILYPRN PRN MS CONSTIPATION; Start 10/27/16 at 13:45; Stop 11/26/16 at 13:44 Sodium Chloride (Saline Lock Flush) 10 ml ASDIRECTED PRN IV SEE LABEL COMMENTS Last administered on 11/15/16 19:25; Start 10/27/16 at 13:45; Stop 11/26/16 at 13:44 Sodium Chloride (Saline Lock Flush) 10 ml PICC IV Last administered on 06:05; Start 10/27/16 at 18:00; Stop 11/26/16 at 17:59 URIAH DAVIS MD Nov 16, 2016 11:37
[2016-11-16 14:00] VITALS: BP 110/69
[2016-11-16 20:00] VITALS: BP 118/82
[2016-11-16] MEDS: SENNA 8.6 MG TAB (SENOKOT) PO SCH (20:43)
[2016-11-16] MEDS: MIRTAZAPINE 15 MG TAB PO SCH (20:43)
[2016-11-16] MEDS: cefTRIAXone SOD 2 GM in D5W MINI-BAG PLUS 50 ML IV SCH (20:43)
[2016-11-16] MEDS: SODIUM CHLORIDE 0.9% INJ 10 ML SYR IV PRN ×2 (20:44→21:20)
[2016-11-17] MEDS: SODIUM CHLORIDE 0.9% INJ 10 ML SYR IV SCH (05:27)
[2016-11-17 05:30] VITALS: BP 124/78
[2016-11-17] MEDS: HumaLOG INSULIN (NovoLOG) PER UNIT SC SCH (06:29)
[2016-11-17] MEDS: HumuLIN (NovoLIN)70/30 INSULIN INJ PER UNIT SC SCH (08:21)
[2016-11-17 08:22] VITALS: BP 124/78
[2016-11-17] MEDS: ASPIRIN 325 MG TAB PO SCH (08:22)
[2016-11-17] MEDS: DOCUSATE SODIUM 100 MG CAP PO SCH (08:22)
[2016-11-17] MEDS: FUROSEMIDE 20 MG TAB PO SCH (08:22)
[2016-11-17] MEDS: LISINOPRIL 10 MG TAB PO SCH (08:22)
[2016-11-17] MEDS: ATORVASTATIN 20 MG TAB PO SCH (08:22)
[2016-11-17] MEDS: METHYLPHENIDATE 5 MG TAB PO SCH (08:23)
[2016-11-17] MEDS: FOLIC ACID 1 MG TAB PO SCH (08:23)
[2016-11-17] MEDS: MUPIROCIN 2% OINT 22 GM TUBE TOP SCH (08:23)
[2016-11-17] MEDS: FERROUS SULFATE 325MG TAB PO SCH (08:23)
[2016-11-17] MEDS: ENOXAPARIN 40 MG/0.4 ML SYRINGE (J1650) SC SCH (08:23)
[2016-11-17] MEDS ORDERED: METH5TAB76 PO (09:04)
[2016-11-17] MEDS ORDERED: HUMU70IN SC (09:04)
--- NOTE | 2016-11-17 22:52 | PMRDS ---
DATE OF ADMISSION: 10/27/2016 DATE OF DISCHARGE: 11/17/2016 DISCHARGE DIAGNOSES: 1. 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 2. 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 3. Type 2 diabetes mellitus. 4. 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 5. Atherosclerotic cardiovascular disease with hyperlipidemia and hypertension. 6. Gynecomastia. 7. Possible mild dementia. 8. Glaucoma. 9. Macrocytic anemia. HISTORY: Patient accepted to the rehabilitation unit after being admitted with new onset of left hemiparesis and left neglect, felt to be related to cerebrovascular accident but also possible Lyme Disease Encephalopathy as the patient has just recently been found to be Lyme positive. The patient was evaluated by Dr. Coretta Back as well as Dr. Coretta Yap for infectious disease and neurology workups. The patient was felt to be stable and able to participate in neurorehabilitation and was admitted for rehabilitation of right frontal plus occipitoparietal cerebrovascular accidents on 10/27/2016. PROCEDURES PERFORMED ON THIS UNIT: None. DIAGNOSTIC/LABORATORY DATA: Patient with moderate anemia, resistant to change during treatment here with hemoglobin and hematocrit of 9.1 and 28.2 and MCV of 101.9 and most recently hemoglobin and hematocrit of 9.1 and 28.7 with MCV of 105.4 but having normalized platelets once again to 372,000. Chemistry: Patient admitted with sodium of 140, potassium 3.9, chloride 101 and bicarbonate of 35 with a creatinine of 0.39 and a BUN of 10, and most recent sodium 135, potassium 5.0, chloride 99, bicarbonate of 30, BUN of 14, which is now normal and creatinine of 0.67 but the patient has run high blood sugars. HOSPITAL COURSE: The patient was admitted for a trial of neurorehabilitation, including physical, occupational and speech therapy. The patient progressed well enough in speech therapy to be discontinued from it as swallowing has normalized and patient with no dysarthria and cognition has plateaued. In physical therapy, patient with good/minus sitting static balance, fair/plus sitting dynamic and standing static balance and fair/minus standing dynamic balance. The patient was able to ambulate 33 feet with front-wheeled walker and minimal assist but not beyond that and was able with minimal assist to do bed mobility and front wheel walker do transfers. Now, the patient is standby assist and mobility to contact guard assist on bed to chair and chair to bed as he sometimes forgets his safety. Sitting static is good/minus, sitting dynamic fair/plus, standing static is good/minus, standing dynamic is now up to fair/plus. He is ambulating 150 feet with contact guard assistance times two and is able to do 12 stairs using railings on both sides. Occupational therapy (OT) patient noted to have significant trouble with requiring modified assist in sit to stand, minimal assist in bed and transfers, progressed to good sitting static and sit dynamic balance in OT with independent upper body dressing and supervision to touch assist lower body dressing, showering, bathing and independent eating and grooming. DISCHARGE MEDICATIONS: - Humulin 70/30, five units in the morning - Ritalin 5 mg with breakfast and 5 mg with lunch for cognition, attention and concentration - albuterol sulfate HFA 200 puff per 8 gram inhaler, two puffs every 6 hours as needed for shortness of breath - aspirin 325 mg daily - atorvastatin 40 mg daily - Lovenox 40 mg SQ daily, consideration of patient's mobility and deep vein thrombosis (DVT) risk should be reevaluated on the new unit and whether the need for ongoing enoxaparin - ferrous sulfate 325 mg daily for anemia - Breo Ellipta 100-25 one inhalation daily - furosemide 20 mg daily - Lispro insulin sliding scale with meals and nightly - lisinopril 10 mg daily - mirtazapine 15 mg at nightly - mupirocin 2% ointment topically three times a day - Patient to have heparin and sodium chloride flushes of the peripherally inserted central catheter (PICC) line, which is present in case the patient needs to go back on IV antibiotics as he is screened by Dr. Back for risk of ongoing Lyme disease. - Patient also with glucagon, glucose and dextrose protocol for using the insulin sliding scale. Recommend patient be reviewed by Dr. Coretta Yap for neurology, and Dr. Coretta Back for infectious disease, as well as continue with physical and occupational therapy to try to develop a level of modified independent which will allow possible return to home, considerations, though, being patient's impulsivity and inconsistency in consistently using safety techniques, which has limited him from being able to be discharged to home from this unit at this time. COMPLICATIONS: None. DISCHARGE PLANS: As noted above. TIME SPENT ON DISCHARGE: Greater than 35 minutes. MTDD
== END 2016-11-17 11:15 | DRG 56 ==
LOC: M PM&R 14:25
PROVIDERS: ADMIT Physical Medicine & Rehabilitation; ATTEND Physical Medicine & Rehabilitation
DX: I69.354 Hemiplegia and hemiparesis following cerebral infarction affecting left non-dominant side (principal); E43 Unspecified severe protein-calorie malnutrition; A69.20 Lyme disease, unspecified; R18.8 Other ascites; E87.1 Hypo-osmolality and hyponatremia; D53.9 Nutritional anemia, unspecified; E11.649 Type 2 diabetes mellitus with hypoglycemia without coma; J44.9 Chronic obstructive pulmonary disease, unspecified; I10 Essential (primary) hypertension; I25.10 Atherosclerotic heart disease of native coronary artery without angina pectoris; E78.5 Hyperlipidemia, unspecified; R32 Unspecified urinary incontinence; F32.9 Major depressive disorder, single episode, unspecified; N62 Hypertrophy of breast; F03.90 Unspecified dementia, unspecified severity, without behavioral disturbance, psychotic disturbance, mood disturbance, and anxiety; Z79.82 Long term (current) use of aspirin; Z79.4 Long term (current) use of insulin; Z85.828 Personal history of other malignant neoplasm of skin; Z79.899 Other long term (current) drug therapy

== ENCOUNTER → 2016-11-23 | Outpatient (REF) ==
[~2016-11-23] MED LIST changes: +HUMU70IN SC; +METH5TAB76 PO
[2016-11-23 08:41] LABS: BASO % 1.1 % (0.0-1.0); EOS # 0.1 K/mm3 (0.0-0.50); EOS % 1.5 % (0.0-3.0); LARGE UNSTAINED CELL # 0.1 K/mm3 (0.0-0.4); LARGE UNSTAINED CELL % 2.2 % (0.0-4.0); LYMPH # 0.6 K/mm3 (1.5-4.5); LYMPH % 14.2 % (24.0-44.0); MEAN CORPUSCULAR HEMOGLOBIN 33.6 pg (27.0-33.0); MEAN CORPUSCULAR HGB CONC 32.1 g/dl (32.0-36.5); MEAN CORPUSCULAR VOLUME 104.7 fl (80.0-96.0); MONO # 0.3 K/mm3 (0.0-0.8); MONO % 6.6 % (0.0-5.0); NEUTROPHILS # 2.8 K/mm3 (1.8-7.7); NEUTROPHILS % 74.4 % (36.0-66.0); PLATELET COUNT, AUTOMATED 417 k/mm3 (150-450); RED CELL DISTRIBUTION WIDTH 14.9 % (11.5-14.5); WHITE BLOOD COUNT 3.8 K/mm3 (4.0-10.0)
[2016-11-23 08:48] LABS: ANION GAP 9 MEQ/L (8-16); BLOOD UREA NITROGEN 20 MG/DL (7-18); CARBON DIOXIDE LEVEL 28 MEQ/L (21-32); CHLORIDE LEVEL 95 MEQ/L (98-107); CREATININE FOR GFR 1.11 MG/DL (0.70-1.30); GLOMERULAR FILTRATION RATE > 60.0 (>49); GLUCOSE, FASTING 307 MG/DL (80-110); POTASSIUM SERUM 4.7 MEQ/L (3.5-5.1); SODIUM LEVEL 132 MEQ/L (136-145)
== END ==
LOC: SKLAB4 09:54
PROVIDERS: ATTEND Family Medicine
DX: I10 Essential (primary) hypertension (principal); D64.9 Anemia, unspecified

== ENCOUNTER → 2016-11-30 | Outpatient (REF) ==
[2016-11-30 09:42] LABS: BASO % 0.6 % (0.0-1.0); EOS # 0.1 K/mm3 (0.0-0.50); EOS % 1.2 % (0.0-3.0); LARGE UNSTAINED CELL # 0.1 K/mm3 (0.0-0.4); LARGE UNSTAINED CELL % 2.3 % (0.0-4.0); LYMPH # 0.7 K/mm3 (1.5-4.5); LYMPH % 12.2 % (24.0-44.0); MEAN CORPUSCULAR HEMOGLOBIN 33.3 pg (27.0-33.0); MEAN CORPUSCULAR HGB CONC 31.9 g/dl (32.0-36.5); MEAN CORPUSCULAR VOLUME 104.3 fl (80.0-96.0); MONO # 0.3 K/mm3 (0.0-0.8); NEUTROPHILS # 4.6 K/mm3 (1.8-7.7); NEUTROPHILS % 78.6 % (36.0-66.0); PLATELET COUNT, AUTOMATED 520 k/mm3 (150-450); RED CELL DISTRIBUTION WIDTH 14.2 % (11.5-14.5); WHITE BLOOD COUNT 5.9 K/mm3 (4.0-10.0)
[2016-11-30 10:17] LABS: ANION GAP 5 MEQ/L (8-16); BLOOD UREA NITROGEN 20 MG/DL (7-18); CARBON DIOXIDE LEVEL 33 MEQ/L (21-32); CHLORIDE LEVEL 96 MEQ/L (98-107); CREATININE FOR GFR 0.71 MG/DL (0.70-1.30); GLOMERULAR FILTRATION RATE > 60.0 (>49); GLUCOSE, FASTING 288 MG/DL (80-110); SODIUM LEVEL 134 MEQ/L (136-145)
[2016-11-30 10:20] LABS: POTASSIUM SERUM 5.7 MEQ/L (3.5-5.1)
== END ==
LOC: SKLAB4 10:08
PROVIDERS: ATTEND Family Medicine
DX: D64.9 Anemia, unspecified (principal); I10 Essential (primary) hypertension; J18.9 Pneumonia, unspecified organism

== ENCOUNTER → 2016-12-02 | Outpatient (REF) ==
[~2016-12-02] MED LIST changes: +ALBU17IN2 INH; +ASPI1TAB15 PO; -ASPI81TA7 PO; +ASPI81TAEC PO; +ATOR40TA75 PO; +ELIQ5TAB PO; +FERR1TAB8 PO; -FERR325T PO; +FOLI1TAB4 PO; +LANTINJ4; +LANTINJ4 SC; +LISI-542 PO; +MILKSUS PO; +MIRT30TA3 PO; +NOVOINJ3 SC; +SENE8.6T; +SENN1TAB10 PO; +SENN1TAB2 PO; +TYLE325T5 PO; +VITMTA PO
== END ==
LOC: SKLAB4 07:10
PROVIDERS: ATTEND Family Medicine
DX: R73.01 Impaired fasting glucose (principal)

== ENCOUNTER → 2016-12-06 | Outpatient (REF) | LOC: SKLAB4 08:27 | PROVIDERS: ATTEND Family Medicine | DX: R73.01 Impaired fasting glucose (principal) ==

== ENCOUNTER → 2016-12-07 | Outpatient (REF) ==
[2016-12-07 09:02] LABS: BASO % 0.6 % (0.0-1.0); EOS # 0.2 K/mm3 (0.0-0.50); EOS % 2.6 % (0.0-3.0); LARGE UNSTAINED CELL # 0.2 K/mm3 (0.0-0.4); LARGE UNSTAINED CELL % 2.2 % (0.0-4.0); LYMPH # 0.8 K/mm3 (1.5-4.5); LYMPH % 9.8 % (24.0-44.0); MEAN CORPUSCULAR HEMOGLOBIN 32.5 pg (27.0-33.0); MEAN CORPUSCULAR HGB CONC 31.8 g/dl (32.0-36.5); MEAN CORPUSCULAR VOLUME 102.2 fl (80.0-96.0); MONO # 0.3 K/mm3 (0.0-0.8); MONO % 4.8 % (0.0-5.0); NEUTROPHILS # 5.2 K/mm3 (1.8-7.7); PLATELET COUNT, AUTOMATED 494 k/mm3 (150-450); RED CELL DISTRIBUTION WIDTH 14.4 % (11.5-14.5); WHITE BLOOD COUNT 6.6 K/mm3 (4.0-10.0)
[2016-12-07 09:21] LABS: ANION GAP 8 MEQ/L (8-16); BLOOD UREA NITROGEN 22 MG/DL (7-18); CALCIUM LEVEL 9.1 MG/DL (8.8-10.2); CARBON DIOXIDE LEVEL 29 MEQ/L (21-32); CHLORIDE LEVEL 98 MEQ/L (98-107); CREATININE FOR GFR 0.83 MG/DL (0.70-1.30); GLOMERULAR FILTRATION RATE > 60.0 (>49); GLUCOSE, FASTING 120 MG/DL (80-110); SODIUM LEVEL 135 MEQ/L (136-145)
[2016-12-07 09:22] LABS: POTASSIUM SERUM 5.4 MEQ/L (3.5-5.1)
== END ==
LOC: SKLAB4 11:11
PROVIDERS: ATTEND Family Medicine
DX: I10 Essential (primary) hypertension (principal); D64.9 Anemia, unspecified

== ENCOUNTER → 2016-12-14 | Outpatient (REF) ==
[2016-12-14 08:51] LABS: BASO % 0.8 % (0.0-1.0); EOS # 0.3 K/mm3 (0.0-0.50); EOS % 5.9 % (0.0-3.0); LARGE UNSTAINED CELL # 0.1 K/mm3 (0.0-0.4); LARGE UNSTAINED CELL % 2.4 % (0.0-4.0); LYMPH # 0.6 K/mm3 (1.5-4.5); LYMPH % 11.7 % (24.0-44.0); MEAN CORPUSCULAR HEMOGLOBIN 33.2 pg (27.0-33.0); MEAN CORPUSCULAR VOLUME 100.7 fl (80.0-96.0); MONO # 0.4 K/mm3 (0.0-0.8); MONO % 10.3 % (0.0-5.0); NEUTROPHILS % 68.9 % (36.0-66.0); PLATELET COUNT, AUTOMATED 461 k/mm3 (150-450); RED CELL DISTRIBUTION WIDTH 14.2 % (11.5-14.5); WHITE BLOOD COUNT 4.3 K/mm3 (4.0-10.0)
[2016-12-14 09:51] LABS: ANION GAP 8 MEQ/L (8-16); BLOOD UREA NITROGEN 17 MG/DL (7-18); CALCIUM LEVEL 9.2 MG/DL (8.8-10.2); CARBON DIOXIDE LEVEL 29 MEQ/L (21-32); CHLORIDE LEVEL 101 MEQ/L (98-107); CREATININE FOR GFR 0.72 MG/DL (0.70-1.30); GLOMERULAR FILTRATION RATE > 60.0 (>49); GLUCOSE, FASTING 97 MG/DL (80-110); POTASSIUM SERUM 4.7 MEQ/L (3.5-5.1); SODIUM LEVEL 138 MEQ/L (136-145)
== END ==
LOC: SKLAB4 09:34
PROVIDERS: ATTEND Family Medicine
DX: I10 Essential (primary) hypertension (principal); D64.9 Anemia, unspecified

== ENCOUNTER → 2016-12-21 | Outpatient (REF) ==
[2016-12-21 08:12] LABS: BASO % 0.9 % (0.0-1.0); EOS # 0.3 K/mm3 (0.0-0.50); EOS % 5.5 % (0.0-3.0); LARGE UNSTAINED CELL # 0.2 K/mm3 (0.0-0.4); LARGE UNSTAINED CELL % 3.8 % (0.0-4.0); LYMPH % 12.7 % (24.0-44.0); MEAN CORPUSCULAR HEMOGLOBIN 32.6 pg (27.0-33.0); MEAN CORPUSCULAR VOLUME 98.7 fl (80.0-96.0); MONO # 0.4 K/mm3 (0.0-0.8); MONO % 7.5 % (0.0-5.0); NEUTROPHILS # 4.1 K/mm3 (1.8-7.7); NEUTROPHILS % 69.6 % (36.0-66.0); PLATELET COUNT, AUTOMATED 523 k/mm3 (150-450); WHITE BLOOD COUNT 5.9 K/mm3 (4.0-10.0)
[2016-12-21 08:38] LABS: ANION GAP 9 MEQ/L (8-16); BLOOD UREA NITROGEN 18 MG/DL (7-18); CALCIUM LEVEL 9.4 MG/DL (8.8-10.2); CARBON DIOXIDE LEVEL 28 MEQ/L (21-32); CHLORIDE LEVEL 98 MEQ/L (98-107); CREATININE FOR GFR 0.64 MG/DL (0.70-1.30); GLOMERULAR FILTRATION RATE > 60.0 (>49); GLUCOSE, FASTING 42 MG/DL (80-110); POTASSIUM SERUM 4.4 MEQ/L (3.5-5.1); SODIUM LEVEL 135 MEQ/L (136-145)
== END ==
LOC: SKLAB4 09:49
PROVIDERS: ATTEND Family Medicine
DX: I10 Essential (primary) hypertension (principal); D64.9 Anemia, unspecified

== ENCOUNTER → 2016-12-28 | Outpatient (REF) ==
[2016-12-28 09:23] LABS: ANION GAP 7 MEQ/L (8-16); BLOOD UREA NITROGEN 19 MG/DL (7-18); CALCIUM LEVEL 9.3 MG/DL (8.8-10.2); CARBON DIOXIDE LEVEL 30 MEQ/L (21-32); CHLORIDE LEVEL 97 MEQ/L (98-107); CREATININE FOR GFR 0.77 MG/DL (0.70-1.30); GLOMERULAR FILTRATION RATE > 60.0 (>49); GLUCOSE, FASTING 62 MG/DL (80-110); POTASSIUM SERUM 4.7 MEQ/L (3.5-5.1); SODIUM LEVEL 134 MEQ/L (136-145)
[2016-12-28 09:27] LABS: BASO # 0.1 K/mm3 (0.0-0.2); BASO % 1.4 % (0.0-1.0); EOS # 0.5 K/mm3 (0.0-0.50); EOS % 8.1 % (0.0-3.0); LARGE UNSTAINED CELL # 0.3 K/mm3 (0.0-0.4); LARGE UNSTAINED CELL % 4.7 % (0.0-4.0); LYMPH # 0.6 K/mm3 (1.5-4.5); LYMPH % 9.7 % (24.0-44.0); MEAN CORPUSCULAR HEMOGLOBIN 31.5 pg (27.0-33.0); MEAN CORPUSCULAR HGB CONC 32.5 g/dl (32.0-36.5); MEAN CORPUSCULAR VOLUME 96.9 fl (80.0-96.0); MONO # 0.6 K/mm3 (0.0-0.8); MONO % 10.2 % (0.0-5.0); NEUTROPHILS # 3.7 K/mm3 (1.8-7.7); NEUTROPHILS % 65.9 % (36.0-66.0); PLATELET COUNT, AUTOMATED 571 k/mm3 (150-450); RED CELL DISTRIBUTION WIDTH 13.5 % (11.5-14.5); WHITE BLOOD COUNT 5.6 K/mm3 (4.0-10.0)
== END ==
LOC: SKLAB4 09:42
PROVIDERS: ATTEND Family Medicine
DX: I10 Essential (primary) hypertension (principal); D64.9 Anemia, unspecified

== ENCOUNTER → 2017-01-04 | Outpatient (REF) | payer MEDICAID, MEDICARE ==
[2017-01-04 07:44] LABS: BASO % 1.2 % (0.0-1.0); EOS # 0.4 K/mm3 (0.0-0.50); EOS % 9.3 % (0.0-3.0); LARGE UNSTAINED CELL # 0.1 K/mm3 (0.0-0.4); LARGE UNSTAINED CELL % 2.6 % (0.0-4.0); LYMPH # 0.8 K/mm3 (1.5-4.5); LYMPH % 14.8 % (24.0-44.0); MEAN CORPUSCULAR HEMOGLOBIN 32.2 pg (27.0-33.0); MEAN CORPUSCULAR HGB CONC 33.1 g/dl (32.0-36.5); MEAN CORPUSCULAR VOLUME 97.4 fl (80.0-96.0); MONO # 0.4 K/mm3 (0.0-0.8); MONO % 9.1 % (0.0-5.0); NEUTROPHILS # 2.8 K/mm3 (1.8-7.7); PLATELET COUNT, AUTOMATED 506 k/mm3 (150-450); RED CELL DISTRIBUTION WIDTH 13.8 % (11.5-14.5); WHITE BLOOD COUNT 4.4 K/mm3 (4.0-10.0)
[2017-01-04 08:01] LABS: ANION GAP 8 MEQ/L (8-16); BLOOD UREA NITROGEN 24 MG/DL (7-18); CALCIUM LEVEL 9.4 MG/DL (8.8-10.2); CARBON DIOXIDE LEVEL 30 MEQ/L (21-32); CHLORIDE LEVEL 102 MEQ/L (98-107); CREATININE FOR GFR 0.73 MG/DL (0.70-1.30); GLOMERULAR FILTRATION RATE > 60.0 (>49); GLUCOSE, FASTING 63 MG/DL (80-110); SODIUM LEVEL 140 MEQ/L (136-145)
== END ==
LOC: SKLAB4 11:57
PROVIDERS: ATTEND Family Medicine
DX: I10 Essential (primary) hypertension (principal); D64.9 Anemia, unspecified

== ENCOUNTER → 2017-01-11 | Outpatient (REF) ==
[2017-01-11 08:39] LABS: BASO # 0.1 K/mm3 (0.0-0.2); BASO % 1.5 % (0.0-1.0); EOS # 0.4 K/mm3 (0.0-0.50); EOS % 7.5 % (0.0-3.0); LARGE UNSTAINED CELL # 0.2 K/mm3 (0.0-0.4); LARGE UNSTAINED CELL % 3.6 % (0.0-4.0); LYMPH % 16.9 % (24.0-44.0); MEAN CORPUSCULAR HEMOGLOBIN 31.1 pg (27.0-33.0); MEAN CORPUSCULAR HGB CONC 32.5 g/dl (32.0-36.5); MEAN CORPUSCULAR VOLUME 95.6 fl (80.0-96.0); MONO # 0.4 K/mm3 (0.0-0.8); NEUTROPHILS # 3.2 K/mm3 (1.8-7.7); NEUTROPHILS % 63.4 % (36.0-66.0); PLATELET COUNT, AUTOMATED 461 k/mm3 (150-450); RED CELL DISTRIBUTION WIDTH 14.1 % (11.5-14.5)
[2017-01-11 09:14] LABS: ANION GAP 9 MEQ/L (8-16); BLOOD UREA NITROGEN 22 MG/DL (7-18); CALCIUM LEVEL 9.5 MG/DL (8.8-10.2); CARBON DIOXIDE LEVEL 30 MEQ/L (21-32); CHLORIDE LEVEL 100 MEQ/L (98-107); CREATININE FOR GFR 0.74 MG/DL (0.70-1.30); GLOMERULAR FILTRATION RATE > 60.0 (>49); GLUCOSE, FASTING 84 MG/DL (80-110); SODIUM LEVEL 139 MEQ/L (136-145)
== END ==
LOC: SKLAB4 11:40
PROVIDERS: ATTEND Family Medicine
DX: D64.9 Anemia, unspecified (principal); I10 Essential (primary) hypertension

== ENCOUNTER → 2017-01-18 | Outpatient (REF) | payer MEDICARE, MEDICAID ==
[2017-01-18 09:38] LABS: BASO % 1.4 % (0.0-1.0); EOS # 0.2 K/mm3 (0.0-0.50); EOS % 5.9 % (0.0-3.0); LARGE UNSTAINED CELL # 0.1 K/mm3 (0.0-0.4); LARGE UNSTAINED CELL % 3.5 % (0.0-4.0); LYMPH # 0.7 K/mm3 (1.5-4.5); LYMPH % 15.9 % (24.0-44.0); MEAN CORPUSCULAR HEMOGLOBIN 31.1 pg (27.0-33.0); MEAN CORPUSCULAR HGB CONC 31.5 g/dl (32.0-36.5); MEAN CORPUSCULAR VOLUME 98.7 fl (80.0-96.0); MONO # 0.4 K/mm3 (0.0-0.8); MONO % 9.6 % (0.0-5.0); NEUTROPHILS # 2.3 K/mm3 (1.8-7.7); NEUTROPHILS % 63.6 % (36.0-66.0); PLATELET COUNT, AUTOMATED 364 k/mm3 (150-450); RED CELL DISTRIBUTION WIDTH 14.4 % (11.5-14.5); WHITE BLOOD COUNT 3.7 K/mm3 (4.0-10.0)
[2017-01-18 10:00] LABS: ANION GAP 6 MEQ/L (8-16); BLOOD UREA NITROGEN 18 MG/DL (7-18); CALCIUM LEVEL 9.6 MG/DL (8.8-10.2); CARBON DIOXIDE LEVEL 31 MEQ/L (21-32); CHLORIDE LEVEL 97 MEQ/L (98-107); CREATININE FOR GFR 0.88 MG/DL (0.70-1.30); GLOMERULAR FILTRATION RATE > 60.0 (>49); GLUCOSE, FASTING 240 MG/DL (80-110); SODIUM LEVEL 134 MEQ/L (136-145)
[2017-01-18 10:04] LABS: POTASSIUM SERUM 5.7 MEQ/L (3.5-5.1)
== END ==
LOC: SKLAB4 10:00
PROVIDERS: ATTEND Family Medicine
DX: I10 Essential (primary) hypertension (principal); D64.9 Anemia, unspecified

== ENCOUNTER → 2017-01-25 | Outpatient (REF) | payer MEDICARE, MEDICAID ==
[2017-01-25 08:51] LABS: BASO % 1.1 % (0.0-1.0); EOS # 0.3 K/mm3 (0.0-0.50); EOS % 5.8 % (0.0-3.0); LARGE UNSTAINED CELL # 0.2 K/mm3 (0.0-0.4); LARGE UNSTAINED CELL % 4.5 % (0.0-4.0); LYMPH # 0.9 K/mm3 (1.5-4.5); LYMPH % 19.2 % (24.0-44.0); MEAN CORPUSCULAR HEMOGLOBIN 31.3 pg (27.0-33.0); MEAN CORPUSCULAR HGB CONC 32.6 g/dl (32.0-36.5); MONO # 0.4 K/mm3 (0.0-0.8); MONO % 8.8 % (0.0-5.0); NEUTROPHILS # 2.8 K/mm3 (1.8-7.7); NEUTROPHILS % 60.7 % (36.0-66.0); PLATELET COUNT, AUTOMATED 428 k/mm3 (150-450); RED CELL DISTRIBUTION WIDTH 13.9 % (11.5-14.5); WHITE BLOOD COUNT 4.7 K/mm3 (4.0-10.0)
[2017-01-25 09:27] LABS: ANION GAP 11 MEQ/L (8-16); BLOOD UREA NITROGEN 18 MG/DL (7-18); CARBON DIOXIDE LEVEL 26 MEQ/L (21-32); CHLORIDE LEVEL 101 MEQ/L (98-107); CREATININE FOR GFR 0.78 MG/DL (0.70-1.30); GLOMERULAR FILTRATION RATE > 60.0 (>49); GLUCOSE, FASTING 156 MG/DL (80-110); POTASSIUM SERUM 5.1 MEQ/L (3.5-5.1); SODIUM LEVEL 138 MEQ/L (136-145)
== END ==
LOC: SKLAB4 09:42
PROVIDERS: ATTEND Family Medicine
DX: D64.9 Anemia, unspecified (principal); Z86.73 Personal history of transient ischemic attack (TIA), and cerebral infarction without residual deficits; R63.0 Anorexia

== ENCOUNTER → 2017-02-01 | Outpatient (REF) | payer MEDICARE, MEDICAID ==
[2017-02-01 09:41] LABS: ANION GAP 10 MEQ/L (8-16); BLOOD UREA NITROGEN 15 MG/DL (7-18); CALCIUM LEVEL 9.4 MG/DL (8.8-10.2); CARBON DIOXIDE LEVEL 28 MEQ/L (21-32); CHLORIDE LEVEL 99 MEQ/L (98-107); CREATININE FOR GFR 0.82 MG/DL (0.70-1.30); GLOMERULAR FILTRATION RATE > 60.0 (>49); GLUCOSE, FASTING 162 MG/DL (80-110); SODIUM LEVEL 137 MEQ/L (136-145)
[2017-02-01 09:46] LABS: BASO # 0.1 K/mm3 (0.0-0.2); BASO % 1.2 % (0.0-1.0); EOS # 0.2 K/mm3 (0.0-0.50); EOS % 4.5 % (0.0-3.0); LARGE UNSTAINED CELL # 0.1 K/mm3 (0.0-0.4); LARGE UNSTAINED CELL % 2.3 % (0.0-4.0); LYMPH % 15.8 % (24.0-44.0); MEAN CORPUSCULAR HEMOGLOBIN 31.5 pg (27.0-33.0); MEAN CORPUSCULAR HGB CONC 32.5 g/dl (32.0-36.5); MEAN CORPUSCULAR VOLUME 96.8 fl (80.0-96.0); MONO # 0.4 K/mm3 (0.0-0.8); MONO % 7.8 % (0.0-5.0); NEUTROPHILS # 3.7 K/mm3 (1.8-7.7); NEUTROPHILS % 68.5 % (36.0-66.0); PLATELET COUNT, AUTOMATED 409 k/mm3 (150-450); RED CELL DISTRIBUTION WIDTH 14.4 % (11.5-14.5); WHITE BLOOD COUNT 5.4 K/mm3 (4.0-10.0)
[2017-02-01 09:51] LABS: POTASSIUM SERUM 5.3 MEQ/L (3.5-5.1)
== END ==
LOC: SKLAB4 12:01
PROVIDERS: ATTEND Family Medicine
DX: D64.9 Anemia, unspecified (principal); R63.0 Anorexia

== ENCOUNTER → 2017-02-09 | Outpatient (REF) | payer MEDICARE, MEDICAID ==
[2017-02-09 09:18] LABS: BASO # 0.1 K/mm3 (0.0-0.2); BASO % 1.3 % (0.0-1.0); EOS # 0.2 K/mm3 (0.0-0.50); EOS % 4.2 % (0.0-3.0); LARGE UNSTAINED CELL # 0.3 K/mm3 (0.0-0.4); LARGE UNSTAINED CELL % 6.8 % (0.0-4.0); LYMPH % 21.9 % (24.0-44.0); MEAN CORPUSCULAR HEMOGLOBIN 31.4 pg (27.0-33.0); MEAN CORPUSCULAR VOLUME 95.1 fl (80.0-96.0); MONO # 0.4 K/mm3 (0.0-0.8); MONO % 9.2 % (0.0-5.0); NEUTROPHILS # 2.7 K/mm3 (1.8-7.7); NEUTROPHILS % 56.6 % (36.0-66.0); PLATELET COUNT, AUTOMATED 434 k/mm3 (150-450); RED CELL DISTRIBUTION WIDTH 14.2 % (11.5-14.5); WHITE BLOOD COUNT 4.8 K/mm3 (4.0-10.0)
[2017-02-09 09:41] LABS: ANION GAP 6 MEQ/L (8-16); BLOOD UREA NITROGEN 15 MG/DL (7-18); CALCIUM LEVEL 9.6 MG/DL (8.8-10.2); CARBON DIOXIDE LEVEL 32 MEQ/L (21-32); CHLORIDE LEVEL 98 MEQ/L (98-107); CREATININE FOR GFR 0.76 MG/DL (0.70-1.30); GLOMERULAR FILTRATION RATE > 60.0 (>49); GLUCOSE, FASTING 93 MG/DL (80-110); POTASSIUM SERUM 4.6 MEQ/L (3.5-5.1); SODIUM LEVEL 136 MEQ/L (136-145)
== END ==
LOC: SKLAB4 12:32
PROVIDERS: ATTEND Family Medicine
DX: Z86.73 Personal history of transient ischemic attack (TIA), and cerebral infarction without residual deficits (principal); D64.9 Anemia, unspecified; R63.0 Anorexia

== ENCOUNTER 2017-02-26 08:17 | Inpatient (IN) | payer MEDICARE, MEDICAID ==
[~2017-02-26] VITALS: Ht 188 cm; Wt 59.9 kg
[~2017-02-26 08:17] MED LIST changes: -ALBU17IN2 INH; -ASPI81TAEC PO; -ATOR40TA75 PO; -ELIQ5TAB PO; -FOLI1TAB4 PO; -LANTINJ4; -LANTINJ4 SC; -LISI-542 PO; -MILKSUS PO; -MIRT30TA3 PO; -NOVOINJ3 SC; -SENE8.6T; -SENN1TAB10 PO; -SENN1TAB2 PO; -TYLE325T5 PO; -VITMTA PO
[2017-02-26] MEDS ORDERED: SENE8.6T (08:31)
[2017-02-26] MEDS ORDERED: LANTINJ4 (08:31)
[2017-02-26] MEDS ORDERED: FOLI1TAB4 PO (08:31)
[2017-02-26 09:29] LABS: ABG BASE EXCESS -11.9 (-2.0-2.0); ABG HCO3 12.5 MEQ/L (22.0-26.0); ABG PARTIAL PRESSURE CO2 24.5 mmHg (35.0-45.0); ABG PARTIAL PRESSURE O2 87.6 mmHg (75.0-100.0); ABG STANDARD HCO3 15.1 MEQ/L (22.0-26.0); ABG TOTAL CO2 13.2 MEQ/L (23.0-31.0); ABG pH (ARTERIAL) 7.324 UNITS (7.350-7.450)
--- NOTE | 2017-02-26 09:47 | REP ---
Portable chest, 09:26 a.m., single AP view, the patient semi upright: Comparison is 10/27/2016. There is minor discoid atelectasis inferiorly in the right lung as an interval change. Lung june otherwise clear. Cardiac size is. The milvia, mediastinum, and bony thorax are unremarkable. Signed by Bakari Kasper MD 02/26/2017 09:38 A
[2017-02-26 09:49] LABS: BASO % 0.3 % (0.0-1.0); EOS % 0.1 % (0.0-3.0); LARGE UNSTAINED CELL # 0.1 K/mm3 (0.0-0.4); LARGE UNSTAINED CELL % 0.7 % (0.0-4.0); LYMPH # 0.4 K/mm3 (1.5-4.5); LYMPH % 5.7 % (24.0-44.0); MEAN CORPUSCULAR HEMOGLOBIN 32.7 pg (27.0-33.0); MEAN CORPUSCULAR VOLUME 99.1 fl (80.0-96.0); MONO # 0.1 K/mm3 (0.0-0.8); MONO % 1.9 % (0.0-5.0); NEUTROPHILS # 6.8 K/mm3 (1.8-7.7); NEUTROPHILS % 91.4 % (36.0-66.0); PLATELET COUNT, AUTOMATED 283 k/mm3 (150-450); RED CELL DISTRIBUTION WIDTH 13.9 % (11.5-14.5); WHITE BLOOD COUNT 7.4 K/mm3 (4.0-10.0)
[2017-02-26 09:59] LABS: ALBUMIN 4.1 GM/DL (3.2-5.2); ALBUMIN/GLOBULIN RATIO 1.08 (1.00-1.93); ALKALINE PHOSPHATASE 100 U/L (45-117); ALT/SGPT 20 U/L (12-78); ANION GAP 23 MEQ/L (8-16); AST/SGOT 12 U/L (15-37); BILIRUBIN,DIRECT < 0.1 MG/DL (0.0-0.2); BILIRUBIN,TOTAL 0.5 MG/DL (0.2-1.0); BLOOD UREA NITROGEN 33 MG/DL (7-18); CALCIUM LEVEL 9.4 MG/DL (8.8-10.2); CARBON DIOXIDE LEVEL 15 MEQ/L (21-32); CHLORIDE LEVEL 100 MEQ/L (98-107); CREATININE FOR GFR 1.41 MG/DL (0.70-1.30); GLOMERULAR FILTRATION RATE 54.2 (>49); POTASSIUM SERUM 5.1 MEQ/L (3.5-5.1); SODIUM LEVEL 138 MEQ/L (136-145); TOTAL PROTEIN 7.9 GM/DL (6.4-8.2)
[2017-02-26 10:06] LABS: GLUCOSE, FASTING 586 MG/DL (80-110)
[2017-02-26] MEDS ORDERED: NS 1,000 ML IV ONE (10:15)
[2017-02-26] MEDS ORDERED: ALBU17IN2 INH (10:55)
[2017-02-26] MEDS ORDERED: ASPI325T PO (10:55)
[2017-02-26] MEDS ORDERED: ATOR40TA75 PO (10:55)
[2017-02-26] MEDS ORDERED: INSULIN HUMAN REGULAR 100 UNITS in NS 99 ML IV SCH ×4 (11:00)
[2017-02-26] MEDS ORDERED: INSUHUMDS SC (11:01)
[2017-02-26] MEDS ORDERED: LANTINJ4 SC ×2 (11:01)
[2017-02-26] MEDS ORDERED: TYLE325T5 PO (11:03)
[2017-02-26] MEDS ORDERED: GLUC4CHW PO (11:03)
[2017-02-26] MEDS ORDERED: MILKSUS PO (11:03)
[2017-02-26] MEDS ORDERED: SENN1TAB10 PO (11:03)
[2017-02-26] MEDS ORDERED: VITMTA PO (11:04)
[2017-02-26] MEDS ORDERED: LISI-542 PO (11:04)
[2017-02-26] MEDS ORDERED: MIRT15TA3 PO (11:04)
[2017-02-26] MEDS ORDERED: NOVOINJ3 SC (11:13)
[2017-02-26] MEDS ORDERED: SENN1TAB2 PO (11:13)
[2017-02-26] MEDS ORDERED: MIRT30TA3 PO (11:15)
[2017-02-26] MEDS ORDERED: NS 1,000 ML IV SCH ×2 (11:31→13:45)
[2017-02-26] MEDS ORDERED: ALBUTEROL 90 MCG/ACT 8GM HFA INHALER INH PRN (11:45)
--- NOTE | 2017-02-26 11:46 | ECGEPIP ---
Stationary ECG Study [facility] - ED Test Date: 2017-02-26 Pat Name: MARIIA GUALLPA Department: Room: - Gender: M Processing Mgr: JDante : [id number] Requested By: Jt Moseley Order Number: [id number] Reading MD: Rere Ramos Measurements Intervals [place] Rate: 81 P: 67 [place]: 191 QRS: 66 QRSD: 106 T: 55 QT: 392 QTc: 456 Interpretive Statements SINUS RHYTHM DELAYED R PROGRESSION NSTTW ABNORMALITY LOW VOLTAGE LIMB Electronically Signed On 02-26-2017 11:45:58 EDT by Rere Ramos
--- NOTE | 2017-02-26 12:16 | HPE ---
DATE OF ADMISSION: 02/26/2017 PRIMARY CARE PHYSICIAN: Espinoza Rincon MD ATTENDING TODAY: Dav Garcia MD HISTORY: This is a 61-year-old male patient of Dr. Rincon's who has recently been discharged from [facility] on 02/10/2017 where he had been for acute rehab for a stroke. He has a history of type 1 diabetes. He also underwent recent treatment for Lyme disease and he has a history of prior admissions with ketoacidosis. He was brought to [facility] emergency room this morning with behaviors at home including urinating in the bed, on the couch, in the chair, and in the sink with increasing urinary frequency. His states that she is not sure if he has been taking his medications as prescribed but his behaviors have progressively worsened since he has returned home. She is unable to continue to care for him at home and has brought him to the hospital for further management and admission. PAST MEDICAL HISTORY: Includes: History of cerebrovascular accident (CVA). History of Lyme disease. History of type 2 changed to type 1 diabetes. Hyperlipidemia. Depression. CURRENT MEDICATIONS: Include: - Senna one tablet daily - mirtazapine 30 mg daily - aspirin 325 mg daily - atorvastatin 40 mg daily - folic acid 800 mg daily - furosemide 20 mg daily - lisinopril 5 mg daily - multivitamin one tablet daily - Lantus 2 units at bedtime, 10 units in the morning SOCIAL HISTORY: He has never been a smoker. He has resided in [place] with his except for over the summer where he was at [facility]. He has a history of 1-2 drinks four or more times a week prior to that admission. 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 ALLERGIES: None. REVIEW OF SYSTEMS: He denies any headaches, any changes in his vision or hearing. He is denying having any lightheadedness or dizziness with ambulation. He states that his breathing is well and denies any shortness of breath or cough. He denies any difficulty with urination despite his 's report. He denies any abdominal pain, chest pain, any pain in any of his extremities. PHYSICAL EXAMINATION: Patient appears much older than his stated age. He is alert. He is oriented to place and person. He is pleasant. He is oriented to time. He recognized that he was in [facility]. HEENT: Head is normocephalic, atraumatic. Pupils equal, round and reactive to light and accommodation. His speech is clear. He is edentulous. He has no palpable lymphadenopathy of the neck. CARDIOVASCULAR: Regular rate and rhythm. He has no audible murmurs. LUNGS: Diminished although clear to auscultation bilaterally. ABDOMEN: Flat, soft and nontender. EXTREMITIES: Cachectic, without any edema. VITAL SIGNS: Temperature of 99.2, pulse is 78, respirations are 16, blood pressure is 170/86, pulse oximetry is 93% on room air. Investigations reveal a WBC of 7.4, hemoglobin is 11.6, hematocrit 35, platelets 283. Sodium is 138, potassium 5.1, chloride is 100, carbon dioxide 15, anion gap is 23, BUN 33, creatinine 1.4, glucose 586, A1c is 8.8, lipase 68. Total CK and Troponin are benign. Bicarb is 15.1. ABG pH 7.324, pCO2 is 24.5, pO2 is 87.6, bicarb 12.5, total CO2 is 13.2, oxygen saturation is 96%, base excess of -11.9. Fingerstick blood sugar at 11:00 a.m. is 596. He had not yet been started on an insulin drip at that time. Chest x-ray is benign. EKG is normal sinus rhythm. ASSESSMENT/PLAN: 1. Diabetic ketoacidosis (DKA) in a type 1 diabetic with a history of noncompliance and history of recent questionable compliance with his medications. His mental status does appear at his baseline. I did speak with Dr. Rincon who is familiar with the patient. I suspect this admission is a result of his inability to be able to care for himself at home and lack of family support and supervision in his care. He will be admitted to the intensive care unit as he does have mild diabetic ketoacidosis. He had just been started on an insulin drip when I saw the patient in the emergency room and this will be continued until his fingerstick blood sugars are less than 200 at which time it can be discontinued, we can begin to feed him and transition him to sliding scale insulin and long acting Levemir or Lantus which he was on a total of 12 units daily at the time of discharge. 2. Acute kidney injury. His creatinine at baseline is about 0.7. He is 1.4 on admission. He is going to be on some gentle IV fluid hydration. Again he did not really have adequate support at home given his condition and therefore his food and fluid consumption status is questionable. He does appear to be a bit dry on exam. I think he will benefit from IV fluids and I think we will see his serum creatinine turn around with this as well. 3. History of cerebrovascular accident (CVA). He is on aspirin, Lipitor and Eliquis as an outpatient. We will continue this. His pressure are a little bit on the high side. Will need to continue to monitor these during his hospitalization. I have continued his lisinopril at his home dose of 5 mg although he was on 10 mg prior to his discharge from [facility]. We will continue to monitor these and make adjustments as appropriate during his hospitalization.
[2017-02-26 13:54] VITALS: BP 136/75
--- NOTE | 2017-02-26 14:15 | IPNPDOC ---
Subjective Date Seen The patient was seen on 02/26/17. Subjective Chief Complaint/HPI The patient is a 61-year-old male admitted with a reason for visit of Diabetic Ketoacidosis. General: Reports: Other Symptoms (thirsty) Constitutional: Denies: Chills Eyes: Denies: Pain ENT: Denies: Head Aches Pulmonary: Denies: Dyspnea Cardiovascular: Denies: Chest Pain, Palpitations, Orthopnea Gastrointestinal: Denies: Vomiting, Abdominal Pain, Diarrhea Objective Physical Examination General Exam: Positive: Alert, Cooperative, No Acute Distress ENT Exam: Positive: Other ENT (dry oral mucosae; edentulous) Chest Exam: Positive: Clear to auscultation, Negative: Rales, Rhonchi, Wheezing Heart Exam: Positive: Rate Normal, Negative: Murmurs, Rubs Telemetry: Positive: No significant arrhythmia Abdomen Exam: Positive: BS Hypoactive, Soft, Other (scaphoid) Extremity Exam: Positive: Edema Skin Exam: Positive: Other skin issue (reduced skin turgor) Neuro Exam: Positive: Normal Speech, Cranial Nerves 3-12 NL Psych Exam: Positive: Mental status NL Assessment /Plan Problems (1) Diabetic ketoacidosis Status: Acute Problem Specific Plan: Consult Specialist (patient is dry, no good peripheral vein access. Dr. Ray consulted and will proceed with central line.) Problem Text: Will need fluid as well as insulin drip. Currently drip not running due to infiltration of left upper extremity access. His home insulin dose was only 12 units but patient looks to be chronically undernourished. As fluid and insulin correction proceed will need to add potassium. He is so metabolically compromised he may need phosphorous supplementation as well. (2) Acute renal failure Status: Acute Problem Text: likely secondary to volume contraction associated with DKA and metabolic acidosis (3) CVA (cerebral vascular accident) Status: Chronic Response to Treatment: Stable Problem Text: maintain prophylaxis measures to reduce future risk. Plan/VTE VTE Prophylaxis Ordered?: Yes Plan/Urinary Catheter Urinary Catheter: Place Webster Reason for insertion/continuin: Critical Pt monitoring Plan IVF: Increase Anticipated Discharge: Jail VS, I&O, 24H, Fishbone Vital Signs/I&O Vital Signs Date Time Temp Pulse Resp B/P (MAP) Pulse Ox O2 Delivery O2 Flow Rate FiO2 02/26/17 13:06 98.7 02/26/17 11:53 80 161/84 (109) 100 02/26/17 11:08 16 Room Air I&O- Last 24 Hours up to 6 AM 02/27/17 06:00 Intake Total 1010 ml Balance 1010 ml Laboratory Data 24H LABS Laboratory Tests 2 02/26/17 08:22: Bedside Glucose (Misc Panel) > 600*H 02/26/17 08:46: Anion Gap 23H, Glomerular Filtration Rate 54.2, Calcium Level 9.4, Aspartate Amino Transf (AST/SGOT) 12L, Alanine Aminotransferase (ALT/SGPT) 20, Alkaline Phosphatase 100, Total Bilirubin 0.5, Direct Bilirubin < 0.1, Total Creatine Kinase 78, Creatine Kinase MB 2.3, Creatine Kinase MB Relative Index 2.94, Troponin I 0.02, Total Protein 7.9, Albumin 4.1, Albumin/Globulin Ratio 1.08, Lipase 68L 02/26/17 09:15: Blood Gas Bicarbonate Standard 15.1L, Arterial Blood pH 7.324L, Arterial Blood Partial Pressure CO2 24.5L, Arterial Blood Partial Pressure O2 87.6, Arterial Blood Total CO2 13.2L, Arterial Blood HCO3 12.5L, Arterial Blood Base Excess - 11.9L, Arterial Blood Oxygen Saturation 96.0 02/26/17 09:43: White Blood Count 7.4, Red Blood Count 3.54L, Hemoglobin 11.6L, Hematocrit 35.0L , Mean Corpuscular Volume 99.1H, Mean Corpuscular Hemoglobin 32.7, Mean Corpuscular Hemoglobin Concent 33.0, Red Cell Distribution Width 13.9, Platelet Count 283, Neutrophils (%) (Auto) 91.4H, Lymphocytes (%) (Auto) 5.7L, Monocytes (%) (Auto) 1.9, Eosinophils (%) (Auto) 0.1, Basophils (%) (Auto) 0.3, Neutrophils # (Auto) 6.8, Lymphocytes # (Auto) 0.4L, Monocytes # (Auto) 0.1, Eosinophils # (Auto) 0.0, Basophils # (Auto) 0.0, Large Unclassified Cells % 0.7 , Large Unclassified Cells # 0.1, Estimated Mean Plasma Glucose 206H, Hemoglobin A1c 8.8H 02/26/17 11:00: Bedside Glucose (Misc Panel) 596*H 02/26/17 12:00: Bedside Glucose (Misc Panel) 511*H 02/26/17 13:13: Bedside Glucose (Misc Panel) 508*H CBC/BMP Laboratory Tests 02/26/17 08:46 02/26/17 09:43 Red Blood Count 3.54 L, Mean Corpuscular Volume 99.1 H, Mean Corpuscular Hemoglobin 32.7, Mean Corpuscular Hemoglobin Concent 33.0, Red Cell Distribution Width 13.9, Neutrophils (%) (Auto) 91.4 H, Lymphocytes (%) (Auto) 5.7 L, Monocytes (%) (Auto) 1.9, Eosinophils (%) (Auto) 0.1, Basophils (%) (Auto ) 0.3, Neutrophils # (Auto) 6.8, Lymphocytes # (Auto) 0.4 L, Monocytes # (Auto) 0.1, Eosinophils # (Auto) 0.0, Basophils # (Auto) 0.0 Dav Garcia MD Feb 26, 2017 14:15
[2017-02-26 14:43] LABS: CALCIUM LEVEL 9.6 MG/DL (8.8-10.2); CREATININE FOR GFR 1.5 MG/DL (0.70-1.30); GLOMERULAR FILTRATION RATE 50.5 (>49); POTASSIUM SERUM 4.2 MEQ/L (3.5-5.1)
[2017-02-26] MEDS ORDERED: SODIUM CHLORIDE 0.9% 1000 ML IV ONE (14:45)
[2017-02-26] MEDS: INSULIN IV RATE CHANGE DOCUMENTATION ML/HR XX SCH ×4 (14:57→21:04)
[2017-02-26] MEDS ORDERED: INFLUENZA QUADRIVALENT PF VACCINE 0.5ML SYRINGE (90686) IM PRN (15:15)
--- NOTE | 2017-02-26 15:20 | REP ---
Portable chest x-ray: Single view. 02:56 p.m. History: Central line placement. Comparison study: February 26, 2017 at 09:26 a.m. Findings: A right-sided [id number] catheter has been inserted with its tip in the expected location of the superior vena cava. There is no visible pneumothorax although the extreme apices are excluded from the field of view. The lungs are symmetrically aerated and otherwise clear. Heart is not enlarged. EKG electrodes are seen. Impression: Apices are excluded from the field of view. No pneumothorax or other complications seen. Uwripa-[id number] catheter appears to be in good position. Signed by Shun King MD 02/26/2017 05:11 P
[2017-02-26] MEDS: APIXABAN 5 MG TAB (ELIQUIS) PO SCH ×2 (15:41→20:09)
[2017-02-26] MEDS: PANTOPRAZOLE 40MG INJ (PROTONIX) (C9113) IV SCH (15:58)
[2017-02-26] MEDS: FOLIC ACID 1 MG TAB PO SCH (15:59)
[2017-02-26] MEDS: ASPIRIN 81 MG ENTERIC TAB PO SCH (15:59)
[2017-02-26] MEDS: FERROUS SULFATE 325MG TAB PO SCH (15:59)
[2017-02-26] MEDS: LISINOPRIL 5 MG TAB PO SCH (16:00)
[2017-02-26 16:12] VITALS: BP 135/64
[2017-02-26 18:40] LABS: ANION GAP 8 MEQ/L (8-16); BLOOD UREA NITROGEN 26 MG/DL (7-18); CALCIUM LEVEL 8.9 MG/DL (8.8-10.2); CARBON DIOXIDE LEVEL 26 MEQ/L (21-32); CHLORIDE LEVEL 113 MEQ/L (98-107); CREATININE FOR GFR 1.17 MG/DL (0.70-1.30); GLOMERULAR FILTRATION RATE > 60.0 (>49); GLUCOSE, FASTING 251 MG/DL (80-110); POTASSIUM SERUM 3.8 MEQ/L (3.5-5.1); SODIUM LEVEL 147 MEQ/L (136-145)
[2017-02-26 20:00] VITALS: BP 105/63
[2017-02-26] MEDS ORDERED: KCL 20MEQ in NS 1000ML 1,000 ML IV SCH (20:00)
[2017-02-26] MEDS: ATORVASTATIN 20 MG TAB PO SCH (20:09)
[2017-02-26] MEDS: MIRTAZAPINE 15 MG TAB PO SCH (20:10)
[2017-02-26] MEDS ORDERED: MIRTAZAPINE 15 MG TAB PO SCH (21:00)
[2017-02-26] MEDS ORDERED: ASPIRIN ENTERIC 325 MG TAB PO SCH (21:00)
[2017-02-26] MEDS: HumaLOG INSULIN (NovoLOG) PER UNIT SC SCH (21:00)
[2017-02-26] MEDS ORDERED: DEXTROSE 50% 50 ML SYRINGE IV PRN (21:30)
[2017-02-26] MEDS ORDERED: GLUCAGON FOR INJ 1 MG VIAL (J1610) SC PRN (21:30)
[2017-02-26] MEDS ORDERED: GLUCOSE 4 GM CHEW TABLET PO PRN (21:30)
[2017-02-26] MEDS: LEVEMIR (INSULIN DETEMIR) 1 UNITS/0.01ML SC SCH (22:09)
[2017-02-26] MEDS: KCL 10MEQ IN D5/0.45NS 1000ML 1,000 ML IV SCH (22:09)
[2017-02-26 23:01] LABS: ANION GAP 4 MEQ/L (8-16); BLOOD UREA NITROGEN 25 MG/DL (7-18); CALCIUM LEVEL 8.8 MG/DL (8.8-10.2); CARBON DIOXIDE LEVEL 28 MEQ/L (21-32); CHLORIDE LEVEL 114 MEQ/L (98-107); CREATININE FOR GFR 0.99 MG/DL (0.70-1.30); GLOMERULAR FILTRATION RATE > 60.0 (>49); GLUCOSE, FASTING 117 MG/DL (80-110); POTASSIUM SERUM 3.9 MEQ/L (3.5-5.1); SODIUM LEVEL 146 MEQ/L (136-145)
[2017-02-27] VITALS: BP 128/58
[2017-02-27 04:00] VITALS: BP 141/78
[2017-02-27] MEDS: KCL 10MEQ IN D5/0.45NS 1000ML 1,000 ML IV SCH ×4 (04:10→21:30)
[2017-02-27 06:05] LABS: RED CELL DISTRIBUTION WIDTH 14.2 % (11.5-14.5); WHITE BLOOD COUNT 10.3 K/mm3 (4.0-10.0)
[2017-02-27 06:08] LABS: MEAN CORPUSCULAR VOLUME 94.9 fl (80.0-96.0)
[2017-02-27] MEDS ORDERED: NS 500 ML IV ONE (06:30)
[2017-02-27 06:36] LABS: ALBUMIN 3.3 GM/DL (3.2-5.2); ALBUMIN/GLOBULIN RATIO 1.22 (1.00-1.93); ALKALINE PHOSPHATASE 73 U/L (45-117); ALT/SGPT 16 U/L (12-78); ANION GAP 8 MEQ/L (8-16); AST/SGOT 10 U/L (15-37); BILIRUBIN,TOTAL 0.4 MG/DL (0.2-1.0); BLOOD UREA NITROGEN 21 MG/DL (7-18); CALCIUM LEVEL 8.5 MG/DL (8.8-10.2); CARBON DIOXIDE LEVEL 25 MEQ/L (21-32); CHLORIDE LEVEL 114 MEQ/L (98-107); CREATININE FOR GFR 0.83 MG/DL (0.70-1.30); GLOMERULAR FILTRATION RATE > 60.0 (>49); GLUCOSE, FASTING 215 MG/DL (80-110); POTASSIUM SERUM 4.3 MEQ/L (3.5-5.1); SODIUM LEVEL 147 MEQ/L (136-145)
[2017-02-27] MEDS: HumaLOG INSULIN (NovoLOG) PER UNIT SC SCH ×4 (07:30→20:41)
[2017-02-27 08:00] VITALS: BP 145/82
[2017-02-27] MEDS: FERROUS SULFATE 325MG TAB PO SCH (08:01)
[2017-02-27] MEDS: LISINOPRIL 5 MG TAB PO SCH (08:01)
[2017-02-27] MEDS: ASPIRIN 81 MG ENTERIC TAB PO SCH (08:01)
[2017-02-27] MEDS: APIXABAN 5 MG TAB (ELIQUIS) PO SCH ×2 (08:01→20:52)
[2017-02-27] MEDS: FOLIC ACID 1 MG TAB PO SCH (08:01)
[2017-02-27] MEDS: LEVEMIR (INSULIN DETEMIR) 1 UNITS/0.01ML SC SCH ×2 (08:02→20:52)
[2017-02-27] MEDS: PANTOPRAZOLE 40MG INJ (PROTONIX) (C9113) IV SCH (08:02)
--- NOTE | 2017-02-27 08:17 | RO ---
DATE OF PROCEDURE: 02/26/2017 PREOPERATIVE DIAGNOSIS: Hypovolemia. POSTPROCEDURE DIAGNOSIS: Hypovolemia. PROCEDURE: Right subclavian CVP placement. SURGEON: Maurice Ray DO LABOR ECONOMICS PROFESSOR: ANESTHESIA: PROCEDURE NOTE: The patient was seen in the intensive care unit, hypovolemic. The procedure was reviewed with the patient, as were all the possible complications pertaining thereto, including, but not limited to bleeding, infection, medication reaction and lung collapse. An informed consent was obtained. The patient was placed in supine position. The skin overlying the right subclavian vein was prepped with Chloraprep, draped in a sterile fashion. A 25 gauge needle was used to raise a skin wheal of 1% lidocaine. Thereafter, a 17-gauge introducer needle was placed in through the skin and in the right subclavian vein. Free return of venous blood was obtained. A vascular tip guidewire was advanced. Small incision made adjacent to guidewire and a triple-lumen catheter placed over the guidewire to a distance of 16 cm. The catheter was sewn in place and a sterile dressing applied. A postprocedure chest x-ray confirms good position. There were no complications.
--- NOTE | 2017-02-27 08:52 | IPNPDOC ---
Subjective Date Seen The patient was seen on 02/27/17. Subjective Chief Complaint/HPI The patient is a 61-year-old male admitted with a reason for visit of Diabetic Ketoacidosis. Events since last encounter Patient was transitioned from insulin gtts to his home levemir overnight. Patient states he was taking all home medications as prescribed and he does not know why his blood sugar was so high prior to admission. General: Reports: Fatigue Constitutional: Denies: Chills, Fever ENT: Denies: Head Aches Skin: Denies: Rash Pulmonary: Denies: Dyspnea, Cough Cardiovascular: Denies: Chest Pain, Palpitations, Lt Headedness Gastrointestinal: Reports: Nausea, Denies: Vomiting, Abdominal Pain, Diarrhea Genitourinary: Denies: Dysuria Neurological: Denies: Weakness, Confusion Objective Physical Examination General Exam: Positive: Alert, Cooperative, No Acute Distress ENT Exam: Positive: Other ENT (edentulous) Chest Exam: Positive: Clear to auscultation, Negative: Rales, Rhonchi, Wheezing Heart Exam: Positive: Rate Normal, Negative: Murmurs, Rubs Telemetry: Positive: No significant arrhythmia Abdomen Exam: Positive: BS Hypoactive, Soft, Tenderness (mild, diffuse), Negative: Hepatospenomegaly Extremity Exam: Negative: Edema Neuro Exam: Positive: Normal Speech, Cranial Nerves 3-12 NL Psych Exam: Positive: Mental status NL Assessment /Plan Problems (1) T2DM (type 2 diabetes mellitus) Status: Chronic Response to Treatment: Improving Problem Text: Continue home levemir 2 units QHS, 10 units qAM. Continue ISS. - Start carb consistent diet 02/27 - Receiving D51/2NS with 10 KCl - consider d/c'ing once he is eating well. - Patient likely noncompliant with medications at home; will need placement once he is safe for discharge. (2) Diabetic ketoacidosis Status: Resolved Problem Specific Plan: Consult Specialist (patient is dry, no good peripheral vein access. Dr. Ray consulted and will proceed with central line.) Problem Text: AG closed and bicarb normal on evening of 02/26/17 (day of admission). Insulin gtts was was stopped and he was transitioned to his home levemir evening of 02/26/17. (3) Acute renal failure Status: Resolved Problem Text: Likely secondary to volume contraction associated with DKA and metabolic acidosis; resolved with NS administration. (4) CVA (cerebral vascular accident) Status: Chronic Response to Treatment: Stable Problem Text: Continue apixaban, ASA 81 mg, and statin (5) Hypernatremia Status: Acute Problem Text: Likely iatrogenic from multiple NS boluses; Continue D51/2NS and d/c IVF once he is eating well. Plan/VTE VTE Prophylaxis Ordered?: Yes Plan/Urinary Catheter Urinary Catheter: Place Webster Reason for insertion/continuin: Critical Pt monitoring Plan IVF: Increase Anticipated Discharge: [facility], I&O, 24H, [facility] Vital Signs/I&O Vital Signs Date Time Temp Pulse Resp B/P (MAP) Pulse Ox O2 Delivery O2 Flow Rate FiO2 02/27/17 08:01 145/82 02/27/17 04:00 97.5 54 18 97 Room Air Laboratory Data 24H LABS Laboratory Tests 2 02/26/17 08:22: Bedside Glucose (Misc Panel) > 600*H 02/26/17 08:46: Anion Gap 23H, Glomerular Filtration Rate 54.2, Calcium Level 9.4, Aspartate Amino Transf (AST/SGOT) 12L, Alanine Aminotransferase (ALT/SGPT) 20, Alkaline Phosphatase 100, Total Bilirubin 0.5, Direct Bilirubin < 0.1, Total Creatine Kinase 78, Creatine Kinase MB 2.3, Creatine Kinase MB Relative Index 2.94, Troponin I 0.02, Total Protein 7.9, Albumin 4.1, Albumin/Globulin Ratio 1.08, Lipase 68L 02/26/17 09:15: Blood Gas Bicarbonate Standard 15.1L, Arterial Blood pH 7.324L, Arterial Blood Partial Pressure CO2 24.5L, Arterial Blood Partial Pressure O2 87.6, Arterial Blood Total CO2 13.2L, Arterial Blood HCO3 12.5L, Arterial Blood Base Excess - 11.9L, Arterial Blood Oxygen Saturation 96.0 02/26/17 09:43: White Blood Count 7.4, Red Blood Count 3.54L, Hemoglobin 11.6L, Hematocrit 35.0L , Mean Corpuscular Volume 99.1H, Mean Corpuscular Hemoglobin 32.7, Mean Corpuscular Hemoglobin Concent 33.0, Red Cell Distribution Width 13.9, Platelet Count 283, Neutrophils (%) (Auto) 91.4H, Lymphocytes (%) (Auto) 5.7L, Monocytes (%) (Auto) 1.9, Eosinophils (%) (Auto) 0.1, Basophils (%) (Auto) 0.3, Neutrophils # (Auto) 6.8, Lymphocytes # (Auto) 0.4L, Monocytes # (Auto) 0.1, Eosinophils # (Auto) 0.0, Basophils # (Auto) 0.0, Large Unclassified Cells % 0.7 , Large Unclassified Cells # 0.1, Estimated Mean Plasma Glucose 206H, Hemoglobin A1c 8.8H 02/26/17 11:00: Bedside Glucose (Misc Panel) 596*H 02/26/17 12:00: Bedside Glucose (Misc Panel) 511*H 02/26/17 13:13: Bedside Glucose (Misc Panel) 508*H 02/26/17 14:07: Anion Gap 20H, Glomerular Filtration Rate 50.5, Blood Urea Nitrogen 31H, Creatinine 1.50H, Sodium Level 142, Potassium Level 4.2, Chloride Level 105, Carbon Dioxide Level 17L, Calcium Level 9.6 02/26/17 14:08: Bedside Glucose (Misc Panel) 495H 02/26/17 14:52: Urine Appearance CLEAR, Urine Color YELLOW, Urine pH 5.0, Urine Specific [place] 1.022, Urine Protein NEGATIVE, Urine Glucose (UA) 3+H, Urine Ketones 2+H , Urine Urobilinogen 0.2, Urine Bilirubin NEGATIVE, Urine Leukocyte Esterase NEGATIVE, Urine Blood NEGATIVE, Urine Nitrite NEGATIVE, Urine WBC (Auto) 0, Urine RBC (Auto) 0, Urine Hyaline Casts (Auto) 0, Urine Bacteria (Auto) NEGATIVE , Urine Squamous Epithelial Cells 0, Urine Sperm (Auto) 02/26/17 14:55: Bedside Glucose (Misc Panel) 424H 02/26/17 16:02: Bedside Glucose (Misc Panel) 381H 02/26/17 17:13: Bedside Glucose (Misc Panel) 336H 02/26/17 18:00: Bedside Glucose (Misc Panel) 310H 02/26/17 18:04: Anion Gap 8, Glomerular Filtration Rate > 60.0, Blood Urea Nitrogen 26H, Creatinine 1.17, Sodium Level 147H, Potassium Level 3.8, Chloride Level 113H, Carbon Dioxide Level 26, Calcium Level 8.9 02/26/17 18:57: Bedside Glucose (Misc Panel) 281H 02/26/17 19:59: Bedside Glucose (Misc Panel) 206H 02/26/17 21:01: Bedside Glucose (Misc Panel) 155H 02/26/17 21:54: Anion Gap 4L, Glomerular Filtration Rate > 60.0, Blood Urea Nitrogen 25H, Creatinine 0.99, Sodium Level 146H, Potassium Level 3.9, Chloride Level 114H, Carbon Dioxide Level 28, Calcium Level 8.8 02/26/17 22:15: Bedside Glucose (Misc Panel) 142H 02/27/17 00:28: Bedside Glucose (Misc Panel) 105 02/27/17 02:02: Bedside Glucose (Misc Panel) 128H 02/27/17 04:12: Bedside Glucose (Misc Panel) 105 02/27/17 05:50: Anion Gap 8, Glomerular Filtration Rate > 60.0, Blood Urea Nitrogen 21H, Creatinine 0.83, Sodium Level 147H, Potassium Level 4.3, Chloride Level 114H, Carbon Dioxide Level 25, Calcium Level 8.5L, Aspartate Amino Transf (AST/SGOT) 10L, Alanine Aminotransferase (ALT/SGPT) 16, Alkaline Phosphatase 73, Total Bilirubin 0.4, Total Protein 6.0#L, Albumin 3.3, Albumin/Globulin Ratio 1.22 02/27/17 05:58: Bedside Glucose (Misc Panel) 145H CBC/BMP Laboratory Tests 02/26/17 08:46 02/26/17 09:43 Red Blood Count 3.54 L, Mean Corpuscular Volume 99.1 H, Mean Corpuscular Hemoglobin 32.7, Mean Corpuscular Hemoglobin Concent 33.0, Red Cell Distribution Width 13.9, Neutrophils (%) (Auto) 91.4 H, Lymphocytes (%) (Auto) 5.7 L, Monocytes (%) (Auto) 1.9, Eosinophils (%) (Auto) 0.1, Basophils (%) (Auto ) 0.3, Neutrophils # (Auto) 6.8, Lymphocytes # (Auto) 0.4 L, Monocytes # (Auto) 0.1, Eosinophils # (Auto) 0.0, Basophils # (Auto) 0.0 02/26/17 14:07 Calcium Level 9.6 02/26/17 18:04 Calcium Level 8.9 02/26/17 21:54 Calcium Level 8.8 02/27/17 05:50 Calcium Level 8.5 L, Red Blood Count 3.27 L, Mean Corpuscular Volume 94.9, Mean Corpuscular Hemoglobin 32.0, Mean Corpuscular Hemoglobin Concent 34.0, Red Cell Distribution Width 14.2, Aspartate Amino Transf (AST/SGOT) 10 L, Alanine Aminotransferase (ALT/SGPT) 16, Alkaline Phosphatase 73, Total Bilirubin 0.4, Total Protein 6.0 #L, Albumin 3.3 Microbiology Microbiology 02/26/17 Urine Culture, Received Pending MAYCO GIRARD MD Feb 27, 2017 08:13
[2017-02-27] MEDS ORDERED: ENOXAPARIN 30 MG/0.3 ML SYR (J1650) SC SCH (09:00)
[2017-02-27] MEDS ORDERED: LISINOPRIL 10 MG TAB PO SCH (09:00)
[2017-02-27 11:50] VITALS: BP 160/86
[2017-02-27] MEDS: MIRTAZAPINE 15 MG TAB PO SCH (20:53)
[2017-02-27] MEDS: ATORVASTATIN 20 MG TAB PO SCH (20:53)
[2017-02-27 22:00] VITALS: BP 152/83
[2017-02-28] MEDS: KCL 10MEQ IN D5/0.45NS 1000ML 1,000 ML IV SCH ×3 (01:59→11:37)
[2017-02-28 06:00] VITALS: BP 145/79
[2017-02-28 06:32] LABS: MEAN CORPUSCULAR HEMOGLOBIN 31.6 pg (27.0-33.0); MEAN CORPUSCULAR HGB CONC 33.2 g/dl (32.0-36.5); MEAN CORPUSCULAR VOLUME 95.1 fl (80.0-96.0); RED CELL DISTRIBUTION WIDTH 14.3 % (11.5-14.5)
[2017-02-28 06:36] LABS: ALBUMIN 3.1 GM/DL (3.2-5.2); ALBUMIN/GLOBULIN RATIO 1.07 (1.00-1.93); ALKALINE PHOSPHATASE 79 U/L (45-117); ALT/SGPT 17 U/L (12-78); ANION GAP 9 MEQ/L (8-16); AST/SGOT 11 U/L (15-37); BILIRUBIN,TOTAL 0.4 MG/DL (0.2-1.0); BLOOD UREA NITROGEN 11 MG/DL (7-18); CALCIUM LEVEL 8.1 MG/DL (8.8-10.2); CARBON DIOXIDE LEVEL 24 MEQ/L (21-32); CHLORIDE LEVEL 108 MEQ/L (98-107); CREATININE FOR GFR 0.69 MG/DL (0.70-1.30); GLOMERULAR FILTRATION RATE > 60.0 (>49); GLUCOSE, FASTING 177 MG/DL (80-110); POTASSIUM SERUM 4.6 MEQ/L (3.5-5.1); SODIUM LEVEL 141 MEQ/L (136-145)
[2017-02-28] MEDS: APIXABAN 5 MG TAB (ELIQUIS) PO SCH ×2 (09:38→21:42)
[2017-02-28] MEDS: LISINOPRIL 5 MG TAB PO SCH (09:38)
[2017-02-28] MEDS: FERROUS SULFATE 325MG TAB PO SCH (09:38)
[2017-02-28] MEDS: ASPIRIN 81 MG ENTERIC TAB PO SCH (09:39)
[2017-02-28] MEDS: FOLIC ACID 1 MG TAB PO SCH (09:39)
[2017-02-28] MEDS: HumaLOG INSULIN (NovoLOG) PER UNIT SC SCH ×4 (09:41→21:00)
[2017-02-28] MEDS: PANTOPRAZOLE 40MG INJ (PROTONIX) (C9113) IV SCH (09:42)
[2017-02-28] MEDS: LEVEMIR (INSULIN DETEMIR) 1 UNITS/0.01ML SC SCH (09:42)
--- NOTE | 2017-02-28 12:36 | IPNPDOC ---
Subjective Date Seen The patient was seen on 02/28/17. Subjective Chief Complaint/HPI The patient is a 61-year-old male admitted with a reason for visit of Diabetic Ketoacidosis. Events since last encounter Patient is eating well today. Pre-lunch glucose was very high at 474. He denies any complaints. Constitutional: Denies: Chills, Fever Pulmonary: Denies: Dyspnea, Cough Cardiovascular: Denies: Chest Pain, Palpitations Gastrointestinal: Denies: Nausea, Vomiting, Abdominal Pain, Diarrhea Genitourinary: Denies: Dysuria Neurological: Denies: Confusion Psych: Reports: Mood Normal Objective Physical Examination General Exam: Positive: Alert, Cooperative, No Acute Distress ENT Exam: Positive: Other ENT (edentulous) Chest Exam: Positive: Clear to auscultation, Negative: Rales, Rhonchi, Wheezing Heart Exam: Positive: Rate Normal, Negative: Murmurs, Rubs Telemetry: Positive: No significant arrhythmia Abdomen Exam: Positive: Normal bowel sounds, Soft, Negative: Tenderness, Hepatospenomegaly Extremity Exam: Negative: Edema Neuro Exam: Positive: Normal Speech, Cranial Nerves 3-12 NL Psych Exam: Positive: Mental status NL Assessment /Plan Problems (1) T2DM (type 2 diabetes mellitus) Status: Chronic Response to Treatment: Improving Problem Text: Glucose is uncontrolled. Will increase levemir to 4 units QHS, and continue HD levemir 10 unites qAM. - Continue ISS. Check additional FSBS 2 hours post-prandial after lunch today. - Carb consistent diet - D/c D51/2NS with 10 KCl and wilson catheter - Patient likely noncompliant with medications at home; will need placement once he is safe for discharge. (2) Diabetic ketoacidosis Status: Resolved Problem Specific Plan: Consult Specialist (patient is dry, no good peripheral vein access. Dr. Ray consulted and will proceed with central line.) Problem Text: AG closed and bicarb normal on evening of 02/26/17 (day of admission). Insulin gtts was was stopped and he was transitioned to his home levemir evening of 02/26/17. (3) Acute renal failure Status: Resolved Problem Text: Likely secondary to volume contraction associated with DKA and metabolic acidosis; resolved with NS administration. (4) CVA (cerebral vascular accident) Status: Chronic Response to Treatment: Stable Problem Text: Continue apixaban, ASA 81 mg, and statin (5) Hypernatremia Status: Resolved Problem Text: Likely iatrogenic from multiple NS boluses; resolved after IVF was switched to D51/2NS. Plan/VTE VTE Prophylaxis Ordered?: Yes Plan/Urinary Catheter Urinary Catheter: D/C Wilson Plan IVF: Increase Anticipated Discharge: [facility] VS, I&O, 24H, Fishbone Vital Signs/I&O Vital Signs Date Time Temp Pulse Resp B/P (MAP) Pulse Ox O2 Delivery O2 Flow Rate FiO2 02/28/17 09:38 120/101 02/28/17 06:00 97.1 64 16 98 Room Air I&O- Last 24 Hours up to 6 AM 03/01/17 05:59 Intake Total 480 ml Output Total 375 ml Balance 105 ml Laboratory Data 24H LABS Laboratory Tests 2 02/27/17 16:30: Bedside Glucose (Misc Panel) 242H 02/27/17 20:40: Bedside Glucose (Misc Panel) 210H 02/28/17 05:42: Anion Gap 9, Glomerular Filtration Rate > 60.0, Blood Urea Nitrogen 11, Creatinine 0.69L, Sodium Level 141, Potassium Level 4.6, Chloride Level 108H, Carbon Dioxide Level 24, Calcium Level 8.1L, Aspartate Amino Transf (AST/SGOT) 11L, Alanine Aminotransferase (ALT/SGPT) 17, Alkaline Phosphatase 79, Total Bilirubin 0.4, Total Protein 6.0L, Albumin 3.1L, Albumin/Globulin Ratio 1.07 02/28/17 06:34: Bedside Glucose (Misc Panel) 231H 02/28/17 11:22: Bedside Glucose (Misc Panel) 474H CBC/BMP Laboratory Tests 02/28/17 05:41 Red Blood Count 3.78 L, Mean Corpuscular Volume 95.1, Mean Corpuscular Hemoglobin 31.6, Mean Corpuscular Hemoglobin Concent 33.2, Red Cell Distribution Width 14.3 02/28/17 05:42 Calcium Level 8.1 L, Aspartate Amino Transf (AST/SGOT) 11 L, Alanine Aminotransferase (ALT/SGPT) 17, Alkaline Phosphatase 79, Total Bilirubin 0.4, Total Protein 6.0 L, Albumin 3.1 L Microbiology Microbiology 02/26/17 Urine Culture - Final, Complete MAYCO GIRARD MD Feb 28, 2017 12:36
[2017-02-28 14:00] VITALS: BP 130/73
[2017-02-28] MEDS ORDERED: HumaLOG INSULIN (NovoLOG) PER UNIT SC ONE (15:30)
[2017-02-28] MEDS ORDERED: LEVEMIR (INSULIN DETEMIR) 1 UNITS/0.01ML SC SCH (21:00)
[2017-02-28] MEDS: ATORVASTATIN 20 MG TAB PO SCH (21:42)
[2017-02-28] MEDS: MIRTAZAPINE 15 MG TAB PO SCH (21:42)
[2017-02-28 22:00] VITALS: BP 108/63
[2017-03-01 06:11] LABS: MEAN CORPUSCULAR HEMOGLOBIN 32.1 pg (27.0-33.0); MEAN CORPUSCULAR HGB CONC 34.6 g/dl (32.0-36.5); MEAN CORPUSCULAR VOLUME 92.8 fl (80.0-96.0); RED CELL DISTRIBUTION WIDTH 13.9 % (11.5-14.5); WHITE BLOOD COUNT 5.3 K/mm3 (4.0-10.0)
[2017-03-01 06:31] LABS: ALBUMIN 2.8 GM/DL (3.2-5.2); ALBUMIN/GLOBULIN RATIO 0.97 (1.00-1.93); ALKALINE PHOSPHATASE 77 U/L (45-117); ALT/SGPT 22 U/L (12-78); ANION GAP 9 MEQ/L (8-16); AST/SGOT 11 U/L (15-37); BILIRUBIN,TOTAL 0.3 MG/DL (0.2-1.0); BLOOD UREA NITROGEN 10 MG/DL (7-18); CALCIUM LEVEL 8.3 MG/DL (8.8-10.2); CARBON DIOXIDE LEVEL 27 MEQ/L (21-32); CHLORIDE LEVEL 103 MEQ/L (98-107); CREATININE FOR GFR 0.65 MG/DL (0.70-1.30); GLOMERULAR FILTRATION RATE > 60.0 (>49); GLUCOSE, FASTING 139 MG/DL (80-110); POTASSIUM SERUM 4.4 MEQ/L (3.5-5.1); SODIUM LEVEL 139 MEQ/L (136-145); TOTAL PROTEIN 5.7 GM/DL (6.4-8.2)
[2017-03-01 06:50] VITALS: BP 117/67
[2017-03-01] MEDS ORDERED: LEVEMIR (INSULIN DETEMIR) 1 UNITS/0.01ML SC ONE (07:45)
--- NOTE | 2017-03-01 08:16 | IPNPDOC ---
Subjective Date Seen The patient was seen on 03/01/17. Subjective Chief Complaint/HPI The patient is a 61-year-old male admitted with a reason for visit of Diabetic Ketoacidosis. Events since last encounter No c/o. Constitutional: Denies: Chills, Fever, Night Sweats ENT: Denies: Head Aches, Ear Pain, Dysphagia Skin: Denies: Rash, Lesions, Breakdown Pulmonary: Denies: Dyspnea, Cough Genitourinary: Denies: Dysuria, Frequency, Incontinence, Retention Objective Physical Examination General Exam: Positive: Alert, Cooperative, No Acute Distress ENT Exam: Positive: Other ENT (edentulous) Chest Exam: Positive: Clear to auscultation, Negative: Rales, Rhonchi, Wheezing Heart Exam: Positive: Rate Normal, Negative: Murmurs, Rubs Telemetry: Positive: No significant arrhythmia Abdomen Exam: Positive: Normal bowel sounds, Soft, Negative: Tenderness, Hepatospenomegaly Extremity Exam: Negative: Edema Neuro Exam: Positive: Normal Speech, Cranial Nerves 3-12 NL Psych Exam: Positive: Mental status NL Assessment /Plan Problems (1) T2DM (type 2 diabetes mellitus) Status: Chronic Response to Treatment: Improving Problem Text: 03/01/17: Change to levemir one time dosing this am 4 units. 10 UNITS AT HS. Glucose has been very labile (60-440s) - Carb consistent diet - Patient likely noncompliant with medications at home; will need placement once he is safe for discharge. (2) Diabetic ketoacidosis Status: Resolved Problem Specific Plan: Consult Specialist (patient is dry, no good peripheral vein access. Dr. Ray consulted and will proceed with central line.) Problem Text: AG closed and bicarb normal on evening of 02/26/17 (day of admission). Insulin gtts was was stopped and he was transitioned to his home levemir evening of 02/26/17. (3) CVA (cerebral vascular accident) Status: Chronic Response to Treatment: Stable Problem Text: Continue apixaban, ASA 81 mg, and statin (4) Hypernatremia Status: Resolved Problem Text: Likely iatrogenic from multiple NS boluses; resolved after IVF was switched to D51/2NS. (5) Acute renal failure Status: Resolved Problem Text: Likely secondary to volume contraction associated with DKA and metabolic acidosis; resolved with NS administration. Plan/VTE VTE Prophylaxis Ordered?: Yes Plan/Urinary Catheter Urinary Catheter: D/C Webster Plan IVF: Increase [facility]ticipated [facility] Attending Note: Patient was seen and examined this morning; I discussed his care with LEON Cummings and I agree with her note as documented. Glucose has been very labile - per Perfecto, breakfast seemed to be high carb (juice, milk, bread) so nursing will monitor diet. Will switch levemir to once daily dosing QHS as above, and continue SSI coverage. (KES) VS, I&O, 24H, Fishbone Vital Signs/I&O Vital Signs Date Time Temp Pulse Resp B/P (MAP) Pulse Ox O2 Delivery O2 Flow Rate FiO2 03/01/17 06:50 97.7 60 18 117/67 (84) 97 02/28/17 22:00 Room Air I&O- Last 24 Hours up to 6 AM 03/02/17 06:00 Output Total 400 ml Balance -400 ml Laboratory Data 24H LABS Laboratory Tests 2 02/28/17 11:22: Bedside Glucose (Misc Panel) 474H 02/28/17 14:30: Bedside Glucose (Misc Panel) 311H 02/28/17 16:23: Bedside Glucose (Misc Panel) 159H 02/28/17 20:17: Bedside Glucose (Misc Panel) 69L 02/28/17 22:16: Bedside Glucose (Misc Panel) 61L 03/01/17 05:20: Anion Gap 9, Glomerular Filtration Rate > 60.0, Blood Urea Nitrogen 10, Creatinine 0.65L, Sodium Level 139, Potassium Level 4.4, Chloride Level 103, Carbon Dioxide Level 27, Calcium Level 8.3L, Aspartate Amino Transf (AST/SGOT) 11L, Alanine Aminotransferase (ALT/SGPT) 22, Alkaline Phosphatase 77, Total Bilirubin 0.3, Total Protein 5.7L, Albumin 2.8L, Albumin/Globulin Ratio 0.97L CBC/BMP Laboratory Tests 03/01/17 05:20 Red Blood Count 3.49 L, Mean Corpuscular Volume 92.8, Mean Corpuscular Hemoglobin 32.1, Mean Corpuscular Hemoglobin Concent 34.6, Red Cell Distribution Width 13.9, Calcium Level 8.3 L, Aspartate Amino Transf (AST/SGOT) 11 L, Alanine Aminotransferase (ALT/SGPT) 22, Alkaline Phosphatase 77, Total Bilirubin 0.3, Total Protein 5.7 L, Albumin 2.8 L Microbiology Microbiology 02/26/17 Urine Culture - Final, Complete [place] Mar 01, 2017 08:16 MAYCO GIRARD MD Mar 01, 2017 13:43
[2017-03-01] MEDS: PANTOPRAZOLE 40MG INJ (PROTONIX) (C9113) IV SCH (09:14)
[2017-03-01] MEDS: APIXABAN 5 MG TAB (ELIQUIS) PO SCH ×2 (09:15→21:15)
[2017-03-01] MEDS: FERROUS SULFATE 325MG TAB PO SCH (09:15)
[2017-03-01] MEDS: FOLIC ACID 1 MG TAB PO SCH (09:15)
[2017-03-01] MEDS: ASPIRIN 81 MG ENTERIC TAB PO SCH (09:15)
[2017-03-01] MEDS: LISINOPRIL 5 MG TAB PO SCH (09:15)
[2017-03-01] MEDS: HumaLOG INSULIN (NovoLOG) PER UNIT SC SCH ×4 (09:16→21:00)
[2017-03-01 14:00] VITALS: BP 114/70
[2017-03-01] MEDS: MIRTAZAPINE 15 MG TAB PO SCH (21:15)
[2017-03-01] MEDS: ATORVASTATIN 20 MG TAB PO SCH (21:15)
[2017-03-01] MEDS: LEVEMIR (INSULIN DETEMIR) 1 UNITS/0.01ML SC SCH (21:16)
[2017-03-01 22:00] VITALS: BP 119/73
[2017-03-02 06:00] VITALS: BP 110/61
[2017-03-02 06:14] LABS: MEAN CORPUSCULAR HGB CONC 33.5 g/dl (32.0-36.5); MEAN CORPUSCULAR VOLUME 92.5 fl (80.0-96.0); RED CELL DISTRIBUTION WIDTH 14.7 % (11.5-14.5)
[2017-03-02 06:41] LABS: ALBUMIN 2.9 GM/DL (3.2-5.2); ALBUMIN/GLOBULIN RATIO 0.88 (1.00-1.93); ALKALINE PHOSPHATASE 81 U/L (45-117); ALT/SGPT 18 U/L (12-78); ANION GAP 7 MEQ/L (8-16); AST/SGOT 9 U/L (15-37); BILIRUBIN,TOTAL 0.2 MG/DL (0.2-1.0); BLOOD UREA NITROGEN 11 MG/DL (7-18); CARBON DIOXIDE LEVEL 30 MEQ/L (21-32); CHLORIDE LEVEL 102 MEQ/L (98-107); CREATININE FOR GFR 0.61 MG/DL (0.70-1.30); GLOMERULAR FILTRATION RATE > 60.0 (>49); GLUCOSE, FASTING 90 MG/DL (80-110); POTASSIUM SERUM 3.8 MEQ/L (3.5-5.1); SODIUM LEVEL 139 MEQ/L (136-145); TOTAL PROTEIN 6.2 GM/DL (6.4-8.2)
[2017-03-02] MEDS: HumaLOG INSULIN (NovoLOG) PER UNIT SC SCH ×4 (07:30→21:00)
[2017-03-02 08:24] VITALS: BP 135/82
[2017-03-02] MEDS: FOLIC ACID 1 MG TAB PO SCH (08:37)
[2017-03-02] MEDS: FERROUS SULFATE 325MG TAB PO SCH (08:37)
[2017-03-02] MEDS: APIXABAN 5 MG TAB (ELIQUIS) PO SCH ×2 (08:38→22:13)
[2017-03-02] MEDS: LISINOPRIL 5 MG TAB PO SCH (08:38)
[2017-03-02] MEDS: PANTOPRAZOLE 40MG INJ (PROTONIX) (C9113) IV SCH (08:38)
[2017-03-02] MEDS: ASPIRIN 81 MG ENTERIC TAB PO SCH (08:38)
--- NOTE | 2017-03-02 12:29 | IPNPDOC ---
Subjective Date Seen The patient was seen on 03/02/17. Subjective Chief Complaint/HPI The patient is a 61-year-old male admitted with a reason for visit of Diabetic Ketoacidosis. Events since last encounter No complaints Constitutional: Denies: Chills, Fever Pulmonary: Denies: Dyspnea, Cough Cardiovascular: Denies: Chest Pain, Palpitations Gastrointestinal: Denies: Nausea, Vomiting, Abdominal Pain, Diarrhea, Constipation Objective Physical Examination General Exam: Positive: Alert, Cooperative, No Acute Distress ENT Exam: Positive: Other ENT (edentulous) Chest Exam: Positive: Clear to auscultation, Negative: Rales, Rhonchi, Wheezing Heart Exam: Positive: Rate Normal, Negative: Murmurs, Rubs Telemetry: Positive: No significant arrhythmia Abdomen Exam: Positive: Normal bowel sounds, Soft, Negative: Tenderness, Hepatospenomegaly Extremity Exam: Negative: Edema Neuro Exam: Positive: Normal Speech, Cranial Nerves 3-12 NL Psych Exam: Positive: Mental status NL Assessment /Plan Problems (1) T2DM (type 2 diabetes mellitus) Status: Chronic Response to Treatment: Improving Problem Text: 03/02 - Blood sugars 104 - 327 last 24 hours. On Levemir 10 units at hs. 03/01/17: Change to levemir one time dosing this am 4 units. 10 UNITS AT HS. Glucose has been very labile (60-440s) - Carb consistent diet - Patient likely noncompliant with medications at home; will need placement once he is safe for discharge. (2) Diabetic ketoacidosis Status: Resolved Problem Specific Plan: Consult Specialist (patient is dry, no good peripheral vein access. Dr. Ray consulted and will proceed with central line.) Problem Text: AG closed and bicarb normal on evening of 02/26/17 (day of admission). Insulin gtts was was stopped and he was transitioned to his home levemir evening of 02/26/17. (3) CVA (cerebral vascular accident) Status: Chronic Response to Treatment: Stable Problem Text: Continue apixaban, ASA 81 mg, and statin (4) Hypernatremia Status: Resolved Problem Text: Likely iatrogenic from multiple NS boluses; resolved after IVF was switched to D51/2NS. (5) Acute renal failure Status: Resolved Problem Text: Likely secondary to volume contraction associated with DKA and metabolic acidosis; resolved with NS administration. Plan/VTE VTE Prophylaxis Ordered?: Yes Plan/Urinary Catheter Urinary Catheter: D/C Webster Plan IVF: Increase Anticipated Discharge: Long-Term Disposition Patient refuses to participate with Pt. told staff she plans to leave if he comes home. Get PFS for dispo planning - ? placement VS, I&O, 24H, Fishbone Vital Signs/I&O Vital Signs Date Time Temp Pulse Resp B/P (MAP) Pulse Ox O2 Delivery O2 Flow Rate FiO2 03/02/17 10:42 Room Air 03/02/17 08:38 118/68 03/02/17 08:24 97.6 83 16 99 I&O- Last 24 Hours up to 6 AM 03/03/17 06:00 Intake Total 900 ml Output Total 675 ml Balance 225 ml Laboratory Data 24H LABS Laboratory Tests 2 03/01/17 16:39: Bedside Glucose (Misc Panel) 104 03/01/17 20:14: Bedside Glucose (Misc Panel) 229H 03/02/17 05:58: Anion Gap 7L, Glomerular Filtration Rate > 60.0, Blood Urea Nitrogen 11, Creatinine 0.61L, Sodium Level 139, Potassium Level 3.8, Chloride Level 102, Carbon Dioxide Level 30, Calcium Level 9.0, Aspartate Amino Transf (AST/SGOT) 9L , Alanine Aminotransferase (ALT/SGPT) 18, Alkaline Phosphatase 81, Total Bilirubin 0.2, Total Protein 6.2L, Albumin 2.9L, Albumin/Globulin Ratio 0.88L 03/02/17 12:12: Bedside Glucose (Misc Panel) 327H CBC/BMP Laboratory Tests 03/02/17 05:58 Red Blood Count 3.35 L, Mean Corpuscular Volume 92.5, Mean Corpuscular Hemoglobin 31.0, Mean Corpuscular Hemoglobin Concent 33.5, Red Cell Distribution Width 14.7 H, Calcium Level 9.0, Aspartate Amino Transf (AST/SGOT) 9 L, Alanine Aminotransferase (ALT/SGPT) 18, Alkaline Phosphatase 81, Total Bilirubin 0.2, Total Protein 6.2 L, Albumin 2.9 L Microbiology Microbiology 02/26/17 Urine Culture - Final, Complete DOMINIC YAÑEZ PA-C Mar 02, 2017 12:29
[2017-03-02 14:24] VITALS: BP 142/83
[2017-03-02] MEDS: LEVEMIR (INSULIN DETEMIR) 1 UNITS/0.01ML SC SCH (21:00)
[2017-03-02 22:00] VITALS: BP 92/56
[2017-03-02] MEDS: MIRTAZAPINE 15 MG TAB PO SCH (22:13)
[2017-03-02] MEDS: ATORVASTATIN 20 MG TAB PO SCH (22:13)
[2017-03-03 06:00] VITALS: BP 119/65
[2017-03-03] MEDS: HumaLOG INSULIN (NovoLOG) PER UNIT SC SCH ×4 (07:30→22:02)
[2017-03-03 08:00] VITALS: BP 119/65
[2017-03-03] MEDS: APIXABAN 5 MG TAB (ELIQUIS) PO SCH ×2 (08:58→22:01)
[2017-03-03] MEDS: ASPIRIN 81 MG ENTERIC TAB PO SCH (08:58)
[2017-03-03] MEDS: FOLIC ACID 1 MG TAB PO SCH (08:59)
[2017-03-03] MEDS: FERROUS SULFATE 325MG TAB PO SCH (08:59)
[2017-03-03] MEDS: LISINOPRIL 5 MG TAB PO SCH (08:59)
[2017-03-03] MEDS: PANTOPRAZOLE 40MG INJ (PROTONIX) (C9113) IV SCH (08:59)
[2017-03-03 14:00] VITALS: BP 120/73
--- NOTE | 2017-03-03 14:12 | IPNPDOC ---
Subjective Date Seen The patient was seen on 03/03/17. Subjective Chief Complaint/HPI The patient is a 61-year-old male admitted with a reason for visit of Diabetic Ketoacidosis. Events since last encounter Patient had a low blood glucose of 48 fasting this morning, though he was asymptomatic with this. Glucose improved after he ate. Constitutional: Denies: Chills, Fever ENT: Denies: Head Aches Pulmonary: Denies: Dyspnea, Cough Cardiovascular: Denies: Chest Pain, Palpitations Gastrointestinal: Denies: Nausea, Vomiting, Abdominal Pain Neurological: Denies: Change in speech, Confusion Objective Physical Examination General Exam: Positive: Alert, Cooperative, No Acute Distress ENT Exam: Positive: Other ENT (edentulous) Chest Exam: Positive: Clear to auscultation, Negative: Rales, Rhonchi, Wheezing Heart Exam: Positive: Rate Normal, Negative: Murmurs, Rubs Telemetry: Positive: No significant arrhythmia Abdomen Exam: Positive: Normal bowel sounds, Soft, Negative: Tenderness, Hepatospenomegaly Extremity Exam: Negative: Edema Neuro Exam: Positive: Normal Speech, Cranial Nerves 3-12 NL Psych Exam: Positive: Mental status NL Assessment /Plan Problems (1) T2DM (type 2 diabetes mellitus) Status: Chronic Response to Treatment: Improving Problem Text: 03/03 - Glucose has been very labile; Fasting glucose today was 48 - will decrease levemir from 10 units QHS to 8 units QHS. However, as pre- meal glucose is still elevated, he may need to go home with short-acting insulin with meals. 03/02 - Blood sugars 104 - 327 last 24 hours. On Levemir 10 units at hs. 03/01/17: Change to levemir one time dosing this am 4 units. 10 UNITS AT HS. Glucose has been very labile (60-440s) - Carb consistent diet - Patient likely noncompliant with medications at home; will need placement once he is safe for discharge. (2) Diabetic ketoacidosis Status: Resolved Problem Specific Plan: Consult Specialist (patient is dry, no good peripheral vein access. Dr. Ray consulted and will proceed with central line.) Problem Text: AG closed and bicarb normal on evening of 02/26/17 (day of admission). Insulin gtts was was stopped and he was transitioned to his home levemir evening of 02/26/17. (3) CVA (cerebral vascular accident) Status: Chronic Response to Treatment: Stable Problem Text: Continue apixaban, ASA 81 mg, and statin (4) Hypernatremia Status: Resolved Problem Text: Likely iatrogenic from multiple NS boluses; resolved after IVF was switched to D51/2NS. (5) Acute renal failure Status: Resolved Problem Text: Likely secondary to volume contraction associated with DKA and metabolic acidosis; resolved with NS administration. Plan/VTE VTE Prophylaxis Ordered?: Yes Plan/Urinary Catheter Urinary Catheter: D/C Webster Plan IVF: Increase Anticipated Discharge: [facility] VS, I&O, 24H, [facility] Vital Signs/I&O Vital Signs Date Time Temp Pulse Resp B/P (MAP) Pulse Ox O2 Delivery O2 Flow Rate FiO2 03/03/17 08:59 130/76 03/03/17 08:00 97.2 64 17 96 Room Air I&O- Last 24 Hours up to 6 AM 03/04/17 06:00 Intake Total 1320 ml Output Total 650 ml Balance 670 ml Laboratory Data 24H LABS Laboratory Tests 2 03/02/17 16:38: Bedside Glucose (Misc Panel) 204H 03/02/17 20:22: Bedside Glucose (Misc Panel) 131H 03/03/17 06:12: Bedside Glucose (Misc Panel) 48L 03/03/17 06:46: Bedside Glucose (Misc Panel) 61L 03/03/17 09:04: Bedside Glucose (Misc Panel) 147H 03/03/17 11:38: Bedside Glucose (Misc Panel) 291H Microbiology Microbiology 02/26/17 Urine Culture - Final, Complete MAYCO GIRARD MD Mar 03, 2017 14:12
[2017-03-03 20:00] VITALS: BP 109/61
[2017-03-03] MEDS: ATORVASTATIN 20 MG TAB PO SCH (22:01)
[2017-03-03] MEDS: MIRTAZAPINE 15 MG TAB PO SCH (22:01)
[2017-03-03] MEDS: LEVEMIR (INSULIN DETEMIR) 1 UNITS/0.01ML SC SCH (22:03)
[2017-03-04 06:00] VITALS: BP 140/87
[2017-03-04] MEDS: HumaLOG INSULIN (NovoLOG) PER UNIT SC SCH ×4 (08:06→21:12)
[2017-03-04 08:50] VITALS: BP 148/65
[2017-03-04] MEDS: APIXABAN 5 MG TAB (ELIQUIS) PO SCH ×2 (08:52→21:11)
[2017-03-04] MEDS: FERROUS SULFATE 325MG TAB PO SCH (08:52)
[2017-03-04] MEDS: LISINOPRIL 5 MG TAB PO SCH (08:52)
[2017-03-04] MEDS: FOLIC ACID 1 MG TAB PO SCH (08:52)
[2017-03-04] MEDS: ASPIRIN 81 MG ENTERIC TAB PO SCH (08:52)
[2017-03-04] MEDS: PANTOPRAZOLE 40MG INJ (PROTONIX) (C9113) IV SCH (09:33)
--- NOTE | 2017-03-04 12:07 | IPNPDOC ---
Subjective Date Seen The patient was seen on 03/04/17. Subjective Chief Complaint/HPI The patient is a 61-year-old male admitted with a reason for visit of Diabetic Ketoacidosis. Events since last encounter No complaints Constitutional: Denies: Chills, Fever Pulmonary: Denies: Dyspnea, Cough Cardiovascular: Denies: Chest Pain Gastrointestinal: Denies: Nausea, Vomiting, Abdominal Pain Objective Physical Examination General Exam: Positive: Alert, Cooperative, No Acute Distress ENT Exam: Positive: Other ENT (edentulous) Chest Exam: Positive: Clear to auscultation, Negative: Rales, Rhonchi, Wheezing Heart Exam: Positive: Rate Normal, Negative: Murmurs, Rubs Telemetry: Positive: No significant arrhythmia Abdomen Exam: Positive: Normal bowel sounds, Soft, Negative: Tenderness, Hepatospenomegaly Extremity Exam: Negative: Edema Neuro Exam: Positive: Normal Speech Psych Exam: Positive: Mental status NL Assessment /Plan Problems (1) T2DM (type 2 diabetes mellitus) Status: Chronic Response to Treatment: Improving Problem Text: 03/04 - Blood sugars range 101 - 291 lat 24 hours. continue Levemir 8 units qhs. He states that he uses short acting insulin before meals at home. We will plan to send him home on this as prior to admission. 03/03 - Glucose has been very labile; Fasting glucose today was 48 - will decrease levemir from 10 units QHS to 8 units QHS. However, as pre-meal glucose is still elevated, he may need to go home with short-acting insulin with meals. 03/02 - Blood sugars 104 - 327 last 24 hours. On Levemir 10 units at hs. 03/01/17: Change to levemir one time dosing this am 4 units. 10 UNITS AT HS. Glucose has been very labile (60-440s) - Carb consistent diet - Patient likely noncompliant with medications at home; will need placement once he is safe for discharge. (2) Diabetic ketoacidosis Status: Resolved Problem Specific Plan: Consult Specialist (patient is dry, no good peripheral vein access. Dr. Ray consulted and will proceed with central line.) Problem Text: AG closed and bicarb normal on evening of 02/26/17 (day of admission). Insulin gtts was was stopped and he was transitioned to his home levemir evening of 02/26/17. (3) CVA (cerebral vascular accident) Status: Chronic Response to Treatment: Stable Problem Text: Continue apixaban, ASA 81 mg, and statin (4) Hypernatremia Status: Resolved Problem Text: Likely iatrogenic from multiple NS boluses; resolved after IVF was switched to D51/2NS. (5) Acute renal failure Status: Resolved Problem Text: Likely secondary to volume contraction associated with DKA and metabolic acidosis; resolved with NS administration. Plan/VTE VTE Prophylaxis Ordered?: Yes Plan/Urinary Catheter Urinary Catheter: D/C Webster Plan IVF: Increase Therapy: PT Anticipated Discharge: [facility] Family Medicine Attending Note: Patient seen and examined early this morning; I discussed his care with CALLI Esposito and I agree with her note as documented. Patient has not had any low glucose on lower dose of levemir 8 Units QHS; he will need short-acting coverage after discharge. He is not safe for discharge at this point, and we need PFS to assist with discharge planning, as I am concerned that he may not be able to correctly administer insulin at home. (KES) Disposition Not safe for d/c home yet. Get PFS involved with dipso planning again since his stated she wont be there to help him if he is discharged home VS, I&O, 24H, Fishbone Vital Signs/I&O Vital Signs Date Time Temp Pulse Resp B/P (MAP) Pulse Ox O2 Delivery O2 Flow Rate FiO2 03/04/17 08:52 148/65 03/04/17 08:50 98.9 82 16 98 Room Air I&O- Last 24 Hours up to 6 AM 03/05/17 06:00 Intake Total 1200 ml Balance 1200 ml Laboratory Data 24H LABS Laboratory Tests 2 03/03/17 16:37: Bedside Glucose (Misc Panel) 205H 03/03/17 21:25: Bedside Glucose (Misc Panel) 252H 03/04/17 05:26: Bedside Glucose (Misc Panel) 101 03/04/17 11:32: Bedside Glucose (Misc Panel) 288H Microbiology Microbiology 02/26/17 Urine Culture - Final, Complete DOMINIC YAÑEZ PA-C Mar 04, 2017 12:07 MAYCO GIRARD MD Mar 04, 2017 14:33
[2017-03-04 14:00] VITALS: BP 131/91
[2017-03-04] MEDS: MIRTAZAPINE 15 MG TAB PO SCH (21:11)
[2017-03-04] MEDS: ATORVASTATIN 20 MG TAB PO SCH (21:11)
[2017-03-04] MEDS: LEVEMIR (INSULIN DETEMIR) 1 UNITS/0.01ML SC SCH (21:12)
[2017-03-04 22:00] VITALS: BP 139/70
[2017-03-05 06:00] VITALS: BP 117/63
[2017-03-05] MEDS: HumaLOG INSULIN (NovoLOG) PER UNIT SC SCH ×4 (07:50→21:42)
[2017-03-05] MEDS: ASPIRIN 81 MG ENTERIC TAB PO SCH (08:29)
[2017-03-05] MEDS: PANTOPRAZOLE 40MG INJ (PROTONIX) (C9113) IV SCH (08:29)
[2017-03-05] MEDS: APIXABAN 5 MG TAB (ELIQUIS) PO SCH ×2 (08:29→21:41)
[2017-03-05] MEDS: FERROUS SULFATE 325MG TAB PO SCH (08:30)
[2017-03-05] MEDS: FOLIC ACID 1 MG TAB PO SCH (08:30)
[2017-03-05] MEDS: LISINOPRIL 5 MG TAB PO SCH (08:30)
--- NOTE | 2017-03-05 11:11 | IPNPDOC ---
Subjective Date Seen The patient was seen on 03/05/17. Subjective Chief Complaint/HPI The patient is a 61-year-old male admitted with a reason for visit of Diabetic Ketoacidosis. Events since last encounter Per nursing, he uses the urinal occasionally but often just urinates inhis clothes. At home he would lay on the cough in his urine and feces and refused to bathe. He refuses to shower here. Constitutional: Denies: Chills, Fever Pulmonary: Denies: Dyspnea, Cough Cardiovascular: Denies: Chest Pain, Palpitations, Orthopnea Gastrointestinal: Denies: Nausea, Vomiting, Abdominal Pain, Diarrhea, Constipation Objective Physical Examination General Exam: Positive: Alert, Cooperative, No Acute Distress, Other (smells of urine) ENT Exam: Positive: Other ENT (edentulous) Chest Exam: Positive: Clear to auscultation, Negative: Rales, Rhonchi, Wheezing Heart Exam: Positive: Rate Normal, Negative: Murmurs, Rubs Telemetry: Positive: No significant arrhythmia Abdomen Exam: Positive: Normal bowel sounds, Soft, Negative: Tenderness, Hepatospenomegaly Extremity Exam: Negative: Edema Assessment /Plan Problems (1) T2DM (type 2 diabetes mellitus) Status: Chronic Response to Treatment: Improving Problem Text: 03/05- Blood sugars range 101 - 288 last 24 hours. continue Levemir 8 units qhs. He states that he uses short acting insulin before meals at home. We will plan to send him home on this as prior to admission. I have asked the nurses to have patient show proficiency at checking his own finger sticks, understanding sliding scale and drawing up and administering his own insulin. His has stated that if he comes home, she will leave. He will have no support at home. We will need to encourage him to accept placement. He is non-compliant with his insulin at home contributing to his DKA. Also he does not bathe or care for himself properly. Currently he is not safe per PT with ambulation. 03/03 - Glucose has been very labile; Fasting glucose today was 48 - will decrease levemir from 10 units QHS to 8 units QHS. However, as pre-meal glucose is still elevated, he may need to go home with short-acting insulin with meals. 03/02 - Blood sugars 104 - 327 last 24 hours. On Levemir 10 units at hs. 03/01/17: Change to levemir one time dosing this am 4 units. 10 UNITS AT HS. Glucose has been very labile (60-440s) - Carb consistent diet - Patient likely noncompliant with medications at home; will need placement once he is safe for discharge. (2) Diabetic ketoacidosis Status: Resolved Problem Specific Plan: Consult Specialist (patient is dry, no good peripheral vein access. Dr. Ray consulted and will proceed with central line.) Problem Text: AG closed and bicarb normal on evening of 02/26/17 (day of admission). Insulin gtts was was stopped and he was transitioned to his home levemir evening of 02/26/17. (3) CVA (cerebral vascular accident) Status: Chronic Response to Treatment: Stable Problem Text: Continue apixaban, ASA 81 mg, and statin (4) Hypernatremia Status: Resolved Problem Text: Likely iatrogenic from multiple NS boluses; resolved after IVF was switched to D51/2NS. (5) Acute renal failure Status: Resolved Problem Text: Likely secondary to volume contraction associated with DKA and metabolic acidosis; resolved with NS administration. Plan/VTE VTE Prophylaxis Ordered?: Yes Plan/Urinary Catheter Urinary Catheter: D/C Webster Plan IVF: Increase Therapy: PT Anticipated Discharge: [facility] Attending Note: I saw Mr. Husain this morning and again this afternoon; I discussed his care with CALLI Esposito and I agree with her note as documented. I am concerned because I have tried to engage Mr. Husain several times in discussion regarding disposition, and when asked direct questions about his plans for discharge, he does not respond. He does answer questions about how he is feeling and he is oriented to person, place, date, and situation, so it seems he may be choosing to not participate in these discussions. Today he did agree to consider short-term rehab but I suspect he may change his mind about this - regardless, I talked with PFS about starting the process of placement for him, and PT will continue to work with him. (KES) Disposition PFS involved with dispo plan but he will not have support at home VS, I&O, 24H, Fishbone Vital Signs/I&O Vital Signs Date Time Temp Pulse Resp B/P (MAP) Pulse Ox O2 Delivery O2 Flow Rate FiO2 03/05/17 08:30 134/72 03/05/17 06:00 97.4 59 16 94 Room Air I&O- Last 24 Hours up to 6 AM 03/06/17 06:00 Intake Total 960 ml Output Total 400 ml Balance 560 ml Laboratory Data 24H LABS Laboratory Tests 2 03/04/17 11:32: Bedside Glucose (Misc Panel) 288H 03/04/17 16:23: Bedside Glucose (Misc Panel) 146H 03/04/17 20:26: Bedside Glucose (Misc Panel) 254H 03/05/17 06:27: Bedside Glucose (Misc Panel) 132H Microbiology Microbiology 02/26/17 Urine Culture - Final, Complete DOMINIC YAÑEZ PA-C Mar 05, 2017 11:11 MAYCO GIRARD MD Mar 05, 2017 14:07
[2017-03-05 14:00] VITALS: BP 111/65
[2017-03-05] MEDS: ATORVASTATIN 20 MG TAB PO SCH (21:41)
[2017-03-05] MEDS: MIRTAZAPINE 15 MG TAB PO SCH (21:41)
[2017-03-05] MEDS: LEVEMIR (INSULIN DETEMIR) 1 UNITS/0.01ML SC SCH (21:42)
[2017-03-05 22:00] VITALS: BP 104/59
[2017-03-06] MEDS: ASPIRIN 81 MG ENTERIC TAB PO SCH (08:00)
[2017-03-06] MEDS: FERROUS SULFATE 325MG TAB PO SCH (08:00)
[2017-03-06] MEDS: APIXABAN 5 MG TAB (ELIQUIS) PO SCH ×2 (08:00→20:50)
[2017-03-06] MEDS: PANTOPRAZOLE 40MG INJ (PROTONIX) (C9113) IV SCH (08:00)
[2017-03-06] MEDS: LISINOPRIL 5 MG TAB PO SCH (08:00)
[2017-03-06] MEDS: FOLIC ACID 1 MG TAB PO SCH (08:00)
[2017-03-06] MEDS: HumaLOG INSULIN (NovoLOG) PER UNIT SC SCH ×4 (08:01→20:57)
[2017-03-06 14:00] VITALS: BP 121/71
--- NOTE | 2017-03-06 20:06 | IPNPDOC ---
Subjective Date Seen The patient was seen on 03/06/17. Subjective Chief Complaint/HPI The patient is a 61-year-old male admitted with a reason for visit of Diabetic Ketoacidosis. Events since last encounter Mr. Husain is a very focused on going home. He seems to have little or no insight into the difficulties he'll have at home based on his 's unwillingness to enable him to go back to an inadequate/unsafe environment. He denies any complaints today. Constitutional: Denies: Chills, Fever Pulmonary: Denies: Dyspnea, Cough Cardiovascular: Denies: Chest Pain, Palpitations Gastrointestinal: Denies: Nausea, Vomiting Objective Physical Examination General Exam: Positive: No Acute Distress (he is resting with his head under the blankets when I enter the room, he is easily arousable) ENT Exam: Positive: Atraumatic, Mucous membr. moist/pink, Other ENT (edentulous ) Neck Exam: Positive: Supple Chest Exam: Positive: Clear to auscultation, Negative: Rales, Rhonchi, Wheezing Heart Exam: Positive: Rate Normal, Negative: Murmurs, Rubs Telemetry: Positive: No significant arrhythmia Abdomen Exam: Positive: Normal bowel sounds, Soft, Negative: Tenderness, Hepatospenomegaly Extremity Exam: Negative: Edema Psych Exam: Negative: Memory Intact Assessment /Plan Problems (1) T2DM (type 2 diabetes mellitus) Status: Chronic Response to Treatment: Improving Problem Text: His blood glucose levels are reasonably, though not ideally controlled. I don't think nursing has made much headway with teaching/having him demonstrate how to correctly execute his own insulin regimen. (2) Lack of family support Problem Text: He wishes to return home, however his primary care physician has recommended against this. Additionally his , who usually takes care of him at home, has reported that she will leave the house if he is sent home again. It seems her rationale for doing this is that his soon as he at home, he sits on the couch and doesn't move. Apparently this includes even moving to go to the bathroom. He'll defecated and urinated on himself in the house and the expect her to clean it/him up. He does not take care of his insulin management and then goes back into DKA. She is not willing to do this anymore, and doesn't feel that this is a safe environment for him. She feels that her continued support is enabling him to continue to live in a poor environment. She is pushing for him to be placed so that he can have more direct care. I believe PFS is started working on this. (3) CVA (cerebral vascular accident) Status: Chronic Response to Treatment: Stable Problem Text: Continue apixaban, ASA 81 mg, and statin (4) Acute renal failure Status: Resolved Problem Text: Likely secondary to volume contraction associated with DKA and metabolic acidosis; resolved with NS administration. (5) Diabetic ketoacidosis Status: Resolved Problem Specific Plan: Consult Specialist (patient is dry, no good peripheral vein access. Dr. Ray consulted and will proceed with central line.) Problem Text: AG closed and bicarb normal on evening of 02/26/17 (day of admission). Insulin gtts was was stopped and he was transitioned to his home levemir evening of 02/26/17. Plan/VTE VTE Prophylaxis Ordered?: Yes (on Eliquis) Plan IVF: Increase Therapy: PT Pt and Family Services: Other PFS (needs to work with him and his in order to find a safe discharge plan) Anticipated Discharge: Intermediate VS, I&O, 24H, [facility] Vital Signs/I&O Vital Signs Date Time Temp Pulse Resp B/P (MAP) Pulse Ox O2 Delivery O2 Flow Rate FiO2 03/06/17 14:00 99.7 76 16 121/71 (88) 99 Room Air I&O- Last 24 Hours up to 6 AM 03/07/17 06:00 Intake Total 340 ml Balance 340 ml Laboratory Data 24H LABS Laboratory Tests 2 03/05/17 20:45: Bedside Glucose (Misc Panel) 346H 03/06/17 06:02: Bedside Glucose (Misc Panel) 136H 03/06/17 11:12: Bedside Glucose (Misc Panel) 284H 03/06/17 17:14: Bedside Glucose (Misc Panel) 183H Microbiology Microbiology 02/26/17 Urine Culture - Final, Complete Eddy Gutierrez MD Mar 06, 2017 20:06
[2017-03-06] MEDS: ATORVASTATIN 20 MG TAB PO SCH (20:50)
[2017-03-06] MEDS: MIRTAZAPINE 15 MG TAB PO SCH (20:50)
[2017-03-06] MEDS: LEVEMIR (INSULIN DETEMIR) 1 UNITS/0.01ML SC SCH (20:51)
[2017-03-06 22:00] VITALS: BP 103/75
[2017-03-07 06:00] VITALS: BP 144/82
[2017-03-07] MEDS: HumaLOG INSULIN (NovoLOG) PER UNIT SC SCH ×4 (07:30→21:00)
[2017-03-07] MEDS: LISINOPRIL 5 MG TAB PO SCH (08:05)
[2017-03-07] MEDS: APIXABAN 5 MG TAB (ELIQUIS) PO SCH ×2 (08:05→20:03)
[2017-03-07] MEDS: FOLIC ACID 1 MG TAB PO SCH (08:05)
[2017-03-07] MEDS: FERROUS SULFATE 325MG TAB PO SCH (08:05)
[2017-03-07] MEDS: PANTOPRAZOLE 40MG INJ (PROTONIX) (C9113) IV SCH (08:05)
[2017-03-07] MEDS: ASPIRIN 81 MG ENTERIC TAB PO SCH (08:05)
[2017-03-07 14:00] VITALS: BP 113/67
[2017-03-07] MEDS: ATORVASTATIN 20 MG TAB PO SCH (20:03)
[2017-03-07] MEDS: MIRTAZAPINE 15 MG TAB PO SCH (20:03)
[2017-03-07] MEDS: LEVEMIR (INSULIN DETEMIR) 1 UNITS/0.01ML SC SCH (20:06)
--- NOTE | 2017-03-07 21:28 | IPNPDOC ---
Subjective Date Seen The patient was seen on 03/07/17. Subjective Chief Complaint/HPI The patient is a 61-year-old male admitted with a reason for visit of Diabetic Ketoacidosis. Events since last encounter Mr. Husain doesn't have much to say to me today. I think he is probably upset because I wouldn't agree to send him home yesterday. Nursing reports that her sugars have been running a little high today. I ask whether he is taking extra food and he denied it. General: Reports: Normal Appetite Pulmonary: Denies: Cough Cardiovascular: Denies: Chest Pain Objective Physical Examination General Exam: Positive: No Acute Distress (he is resting with his head under the blankets when I enter the room, he is easily arousable) ENT Exam: Positive: Atraumatic, Mucous membr. moist/pink, Other ENT (edentulous ) Neck Exam: Positive: Supple Chest Exam: Positive: Clear to auscultation, Negative: Rales, Rhonchi, Wheezing Heart Exam: Positive: Rate Normal, Negative: Murmurs, Rubs Telemetry: Positive: No significant arrhythmia Abdomen Exam: Positive: Normal bowel sounds, Soft, Negative: Tenderness, Hepatospenomegaly Extremity Exam: Negative: Edema Psych Exam: Negative: Memory Intact Assessment /Plan Problems (1) T2DM (type 2 diabetes mellitus) Status: Chronic Response to Treatment: Improving Problem Text: His blood glucose levels are high today with no clear explanation. I don't think nursing has made much headway with teaching/having him demonstrate how to correctly execute his own insulin regimen. (2) Lack of family support Problem Text: He wishes to return home, however his primary care physician has recommended against this. Additionally his , who usually takes care of him at home, has reported that she will leave the house if he is sent home again. It seems her rationale for doing this is that his soon as he at home, he sits on the couch and doesn't move. Apparently this includes even moving to go to the bathroom. He'll defecated and urinated on himself in the house and the expect her to clean it/him up. He does not take care of his insulin management and then goes back into DKA. She is not willing to do this anymore, and doesn't feel that this is a safe environment for him. She feels that her continued support is enabling him to continue to live in a poor environment. She is pushing for him to be placed so that he can have more direct care. I believe PFS is started working on this. (3) CVA (cerebral vascular accident) Status: Chronic Response to Treatment: Stable Problem Text: Continue apixaban, ASA 81 mg, and statin (4) Acute renal failure Status: Resolved Problem Text: Likely secondary to volume contraction associated with DKA and metabolic acidosis; resolved with NS administration. (5) Diabetic ketoacidosis Status: Resolved Problem Specific Plan: Consult Specialist (patient is dry, no good peripheral vein access. Dr. Ray consulted and will proceed with central line.) Problem Text: AG closed and bicarb normal on evening of 02/26/17 (day of admission). Insulin gtts was was stopped and he was transitioned to his home levemir evening of 02/26/17. Plan/VTE VTE Prophylaxis Ordered?: Yes (on Eliquis) Plan IVF: Increase Therapy: PT Pt and Family Services: Other PFS (needs to work with him and his in order to find a safe discharge plan) Anticipated Discharge: Assisted VS, I&O, 24H, [facility] Vital Signs/I&O Vital Signs Date Time Temp Pulse Resp B/P (MAP) Pulse Ox O2 Delivery O2 Flow Rate FiO2 03/07/17 14:00 98.3 80 17 113/67 (82) 97 Room Air I&O- Last 24 Hours up to 6 AM 03/08/17 06:00 Intake Total 850 ml Output Total 525 ml Balance 325 ml Laboratory Data 24H LABS Laboratory Tests 2 03/07/17 07:06: Bedside Glucose (Misc Panel) 105 03/07/17 11:46: Bedside Glucose (Misc Panel) 557*H 03/07/17 11:54: Bedside Glucose Confirm (Misc) 331H 03/07/17 16:44: Bedside Glucose (Misc Panel) 287H 03/07/17 20:04: Bedside Glucose (Misc Panel) 184H Microbiology Microbiology 02/26/17 Urine Culture - Final, Complete Eddy Gutierrez MD Mar 07, 2017 21:28
[2017-03-07 22:00] VITALS: BP 103/58
[2017-03-08 06:00] VITALS: BP 124/71
[2017-03-08 07:03] LABS: MEAN CORPUSCULAR HEMOGLOBIN 31.3 pg (27.0-33.0); MEAN CORPUSCULAR VOLUME 94.7 fl (80.0-96.0); RED CELL DISTRIBUTION WIDTH 15.4 % (11.5-14.5); WHITE BLOOD COUNT 3.9 10^3/uL (4.0-10.0)
[2017-03-08 07:26] LABS: ALBUMIN 3.2 GM/DL (3.2-5.2); ALBUMIN/GLOBULIN RATIO 0.86 (1.00-1.93); ALKALINE PHOSPHATASE 88 U/L (45-117); ALT/SGPT 22 U/L (12-78); ANION GAP 4 MEQ/L (8-16); AST/SGOT 10 U/L (15-37); BILIRUBIN,TOTAL 0.2 MG/DL (0.2-1.0); BLOOD UREA NITROGEN 15 MG/DL (7-18); CALCIUM LEVEL 9.1 MG/DL (8.8-10.2); CARBON DIOXIDE LEVEL 32 MEQ/L (21-32); CHLORIDE LEVEL 101 MEQ/L (98-107); CREATININE FOR GFR 0.62 MG/DL (0.70-1.30); GLOMERULAR FILTRATION RATE > 60.0 (>49); GLUCOSE, FASTING 75 MG/DL (80-110); POTASSIUM SERUM 4.4 MEQ/L (3.5-5.1); SODIUM LEVEL 137 MEQ/L (136-145); TOTAL PROTEIN 6.9 GM/DL (6.4-8.2)
[2017-03-08] MEDS: HumaLOG INSULIN (NovoLOG) PER UNIT SC SCH ×4 (07:30→20:35)
[2017-03-08] MEDS: FOLIC ACID 1 MG TAB PO SCH (08:09)
[2017-03-08] MEDS: FERROUS SULFATE 325MG TAB PO SCH (08:09)
[2017-03-08] MEDS: LISINOPRIL 5 MG TAB PO SCH (08:09)
[2017-03-08] MEDS: ASPIRIN 81 MG ENTERIC TAB PO SCH (08:09)
[2017-03-08] MEDS: PANTOPRAZOLE 40MG INJ (PROTONIX) (C9113) IV SCH (08:09)
[2017-03-08] MEDS: APIXABAN 5 MG TAB (ELIQUIS) PO SCH ×2 (08:09→20:48)
--- NOTE | 2017-03-08 09:25 | IPNPDOC ---
Subjective Date Seen The patient was seen on 03/08/17. Subjective Chief Complaint/HPI The patient is a 61-year-old male admitted with a reason for visit of Diabetic Ketoacidosis. Events since last encounter Pt denies any new issues. Denies CP, Abd pain, SOB. Working with PT. Constitutional: Denies: Chills, Fever Pulmonary: Denies: Dyspnea Cardiovascular: Denies: Chest Pain Gastrointestinal: Denies: Abdominal Pain Objective Physical Examination General Exam: Positive: Alert, No Acute Distress ENT Exam: Positive: Atraumatic, Mucous membr. moist/pink, Other ENT (edentulous ) Neck Exam: Positive: Supple Chest Exam: Positive: Clear to auscultation, Negative: Rales, Rhonchi, Wheezing Heart Exam: Positive: Rate Normal, Negative: Murmurs, Rubs Telemetry: Positive: No significant arrhythmia Abdomen Exam: Positive: Normal bowel sounds, Soft, Negative: Tenderness, Hepatospenomegaly Extremity Exam: Negative: Edema Psych Exam: Negative: Memory Intact Assessment /Plan Problems (1) T2DM (type 2 diabetes mellitus) Status: Chronic Response to Treatment: Improving Problem Text: 03/08 - Blood sugar levels labile. Nursing has been working on insulin/ diabetic teaching. Currently on Levemir 8 units daily and SSI. 03/07 - His blood glucose levels are high today with no clear explanation. I don' t think nursing has made much headway with teaching/having him demonstrate how to correctly execute his own insulin regimen. (2) Lack of family support Problem Text: 03/08 - Pt not safe per Physical Therapy. 03/07 - He wishes to return home, however his primary care physician has recommended against this. Additionally his , who usually takes care of him at home, has reported that she will leave the house if he is sent home again. It seems her rationale for doing this is that his soon as he at home, he sits on the couch and doesn't move. Apparently this includes even moving to go to the bathroom. He'll defecated and urinated on himself in the house and the expect her to clean it/him up. He does not take care of his insulin management and then goes back into DKA. She is not willing to do this anymore, and doesn't feel that this is a safe environment for him. She feels that her continued support is enabling him to continue to live in a poor environment. She is pushing for him to be placed so that he can have more direct care. I believe PFS is started working on this. (3) CVA (cerebral vascular accident) Status: Chronic Response to Treatment: Stable Problem Text: Continue apixaban, ASA 81 mg, and statin (4) Acute renal failure Status: Resolved Problem Text: Likely secondary to volume contraction associated with DKA and metabolic acidosis; resolved with NS administration. (5) Diabetic ketoacidosis Status: Resolved Problem Specific Plan: Consult Specialist (patient is dry, no good peripheral vein access. Dr. Ray consulted and will proceed with central line.) Problem Text: AG closed and bicarb normal on evening of 02/26/17 (day of admission). Insulin gtts was was stopped and he was transitioned to his home levemir evening of 02/26/17. Plan/VTE VTE Prophylaxis Ordered?: Yes (on Eliquis) Plan IVF: Increase Therapy: PT Pt and Family Services: Other PFS (needs to work with him and his in order to find a safe discharge plan) Anticipated Discharge: Jail VS, I&O, 24H, [facility] Vital Signs/I&O Vital Signs Date Time Temp Pulse Resp B/P (MAP) Pulse Ox O2 Delivery O2 Flow Rate FiO2 03/08/17 08:09 136/78 03/08/17 06:00 98.9 74 17 97 Room Air I&O- Last 24 Hours up to 6 AM 03/09/17 06:00 Intake Total 840 ml Balance 840 ml Laboratory Data 24H LABS Laboratory Tests 2 03/07/17 11:46: Bedside Glucose (Misc Panel) 557*H 03/07/17 11:54: Bedside Glucose Confirm (Misc) 331H 03/07/17 16:44: Bedside Glucose (Misc Panel) 287H 03/07/17 20:04: Bedside Glucose (Misc Panel) 184H 03/08/17 06:33: Anion Gap 4L, Glomerular Filtration Rate > 60.0, Blood Urea Nitrogen 15, Creatinine 0.62L, Sodium Level 137, Potassium Level 4.4, Chloride Level 101, Carbon Dioxide Level 32, Calcium Level 9.1, Aspartate Amino Transf (AST/SGOT) 10L, Alanine Aminotransferase (ALT/SGPT) 22, Alkaline Phosphatase 88, Total Bilirubin 0.2, Total Protein 6.9, Albumin 3.2, Albumin/Globulin Ratio 0.86L CBC/BMP Laboratory Tests 03/08/17 06:33 Red Blood Count 3.39 L, Mean Corpuscular Volume 94.7, Mean Corpuscular Hemoglobin 31.3, Mean Corpuscular Hemoglobin Concent 33.0, Red Cell Distribution Width 15.4 H, Calcium Level 9.1, Aspartate Amino Transf (AST/SGOT) 10 L, Alanine Aminotransferase (ALT/SGPT) 22, Alkaline Phosphatase 88, Total Bilirubin 0.2, Total Protein 6.9, Albumin 3.2 Microbiology Microbiology 02/26/17 Urine Culture - Final, Complete Anselmo Barrett Mar 08, 2017 09:25
[2017-03-08 14:00] VITALS: BP 114/65
[2017-03-08] MEDS: ATORVASTATIN 20 MG TAB PO SCH (20:48)
[2017-03-08] MEDS: MIRTAZAPINE 15 MG TAB PO SCH (20:48)
[2017-03-08] MEDS: LEVEMIR (INSULIN DETEMIR) 1 UNITS/0.01ML SC SCH (20:49)
[2017-03-08 22:00] VITALS: BP 118/69
[2017-03-09 06:00] VITALS: BP 117/76
[2017-03-09 06:26] LABS: BASO # 0.1 10^3/uL (0.0-0.2); BASO % 0.9 % (0.0-1.0); EOS # 0.2 10^3/uL (0.0-0.50); EOS % 3.5 % (0.0-3.0); IMMATURE GRANULOCYTE % 0.4 % (0-0); LYMPH # 0.8 10^3/uL (1.5-4.5); LYMPH % 14.4 % (24.0-44.0); MEAN CORPUSCULAR HEMOGLOBIN 30.9 pg (27.0-33.0); MEAN CORPUSCULAR HGB CONC 32.9 g/dl (32.0-36.5); MEAN CORPUSCULAR VOLUME 93.9 fl (80.0-96.0); MONO # 0.6 10^3/uL (0.0-0.8); MONO % 10.5 % (0.0-5.0); NEUTROPHILS % 70.3 % (36.0-66.0); PLATELET COUNT, AUTOMATED 425 10^3/uL (150-450); RED CELL DISTRIBUTION WIDTH 15.5 % (11.5-14.5); WHITE BLOOD COUNT 5.7 10^3/uL (4.0-10.0)
[2017-03-09 06:47] LABS: ALBUMIN 3.3 GM/DL (3.2-5.2); ALBUMIN/GLOBULIN RATIO 0.89 (1.00-1.93); ALKALINE PHOSPHATASE 100 U/L (45-117); ALT/SGPT 23 U/L (12-78); ANION GAP 4 MEQ/L (8-16); AST/SGOT 7 U/L (15-37); BILIRUBIN,TOTAL 0.4 MG/DL (0.2-1.0); BLOOD UREA NITROGEN 15 MG/DL (7-18); CALCIUM LEVEL 9.3 MG/DL (8.8-10.2); CARBON DIOXIDE LEVEL 33 MEQ/L (21-32); CHLORIDE LEVEL 99 MEQ/L (98-107); CREATININE FOR GFR 0.75 MG/DL (0.70-1.30); GLOMERULAR FILTRATION RATE > 60.0 (>49); GLUCOSE, FASTING 178 MG/DL (80-110); POTASSIUM SERUM 4.7 MEQ/L (3.5-5.1); SODIUM LEVEL 136 MEQ/L (136-145)
[2017-03-09] MEDS: FERROUS SULFATE 325MG TAB PO SCH (08:32)
[2017-03-09] MEDS: LISINOPRIL 5 MG TAB PO SCH (08:33)
[2017-03-09] MEDS: APIXABAN 5 MG TAB (ELIQUIS) PO SCH ×2 (08:33→21:27)
[2017-03-09] MEDS: FOLIC ACID 1 MG TAB PO SCH (08:33)
[2017-03-09] MEDS: PANTOPRAZOLE 40MG INJ (PROTONIX) (C9113) IV SCH (08:34)
[2017-03-09] MEDS: ASPIRIN 81 MG ENTERIC TAB PO SCH (08:34)
[2017-03-09] MEDS: HumaLOG INSULIN (NovoLOG) PER UNIT SC SCH ×4 (08:34→21:27)
[2017-03-09] MEDS: ATORVASTATIN 20 MG TAB PO SCH (21:27)
[2017-03-09] MEDS: MIRTAZAPINE 15 MG TAB PO SCH (21:27)
[2017-03-09] MEDS: LEVEMIR (INSULIN DETEMIR) 1 UNITS/0.01ML SC SCH (21:27)
[2017-03-09 22:00] VITALS: BP 105/65
[2017-03-10 06:00] VITALS: BP 120/70
[2017-03-10] MEDS: FERROUS SULFATE 325MG TAB PO SCH (08:33)
[2017-03-10] MEDS: ASPIRIN 81 MG ENTERIC TAB PO SCH (08:34)
[2017-03-10] MEDS: FOLIC ACID 1 MG TAB PO SCH (08:34)
[2017-03-10] MEDS: PANTOPRAZOLE 40MG INJ (PROTONIX) (C9113) IV SCH (08:34)
[2017-03-10] MEDS: APIXABAN 5 MG TAB (ELIQUIS) PO SCH (08:35)
[2017-03-10] MEDS: HumaLOG INSULIN (NovoLOG) PER UNIT SC SCH ×2 (08:35→12:03)
[2017-03-10] MEDS ORDERED: MOM 30ML SUSPENSION UDC PO PRN (08:45)
[2017-03-10 08:55] VITALS: BP 110/66
[2017-03-10] MEDS ORDERED: PANTOPRAZOLE 40MG TAB (PROTONIX) PO SCH (09:00)
[2017-03-10] MEDS ORDERED: MIRALAX *UNIT DOSE* 17GM PACKET PO SCH (09:00)
[2017-03-10 10:00] VITALS: BP 123/67
[2017-03-10] MEDS ORDERED: LANTINJ4 SC (11:12)
[2017-03-10] MEDS ORDERED: ELIQ5TAB PO (11:12)
[2017-03-10] MEDS ORDERED: FERR1TAB8 PO (11:12)
[2017-03-10] MEDS ORDERED: ASPI81TAEC PO (11:12)
[2017-03-10] MEDS ORDERED: NOVOINJ3 SC (11:15)
[2017-03-10 12:01] VITALS: BP 123/67
[2017-03-10] MEDS: LISINOPRIL 5 MG TAB PO SCH (12:01)
[2017-03-10 14:00] VITALS: BP 120/73
--- NOTE | 2017-03-11 08:55 | DSES ---
DATE OF ADMISSION: 02/26/2017 DATE OF DISCHARGE: 03/10/2017 PRIMARY CARE PHYSICIAN: Dr. Espinoza Rincon and Brooke Shepard at the [facility]. ATTENDING PHYSICIAN: Dr. Israel Danielson HISTORY OF PRESENT ILLNESS: Pritesh Husain is a 61-year-old male patient of Dr. Rincon and Brooke Shepard, who follows at [facility], who was admitted with diabetic ketoacidosis and a type 1 diabetic. Patient does have a history of noncompliance. Patient does have a history of CVA and is on aspirin, Lipitor and Eliquis as an outpatient. Also, at admission, he was noted to have acute kidney injury. Patient was admitted to intensive care unit (ICU) for diabetic ketoacidosis (DKA) and placed on an insulin drip. There is concerned that the patient was not taking care of himself and therefore not adequately taking his insulin as needed. During the course of his hospitalization, he was given instruction on insulin and administration to himself, and according to nursing, he was able to understand how to give himself insulin correctly. He was continued on standard sliding scale, which seemed to work for him. He was on Lantus as an outpatient 10 units in the morning and 2 units in the evening. However, during his hospitalization, he has been on Levemir 8 units daily and has been doing well on that. There was concern whether or not the patient could return home. However, he did demonstrate adequate knowledge of administering himself insulin and did pass physical therapy. Nursing is working on setting him up with home services and patient will be discharged home on sliding scale insulin as well as the 8 units of basal insulin. Patient is continued on Eliquis, aspirin and atorvastatin for history of CVA. His acute renal failure/acute kidney injury did resolve with fluids. PHYSICAL EXAMINATION: Vital signs: Temperature 98.3, pulse 72, respiratory rate 18, blood pressure is 120/70, pulse oximetry 99%. General: Patient is alert, no acute distress. Chest: Clear to auscultation bilaterally. Heart: Regular rate and rhythm. Abdomen: Positive bowel sounds, soft, nontender. DISCHARGE MEDICATIONS: - Eliquis 5 mg by mouth twice a day (I did contact the patient's outpatient [facility] and was told that the patient's insurance would cover the Eliquis.) - aspirin 81 mg by mouth daily - ferrous sulfate 325 mg by mouth daily - Lantus 8 units subcutaneous nightly - NovoLog sliding scale subacute nightly and before food - Tylenol 650 mg by mouth every 4 hours as needed, pain or fever - albuterol puffer two puffs every 4 hours as needed, shortness of breath - atorvastatin 40 mg by mouth daily - folic acid 1 mg by mouth daily - lisinopril 5 mg by mouth daily - Milk of Magnesia 30 mL by mouth daily, as needed constipation - mirtazapine 30 mg nightly - multivitamin - senna one tablet by mouth daily DISCHARGE INSTRUCTIONS: Patient should followup with Dr. Rincon or Brooke Shepard at the end of this week or early next week. Diet is carbohydrate consistent. Activity as tolerated. Home health referral created. DISCHARGE DIAGNOSES: 1. Diabetic ketoacidosis. 2. History of CVA. 3. Acute renal failure. 4. Hypertension. 5. Noncompliance. MTDD
== END 2017-03-10 15:45 | disposition home health service (06) | DRG 638 ==
LOC: M ED 08:17 → M ED INP 11:31 → M ICU 13:40 → M MSPAV 02-27 11:41
PROVIDERS: ADMIT Family Medicine; ATTEND Family Medicine
PROC: 02HV33Z Insertion of Infusion Device into Superior Vena Cava, Percutaneous Approach (ICD-10-PCS; principal; 2017-02-26)
PROC: 0JH60XZ Insertion of Tunneled Vascular Access Device into Chest Subcutaneous Tissue and Fascia, Open Approach (ICD-10-PCS; 2017-02-26)
DX: E10.10 Type 1 diabetes mellitus with ketoacidosis without coma (principal); N17.9 Acute kidney failure, unspecified; E87.0 Hyperosmolality and hypernatremia; E78.5 Hyperlipidemia, unspecified; F32.9 Major depressive disorder, single episode, unspecified; Z79.4 Long term (current) use of insulin; Z91.14 Patient's other noncompliance with medication regimen; Z74.8 Other problems related to care provider dependency; Z79.82 Long term (current) use of aspirin; Z79.01 Long term (current) use of anticoagulants; Z79.899 Other long term (current) drug therapy; Z86.73 Personal history of transient ischemic attack (TIA), and cerebral infarction without residual deficits

== ENCOUNTER → 2017-03-11 | Outpatient (REF) | payer MEDICARE, MEDICAID ==
[~2017-03-11] MED LIST changes: +ALBU17IN2 INH; +ASPI81TAEC PO; +ATOR40TA75 PO; +ELIQ5TAB PO; +FOLI1TAB4 PO; +LANTINJ4; +LANTINJ4 SC; +LISI-542 PO; +MILKSUS PO; +MIRT30TA3 PO; +NOVOINJ3 SC; +SENE8.6T; +SENN1TAB10 PO; +SENN1TAB2 PO; +TYLE325T5 PO; +VITMTA PO
[2017-03-11 17:56] LABS: ALBUMIN 3.8 GM/DL (3.2-5.2); ALBUMIN/GLOBULIN RATIO 1.12 (1.00-1.93); ALKALINE PHOSPHATASE 125 U/L (45-117); ALT/SGPT 28 U/L (12-78); ANION GAP 17 MEQ/L (8-16); AST/SGOT 17 U/L (15-37); BILIRUBIN,TOTAL 0.6 MG/DL (0.2-1.0); BLOOD UREA NITROGEN 35 MG/DL (7-18); CALCIUM LEVEL 9.5 MG/DL (8.8-10.2); CARBON DIOXIDE LEVEL 18 MEQ/L (21-32); CHLORIDE LEVEL 92 MEQ/L (98-107); CREATININE FOR GFR 1.13 MG/DL (0.70-1.30); SODIUM LEVEL 127 MEQ/L (136-145); TOTAL PROTEIN 7.2 GM/DL (6.4-8.2)
[2017-03-11 18:18] LABS: GLOMERULAR FILTRATION RATE > 60.0 (>49); GLUCOSE, FASTING 699 MG/DL (80-110); POTASSIUM SERUM 6.2 MEQ/L (3.5-5.1)
== END ==
LOC: M SFHCCLAY 11:33
PROVIDERS: ATTEND Nurse Practitioner
DX: E11.65 Type 2 diabetes mellitus with hyperglycemia (principal)

== ENCOUNTER 2017-03-12 11:24 | Inpatient (IN) | payer MEDICARE, MEDICAID ==
[~2017-03-12] VITALS: Ht 188 cm; Wt 57.3 kg
[2017-03-12 12:20] LABS: BASO # 0.1 10^3/uL (0.0-0.2); BASO % 0.5 % (0.0-1.0); LYMPH # 0.6 10^3/uL (1.5-4.5); LYMPH % 4.4 % (24.0-44.0); MEAN CORPUSCULAR HEMOGLOBIN 31.2 pg (27.0-33.0); MEAN CORPUSCULAR VOLUME 100.8 fl (80.0-96.0); MONO # 0.3 10^3/uL (0.0-0.8); MONO % 2.1 % (0.0-5.0); NEUTROPHILS # 11.6 10^3/uL (1.8-7.7); PLATELET COUNT, AUTOMATED 537 10^3/uL (150-450); RED CELL DISTRIBUTION WIDTH 15.3 % (11.5-14.5); WHITE BLOOD COUNT 12.6 10^3/uL (4.0-10.0)
[2017-03-12 12:24] LABS: ADD MANUAL DIFFER NO; DIFF SLIDE NUMBER 228
[2017-03-12] MEDS ORDERED: HumuLIN R (REGULAR) INSULIN (NovoLIN R) **100U/ML** PER UNIT IV ONE (12:30)
[2017-03-12] MEDS ORDERED: NS 1,000 ML IV ONE ×2 (12:30→13:30)
--- NOTE | 2017-03-12 12:31 | REP ---
Chest one-view HISTORY: DKA Comparison: 02/26/2017 The lungs are clear. The heart is normal in size. The pulmonary vasculature is normal in appearance. Impression: No acute disease. Signed by Jaime Kam MD 03/12/2017 12:22 P
[2017-03-12 12:32] LABS: ABG BASE EXCESS -20.3 (-2.0-2.0); ABG HCO3 6.6 MEQ/L (22.0-26.0); ABG PARTIAL PRESSURE O2 97.6 mmHg (75.0-100.0); ABG STANDARD HCO3 9.6 MEQ/L (22.0-26.0); ABG TOTAL CO2 7.2 MEQ/L (23.0-31.0)
[2017-03-12 12:41] LABS: ABG PARTIAL PRESSURE CO2 19.1 mmHg (35.0-45.0); ABG pH (ARTERIAL) 7.155 UNITS (7.350-7.450)
[2017-03-12 12:55] LABS: ALBUMIN 4.2 GM/DL (3.2-5.2); ALBUMIN/GLOBULIN RATIO 1.08 (1.00-1.93); ALKALINE PHOSPHATASE 137 U/L (45-117); ALT/SGPT 29 U/L (12-78); ANION GAP 30 MEQ/L (8-16); AST/SGOT 16 U/L (15-37); BILIRUBIN,DIRECT 0.1 MG/DL (0.0-0.2); BILIRUBIN,TOTAL 0.7 MG/DL (0.2-1.0); BLOOD UREA NITROGEN 44 MG/DL (7-18); CALCIUM LEVEL 10.4 MG/DL (8.8-10.2); CARBON DIOXIDE LEVEL 9 MEQ/L (21-32); CHLORIDE LEVEL 91 MEQ/L (98-107); CREATININE FOR GFR 1.61 MG/DL (0.70-1.30); GLOMERULAR FILTRATION RATE 46.5 (>49); MAGNESIUM LEVEL 2.7 MG/DL (1.8-2.4); PHOSPHORUS LEVEL 5.6 MG/DL (2.5-4.9); SODIUM LEVEL 130 MEQ/L (136-145); TOTAL PROTEIN 8.1 GM/DL (6.4-8.2)
[2017-03-12 13:00] LABS: GLUCOSE, FASTING 749 MG/DL (80-110); POTASSIUM SERUM 5.9 MEQ/L (3.5-5.1)
[2017-03-12] MEDS ORDERED: INSULIN IV RATE CHANGE DOCUMENTATION ML/HR XX SCH (13:30)
--- NOTE | 2017-03-12 13:55 | HPEPDOC ---
[facility] Medical History & Physical Date of Admission Mar 12, 2017 History and Physical ATTENDING: Dr. Danielson PCP: TEE Garcia. Dr Rincon CC: Elevated BS HPI: 61yoM with a past medical history significant for recent admission 02/26/17- 03/10/17 for DKA and ARF, reports back to ED today with persistent elevated BS. Pt states "My sugar is higher than hell", states "high" when asked what his BS readings were. Pt states compliance with medications since discharge as per D/C orders. Denies urinary frequency. States he is thirsty. BS was noted to be 749 in the ED. Denies any fevers, chills, weakness, fatigue, RANKIN, CP, SOB, cough, palpitations, abdominal pain, N/V/D or changes in bowel or bladder habits. Upon presentation to the hospital the patient was found to have DKA, thus the hospitalist team was consulted. PMHx/PSHx: IDDM x 30 years H/O Diabetic ketoacidosis. History of CVA with left hemiparesis 10/19/16 , ARU 10/29/16-11/17/16. [facility] STR 11/17-02/10/17. Seen by Dr Yap in past. H/O Lyme disease. Seen by Dr Back 11/21 Possible mild dementia noted 11/21 admission chronic anemia Hypertension. depression asthma glaucoma Anorexia/ underweight. 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 ROS: As noted in HPI, otherwise 11pt ROS of systems reviewed and unremarkable. PE: GEN: 61yoM, appears stated age. Thin cachectic appearing, unkept. No acute distress resting on stretcher. Alert and oriented x 3. Flat affect, reluctant to answer questions. HEENT: Normocephalic, atraumatic. Pupils are equal, round, and reactive to light. Extraocular movements are intact. No nystagmus appreciated. Sclera are nonicteric. Conjunctiva without injection. Nose midline. Nasal turbinates without bogginess. No facial asymmetry. Dry mucous membranes. Dentition poor. Pharynx dry. Neck supple, trachea midline. No lymphadenopathy or thyromegaly appreciated. CHEST: Regular rate and rhythm, +S1, +S2 LUNGS: Clear to auscultation bilaterally. No wheezes, rales, or rhonchi. Breathing appears symmetric and easy. Patient is speaking in full sentences. No accessory muscle use. ABD: Round, soft, non-tender, non-distended. +Bowel sounds throughout. No rebound or guarding. No costovertebral angle tenderness. EXT: Pulses 2+ bilaterally dorsalis pedis and radial. No lower extremity edema appreciated. SKIN: [place], dry, warm. No rashes. NEURO: Alert and oriented x 3. Cranial nerves III-XII are intact. No focal deficits appreciated. CXR: 03/11/17 No acute disease. EKG:NSR 98 bpm. BLOOD CULTURES: x 2 pending UC pending A&P: 61yoM with a past medical history significant for recent admission 02/26/17 -03/10/17 for DKA and ARF, reports back to ED today with persistent elevated BS. Pt states "My sugar is higher than hell", states "high" when asked what his BS readings were. Pt states compliance with medications since discharge. Denies urinary frequency. States he is thirsty. 1. The patient will be admitted to ICU for at least [address] Danielson's service. Pt is discussed with Dr Haas. 2. DKA. IVF bolus x 2 L in ED. Pt given 5 u insulin and placed on Insulin gtt in ED. ICU, TM. Cont IVF at 125cc/hr, Insulin gtt per protocol. BCx 2 pending, UC pending, CXR as above. mag/Phos/lipase added to labs. Serial CIP/troponin requested. 3. MARY. SCr 1.6 Baseline 0.7-1.1. IVF contd. Hold ACEI. Monitor. 4. IDDM. Hgb A1c pending. 5. H/O CVA. Cont ASA 81, lipitor, Eliquis. Not clear to me if Pt started his Eliquis at last D/C, not noted on pharmacy med rec. Will restart Eliquis/ASA 81. 6. HTN. Hold ACEI. Monitor. 7. Depression. Cont Mirtazapine. 8. Chronic anemia. Appears to be at baseline 10-11. Folic acid/Fe supplements. 9. COPD. Albuterol HFA prn. DVT prophylaxis. Pt is on Eliquis as outpt. Of note, there was concern whether the pt was able to care for himself at home during last admission. Not clear to me what happened after he was discharged. The pt does not answer many questions and there is no family at bedside. Will request PT/OT/PFS Clt as he may need placement. The patient is a Full code Vital Signs Vital Signs Date Time Temp Pulse Resp B/P (MAP) Pulse Ox O2 Delivery O2 Flow Rate FiO2 03/12/17 12:13 03/12/17 11:42 98.6 87 18 98 Room Air Laboratory Data Labs 24H Laboratory Tests 2 03/12/17 12:09: Immature Granulocyte % (Auto) 1.0H, White Blood Count 12.6H, Red Blood Count 3.75L, Hemoglobin 11.7L, Hematocrit 37.8L, Mean Corpuscular Volume 100.8H, Mean Corpuscular Hemoglobin 31.2, Mean Corpuscular Hemoglobin Concent 31.0L, Red Cell Distribution Width 15.3H, Platelet Count 537H, Neutrophils (%) (Auto) 92.0H , Lymphocytes (%) (Auto) 4.4L, Monocytes (%) (Auto) 2.1, Eosinophils (%) (Auto) 0.0, Basophils (%) (Auto) 0.5, Neutrophils # (Auto) 11.6H, Lymphocytes # (Auto) 0.6L, Monocytes # (Auto) 0.3, Eosinophils # (Auto) 0.0, Basophils # (Auto) 0.1, Immature Granulocyte # (Auto) 0.1H, Nucleated Red Blood Cells % (auto) 0.0, Anion Gap 30H, Glomerular Filtration Rate 46.5L, Calcium Level 10.4H, Phosphorus Level 5.6H, Magnesium Level 2.7H, Aspartate Amino Transf (AST/SGOT) 16, Alanine Aminotransferase (ALT/SGPT) 29, Alkaline Phosphatase 137H, Total Bilirubin 0.7, Direct Bilirubin 0.1, Total Creatine Kinase 92, Creatine Kinase MB 4.1H, Creatine Kinase MB Relative Index 4.45H, Troponin I < 0.02, Total Protein 8.1, Albumin 4.2, Albumin/Globulin Ratio 1.08, Lipase 371, B- Hydroxybutyrate > 46.00H 03/12/17 12:24: Blood Gas Bicarbonate Standard 9.6L, Arterial Blood pH 7.155*L, Arterial Blood Partial Pressure CO2 19.1*L, Arterial Blood Partial Pressure O2 97.6, Arterial Blood Total CO2 7.2L, Arterial Blood HCO3 6.6L, Arterial Blood Base Excess - 20.3L, Arterial Blood Oxygen Saturation 96.1 03/12/17 13:05: Urine Appearance CLEAR, Urine Color YELLOW, Urine pH 5.0, Urine Specific [place] 1.021, Urine Protein NEGATIVE, Urine Glucose (UA) 3+H, Urine Ketones 2+H , Urine Urobilinogen 0.2, Urine Bilirubin NEGATIVE, Urine Leukocyte Esterase NEGATIVE, Urine Blood NEGATIVE, Urine Nitrite NEGATIVE, Urine WBC (Auto) 0, Urine RBC (Auto) 1, Urine Hyaline Casts (Auto) 0, Urine Bacteria (Auto) NEGATIVE , Urine Squamous Epithelial Cells 0, Urine Mucus (Auto) SMALL, Urine Sperm (Auto ) CBC/BMP Laboratory Tests 03/12/17 12:09 Red Blood Count 3.75 L, Mean Corpuscular Volume 100.8 H, Mean Corpuscular Hemoglobin 31.2, Mean Corpuscular Hemoglobin Concent 31.0 L, Red Cell Distribution Width 15.3 H, Neutrophils (%) (Auto) 92.0 H, Lymphocytes (%) (Auto ) 4.4 L, Monocytes (%) (Auto) 2.1, Eosinophils (%) (Auto) 0.0, Basophils (%) ( Auto) 0.5, Neutrophils # (Auto) 11.6 H, Lymphocytes # (Auto) 0.6 L, Monocytes # (Auto) 0.3, Eosinophils # (Auto) 0.0, Basophils # (Auto) 0.1 Microbiology Microbiology 03/12/17 Blood Culture, Received Pending 03/12/17 Blood Culture, Received Pending 03/12/17 Urine Culture, Received Pending Home Medications Scheduled (Senna Plus 8.6-50 mg) 1 Tab Tab, 1 TAB PO DAILY Atorvastatin Calcium (Atorvastatin Calcium) 40 Mg Tab, 40 MG PO QHS Folic Acid (Folic Acid) 1 Mg Tab, 1 MG PO DAILY Insulin Aspart (Novolog Flexpen) 100 Unit/Ml Inj, 1 DOSE SC ACHS PER SLIDING SCALE Lisinopril (Lisinopril) 5 Mg Tab, 5 MG PO DAILY Mirtazapine (Mirtazapine) 30 Mg Tab, 30 MG PO QHS Multivitamins *[facility] STOCKED* (Thera M Plus *[facility] STOCKED*) 1 Tab Tab, 1 TAB PO DAILY Scheduled PRN Acetaminophen (Tylenol) 325 Mg Tab, 650 MG PO Q4H PRN for PAIN / FEVER Albuterol Sulfate (Proventil Hfa) 167 Puff/6.7 Gm Aers, 2 PUFFS INH Q4H PRN for SHORTNESS OF BREATH Glucose (Glucose) 4 Gm Chw, 4 GM PO PRN PRN for LOW BLOOD SUGAR Milk Of Magnesia (Milk of Magnesia) 1,200 Mg/15 Ml N[place]omi, 30 ML PO DAILY PRN for CONSTIPATION Allergies Coded Allergies: No Known Drug Allergy (Verified Allergy, Unknown, 09/05/12) Adia Beltre Mar 12, 2017 13:55
[2017-03-12] MEDS ORDERED: INSULIN HUMAN REGULAR 100 UNITS in NS 99 ML IV SCH ×2 (14:00→14:47)
[2017-03-12 14:18] LABS: OSMOLALITY SERUM 344 MOSM/KG (280-301)
[2017-03-12] MEDS ORDERED: ALBUTEROL 90 MCG/ACT 8GM HFA INHALER INH PRN (15:00)
[2017-03-12 16:24] LABS: CALCIUM LEVEL 9.6 MG/DL (8.8-10.2); CREATININE FOR GFR 1.52 MG/DL (0.70-1.30); GLOMERULAR FILTRATION RATE 49.7 (>49)
[2017-03-12 16:26] LABS: POTASSIUM SERUM 5.2 MEQ/L (3.5-5.1)
[2017-03-12] MEDS: INSULIN IV RATE CHANGE DOCUMENTATION ML/HR XX SCH ×3 (18:16→22:19)
[2017-03-12] MEDS: ASPIRIN 81 MG ENTERIC TAB PO SCH (18:48)
[2017-03-12] MEDS ORDERED: NS 1,000 ML IV SCH (19:00)
[2017-03-12 19:54] LABS: ANION GAP 18 MEQ/L (8-16); BLOOD UREA NITROGEN 43 MG/DL (7-18); CALCIUM LEVEL 10.3 MG/DL (8.8-10.2); CARBON DIOXIDE LEVEL 16 MEQ/L (21-32); CHLORIDE LEVEL 100 MEQ/L (98-107); CREATININE FOR GFR 1.61 MG/DL (0.70-1.30); GLOMERULAR FILTRATION RATE 46.5 (>49); MAGNESIUM LEVEL 2.5 MG/DL (1.8-2.4); POTASSIUM SERUM 4.9 MEQ/L (3.5-5.1); SODIUM LEVEL 134 MEQ/L (136-145)
[2017-03-12 19:55] LABS: GLUCOSE, FASTING 444 MG/DL (80-110)
[2017-03-12 20:00] VITALS: BP 114/66
[2017-03-12] MEDS: MIRTAZAPINE 15 MG TAB PO SCH (20:11)
[2017-03-12] MEDS: APIXABAN 5 MG TAB (ELIQUIS) PO SCH (20:11)
[2017-03-12] MEDS: ATORVASTATIN 20 MG TAB PO SCH (20:11)
[2017-03-12] MEDS ORDERED: ENOXAPARIN 30 MG/0.3 ML SYR (J1650) SC SCH (21:00)
[2017-03-12 23:56] LABS: CREATININE FOR GFR 1.38 MG/DL (0.70-1.30); GLOMERULAR FILTRATION RATE 55.6 (>49); POTASSIUM SERUM 4.4 MEQ/L (3.5-5.1)
[2017-03-13] VITALS: BP 120/65
[2017-03-13] MEDS: D5W/0.45% SODIUM CHLORIDE 1,000 ML IV SCH ×3 (01:22→01:25)
[2017-03-13] MEDS: INSULIN IV RATE CHANGE DOCUMENTATION ML/HR XX SCH ×4 (01:24→10:09)
[2017-03-13 03:27] LABS: BASO % 0.4 % (0.0-1.0); EOS # 0.1 10^3/uL (0.0-0.50); EOS % 0.7 % (0.0-3.0); IMMATURE GRANULOCYTE % 0.3 % (0-0); LYMPH # 0.7 10^3/uL (1.5-4.5); LYMPH % 7.6 % (24.0-44.0); MEAN CORPUSCULAR HEMOGLOBIN 31.5 pg (27.0-33.0); MEAN CORPUSCULAR HGB CONC 33.7 g/dl (32.0-36.5); MONO # 0.9 10^3/uL (0.0-0.8); MONO % 9.5 % (0.0-5.0); NEUTROPHILS # 7.4 10^3/uL (1.8-7.7); NEUTROPHILS % 81.5 % (36.0-66.0); PLATELET COUNT, AUTOMATED 478 10^3/uL (150-450)
[2017-03-13 03:40] LABS: MEAN CORPUSCULAR VOLUME 93.5 fl (80.0-96.0)
[2017-03-13 03:55] LABS: ANION GAP 8 MEQ/L (8-16); BLOOD UREA NITROGEN 39 MG/DL (7-18); CALCIUM LEVEL 9.5 MG/DL (8.8-10.2); CARBON DIOXIDE LEVEL 26 MEQ/L (21-32); CHLORIDE LEVEL 106 MEQ/L (98-107); CREATININE FOR GFR 1.12 MG/DL (0.70-1.30); GLOMERULAR FILTRATION RATE > 60.0 (>49); GLUCOSE, FASTING 150 MG/DL (80-110); MAGNESIUM LEVEL 2.2 MG/DL (1.8-2.4); SODIUM LEVEL 140 MEQ/L (136-145)
[2017-03-13 04:00] VITALS: BP 132/88
[2017-03-13] MEDS: D10W/0.45% SODIUM CHLORIDE 1,000 ML IV SCH ×2 (04:52→09:41)
[2017-03-13] MEDS ORDERED: SLF 3 ML SYR IV PRN (05:15)
--- NOTE | 2017-03-13 05:38 | ECGEPIP ---
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
[2017-03-13] MEDS: SLF 3 ML SYR IV SCH ×3 (05:44→21:03)
[2017-03-13 07:24] LABS: ANION GAP 9 MEQ/L (8-16); BLOOD UREA NITROGEN 38 MG/DL (7-18); CALCIUM LEVEL 9.3 MG/DL (8.8-10.2); CARBON DIOXIDE LEVEL 24 MEQ/L (21-32); CHLORIDE LEVEL 107 MEQ/L (98-107); CREATININE FOR GFR 1.22 MG/DL (0.70-1.30); GLOMERULAR FILTRATION RATE > 60.0 (>49); GLUCOSE, FASTING 207 MG/DL (80-110); POTASSIUM SERUM 4.4 MEQ/L (3.5-5.1); SODIUM LEVEL 140 MEQ/L (136-145)
[2017-03-13 08:00] VITALS: BP 133/72
[2017-03-13] MEDS: APIXABAN 5 MG TAB (ELIQUIS) PO SCH ×2 (09:08→21:01)
[2017-03-13] MEDS: ASPIRIN 81 MG ENTERIC TAB PO SCH (09:08)
[2017-03-13] MEDS ORDERED: LEVEMIR (INSULIN DETEMIR) 1 UNITS/0.01ML SC ONE (10:15)
[2017-03-13] MEDS: NS 1,000 ML IV SCH ×2 (10:24→17:35)
--- NOTE | 2017-03-13 10:29 | IPNPDOC ---
Subjective Date Seen The patient was seen on 03/13/17. Subjective Chief Complaint/HPI The patient is a 61-year-old male admitted with a reason for visit of Diabetic Ketoacidoses. Events since last encounter Mr. Husain reports that he feels pretty well this morning. He denies any specific concerns or complaints including abdominal pain or dry mouth. We had a cheryl discussion regarding his disposition. I pointed out that this is his fourth admission in 3 months and his second admission for DKA in the last 2-3 weeks. I explained that the mortality for DKA is reasonably high and it is not safe for him to continue to do this. Based on that information my strong recommendation is that he not go home again, but instead be discharged to a facility that can provide more direct medical care to him. He reluctantly agreed with my assessment. General: Reports: Normal Appetite Constitutional: Denies: Fever Pulmonary: Denies: Cough Cardiovascular: Denies: Chest Pain, Palpitations Genitourinary: Reports: Retention (a Webster was placed last night for retention , since then he has had reasonable output of 100-150 mL per hour.), Denies: Dysuria Psych: Reports: Mood Normal Objective Physical Examination General Exam: Positive: Alert, Cooperative, No Acute Distress, Other (thin/ cachectic appearing) Eye Exam: Positive: Conjunctiva & lids normal, Negative: Sclera icteric ENT Exam: Positive: Mucous membr. moist/pink (although they appear slightly dry (approximately 5% dehydration)) Neck Exam: Negative: Lymphadenopathy Chest Exam: Positive: Clear to auscultation, Normal air movement Heart Exam: Positive: Rate Normal, Normal S1, Normal S2, Negative: Murmurs Abdomen Exam: Positive: Normal bowel sounds, Soft, Negative: Tenderness Extremity Exam: Negative: Edema Psych Exam: Positive: Mood NL Assessment /Plan Problems (1) Diabetic ketoacidosis Status: Acute Response to Treatment: Improving Discussed With: Nurse, Patient Problem Text: His anion gap is closed, his potassium is normalized. I have stopped the D10 which was required for support overnight. I started him on a full liquid consistent carbohydrate diet. I've ordered 14 units of basal insulin and his insulin drip will stop and 2 hours after the administration of the subcutaneous insulin. I continued normal saline at 125 mL an hour. I anticipate that he will be able to transfer out of the ICU once he is off the insulin drip. (2) Lack of family support Status: Chronic Response to Treatment: Uncompensated Discussed With: Nurse, Patient Problem Text: He does not have adequate family support. This has been demonstrated again and again. His has expressed extreme discomfort with caring for him at home. The patient has demonstrated he will not take care of himself appropriately in home environment. I do not believe it will be appropriate to send this patient back to home environment regardless of what he says later on. I strongly believe he needs to be admitted to a group home facility where he'll receive adequate and constant medical care. Perhaps after several weeks or months in that sort of environment he may improve to the point where he would be safe at home, but that's difficult to assess at this moment. My plan for him is to move him to group home facility level as soon as he is medically stable. (3) Acute renal failure Status: Acute Response to Treatment: Improving Problem Text: Improving with IV hydration. We'll continue and monitor. (4) Depression Status: Chronic Response to Treatment: Stable Problem Text: We'll continue him on his mirtazapine, however, I do believe his depression may in part explain why he has some difficulty with accepting that he is not safe in his home environment and why he has continued to cling to the belief that this is adequate support for him. I encourage the case management and PFS team not to get sucked into his delusion this this time. (5) CVA (cerebral vascular accident) Status: Chronic Response to Treatment: Stable Problem Text: There are no specific issues related to CVA now, however do believe this complicates his ability to care for himself at home. (6) T2DM (type 2 diabetes mellitus) Status: Chronic Response to Treatment: Uncontrolled Problem Text: His diabetes is coming under better control as his DKA resolves. We'll continue to monitor carefully and treat. Plan/VTE VTE Prophylaxis Ordered?: Yes (Bashir) Plan/Urinary Catheter Urinary Catheter: Place Webster (is placed for urinary retention. We'll have to try to remove it in 1-2 days and carefully assess whether he is able to urinate adequately.) Reason for insertion/continuin: Acute obstruct/retention Plan IVF: Continue Diet: Advance (2 for liquid consistent carbohydrate) Anticipated Discharge: [facility] VS, I&O, 24H, Fishbone Vital Signs/I&O Vital Signs Date Time Temp Pulse Resp B/P (MAP) Pulse Ox O2 Delivery O2 Flow Rate FiO2 03/13/17 04:00 98.1 69 16 132/88 (103) 97 Room Air 03/13/17 00:00 Laboratory Data 24H LABS Laboratory Tests 2 03/12/17 12:09: Immature Granulocyte % (Auto) 1.0H, White Blood Count 12.6H, Red Blood Count 3.75L, Hemoglobin 11.7L, Hematocrit 37.8L, Mean Corpuscular Volume 100.8H, Mean Corpuscular Hemoglobin 31.2, Mean Corpuscular Hemoglobin Concent 31.0L, Red Cell Distribution Width 15.3H, Platelet Count 537H, Neutrophils (%) (Auto) 92.0H , Lymphocytes (%) (Auto) 4.4L, Monocytes (%) (Auto) 2.1, Eosinophils (%) (Auto) 0.0, Basophils (%) (Auto) 0.5, Neutrophils # (Auto) 11.6H, Lymphocytes # (Auto) 0.6L, Monocytes # (Auto) 0.3, Eosinophils # (Auto) 0.0, Basophils # (Auto) 0.1, Immature Granulocyte # (Auto) 0.1H, Nucleated Red Blood Cells % (auto) 0.0, Anion Gap 30H, Glomerular Filtration Rate 46.5L, Estimated Mean Plasma Glucose 217H, Hemoglobin A1c 9.2H, Osmolality 344H, Calcium Level 10.4H, Phosphorus Level 5.6H, Magnesium Level 2.7H, Aspartate Amino Transf (AST/SGOT) 16, Alanine Aminotransferase (ALT/SGPT) 29, Alkaline Phosphatase 137H, Total Bilirubin 0.7, Direct Bilirubin 0.1, Total Creatine Kinase 92, Creatine Kinase MB 4.1H, Creatine Kinase MB Relative Index 4.45H, Troponin I < 0.02, Total Protein 8.1, Albumin 4.2, Albumin/Globulin Ratio 1.08, Lipase 371, B-Hydroxybutyrate > 46.00H 03/12/17 12:24: Blood Gas Bicarbonate Standard 9.6L, Arterial Blood pH 7.155*L, Arterial Blood Partial Pressure CO2 19.1*L, Arterial Blood Partial Pressure O2 97.6, Arterial Blood Total CO2 7.2L, Arterial Blood HCO3 6.6L, Arterial Blood Base Excess - 20.3L, Arterial Blood Oxygen Saturation 96.1 03/12/17 13:05: Urine Appearance CLEAR, Urine Color YELLOW, Urine pH 5.0, Urine Specific [place] 1.021, Urine Protein NEGATIVE, Urine Glucose (UA) 3+H, Urine Ketones 2+H , Urine Urobilinogen 0.2, Urine Bilirubin NEGATIVE, Urine Leukocyte Esterase NEGATIVE, Urine Blood NEGATIVE, Urine Nitrite NEGATIVE, Urine WBC (Auto) 0, Urine RBC (Auto) 1, Urine Hyaline Casts (Auto) 0, Urine Bacteria (Auto) NEGATIVE , Urine Squamous Epithelial Cells 0, Urine Mucus (Auto) SMALL, Urine Sperm (Auto ) 03/12/17 15:32: Anion Gap 24H, Glomerular Filtration Rate 49.7, Calcium Level 9.6, Blood Urea Nitrogen 44H, Creatinine 1.52H, Sodium Level 134L, Potassium Level 5.2H, Chloride Level 97L, Carbon Dioxide Level 13L 03/12/17 16:33: Bedside Glucose (Misc Panel) 544*H 03/12/17 17:12: Bedside Glucose (Misc Panel) 528*H 03/12/17 18:13: Bedside Glucose (Misc Panel) 432H 03/12/17 19:06: Anion Gap 18H, Glomerular Filtration Rate 46.5L, Blood Urea Nitrogen 43H, Creatinine 1.61H, Sodium Level 134L, Potassium Level 4.9, Chloride Level 100, Carbon Dioxide Level 16L, Calcium Level 10.3H, Total Creatine Kinase 96, Magnesium Level 2.5H, Creatine Kinase MB 4.4H, Creatine Kinase MB Relative Index 4.58H, Troponin I < 0.02 03/12/17 19:28: Bedside Glucose (Misc Panel) 455H 03/12/17 20:10: Bedside Glucose (Misc Panel) 383H 03/12/17 21:03: Bedside Glucose (Misc Panel) 317H 03/12/17 22:17: Bedside Glucose (Misc Panel) 274H 03/12/17 23:00: Bedside Glucose (Misc Panel) 253H 03/12/17 23:09: Anion Gap 6L, Glomerular Filtration Rate 55.6, Blood Urea Nitrogen 41H, Creatinine 1.38H, Sodium Level 139, Potassium Level 4.4, Chloride Level 107, Carbon Dioxide Level 26, Calcium Level 10.0 03/13/17 00:03: Bedside Glucose (Misc Panel) 203H 03/13/17 01:21: Bedside Glucose (Misc Panel) 185H 03/13/17 02:04: Bedside Glucose (Misc Panel) 164H 03/13/17 02:58: Bedside Glucose (Misc Panel) 158H 03/13/17 03:12: Immature Granulocyte % (Auto) 0.3H, White Blood Count 9.0, Red Blood Count 3.21L , Hemoglobin 10.1L, Hematocrit 30.0L, Mean Corpuscular Volume 93.5#, Mean Corpuscular Hemoglobin 31.5, Mean Corpuscular Hemoglobin Concent 33.7, Red Cell Distribution Width 15.0H, Platelet Count 478H, Neutrophils (%) (Auto) 81.5H, Lymphocytes (%) (Auto) 7.6L, Monocytes (%) (Auto) 9.5H, Eosinophils (%) (Auto) 0.7, Basophils (%) (Auto) 0.4, Neutrophils # (Auto) 7.4, Lymphocytes # (Auto) 0.7L, Monocytes # (Auto) 0.9H, Eosinophils # (Auto) 0.1, Basophils # (Auto) 0.0 , Immature Granulocyte # (Auto) 0.0, Nucleated Red Blood Cells % (auto) 0.0, Anion Gap 8, Glomerular Filtration Rate > 60.0, Blood Urea Nitrogen 39H, Creatinine 1.12, Sodium Level 140, Potassium Level 4.0, Chloride Level 106, Carbon Dioxide Level 26, Calcium Level 9.5, Total Creatine Kinase 84, Magnesium Level 2.2, Creatine Kinase MB 3.6, Creatine Kinase MB Relative Index 4.28H, Troponin I < 0.02 03/13/17 04:15: Bedside Glucose (Misc Panel) 139H 03/13/17 04:51: Bedside Glucose (Misc Panel) 149H 03/13/17 05:58: Bedside Glucose (Misc Panel) 161H 03/13/17 06:56: Anion Gap 9, Glomerular Filtration Rate > 60.0, Blood Urea Nitrogen 38H, Creatinine 1.22, Sodium Level 140, Potassium Level 4.4, Chloride Level 107, Carbon Dioxide Level 24, Calcium Level 9.3 03/13/17 06:58: Bedside Glucose (Misc Panel) 156H 03/13/17 07:59: Bedside Glucose (Misc Panel) 212H 03/13/17 09:02: Bedside Glucose (Misc Panel) 199H 03/13/17 09:55: Bedside Glucose (Misc Panel) 227H CBC/BMP Laboratory Tests 03/12/17 12:09 Red Blood Count 3.75 L, Mean Corpuscular Volume 100.8 H, Mean Corpuscular Hemoglobin 31.2, Mean Corpuscular Hemoglobin Concent 31.0 L, Red Cell Distribution Width 15.3 H, Neutrophils (%) (Auto) 92.0 H, Lymphocytes (%) (Auto ) 4.4 L, Monocytes (%) (Auto) 2.1, Eosinophils (%) (Auto) 0.0, Basophils (%) ( Auto) 0.5, Neutrophils # (Auto) 11.6 H, Lymphocytes # (Auto) 0.6 L, Monocytes # (Auto) 0.3, Eosinophils # (Auto) 0.0, Basophils # (Auto) 0.1 03/12/17 15:32 Calcium Level 9.6 03/12/17 19:06 Calcium Level 10.3 H, Total Creatine Kinase 96 03/12/17 23:09 Calcium Level 10.0 03/13/17 03:12 Red Blood Count 3.21 L, Mean Corpuscular Volume 93.5 #, Mean Corpuscular Hemoglobin 31.5, Mean Corpuscular Hemoglobin Concent 33.7, Red Cell Distribution Width 15.0 H, Neutrophils (%) (Auto) 81.5 H, Lymphocytes (%) (Auto ) 7.6 L, Monocytes (%) (Auto) 9.5 H, Eosinophils (%) (Auto) 0.7, Basophils (%) ( Auto) 0.4, Neutrophils # (Auto) 7.4, Lymphocytes # (Auto) 0.7 L, Monocytes # ( Auto) 0.9 H, Eosinophils # (Auto) 0.1, Basophils # (Auto) 0.0, Calcium Level 9.5 , Total Creatine Kinase 84 03/13/17 06:56 Calcium Level 9.3 Microbiology Microbiology 03/12/17 Blood Culture, Received Pending 03/12/17 Blood Culture, Received Pending 03/12/17 Urine Culture - Final, Complete Eddy Guteirrez MD Mar 13, 2017 10:28
[2017-03-13 12:00] VITALS: BP 137/71
[2017-03-13] MEDS ORDERED: DEXTROSE 50% 50 ML SYRINGE IV PRN (12:00)
[2017-03-13] MEDS ORDERED: GLUCAGON FOR INJ 1 MG VIAL (J1610) SC PRN (12:00)
[2017-03-13] MEDS ORDERED: GLUCOSE 4 GM CHEW TABLET PO PRN (12:00)
[2017-03-13] MEDS: HumaLOG INSULIN (NovoLOG) PER UNIT SC SCH ×2 (12:28→17:30)
[2017-03-13 12:32] LABS: ANION GAP 9 MEQ/L (8-16); BLOOD UREA NITROGEN 31 MG/DL (7-18); CALCIUM LEVEL 9.3 MG/DL (8.8-10.2); CARBON DIOXIDE LEVEL 24 MEQ/L (21-32); CHLORIDE LEVEL 105 MEQ/L (98-107); CREATININE FOR GFR 1.11 MG/DL (0.70-1.30); GLOMERULAR FILTRATION RATE > 60.0 (>49); GLUCOSE, FASTING 253 MG/DL (80-110); POTASSIUM SERUM 4.3 MEQ/L (3.5-5.1); SODIUM LEVEL 138 MEQ/L (136-145)
[2017-03-13 14:00] VITALS: BP 137/79
[2017-03-13 19:41] LABS: ANION GAP 10 MEQ/L (8-16); BLOOD UREA NITROGEN 21 MG/DL (7-18); CALCIUM LEVEL 8.4 MG/DL (8.8-10.2); CARBON DIOXIDE LEVEL 22 MEQ/L (21-32); CHLORIDE LEVEL 103 MEQ/L (98-107); CREATININE FOR GFR 0.77 MG/DL (0.70-1.30); GLOMERULAR FILTRATION RATE > 60.0 (>49); GLUCOSE, FASTING 158 MG/DL (80-110); POTASSIUM SERUM 4.1 MEQ/L (3.5-5.1); SODIUM LEVEL 135 MEQ/L (136-145)
[2017-03-13] MEDS ORDERED: HumaLOG INSULIN (NovoLOG) PER UNIT SC SCH (21:00)
[2017-03-13] MEDS ORDERED: LEVEMIR (INSULIN DETEMIR) 1 UNITS/0.01ML SC SCH (21:00)
[2017-03-13] MEDS: ATORVASTATIN 20 MG TAB PO SCH (21:01)
[2017-03-13] MEDS: MIRTAZAPINE 15 MG TAB PO SCH (21:02)
[2017-03-13 22:00] VITALS: BP 136/66
[2017-03-14] MEDS: NS 1,000 ML IV SCH ×3 (00:57→18:15)
[2017-03-14] MEDS: SLF 3 ML SYR IV SCH ×3 (05:09→20:50)
[2017-03-14 06:00] VITALS: BP 116/70
[2017-03-14 06:28] LABS: BASO # 0.1 10^3/uL (0.0-0.2); BASO % 0.7 % (0.0-1.0); EOS # 0.1 10^3/uL (0.0-0.50); EOS % 1.9 % (0.0-3.0); IMMATURE GRANULOCYTE % 0.3 % (0-0); LYMPH # 0.8 10^3/uL (1.5-4.5); LYMPH % 10.9 % (24.0-44.0); MEAN CORPUSCULAR HEMOGLOBIN 31.3 pg (27.0-33.0); MEAN CORPUSCULAR HGB CONC 33.2 g/dl (32.0-36.5); MONO # 0.6 10^3/uL (0.0-0.8); MONO % 8.1 % (0.0-5.0); NEUTROPHILS # 5.6 10^3/uL (1.8-7.7); NEUTROPHILS % 78.1 % (36.0-66.0); PLATELET COUNT, AUTOMATED 411 10^3/uL (150-450); RED CELL DISTRIBUTION WIDTH 15.6 % (11.5-14.5); WHITE BLOOD COUNT 7.2 10^3/uL (4.0-10.0)
[2017-03-14 06:31] LABS: ADD MANUAL DIFFER NO; DIFF SLIDE NUMBER 46
[2017-03-14 06:46] LABS: ALBUMIN 3.2 GM/DL (3.2-5.2); ALBUMIN/GLOBULIN RATIO 0.89 (1.00-1.93); ALKALINE PHOSPHATASE 102 U/L (45-117); ALT/SGPT 27 U/L (12-78); ANION GAP 7 MEQ/L (8-16); AST/SGOT 22 U/L (15-37); BILIRUBIN,TOTAL 0.4 MG/DL (0.2-1.0); BLOOD UREA NITROGEN 13 MG/DL (7-18); CALCIUM LEVEL 8.9 MG/DL (8.8-10.2); CARBON DIOXIDE LEVEL 25 MEQ/L (21-32); CHLORIDE LEVEL 106 MEQ/L (98-107); CREATININE FOR GFR 0.72 MG/DL (0.70-1.30); GLOMERULAR FILTRATION RATE > 60.0 (>49); GLUCOSE, FASTING 67 MG/DL (80-110); MAGNESIUM LEVEL 1.9 MG/DL (1.8-2.4); POTASSIUM SERUM 4.1 MEQ/L (3.5-5.1); SODIUM LEVEL 138 MEQ/L (136-145); TOTAL PROTEIN 6.8 GM/DL (6.4-8.2)
[2017-03-14] MEDS: HumaLOG INSULIN (NovoLOG) PER UNIT SC SCH ×3 (07:30→17:30)
[2017-03-14] MEDS: APIXABAN 5 MG TAB (ELIQUIS) PO SCH ×2 (09:00→20:49)
[2017-03-14] MEDS: LEVEMIR (INSULIN DETEMIR) 1 UNITS/0.01ML SC SCH (09:00)
[2017-03-14] MEDS: ASPIRIN 81 MG ENTERIC TAB PO SCH (09:00)
[2017-03-14 14:00] VITALS: BP 139/78
--- NOTE | 2017-03-14 16:56 | IPNPDOC ---
Subjective Date Seen The patient was seen on 03/14/17. Subjective Chief Complaint/HPI The patient is a 61-year-old male admitted with a reason for visit of Diabetic Ketoacidoses. Events since last encounter Mr. Husain was seen on the floor today. He is doing relatively well. He has tolerated a full liquid diet, unfortunately the diet he's been getting has not been particularly diabetic friendly. His sugars have been a bit elevated today. General: Reports: Fatigue Constitutional: Denies: Chills, Fever Pulmonary: Denies: Cough Cardiovascular: Denies: Chest Pain Psych: Reports: Depression Objective Physical Examination General Exam: Positive: Alert, Cooperative, No Acute Distress, Other (thin/ cachectic appearing) Eye Exam: Positive: Conjunctiva & lids normal, Negative: Sclera icteric ENT Exam: Positive: Mucous membr. moist/pink Neck Exam: Negative: Lymphadenopathy Chest Exam: Positive: Clear to auscultation, Normal air movement Heart Exam: Positive: Rate Normal, Normal S1, Normal S2, Negative: Murmurs Abdomen Exam: Positive: Normal bowel sounds, Soft, Negative: Tenderness Extremity Exam: Negative: Edema Psych Exam: Positive: Other (his affect is very flat and restricted particularly when I bring up the idea of him being discharged to a care facility again.) Assessment /Plan Problems (1) Diabetic ketoacidosis Status: Resolved Response to Treatment: Improving Discussed With: Nurse, Patient Problem Text: The diabetic ketoacidosis now resolved. Now he has poorly controlled diabetes. I'll work on changing his diet to see if we can bring some improvement of his blood glucose levels by more appropriate hospital diet. (2) T2DM (type 2 diabetes mellitus) Status: Chronic Response to Treatment: Uncontrolled Problem Text: His diabetes is still not well controlled although his DKA has resolved. I'll make dietary changes as suggested above. We'll continue to monitor carefully and treat. (3) Lack of family support Status: Chronic Response to Treatment: Uncompensated Discussed With: Nurse, Patient Problem Text: He does not have adequate family support. This has been demonstrated again and again. His has expressed extreme discomfort with caring for him at home. The patient has demonstrated he will not take care of himself appropriately in home environment. I do not believe it will be appropriate to send this patient back to home environment regardless of what he says later on. I strongly believe he needs to be admitted to a custodial facility where he'll receive adequate and constant medical care. Perhaps after several weeks or months in that sort of environment he may improve to the point where he would be safe at home, but that's difficult to assess at this moment. My plan for him is to move him to custodial facility level as soon as he is medically stable. (4) Acute renal failure Status: Resolved Response to Treatment: Improving Problem Text: His renal function is very much improved with IV hydration. We' ll continue and monitor. (5) Depression Status: Chronic Response to Treatment: Stable Problem Text: We'll continue him on his mirtazapine, however, I do believe his depression may in part explain why he has some difficulty with accepting that he is not safe in his home environment and why he has continued to cling to the belief that this is adequate support for him. I encourage the case management and PFS team not to get sucked into his delusion this this time. (6) CVA (cerebral vascular accident) Status: Chronic Response to Treatment: Stable Problem Text: There are no specific issues related to CVA now, however do believe this complicates his ability to care for himself at home. Plan/VTE VTE Prophylaxis Ordered?: Yes (Eliquis) Plan/Urinary Catheter Urinary Catheter: Place Webster (is placed for urinary retention. We'll have to try to remove it in 1-2 days and carefully assess whether he is able to urinate adequately.) Reason for insertion/continuin: Acute obstruct/retention Plan IVF: Continue Diet: Advance (2 for liquid consistent carbohydrate) Anticipated Discharge: Half-Way VS, I&O, 24H, [facility] Vital Signs/I&O Vital Signs Date Time Temp Pulse Resp B/P (MAP) Pulse Ox O2 Delivery O2 Flow Rate FiO2 03/14/17 14:00 98.6 77 18 139/78 (98) 98 Room Air 03/13/17 00:00 I&O- Last 24 Hours up to 6 AM 03/15/17 06:00 Intake Total 1320 ml Balance 1320 ml Laboratory Data 24H LABS Laboratory Tests 2 03/13/17 17:13: Bedside Glucose (Misc Panel) 176H 03/13/17 19:09: Anion Gap 10, Glomerular Filtration Rate > 60.0, Blood Urea Nitrogen 21H, Creatinine 0.77, Sodium Level 135L, Potassium Level 4.1, Chloride Level 103, Carbon Dioxide Level 22, Calcium Level 8.4L 03/13/17 20:14: Bedside Glucose (Misc Panel) 107 03/14/17 05:56: Bedside Glucose (Misc Panel) 34*L 03/14/17 06:00: Bedside Glucose (Misc Panel) 32*L 03/14/17 06:14: Immature Granulocyte % (Auto) 0.3H, White Blood Count 7.2, Red Blood Count 3.52L , Hemoglobin 11.0L, Hematocrit 33.1L, Mean Corpuscular Volume 94.0, Mean Corpuscular Hemoglobin 31.3, Mean Corpuscular Hemoglobin Concent 33.2, Red Cell Distribution Width 15.6H, Platelet Count 411, Neutrophils (%) (Auto) 78.1H, Lymphocytes (%) (Auto) 10.9L, Monocytes (%) (Auto) 8.1H, Eosinophils (%) (Auto) 1.9, Basophils (%) (Auto) 0.7, Neutrophils # (Auto) 5.6, Lymphocytes # (Auto) 0.8L, Monocytes # (Auto) 0.6, Eosinophils # (Auto) 0.1, Basophils # (Auto) 0.1, Immature Granulocyte # (Auto) 0.0, Nucleated Red Blood Cells % (auto) 0.0, Anion Gap 7L, Glomerular Filtration Rate > 60.0, Blood Urea Nitrogen 13, Creatinine 0.72, Sodium Level 138, Potassium Level 4.1, Chloride Level 106, Carbon Dioxide Level 25, Calcium Level 8.9, Aspartate Amino Transf (AST/SGOT) 22 , Alanine Aminotransferase (ALT/SGPT) 27, Alkaline Phosphatase 102, Total Bilirubin 0.4, Total Protein 6.8, Albumin 3.2#, Magnesium Level 1.9, Albumin/ Globulin Ratio 0.89L 03/14/17 09:54: Bedside Glucose (Misc Panel) 322H 03/14/17 11:26: Bedside Glucose (Misc Panel) 294H CBC/BMP Laboratory Tests 03/13/17 19:09 Calcium Level 8.4 L 03/14/17 06:14 Calcium Level 8.9, Red Blood Count 3.52 L, Mean Corpuscular Volume 94.0, Mean Corpuscular Hemoglobin 31.3, Mean Corpuscular Hemoglobin Concent 33.2, Red Cell Distribution Width 15.6 H, Neutrophils (%) (Auto) 78.1 H, Lymphocytes (%) (Auto ) 10.9 L, Monocytes (%) (Auto) 8.1 H, Eosinophils (%) (Auto) 1.9, Basophils (%) (Auto) 0.7, Neutrophils # (Auto) 5.6, Lymphocytes # (Auto) 0.8 L, Monocytes # ( Auto) 0.6, Eosinophils # (Auto) 0.1, Basophils # (Auto) 0.1, Aspartate Amino Transf (AST/SGOT) 22, Alanine Aminotransferase (ALT/SGPT) 27, Alkaline Phosphatase 102, Total Bilirubin 0.4, Total Protein 6.8, Albumin 3.2 # Microbiology Microbiology 03/12/17 Blood Culture - Preliminary, Resulted No Growth after 48 hours. All Specime... 03/12/17 Blood Culture - Preliminary, Resulted No Growth after 48 hours. All Specime... 03/12/17 Urine Culture - Final, Complete Eddy Gutierrez MD Mar 14, 2017 16:56
[2017-03-14] MEDS: ATORVASTATIN 20 MG TAB PO SCH (20:49)
[2017-03-14] MEDS: MIRTAZAPINE 15 MG TAB PO SCH (20:49)
[2017-03-14 22:00] VITALS: BP 132/80
[2017-03-15] MEDS: NS 1,000 ML IV SCH ×3 (01:56→18:20)
[2017-03-15] MEDS: SLF 3 ML SYR IV SCH ×3 (05:59→20:53)
[2017-03-15 06:00] VITALS: BP 130/84
[2017-03-15 06:06] LABS: BASO % 0.9 % (0.0-1.0); EOS # 0.1 10^3/uL (0.0-0.50); EOS % 2.8 % (0.0-3.0); IMMATURE GRANULOCYTE % 0.5 % (0-0); LYMPH # 0.6 10^3/uL (1.5-4.5); LYMPH % 14.5 % (24.0-44.0); MEAN CORPUSCULAR HEMOGLOBIN 31.3 pg (27.0-33.0); MEAN CORPUSCULAR HGB CONC 33.5 g/dl (32.0-36.5); MEAN CORPUSCULAR VOLUME 93.3 fl (80.0-96.0); MONO # 0.4 10^3/uL (0.0-0.8); MONO % 8.8 % (0.0-5.0); NEUTROPHILS # 3.1 10^3/uL (1.8-7.7); NEUTROPHILS % 72.5 % (36.0-66.0); PLATELET COUNT, AUTOMATED 377 10^3/uL (150-450); RED CELL DISTRIBUTION WIDTH 15.2 % (11.5-14.5); WHITE BLOOD COUNT 4.2 10^3/uL (4.0-10.0)
[2017-03-15] MEDS: LEVEMIR (INSULIN DETEMIR) 1 UNITS/0.01ML SC SCH (08:07)
[2017-03-15] MEDS: HumaLOG INSULIN (NovoLOG) PER UNIT SC SCH ×3 (08:07→16:52)
[2017-03-15] MEDS: APIXABAN 5 MG TAB (ELIQUIS) PO SCH ×2 (08:07→20:52)
[2017-03-15] MEDS: ASPIRIN 81 MG ENTERIC TAB PO SCH (08:07)
[2017-03-15 14:00] VITALS: BP 147/88
[2017-03-15] MEDS: MIRTAZAPINE 15 MG TAB PO SCH (20:52)
[2017-03-15] MEDS: ATORVASTATIN 20 MG TAB PO SCH (20:52)
[2017-03-15 22:00] VITALS: BP 160/90
[2017-03-16] MEDS: NS 1,000 ML IV SCH ×2 (02:23→09:09)
--- NOTE | 2017-03-16 03:13 | IPNPDOC ---
Subjective Date Seen The patient was seen on 03/15/17. Subjective Chief Complaint/HPI The patient is a 61-year-old male admitted with a reason for visit of Diabetic Ketoacidoses. Events since last encounter Patient denied any complaints, states that he does not know why his blood sugars were so uncontrolled at home. He states that he thinks that he was taking insulin appropriately, and eating appropriate foods. States that he has not heard anything about DC to anywhere but home. General: Reports: Normal Appetite Constitutional: Denies: Chills, Fever, Malaise Pulmonary: Denies: Dyspnea, Cough Cardiovascular: Denies: Chest Pain Gastrointestinal: Denies: Nausea, Vomiting, Diarrhea, Constipation Genitourinary: Denies: Dysuria Objective Physical Examination General Exam: Positive: Alert, Cooperative, No Acute Distress, Other (thin/ cachectic appearing) Eye Exam: Positive: Conjunctiva & lids normal, Negative: Sclera icteric Neck Exam: Negative: Lymphadenopathy Chest Exam: Positive: Clear to auscultation, Normal air movement Heart Exam: Positive: Rate Normal, Normal S1, Normal S2, Negative: Murmurs Abdomen Exam: Positive: Normal bowel sounds, Soft, Negative: Tenderness Extremity Exam: Negative: Edema Psych Exam: Positive: Mood NL Assessment /Plan Problems (1) Lack of family support Status: Chronic Response to Treatment: Uncompensated Discussed With: Nurse, Patient Problem Text: He does not have adequate family support. This has been demonstrated again and again. His has expressed extreme discomfort with caring for him at home. The patient has demonstrated he will not take care of himself appropriately in home environment. I do not believe it will be appropriate to send this patient back to home environment regardless of what he says later on. I strongly believe he needs to be admitted to a care home facility where he'll receive adequate and constant medical care. Perhaps after several weeks or months in that sort of environment he may improve to the point where he would be safe at home, but that's difficult to assess at this moment. My plan for him is to move him to care home facility level as soon as he is medically stable. (2) Acute renal failure Status: Acute Response to Treatment: Improving Problem Text: Improving with IV hydration. We'll continue and monitor. (3) Depression Status: Chronic Response to Treatment: Stable Problem Text: We'll continue him on his mirtazapine, however, I do believe his depression may in part explain why he has some difficulty with accepting that he is not safe in his home environment and why he has continued to cling to the belief that this is adequate support for him. I encourage the case management and PFS team not to get sucked into his delusion this this time. (4) CVA (cerebral vascular accident) Status: Chronic Response to Treatment: Stable Problem Text: There are no specific issues related to CVA now, however do believe this complicates his ability to care for himself at home. (5) T2DM (type 2 diabetes mellitus) Status: Chronic Response to Treatment: Uncontrolled Problem Text: 03/15 -- Decreased long-acting insulin because of early-a.m. hypoglycemia. Will continue to adjust. His diabetes is coming under better control as his DKA resolves. We'll continue to monitor carefully and treat. (6) Diabetic ketoacidosis Status: Resolved Response to Treatment: Improving Discussed With: Nurse, Patient Problem Text: His anion gap is closed, his potassium is normalized. I have stopped the D10 which was required for support overnight. I started him on a full liquid consistent carbohydrate diet. I've ordered 14 units of basal insulin and his insulin drip will stop and 2 hours after the administration of the subcutaneous insulin. I continued normal saline at 125 mL an hour. I anticipate that he will be able to transfer out of the ICU once he is off the insulin drip. Plan/VTE VTE Prophylaxis Ordered?: Yes (Eliquis) Plan/Urinary Catheter Urinary Catheter: Place Webster (is placed for urinary retention. We'll have to try to remove it in 1-2 days and carefully assess whether he is able to urinate adequately.) Reason for insertion/continuin: Acute obstruct/retention Plan IVF: Continue Diet: Advance (2 for liquid consistent carbohydrate) Anticipated Discharge: Care Home VS, I&O, 24H, Alf Vital Signs/I&O Vital Signs Date Time Temp Pulse Resp B/P (MAP) Pulse Ox O2 Delivery O2 Flow Rate FiO2 03/15/17 14:00 97.1 77 18 147/88 (107) 96 Room Air 03/13/17 00:00 Laboratory Data 24H LABS Laboratory Tests 2 03/15/17 05:42: Immature Granulocyte % (Auto) 0.5H, White Blood Count 4.2, Red Blood Count 3.45L , Hemoglobin 10.8L, Hematocrit 32.2L, Mean Corpuscular Volume 93.3, Mean Corpuscular Hemoglobin 31.3, Mean Corpuscular Hemoglobin Concent 33.5, Red Cell Distribution Width 15.2H, Platelet Count 377, Neutrophils (%) (Auto) 72.5H, Lymphocytes (%) (Auto) 14.5L, Monocytes (%) (Auto) 8.8H, Eosinophils (%) (Auto) 2.8, Basophils (%) (Auto) 0.9, Neutrophils # (Auto) 3.1, Lymphocytes # (Auto) 0.6L, Monocytes # (Auto) 0.4, Eosinophils # (Auto) 0.1, Basophils # (Auto) 0.0, Immature Granulocyte # (Auto) 0.0, Nucleated Red Blood Cells % (auto) 0.0 03/15/17 07:05: Bedside Glucose (Misc Panel) 229H 03/15/17 11:42: Bedside Glucose (Misc Panel) 204H 03/15/17 16:30: Bedside Glucose (Misc Panel) 90 03/15/17 20:56: Bedside Glucose (Misc Panel) 127H CBC/BMP Laboratory Tests 03/15/17 05:42 Red Blood Count 3.45 L, Mean Corpuscular Volume 93.3, Mean Corpuscular Hemoglobin 31.3, Mean Corpuscular Hemoglobin Concent 33.5, Red Cell Distribution Width 15.2 H, Neutrophils (%) (Auto) 72.5 H, Lymphocytes (%) (Auto ) 14.5 L, Monocytes (%) (Auto) 8.8 H, Eosinophils (%) (Auto) 2.8, Basophils (%) (Auto) 0.9, Neutrophils # (Auto) 3.1, Lymphocytes # (Auto) 0.6 L, Monocytes # ( Auto) 0.4, Eosinophils # (Auto) 0.1, Basophils # (Auto) 0.0 Microbiology Microbiology 03/12/17 Blood Culture - Preliminary, Resulted No Growth after 72 hours. All specime... 03/12/17 Blood Culture - Preliminary, Resulted No Growth after 72 hours. All specime... 03/12/17 Urine Culture - Final, Complete AINSLEY LO DO Mar 16, 2017 03:13
[2017-03-16] MEDS: SLF 3 ML SYR IV SCH ×3 (05:34→21:07)
[2017-03-16 06:00] VITALS: BP 110/76
[2017-03-16 08:36] LABS: ALBUMIN 2.8 GM/DL (3.2-5.2); ALBUMIN/GLOBULIN RATIO 0.88 (1.00-1.93); ALKALINE PHOSPHATASE 106 U/L (45-117); ALT/SGPT 23 U/L (12-78); ANION GAP 4 MEQ/L (8-16); AST/SGOT 9 U/L (15-37); BILIRUBIN,TOTAL 0.4 MG/DL (0.2-1.0); BLOOD UREA NITROGEN 7 MG/DL (7-18); CALCIUM LEVEL 9.4 MG/DL (8.8-10.2); CARBON DIOXIDE LEVEL 30 MEQ/L (21-32); CHLORIDE LEVEL 99 MEQ/L (98-107); CREATININE FOR GFR 0.59 MG/DL (0.70-1.30); GLOMERULAR FILTRATION RATE > 60.0 (>49); GLUCOSE, FASTING 333 MG/DL (80-110); POTASSIUM SERUM 4.8 MEQ/L (3.5-5.1); SODIUM LEVEL 133 MEQ/L (136-145)
[2017-03-16 08:39] LABS: MEAN CORPUSCULAR HEMOGLOBIN 30.7 pg (27.0-33.0); MEAN CORPUSCULAR HGB CONC 33.2 g/dl (32.0-36.5); MEAN CORPUSCULAR VOLUME 92.5 fl (80.0-96.0); RED CELL DISTRIBUTION WIDTH 15.2 % (11.5-14.5); WHITE BLOOD COUNT 4.8 10^3/uL (4.0-10.0)
[2017-03-16] MEDS: HumaLOG INSULIN (NovoLOG) PER UNIT SC SCH ×3 (09:08→17:30)
[2017-03-16] MEDS: LEVEMIR (INSULIN DETEMIR) 1 UNITS/0.01ML SC SCH (09:08)
[2017-03-16] MEDS: ASPIRIN 81 MG ENTERIC TAB PO SCH (09:09)
[2017-03-16] MEDS: APIXABAN 5 MG TAB (ELIQUIS) PO SCH ×2 (09:09→21:06)
[2017-03-16 14:00] VITALS: BP 143/80
[2017-03-16] MEDS: MIRTAZAPINE 15 MG TAB PO SCH (21:06)
[2017-03-16] MEDS: ATORVASTATIN 20 MG TAB PO SCH (21:06)
[2017-03-16 22:00] VITALS: BP 109/60
--- NOTE | 2017-03-17 01:28 | IPNPDOC ---
Subjective Date Seen The patient was seen on 03/16/17. Subjective Chief Complaint/HPI The patient is a 61-year-old male admitted with a reason for visit of Diabetic Ketoacidoses. Events since last encounter Blood glucose continues to be uncontrolled, demonstrating both hypo and hyperglycemia in the last couple days. Patient denies any changes to his eating , nursing states sometimes he has an appetite, and sometimes he picks. He is on a consistent carb diet. Constitutional: Reports: Fatigue, Denies: Chills, Fever Skin: Denies: Rash Pulmonary: Denies: Dyspnea, Cough Gastrointestinal: Denies: Nausea, Vomiting, Diarrhea, Constipation Objective Physical Examination General Exam: Positive: Alert, Cooperative, No Acute Distress, Other (thin/ cachectic appearing) Eye Exam: Positive: Conjunctiva & lids normal, Negative: Sclera icteric Neck Exam: Negative: Lymphadenopathy Chest Exam: Positive: Clear to auscultation, Normal air movement Heart Exam: Positive: Rate Normal, Normal S1, Normal S2, Negative: Murmurs Abdomen Exam: Positive: Normal bowel sounds, Soft, Negative: Tenderness Extremity Exam: Negative: Edema Psych Exam: Positive: Mood NL Assessment /Plan Problems (1) Lack of family support Status: Chronic Response to Treatment: Uncompensated Discussed With: Nurse, Patient Problem Text: He does not have adequate family support. This has been demonstrated again and again. His has expressed extreme discomfort with caring for him at home. The patient has demonstrated he will not take care of himself appropriately in home environment. I do not believe it will be appropriate to send this patient back to home environment regardless of what he says later on. I strongly believe he needs to be admitted to a [facility] facility where he'll receive adequate and constant medical care. Perhaps after several weeks or months in that sort of environment he may improve to the point where he would be safe at home, but that's difficult to assess at this moment. My plan for him is to move him to [facility] facility level as soon as he is medically stable. (2) Acute renal failure Status: Acute Response to Treatment: Improving Problem Text: Improving with IV hydration. We'll continue and monitor. (3) Depression Status: Chronic Response to Treatment: Stable Problem Text: We'll continue him on his mirtazapine, however, I do believe his depression may in part explain why he has some difficulty with accepting that he is not safe in his home environment and why he has continued to cling to the belief that this is adequate support for him. I encourage the case management and PFS team not to get sucked into his delusion this this time. (4) CVA (cerebral vascular accident) Status: Chronic Response to Treatment: Stable Problem Text: There are no specific issues related to CVA now, however do believe this complicates his ability to care for himself at home. (5) T2DM (type 2 diabetes mellitus) Status: Chronic Response to Treatment: Uncontrolled Problem Text: 03/16 -- DM still uncontrolled. Will check for gastroparesis. I am also changing to Humalog (depending on whether or not the patient has eaten much), as recommended in October office note. 03/15 -- Decreased long-acting insulin because of early-a.m. hypoglycemia. Will continue to adjust. His diabetes is coming under better control as his DKA resolves. We'll continue to monitor carefully and treat. (6) Diabetic ketoacidosis Status: Resolved Response to Treatment: Improving Discussed With: Nurse, Patient Problem Text: His anion gap is closed, his potassium is normalized. I have stopped the D10 which was required for support overnight. I started him on a full liquid consistent carbohydrate diet. I've ordered 14 units of basal insulin and his insulin drip will stop and 2 hours after the administration of the subcutaneous insulin. I continued normal saline at 125 mL an hour. I anticipate that he will be able to transfer out of the ICU once he is off the insulin drip. Plan/VTE VTE Prophylaxis Ordered?: Yes (Eliquis) Plan/Urinary Catheter Urinary Catheter: Place Webster (is placed for urinary retention. We'll have to try to remove it in 1-2 days and carefully assess whether he is able to urinate adequately.) Reason for insertion/continuin: Acute obstruct/retention Plan IVF: Continue Diet: Advance (2 for liquid consistent carbohydrate) Anticipated Discharge: Residential VS, I&O, 24H, Alf Vital Signs/I&O Vital Signs Date Time Temp Pulse Resp B/P (MAP) Pulse Ox O2 Delivery O2 Flow Rate FiO2 03/16/17 22:00 98.1 72 18 109/60 (76) 92 Room Air 03/13/17 00:00 Laboratory Data 24H LABS Laboratory Tests 2 03/16/17 07:32: Anion Gap 4L, Glomerular Filtration Rate > 60.0, Blood Urea Nitrogen 7, Creatinine 0.59L, Sodium Level 133L, Potassium Level 4.8, Chloride Level 99, Carbon Dioxide Level 30, Calcium Level 9.4, Aspartate Amino Transf (AST/SGOT) 9L , Alanine Aminotransferase (ALT/SGPT) 23, Alkaline Phosphatase 106, Total Bilirubin 0.4, Total Protein 6.0L, Albumin 2.8L, Albumin/Globulin Ratio 0.88L 03/16/17 11:37: Bedside Glucose (Misc Panel) 326H 03/16/17 16:40: Bedside Glucose (Misc Panel) 175H 03/16/17 21:07: Bedside Glucose (Misc Panel) 54L 03/16/17 21:56: Bedside Glucose (Misc Panel) 85 CBC/BMP Laboratory Tests 03/16/17 07:32 Red Blood Count 3.61 L, Mean Corpuscular Volume 92.5, Mean Corpuscular Hemoglobin 30.7, Mean Corpuscular Hemoglobin Concent 33.2, Red Cell Distribution Width 15.2 H, Calcium Level 9.4, Aspartate Amino Transf (AST/SGOT) 9 L, Alanine Aminotransferase (ALT/SGPT) 23, Alkaline Phosphatase 106, Total Bilirubin 0.4, Total Protein 6.0 L, Albumin 2.8 L Microbiology Microbiology 03/12/17 Blood Culture - Preliminary, Resulted No Growth after 72 hours. All specime... 03/12/17 Blood Culture - Preliminary, Resulted No Growth after 72 hours. All specime... 03/12/17 Urine Culture - Final, Complete AINSLEY LO DO Mar 17, 2017 01:28
[2017-03-17] MEDS: SLF 3 ML SYR IV SCH ×3 (05:21→20:04)
[2017-03-17 06:00] VITALS: BP 166/78
[2017-03-17 06:57] LABS: MEAN CORPUSCULAR HEMOGLOBIN 31.2 pg (27.0-33.0); MEAN CORPUSCULAR HGB CONC 33.4 g/dl (32.0-36.5); MEAN CORPUSCULAR VOLUME 93.4 fl (80.0-96.0); RED CELL DISTRIBUTION WIDTH 15.3 % (11.5-14.5); WHITE BLOOD COUNT 7.3 10^3/uL (4.0-10.0)
[2017-03-17 07:20] LABS: ALBUMIN 3.1 GM/DL (3.2-5.2); ALBUMIN/GLOBULIN RATIO 0.94 (1.00-1.93); ALKALINE PHOSPHATASE 110 U/L (45-117); ALT/SGPT 25 U/L (12-78); ANION GAP 7 MEQ/L (8-16); AST/SGOT 9 U/L (15-37); BILIRUBIN,TOTAL 0.2 MG/DL (0.2-1.0); BLOOD UREA NITROGEN 11 MG/DL (7-18); CALCIUM LEVEL 9.7 MG/DL (8.8-10.2); CARBON DIOXIDE LEVEL 30 MEQ/L (21-32); CHLORIDE LEVEL 96 MEQ/L (98-107); GLOMERULAR FILTRATION RATE > 60.0 (>49); GLUCOSE, FASTING 384 MG/DL (80-110); POTASSIUM SERUM 4.9 MEQ/L (3.5-5.1); SODIUM LEVEL 133 MEQ/L (136-145); TOTAL PROTEIN 6.4 GM/DL (6.4-8.2)
[2017-03-17] MEDS: HumaLOG INSULIN (NovoLOG) PER UNIT SC SCH ×6 (07:30→18:01)
[2017-03-17] MEDS: ASPIRIN 81 MG ENTERIC TAB PO SCH (09:00)
[2017-03-17] MEDS: LEVEMIR (INSULIN DETEMIR) 1 UNITS/0.01ML SC SCH (12:50)
[2017-03-17] MEDS: APIXABAN 5 MG TAB (ELIQUIS) PO SCH ×2 (12:52→20:04)
--- NOTE | 2017-03-17 13:24 | REP ---
Gastric emptying nuclear scintigraphy: History: Weight loss. Technique: 0.879 mCi of technetium-99m sulfur colloid was ingested in two scrambled eggs and 6 ounces of water and sequential anterior and posterior images are acquired for an 89-minute imaging observation period. Regions of interest are drawn around the stomach to plot gastric emptying. Scintigraphic findings: Expected T1/2 is 90 minutes. 51 % emptying is observed in this patient during the 89-minute imaging observation period, for a calculated T1/2 in this patient of 108 minutes. Gastroesophageal reflux is observed. Impression: Normal gastric emptying. Gastroesophageal reflux is observed. Signed by Shun King MD 03/17/2017 01:15 P
[2017-03-17 14:00] VITALS: BP 129/72
[2017-03-17] MEDS: ATORVASTATIN 20 MG TAB PO SCH (20:03)
[2017-03-17] MEDS: MIRTAZAPINE 15 MG TAB PO SCH (20:04)
[2017-03-17 22:00] VITALS: BP 124/76
--- NOTE | 2017-03-18 02:55 | IPNPDOC ---
Subjective Date Seen The patient was seen on 03/17/17. Subjective Chief Complaint/HPI The patient is a 61-year-old male admitted with a reason for visit of Diabetic Ketoacidoses. Events since last encounter Denies complaint. Blood glucose has been consistently high after adjustment of AC insulin. Nursing reports no known stashes of food in patient's room. Constitutional: Denies: Chills, Fever ENT: Denies: Head Aches Pulmonary: Denies: Dyspnea, Cough Cardiovascular: Denies: Chest Pain Gastrointestinal: Denies: Nausea, Vomiting, Diarrhea, Constipation Genitourinary: Denies: Dysuria Objective Physical Examination General Exam: Positive: Alert, Cooperative, No Acute Distress, Other (thin/ cachectic appearing) Eye Exam: Positive: Conjunctiva & lids normal, Negative: Sclera icteric Neck Exam: Negative: Lymphadenopathy Chest Exam: Positive: Clear to auscultation, Normal air movement Heart Exam: Positive: Rate Normal, Normal S1, Normal S2, Negative: Murmurs Abdomen Exam: Positive: Normal bowel sounds, Soft, Negative: Tenderness Extremity Exam: Negative: Edema Psych Exam: Positive: Mood NL Assessment /Plan Problems (1) Lack of family support Status: Chronic Response to Treatment: Uncompensated Discussed With: Nurse, Patient Problem Text: He does not have adequate family support. This has been demonstrated again and again. His has expressed extreme discomfort with caring for him at home. The patient has demonstrated he will not take care of himself appropriately in home environment. I do not believe it will be appropriate to send this patient back to home environment regardless of what he says later on. I strongly believe he needs to be admitted to a assisted facility where he'll receive adequate and constant medical care. Perhaps after several weeks or months in that sort of environment he may improve to the point where he would be safe at home, but that's difficult to assess at this moment. My plan for him is to move him to assisted facility level as soon as he is medically stable. (2) Acute renal failure Status: Acute Response to Treatment: Improving Problem Text: Improving with IV hydration. We'll continue and monitor. (3) Depression Status: Chronic Response to Treatment: Stable Problem Text: We'll continue him on his mirtazapine, however, I do believe his depression may in part explain why he has some difficulty with accepting that he is not safe in his home environment and why he has continued to cling to the belief that this is adequate support for him. I encourage the case management and PFS team not to get sucked into his delusion this this time. (4) CVA (cerebral vascular accident) Status: Chronic Response to Treatment: Stable Problem Text: There are no specific issues related to CVA now, however do believe this complicates his ability to care for himself at home. (5) T2DM (type 2 diabetes mellitus) Status: Chronic Response to Treatment: Uncontrolled Problem Text: 03/17 -- Only hyperglycemia on lower dose of Humalog. No gastroparesis. Since no hypoglycemia, will increase Levemir. 03/16 -- DM still uncontrolled. Will check for gastroparesis. I am also changing to Humalog (depending on whether or not the patient has eaten much), as recommended in October office note. 03/15 -- Decreased long-acting insulin because of early-a.m. hypoglycemia. Will continue to adjust. His diabetes is coming under better control as his DKA resolves. We'll continue to monitor carefully and treat. (6) Diabetic ketoacidosis Status: Resolved Response to Treatment: Improving Discussed With: Nurse, Patient Problem Text: His anion gap is closed, his potassium is normalized. I have stopped the D10 which was required for support overnight. I started him on a full liquid consistent carbohydrate diet. I've ordered 14 units of basal insulin and his insulin drip will stop and 2 hours after the administration of the subcutaneous insulin. I continued normal saline at 125 mL an hour. I anticipate that he will be able to transfer out of the ICU once he is off the insulin drip. Plan/VTE VTE Prophylaxis Ordered?: Yes (Eliquis) Plan/Urinary Catheter Urinary Catheter: Place Webster (is placed for urinary retention. We'll have to try to remove it in 1-2 days and carefully assess whether he is able to urinate adequately.) Reason for insertion/continuin: Acute obstruct/retention Plan IVF: Continue Diet: Advance (2 for liquid consistent carbohydrate) Anticipated Discharge: Custodial VS, I&O, 24H, Fishbone Vital Signs/I&O Vital Signs Date Time Temp Pulse Resp B/P (MAP) Pulse Ox O2 Delivery O2 Flow Rate FiO2 03/17/17 22:00 98.5 77 16 124/76 (92) 98 Room Air 10/7/17 00:00 Laboratory Data 24H LABS Laboratory Tests 2 03/17/17 06:43: Bedside Glucose (Misc Panel) 326H 03/17/17 06:46: Anion Gap 7L, Glomerular Filtration Rate > 60.0, Blood Urea Nitrogen 11#, Creatinine 0.70, Sodium Level 133L, Potassium Level 4.9, Chloride Level 96L, Carbon Dioxide Level 30, Calcium Level 9.7, Aspartate Amino Transf (AST/SGOT) 9L , Alanine Aminotransferase (ALT/SGPT) 25, Alkaline Phosphatase 110, Total Bilirubin 0.2, Total Protein 6.4, Albumin 3.1L, Albumin/Globulin Ratio 0.94L 03/17/17 09:50: Bedside Glucose (Misc Panel) 395H 03/17/17 12:30: Bedside Glucose (Misc Panel) 348H 03/17/17 16:59: Bedside Glucose (Misc Panel) 222H 03/17/17 19:26: Bedside Glucose (Misc Panel) 227H CBC/BMP Laboratory Tests 03/17/17 06:46 Red Blood Count 3.65 L, Mean Corpuscular Volume 93.4, Mean Corpuscular Hemoglobin 31.2, Mean Corpuscular Hemoglobin Concent 33.4, Red Cell Distribution Width 15.3 H, Calcium Level 9.7, Aspartate Amino Transf (AST/SGOT) 9 L, Alanine Aminotransferase (ALT/SGPT) 25, Alkaline Phosphatase 110, Total Bilirubin 0.2, Total Protein 6.4, Albumin 3.1 L Microbiology Microbiology 03/12/17 Blood Culture - Final, Complete NO GROWTH AFTER 5 DAYS 03/12/17 Blood Culture - Final, Complete NO GROWTH AFTER 5 DAYS 03/12/17 Urine Culture - Final, Complete AINSLEY LO DO Mar 18, 2017 02:55
[2017-03-18] MEDS: SLF 3 ML SYR IV SCH ×3 (05:53→20:53)
[2017-03-18 06:00] VITALS: BP 127/73
[2017-03-18 07:02] LABS: MEAN CORPUSCULAR HEMOGLOBIN 30.5 pg (27.0-33.0); MEAN CORPUSCULAR HGB CONC 32.6 g/dl (32.0-36.5); MEAN CORPUSCULAR VOLUME 93.6 fl (80.0-96.0); RED CELL DISTRIBUTION WIDTH 15.7 % (11.5-14.5); WHITE BLOOD COUNT 4.7 10^3/uL (4.0-10.0)
[2017-03-18 07:28] LABS: ALBUMIN 3.1 GM/DL (3.2-5.2); ALBUMIN/GLOBULIN RATIO 1.07 (1.00-1.93); ALKALINE PHOSPHATASE 107 U/L (45-117); ALT/SGPT 25 U/L (12-78); ANION GAP 7 MEQ/L (8-16); AST/SGOT 11 U/L (15-37); BILIRUBIN,TOTAL 0.3 MG/DL (0.2-1.0); BLOOD UREA NITROGEN 12 MG/DL (7-18); CALCIUM LEVEL 9.2 MG/DL (8.8-10.2); CARBON DIOXIDE LEVEL 31 MEQ/L (21-32); CHLORIDE LEVEL 98 MEQ/L (98-107); CREATININE FOR GFR 0.72 MG/DL (0.70-1.30); GLOMERULAR FILTRATION RATE > 60.0 (>49); GLUCOSE, FASTING 282 MG/DL (80-110); SODIUM LEVEL 136 MEQ/L (136-145)
[2017-03-18] MEDS: HumaLOG INSULIN (NovoLOG) PER UNIT SC SCH ×6 (07:30→17:30)
[2017-03-18] MEDS: APIXABAN 5 MG TAB (ELIQUIS) PO SCH ×2 (08:17→20:52)
[2017-03-18] MEDS: ASPIRIN 81 MG ENTERIC TAB PO SCH (08:17)
[2017-03-18] MEDS ORDERED: LEVEMIR (INSULIN DETEMIR) 1 UNITS/0.01ML SC SCH (09:00)
[2017-03-18 14:00] VITALS: BP 122/74
[2017-03-18] MEDS: MIRTAZAPINE 15 MG TAB PO SCH (20:53)
[2017-03-18] MEDS: ATORVASTATIN 20 MG TAB PO SCH (20:53)
[2017-03-18 22:00] VITALS: BP 131/76
--- NOTE | 2017-03-19 01:02 | IPNPDOC ---
Subjective Date Seen The patient was seen on 03/18/17. Subjective Chief Complaint/HPI The patient is a 61-year-old male admitted with a reason for visit of Diabetic Ketoacidoses. Events since last encounter Patient is lying in bed, blanket over his head, and not happy to talk to me today. Denied having any complaints, though contradicting himself in ROS. He clearly was offering whatever answer thought would make me leave faster. I do not trust today's ROS. General: Reports: ROS Unobtainable Objective Physical Examination General Exam: Positive: Alert, Cooperative, No Acute Distress, Other (thin/ cachectic appearing) Eye Exam: Positive: Conjunctiva & lids normal, Negative: Sclera icteric Neck Exam: Negative: Lymphadenopathy Chest Exam: Positive: Clear to auscultation, Normal air movement Heart Exam: Positive: Rate Normal, Normal S1, Normal S2, Negative: Murmurs Abdomen Exam: Positive: Normal bowel sounds, Soft, Negative: Tenderness Extremity Exam: Negative: Edema Psych Exam: Positive: Mood NL Assessment /Plan Problems (1) Lack of family support Status: Chronic Response to Treatment: Uncompensated Discussed With: Nurse, Patient Problem Text: He does not have adequate family support. This has been demonstrated again and again. His has expressed extreme discomfort with caring for him at home. The patient has demonstrated he will not take care of himself appropriately in home environment. I do not believe it will be appropriate to send this patient back to home environment regardless of what he says later on. I strongly believe he needs to be admitted to a residential facility where he'll receive adequate and constant medical care. Perhaps after several weeks or months in that sort of environment he may improve to the point where he would be safe at home, but that's difficult to assess at this moment. My plan for him is to move him to residential facility level as soon as he is medically stable. (2) Acute renal failure Status: Resolved Response to Treatment: Improving Problem Text: Improving with IV hydration. We'll continue and monitor. (3) T2DM (type 2 diabetes mellitus) Status: Chronic Response to Treatment: Uncontrolled Problem Text: 03/18 -- increased long-acting in the a.m. Overall, blood glucose lower now than previously. 03/17 -- Only hyperglycemia on lower dose of Humalog. No gastroparesis. Since no hypoglycemia, will increase Levemir. 03/16 -- DM still uncontrolled. Will check for gastroparesis. I am also changing to Humalog (depending on whether or not the patient has eaten much), as recommended in May office note. 03/15 -- Decreased long-acting insulin because of early-a.m. hypoglycemia. Will continue to adjust. His diabetes is coming under better control as his DKA resolves. We'll continue to monitor carefully and treat. (4) Depression Status: Chronic Response to Treatment: Stable Problem Text: We'll continue him on his mirtazapine, however, I do believe his depression may in part explain why he has some difficulty with accepting that he is not safe in his home environment and why he has continued to cling to the belief that this is adequate support for him. I encourage the case management and PFS team not to get sucked into his delusion this this time. (5) CVA (cerebral vascular accident) Status: Chronic Response to Treatment: Stable Problem Text: There are no specific issues related to CVA now, however do believe this complicates his ability to care for himself at home. (6) Diabetic ketoacidosis Status: Resolved Response to Treatment: Improving Discussed With: Nurse, Patient Problem Text: His anion gap is closed, his potassium is normalized. I have stopped the D10 which was required for support overnight. I started him on a full liquid consistent carbohydrate diet. I've ordered 14 units of basal insulin and his insulin drip will stop and 2 hours after the administration of the subcutaneous insulin. I continued normal saline at 125 mL an hour. I anticipate that he will be able to transfer out of the ICU once he is off the insulin drip. Plan/VTE VTE Prophylaxis Ordered?: Yes (Eliquis) Plan/Urinary Catheter Urinary Catheter: Place Webster (is placed for urinary retention. We'll have to try to remove it in 1-2 days and carefully assess whether he is able to urinate adequately.) Reason for insertion/continuin: Acute obstruct/retention Plan IVF: Continue Diet: Advance (2 for liquid consistent carbohydrate) Anticipated Discharge: Assisted VS, I&O, 24H, Fishbone Vital Signs/I&O Vital Signs Date Time Temp Pulse Resp B/P (MAP) Pulse Ox O2 Delivery O2 Flow Rate FiO2 03/18/17 22:00 98.7 80 16 131/76 (94) 97 Room Air 03/13/17 00:00 Laboratory Data 24H LABS Laboratory Tests 2 03/18/17 06:42: Nucleated Red Blood Cells % (auto) 0.0, Anion Gap 7L, Glomerular Filtration Rate > 60.0, Blood Urea Nitrogen 12, Creatinine 0.72, Sodium Level 136, Potassium Level 5.0, Chloride Level 98, Carbon Dioxide Level 31, Calcium Level 9.2, Aspartate Amino Transf (AST/SGOT) 11L, Alanine Aminotransferase (ALT/SGPT) 25, Alkaline Phosphatase 107, Total Bilirubin 0.3, Total Protein 6.0L, Albumin 3.1L, Albumin/Globulin Ratio 1.07 03/18/17 12:33: Bedside Glucose (Misc Panel) 211H 03/18/17 17:28: Bedside Glucose (Misc Panel) 88 03/18/17 20:25: Bedside Glucose (Misc Panel) 165H CBC/BMP Laboratory Tests 03/18/17 06:42 Red Blood Count 3.28 L, Mean Corpuscular Volume 93.6, Mean Corpuscular Hemoglobin 30.5, Mean Corpuscular Hemoglobin Concent 32.6, Red Cell Distribution Width 15.7 H, Calcium Level 9.2, Aspartate Amino Transf (AST/SGOT) 11 L, Alanine Aminotransferase (ALT/SGPT) 25, Alkaline Phosphatase 107, Total Bilirubin 0.3, Total Protein 6.0 L, Albumin 3.1 L Microbiology Microbiology 03/12/17 Blood Culture - Final, Complete NO GROWTH AFTER 5 DAYS 03/12/17 Blood Culture - Final, Complete NO GROWTH AFTER 5 DAYS 03/12/17 Urine Culture - Final, Complete AINSLEY LO DO Mar 19, 2017 01:02
[2017-03-19] MEDS: SLF 3 ML SYR IV SCH (05:03)
[2017-03-19 06:00] VITALS: BP 128/75
[2017-03-19 07:11] LABS: MEAN CORPUSCULAR HEMOGLOBIN 30.9 pg (27.0-33.0); MEAN CORPUSCULAR HGB CONC 33.1 g/dl (32.0-36.5); MEAN CORPUSCULAR VOLUME 93.2 fl (80.0-96.0); RED CELL DISTRIBUTION WIDTH 15.9 % (11.5-14.5); WHITE BLOOD COUNT 3.9 10^3/uL (4.0-10.0)
[2017-03-19] MEDS: HumaLOG INSULIN (NovoLOG) PER UNIT SC SCH ×6 (07:30→17:30)
[2017-03-19 07:44] LABS: ALBUMIN/GLOBULIN RATIO 0.88 (1.00-1.93); ALKALINE PHOSPHATASE 99 U/L (45-117); ALT/SGPT 25 U/L (12-78); ANION GAP 6 MEQ/L (8-16); AST/SGOT 14 U/L (15-37); BILIRUBIN,TOTAL 0.2 MG/DL (0.2-1.0); BLOOD UREA NITROGEN 12 MG/DL (7-18); CALCIUM LEVEL 9.3 MG/DL (8.8-10.2); CARBON DIOXIDE LEVEL 31 MEQ/L (21-32); CHLORIDE LEVEL 97 MEQ/L (98-107); GLOMERULAR FILTRATION RATE > 60.0 (>49); GLUCOSE, FASTING 255 MG/DL (80-110); POTASSIUM SERUM 4.8 MEQ/L (3.5-5.1); SODIUM LEVEL 134 MEQ/L (136-145); TOTAL PROTEIN 6.4 GM/DL (6.4-8.2)
[2017-03-19] MEDS: ASPIRIN 81 MG ENTERIC TAB PO SCH (10:10)
[2017-03-19] MEDS: APIXABAN 5 MG TAB (ELIQUIS) PO SCH ×2 (10:10→21:44)
[2017-03-19] MEDS: LEVEMIR (INSULIN DETEMIR) 1 UNITS/0.01ML SC SCH (10:11)
[2017-03-19] MEDS: ATORVASTATIN 20 MG TAB PO SCH (21:44)
[2017-03-19] MEDS: MIRTAZAPINE 15 MG TAB PO SCH (21:44)
[2017-03-19 22:00] VITALS: BP 134/69
--- NOTE | 2017-03-20 01:39 | IPNPDOC ---
Subjective Date Seen The patient was seen on 03/19/17. Subjective Chief Complaint/HPI The patient is a 61-year-old male admitted with a reason for visit of Diabetic Ketoacidoses. Events since last encounter Patient denies complaints. PFS expressed concerns that the patient's discharge might be complicated, as he functions better than typical NH patients, but not well enough for assisted living. Constitutional: Denies: Chills, Fever Pulmonary: Denies: Dyspnea, Cough Cardiovascular: Denies: Chest Pain Gastrointestinal: Denies: Nausea, Vomiting, Diarrhea, Constipation Genitourinary: Denies: Dysuria Objective Physical Examination General Exam: Positive: Alert, Cooperative, No Acute Distress, Other (thin/ cachectic appearing) Eye Exam: Positive: Conjunctiva & lids normal, Negative: Sclera icteric Neck Exam: Negative: Lymphadenopathy Chest Exam: Positive: Clear to auscultation, Normal air movement Heart Exam: Positive: Rate Normal, Normal S1, Normal S2, Negative: Murmurs Abdomen Exam: Positive: Normal bowel sounds, Soft, Negative: Tenderness Extremity Exam: Negative: Edema Psych Exam: Positive: Mood NL Assessment /Plan Problems (1) Lack of family support Status: Chronic Response to Treatment: Uncompensated Discussed With: Nurse, Patient Problem Text: He does not have adequate family support. This has been demonstrated again and again. His has expressed extreme discomfort with caring for him at home. The patient has demonstrated he will not take care of himself appropriately in home environment. I do not believe it will be appropriate to send this patient back to home environment regardless of what he says later on. I strongly believe he needs to be admitted to a halfway facility where he'll receive adequate and constant medical care. Perhaps after several weeks or months in that sort of environment he may improve to the point where he would be safe at home, but that's difficult to assess at this moment. My plan for him is to move him to halfway facility level as soon as he is medically stable. (2) Acute renal failure Status: Resolved Response to Treatment: Improving Problem Text: Improving with IV hydration. We'll continue and monitor. (3) T2DM (type 2 diabetes mellitus) Status: Chronic Response to Treatment: Uncontrolled Problem Text: 03/19 -- will hold Levemir, as blood glucose lower late in the day. 03/18 -- increased long-acting in the a.m. Overall, blood glucose lower now than previously. 03/17 -- Only hyperglycemia on lower dose of Humalog. No gastroparesis. Since no hypoglycemia, will increase Levemir. 03/16 -- DM still uncontrolled. Will check for gastroparesis. I am also changing to Humalog (depending on whether or not the patient has eaten much), as recommended in October office note. 03/15 -- Decreased long-acting insulin because of early-a.m. hypoglycemia. Will continue to adjust. His diabetes is coming under better control as his DKA resolves. We'll continue to monitor carefully and treat. (4) Depression Status: Chronic Response to Treatment: Stable Problem Text: We'll continue him on his mirtazapine, however, I do believe his depression may in part explain why he has some difficulty with accepting that he is not safe in his home environment and why he has continued to cling to the belief that this is adequate support for him. I encourage the case management and PFS team not to get sucked into his delusion this this time. (5) CVA (cerebral vascular accident) Status: Chronic Response to Treatment: Stable Problem Text: There are no specific issues related to CVA now, however do believe this complicates his ability to care for himself at home. (6) Diabetic ketoacidosis Status: Resolved Response to Treatment: Improving Discussed With: Nurse, Patient Problem Text: His anion gap is closed, his potassium is normalized. I have stopped the D10 which was required for support overnight. I started him on a full liquid consistent carbohydrate diet. I've ordered 14 units of basal insulin and his insulin drip will stop and 2 hours after the administration of the subcutaneous insulin. I continued normal saline at 125 mL an hour. I anticipate that he will be able to transfer out of the ICU once he is off the insulin drip. Plan/VTE VTE Prophylaxis Ordered?: Yes (Eliquis) Plan/Urinary Catheter Urinary Catheter: Place Webster (is placed for urinary retention. We'll have to try to remove it in 1-2 days and carefully assess whether he is able to urinate adequately.) Reason for insertion/continuin: Acute obstruct/retention Plan IVF: Continue Diet: Advance (2 for liquid consistent carbohydrate) Anticipated Discharge: Detention VS, I&O, 24H, Fishbone Vital Signs/I&O Vital Signs Date Time Temp Pulse Resp B/P (MAP) Pulse Ox O2 Delivery O2 Flow Rate FiO2 03/19/17 22:00 97.8 78 18 134/69 (90) 95 Room Air Laboratory Data 24H LABS Laboratory Tests 2 03/19/17 06:47: Nucleated Red Blood Cells % (auto) 0.0, Anion Gap 6L, Glomerular Filtration Rate > 60.0, Blood Urea Nitrogen 12, Creatinine 0.70, Sodium Level 134L, Potassium Level 4.8, Chloride Level 97L, Carbon Dioxide Level 31, Calcium Level 9.3, Aspartate Amino Transf (AST/SGOT) 14L, Alanine Aminotransferase (ALT/SGPT) 25, Alkaline Phosphatase 99, Total Bilirubin 0.2, Total Protein 6.4, Albumin 3.0L, Albumin/Globulin Ratio 0.88L 03/19/17 12:55: Bedside Glucose (Misc Panel) 295H 03/19/17 17:33: Bedside Glucose (Misc Panel) 146H 03/19/17 21:40: Bedside Glucose (Misc Panel) 86 03/20/17 01:15: Bedside Glucose (Misc Panel) 182H CBC/BMP Laboratory Tests 03/19/17 06:47 Red Blood Count 3.40 L, Mean Corpuscular Volume 93.2, Mean Corpuscular Hemoglobin 30.9, Mean Corpuscular Hemoglobin Concent 33.1, Red Cell Distribution Width 15.9 H, Calcium Level 9.3, Aspartate Amino Transf (AST/SGOT) 14 L, Alanine Aminotransferase (ALT/SGPT) 25, Alkaline Phosphatase 99, Total Bilirubin 0.2, Total Protein 6.4, Albumin 3.0 L Microbiology Microbiology 03/12/17 Blood Culture - Final, Complete NO GROWTH AFTER 5 DAYS 03/12/17 Blood Culture - Final, Complete NO GROWTH AFTER 5 DAYS 03/12/17 Urine Culture - Final, Complete AINSLEY LO DO Mar 20, 2017 01:39
[2017-03-20 06:00] VITALS: BP 136/72
[2017-03-20 06:55] LABS: MEAN CORPUSCULAR HEMOGLOBIN 30.7 pg (27.0-33.0); MEAN CORPUSCULAR HGB CONC 32.8 g/dl (32.0-36.5); MEAN CORPUSCULAR VOLUME 93.6 fl (80.0-96.0); RED CELL DISTRIBUTION WIDTH 15.9 % (11.5-14.5); WHITE BLOOD COUNT 4.2 10^3/uL (4.0-10.0)
[2017-03-20 07:20] LABS: ALBUMIN/GLOBULIN RATIO 0.86 (1.00-1.93); ALKALINE PHOSPHATASE 110 U/L (45-117); ALT/SGPT 29 U/L (12-78); ANION GAP 6 MEQ/L (8-16); AST/SGOT 12 U/L (15-37); BILIRUBIN,TOTAL 0.2 MG/DL (0.2-1.0); BLOOD UREA NITROGEN 13 MG/DL (7-18); CALCIUM LEVEL 9.1 MG/DL (8.8-10.2); CARBON DIOXIDE LEVEL 31 MEQ/L (21-32); CHLORIDE LEVEL 96 MEQ/L (98-107); CREATININE FOR GFR 0.82 MG/DL (0.70-1.30); GLOMERULAR FILTRATION RATE > 60.0 (>49); GLUCOSE, FASTING 322 MG/DL (80-110); POTASSIUM SERUM 4.9 MEQ/L (3.5-5.1); SODIUM LEVEL 133 MEQ/L (136-145); TOTAL PROTEIN 6.5 GM/DL (6.4-8.2)
[2017-03-20] MEDS: HumaLOG INSULIN (NovoLOG) PER UNIT SC SCH ×6 (07:30→17:30)
[2017-03-20] MEDS: LEVEMIR (INSULIN DETEMIR) 1 UNITS/0.01ML SC SCH (09:24)
[2017-03-20] MEDS: ASPIRIN 81 MG ENTERIC TAB PO SCH (09:25)
[2017-03-20] MEDS: APIXABAN 5 MG TAB (ELIQUIS) PO SCH ×2 (09:25→20:27)
[2017-03-20 14:00] VITALS: BP 121/72
--- NOTE | 2017-03-20 15:32 | IPNPDOC ---
Subjective Date Seen The patient was seen on 03/20/17. Subjective Chief Complaint/HPI The patient is a 61-year-old male admitted with a reason for visit of Diabetic Ketoacidosis. Acidosis has resolved. Pt examined resting in chair. No acute concerns. He is eager to go home, but discussed with pt he is not safe to be home yet and needs placement, and pt agreeable at this time. General: Reports: Normal Appetite Constitutional: Denies: Chills, Fever Eyes: Denies: Vision change ENT: Denies: Dysphagia Pulmonary: Denies: Dyspnea, Cough Cardiovascular: Denies: Chest Pain, Palpitations, Edema, Lt Headedness Gastrointestinal: Denies: Nausea, Vomiting, Abdominal Pain Neurological: Denies: Numbness Objective Physical Examination General Exam: Positive: Alert, Cooperative, No Acute Distress, Other (thin/ cachectic appearing. Disheveled) Eye Exam: Positive: Conjunctiva & lids normal, Negative: Sclera icteric Neck Exam: Negative: Lymphadenopathy Chest Exam: Positive: Clear to auscultation, Normal air movement Heart Exam: Positive: Rate Normal, Normal S1, Normal S2, Negative: Murmurs Abdomen Exam: Positive: Normal bowel sounds, Soft, Negative: Tenderness Extremity Exam: Negative: Edema Psych Exam: Positive: Mood NL, Oriented x 3 Assessment /Plan Problems (1) Lack of family support Status: Chronic Response to Treatment: Uncompensated Discussed With: Nurse, Patient Problem Text: As of this morning, pt is agreeable to be placed in SNF prior to going home. Dr. Whiting emphasized in previous notes: "He does not have adequate family support. This has been demonstrated again and again. His has expressed extreme discomfort with caring for him at home. The patient has demonstrated he will not take care of himself appropriately in home environment. I do not believe it will be appropriate to send this patient back to home environment regardless of what he says later on. I strongly believe he needs to be admitted to a halfway facility where he'll receive adequate and constant medical care. Perhaps after several weeks or months in that sort of environment he may improve to the point where he would be safe at home, but that's difficult to assess at this moment. My plan for him is to move him to halfway facility level as soon as he is medically stable." (2) T2DM (type 2 diabetes mellitus) Status: Chronic Response to Treatment: Uncontrolled Problem Text: 03/20 -- blood sugar in 180s this am. Monitor. 03/19 -- will hold Levemir, as blood glucose lower late in the day. 03/18 -- increased long-acting in the a.m. Overall, blood glucose lower now than previously. 03/17 -- Only hyperglycemia on lower dose of Humalog. No gastroparesis. Since no hypoglycemia, will increase Levemir. 03/16 -- DM still uncontrolled. Will check for gastroparesis. I am also changing to Humalog (depending on whether or not the patient has eaten much), as recommended in October office note. 03/15 -- Decreased long-acting insulin because of early-a.m. hypoglycemia. Will continue to adjust. His diabetes is coming under better control as his DKA resolves. We'll continue to monitor carefully and treat. (3) Acute renal failure Status: Resolved Response to Treatment: Improving Problem Text: Resolved. Pt not on IV hydration. BUN/Cr WNL. Monitor. (4) CVA (cerebral vascular accident) Status: Chronic Response to Treatment: Stable Problem Text: There are no specific issues related to CVA now, however do believe this complicates his ability to care for himself at home. (5) Depression Status: Chronic Response to Treatment: Stable Problem Text: Continue with Mirtazapine and providing support and education. Per Dr. Whiting: "We'll continue him on his mirtazapine, however, I do believe his depression may in part explain why he has some difficulty with accepting that he is not safe in his home environment and why he has continued to cling to the belief that this is adequate support for him. I encourage the case management and PFS team not to get sucked into his delusion this this time." (6) Diabetic ketoacidosis Status: Resolved Response to Treatment: Improving Discussed With: Nurse, Patient Problem Text: His anion gap is closed, and potassium is normalized. Continue full liquid consistent carbohydrate diet. Plan/VTE VTE Prophylaxis Ordered?: Yes (Eliquis) Plan IVF: Continue Diet: Advance (2 for liquid consistent carbohydrate) Anticipated Discharge: Long-Term The patient was seen and examined by the attending physician. The case was reviewed with the PGY-1. VS, I&O, 24H, Fishbone Vital Signs/I&O Vital Signs Date Time Temp Pulse Resp B/P (MAP) Pulse Ox O2 Delivery O2 Flow Rate FiO2 03/20/17 06:00 97.6 77 18 136/72 (93) 96 Room Air I&O- Last 24 Hours up to 6 AM 03/21/17 06:00 Intake Total 200 ml Output Total 300 ml Balance -100 ml Laboratory Data 24H LABS Laboratory Tests 2 03/19/17 12:55: Bedside Glucose (Misc Panel) 295H 03/19/17 17:33: Bedside Glucose (Misc Panel) 146H 03/19/17 21:40: Bedside Glucose (Misc Panel) 86 03/20/17 01:15: Bedside Glucose (Misc Panel) 182H 03/20/17 06:39: Nucleated Red Blood Cells % (auto) 0.0, Anion Gap 6L, Glomerular Filtration Rate > 60.0, Blood Urea Nitrogen 13, Creatinine 0.82, Sodium Level 133L, Potassium Level 4.9, Chloride Level 96L, Carbon Dioxide Level 31, Calcium Level 9.1, Aspartate Amino Transf (AST/SGOT) 12L, Alanine Aminotransferase (ALT/SGPT) 29, Alkaline Phosphatase 110, Total Bilirubin 0.2, Total Protein 6.5, Albumin 3.0L, Albumin/Globulin Ratio 0.86L 03/20/17 12:05: Bedside Glucose (Misc Panel) 319H CBC/BMP Laboratory Tests 03/20/17 06:39 Red Blood Count 3.29 L, Mean Corpuscular Volume 93.6, Mean Corpuscular Hemoglobin 30.7, Mean Corpuscular Hemoglobin Concent 32.8, Red Cell Distribution Width 15.9 H, Calcium Level 9.1, Aspartate Amino Transf (AST/SGOT) 12 L, Alanine Aminotransferase (ALT/SGPT) 29, Alkaline Phosphatase 110, Total Bilirubin 0.2, Total Protein 6.5, Albumin 3.0 L Microbiology Microbiology 03/12/17 Blood Culture - Final, Complete NO GROWTH AFTER 5 DAYS 03/12/17 Blood Culture - Final, Complete NO GROWTH AFTER 5 DAYS 03/12/17 Urine Culture - Final, Complete APOLINARSulemaDOMINIQUE Mar 20, 2017 12:27 Espinoza Rincon M.D. Mar 20, 2017 17:47
[2017-03-20] MEDS: MIRTAZAPINE 15 MG TAB PO SCH (20:27)
[2017-03-20] MEDS: ATORVASTATIN 20 MG TAB PO SCH (20:27)
[2017-03-20 22:00] VITALS: BP 127/76
[2017-03-21 06:00] VITALS: BP 131/65
[2017-03-21 07:15] LABS: MEAN CORPUSCULAR HGB CONC 32.9 g/dl (32.0-36.5); MEAN CORPUSCULAR VOLUME 94.1 fl (80.0-96.0); RED CELL DISTRIBUTION WIDTH 15.9 % (11.5-14.5); WHITE BLOOD COUNT 4.4 10^3/uL (4.0-10.0)
[2017-03-21 07:26] LABS: ALBUMIN/GLOBULIN RATIO 0.83 (1.00-1.93); ALKALINE PHOSPHATASE 111 U/L (45-117); ALT/SGPT 27 U/L (12-78); ANION GAP 7 MEQ/L (8-16); AST/SGOT 12 U/L (15-37); BILIRUBIN,TOTAL 0.2 MG/DL (0.2-1.0); BLOOD UREA NITROGEN 15 MG/DL (7-18); CARBON DIOXIDE LEVEL 29 MEQ/L (21-32); CHLORIDE LEVEL 96 MEQ/L (98-107); CREATININE FOR GFR 0.81 MG/DL (0.70-1.30); GLOMERULAR FILTRATION RATE > 60.0 (>49); GLUCOSE, FASTING 384 MG/DL (80-110); POTASSIUM SERUM 5.1 MEQ/L (3.5-5.1); SODIUM LEVEL 132 MEQ/L (136-145); TOTAL PROTEIN 6.6 GM/DL (6.4-8.2)
[2017-03-21] MEDS: HumaLOG INSULIN (NovoLOG) PER UNIT SC SCH ×6 (07:30→17:17)
[2017-03-21] MEDS: LEVEMIR (INSULIN DETEMIR) 1 UNITS/0.01ML SC SCH (10:01)
[2017-03-21] MEDS: APIXABAN 5 MG TAB (ELIQUIS) PO SCH ×2 (10:02→21:01)
[2017-03-21] MEDS: ASPIRIN 81 MG ENTERIC TAB PO SCH (10:02)
--- NOTE | 2017-03-21 13:02 | IPNPDOC ---
Subjective Date Seen The patient was seen on 03/21/17. Subjective Chief Complaint/HPI The patient is a 61-year-old male admitted with a reason for visit of Diabetic Ketoacidoses. Events since last encounter Patient is sitting in chair on exam. No complaints. No pain or aches. Tolerating oral intake. No vomiting. Urinating appropriately. General: Denies: Chills Constitutional: Denies: Chills, Fever Eyes: Denies: Pain Cardiovascular: Denies: Chest Pain, Palpitations Gastrointestinal: Denies: Nausea, Vomiting, Abdominal Pain Genitourinary: Denies: Dysuria, Frequency Musculoskeletal: Denies: Neck Pain, Back Pain Objective Physical Examination General Exam: Positive: Alert, Cooperative, No Acute Distress Neck Exam: Positive: Supple Chest Exam: Positive: Clear to auscultation, Normal air movement Heart Exam: Positive: Normal S1, Normal S2, Negative: Tachycardic, Bradycardic, Murmurs Abdomen Exam: Positive: Normal bowel sounds, Soft, Negative: Tenderness Extremity Exam: Negative: Edema, Swelling Psych Exam: Positive: Mood NL Assessment /Plan Problems (1) Lack of family support Status: Chronic Response to Treatment: Uncompensated Discussed With: Nurse, Patient Problem Text: Still awaiting placement. (2) T2DM (type 2 diabetes mellitus) Status: Chronic Response to Treatment: Uncontrolled Problem Text: Glucose 384 this morning. Increasing detemir to 18 units in the morning. Continue Lispro at current dose. Continue to monitor glucose levels. (3) CVA (cerebral vascular accident) Status: Chronic Response to Treatment: Stable Problem Text: There are no specific issues related to CVA now, however do believe this complicates his ability to care for himself at home. (4) Depression Status: Chronic Response to Treatment: Stable Problem Text: Continue with current dose of Mirtazapine. Per Dr. Whiting: "We'll continue him on his mirtazapine, however, I do believe his depression may in part explain why he has some difficulty with accepting that he is not safe in his home environment and why he has continued to cling to the belief that this is adequate support for him. I encourage the case management and PFS team not to get sucked into his delusion this this time. (5) Diabetic ketoacidosis Status: Resolved Response to Treatment: Improving Discussed With: Nurse, Patient Problem Text: Continue full liquid consistent carbohydrate diet. Plan/VTE VTE Prophylaxis Ordered?: Yes (Eliquis) Plan IVF: Continue Diet: Advance (2 for liquid consistent carbohydrate) Anticipated Discharge: Usp VS, I&O, 24H, Alf Vital Signs/I&O Vital Signs Date Time Temp Pulse Resp B/P (MAP) Pulse Ox O2 Delivery O2 Flow Rate FiO2 03/21/17 06:00 99.1 76 16 131/65 (87) 96 Room Air I&O- Last 24 Hours up to 6 AM 03/22/17 06:00 Intake Total 200 ml Output Total 325 ml Balance -125 ml Laboratory Data 24H LABS Laboratory Tests 2 03/20/17 17:05: Bedside Glucose (Misc Panel) 203H 03/20/17 20:26: Bedside Glucose (Misc Panel) 168H 03/21/17 06:22: Nucleated Red Blood Cells % (auto) 0.0, Anion Gap 7L, Glomerular Filtration Rate > 60.0, Blood Urea Nitrogen 15, Creatinine 0.81, Sodium Level 132L, Potassium Level 5.1, Chloride Level 96L, Carbon Dioxide Level 29, Calcium Level 9.0, Aspartate Amino Transf (AST/SGOT) 12L, Alanine Aminotransferase (ALT/SGPT) 27, Alkaline Phosphatase 111, Total Bilirubin 0.2, Total Protein 6.6, Albumin 3.0L, Albumin/Globulin Ratio 0.83L 03/21/17 11:50: Bedside Glucose (Misc Panel) 383H CBC/BMP Laboratory Tests 03/21/17 06:22 Red Blood Count 3.39 L, Mean Corpuscular Volume 94.1, Mean Corpuscular Hemoglobin 31.0, Mean Corpuscular Hemoglobin Concent 32.9, Red Cell Distribution Width 15.9 H, Calcium Level 9.0, Aspartate Amino Transf (AST/SGOT) 12 L, Alanine Aminotransferase (ALT/SGPT) 27, Alkaline Phosphatase 111, Total Bilirubin 0.2, Total Protein 6.6, Albumin 3.0 L Microbiology Microbiology 03/12/17 Blood Culture - Final, Complete NO GROWTH AFTER 5 DAYS 03/12/17 Blood Culture - Final, Complete NO GROWTH AFTER 5 DAYS 03/12/17 Urine Culture - Final, Complete GME ATTESTATION GME ATTESTATION My preceptor for this patient encounter was physically present in the building during the encounter and was fully available. As needed, all aspects of the patient interview, examination, medical decision making process, and medical care plan development were reviewed and approved by the preceptor. Preceptor is aware and concurs with the plan as stated in the body of this note and will attest to such by his/her cosignature. URIAH ROJO DO Mar 21, 2017 13:02 Espinoza Rincon M.D. Mar 21, 2017 18:10
[2017-03-21 14:00] VITALS: BP 127/68
[2017-03-21] MEDS: MIRTAZAPINE 15 MG TAB PO SCH (21:01)
[2017-03-21] MEDS: ATORVASTATIN 20 MG TAB PO SCH (21:01)
[2017-03-21 22:00] VITALS: BP 123/81
[2017-03-22 06:00] VITALS: BP 130/79
[2017-03-22 06:32] LABS: MEAN CORPUSCULAR HEMOGLOBIN 30.9 pg (27.0-33.0); MEAN CORPUSCULAR VOLUME 93.5 fl (80.0-96.0); RED CELL DISTRIBUTION WIDTH 15.8 % (11.5-14.5); WHITE BLOOD COUNT 4.3 10^3/uL (4.0-10.0)
[2017-03-22 06:52] LABS: ALBUMIN 3.2 GM/DL (3.2-5.2); ALBUMIN/GLOBULIN RATIO 0.84 (1.00-1.93); ALKALINE PHOSPHATASE 103 U/L (45-117); ALT/SGPT 28 U/L (12-78); ANION GAP 6 MEQ/L (8-16); AST/SGOT 9 U/L (15-37); BILIRUBIN,TOTAL 0.2 MG/DL (0.2-1.0); BLOOD UREA NITROGEN 16 MG/DL (7-18); CALCIUM LEVEL 9.2 MG/DL (8.8-10.2); CARBON DIOXIDE LEVEL 31 MEQ/L (21-32); CHLORIDE LEVEL 98 MEQ/L (98-107); CREATININE FOR GFR 0.66 MG/DL (0.70-1.30); GLOMERULAR FILTRATION RATE > 60.0 (>49); GLUCOSE, FASTING 189 MG/DL (80-110); POTASSIUM SERUM 4.5 MEQ/L (3.5-5.1); SODIUM LEVEL 135 MEQ/L (136-145)
[2017-03-22] MEDS: ASPIRIN 81 MG ENTERIC TAB PO SCH (08:35)
[2017-03-22] MEDS: APIXABAN 5 MG TAB (ELIQUIS) PO SCH ×2 (08:35→22:20)
[2017-03-22] MEDS: HumaLOG INSULIN (NovoLOG) PER UNIT SC SCH ×6 (08:36→17:13)
[2017-03-22] MEDS: LEVEMIR (INSULIN DETEMIR) 1 UNITS/0.01ML SC SCH (08:36)
--- NOTE | 2017-03-22 09:18 | DSES ---
DATE OF ADMISSION: 03/12/2017 DATE OF TRANSFER TO ASSISTED FACILITY (SNF) : 03/22/2017 PRIMARY CARE PROVIDER: Dr. Rincon ATTENDING TODAY: Dr. Eddy Gutierrez This is a 61-year-old male with a medical history of poorly controlled diabetes with a recent admission for diabetic ketoacidosis and acute renal failure, who presented to the emergency room with his blood sugars being elevated despite compliance. His blood sugar was 749 in the emergency room. During his hospitalization, he has remained medically stable. His insulin was titrated. He was then continued on his at home medications. He has acute renal failure, which has resolved with IV hydration. DISCHARGE DIAGNOSES: 1. Diabetic ketoacidosis. 2. Acute renal failure. 3. Type 2 diabetes. 4. Lack of family support. 5. Depression. Discharge plan and medications will be summarized at the time of discharge from the hospital.
[2017-03-22 22:00] VITALS: BP 121/72
[2017-03-22] MEDS: ATORVASTATIN 20 MG TAB PO SCH (22:20)
[2017-03-22] MEDS: MIRTAZAPINE 15 MG TAB PO SCH (22:20)
[2017-03-23 06:00] VITALS: BP 116/72
[2017-03-23] MEDS: LEVEMIR (INSULIN DETEMIR) 1 UNITS/0.01ML SC SCH (08:46)
[2017-03-23] MEDS: ASPIRIN 81 MG ENTERIC TAB PO SCH (08:46)
[2017-03-23] MEDS: APIXABAN 5 MG TAB (ELIQUIS) PO SCH ×2 (08:46→20:37)
[2017-03-23] MEDS: HumaLOG INSULIN (NovoLOG) PER UNIT SC SCH ×4 (08:46→20:39)
[2017-03-23] MEDS: MIRTAZAPINE 15 MG TAB PO SCH (20:37)
[2017-03-23] MEDS: ATORVASTATIN 20 MG TAB PO SCH (20:38)
[2017-03-23 22:00] VITALS: BP 125/66
[2017-03-24 06:00] VITALS: BP 110/58
[2017-03-24] MEDS: ASPIRIN 81 MG ENTERIC TAB PO SCH (08:45)
[2017-03-24] MEDS: LEVEMIR (INSULIN DETEMIR) 1 UNITS/0.01ML SC SCH (08:45)
[2017-03-24] MEDS: APIXABAN 5 MG TAB (ELIQUIS) PO SCH ×2 (08:45→19:52)
[2017-03-24] MEDS: HumaLOG INSULIN (NovoLOG) PER UNIT SC SCH ×2 (12:38→18:34)
[2017-03-24 14:00] VITALS: BP 117/70
[2017-03-24] MEDS: ATORVASTATIN 20 MG TAB PO SCH (19:52)
[2017-03-24] MEDS: MIRTAZAPINE 15 MG TAB PO SCH (19:52)
[2017-03-24 22:00] VITALS: BP 120/65
[2017-03-25 06:00] VITALS: BP 116/62
[2017-03-25] MEDS: HumaLOG INSULIN (NovoLOG) PER UNIT SC SCH ×3 (08:18→18:05)
[2017-03-25] MEDS: APIXABAN 5 MG TAB (ELIQUIS) PO SCH ×2 (08:18→21:22)
[2017-03-25] MEDS: ASPIRIN 81 MG ENTERIC TAB PO SCH (08:18)
[2017-03-25] MEDS: LEVEMIR (INSULIN DETEMIR) 1 UNITS/0.01ML SC SCH (08:19)
[2017-03-25 14:00] VITALS: BP 114/68
[2017-03-25] MEDS: MIRTAZAPINE 15 MG TAB PO SCH (21:22)
[2017-03-25] MEDS: ATORVASTATIN 20 MG TAB PO SCH (21:22)
[2017-03-25 22:00] VITALS: BP 109/66
[2017-03-26 06:00] VITALS: BP 129/58
[2017-03-26] MEDS: HumaLOG INSULIN (NovoLOG) PER UNIT SC SCH (09:33)
[2017-03-26] MEDS: ASPIRIN 81 MG ENTERIC TAB PO SCH (09:34)
[2017-03-26] MEDS: APIXABAN 5 MG TAB (ELIQUIS) PO SCH (09:34)
[2017-03-26] MEDS: LEVEMIR (INSULIN DETEMIR) 1 UNITS/0.01ML SC SCH (09:34)
[2017-03-26] MEDS ORDERED: INSUHUMDS SC (09:43)
[2017-03-26] MEDS ORDERED: INSUDET SC (09:43)
[2017-03-26] MEDS ORDERED: ELIQ5TAB PO (09:43)
[2017-03-26] MEDS ORDERED: ASPI81TAEC PO (09:43)
--- NOTE | 2017-03-26 16:36 | DSES ---
DATE OF ADMISSION: 03/12/2017 DATE OF DISCHARGE: 03/26/2017 ADDENDUM This is a 61-year-old male patient, diabetic, with history of hypoglycemia and poor compliance who has remained medically stable since Wednesday, when he was placed on long term level of care. Patient and family services has successfully coordinated transfer of him to the [facility] in [place], [place], where the patient and his family have accepted care. He will transition there later today. His discharge diagnoses remain the same. DISCHARGE MEDICATIONS: Include: - apixaban 5 mg twice daily - aspirin 81 mg daily - Levemir 18 units in the morning - insulin Lispro 4 units with meals when he has a fingerstick blood sugar of greater than 200 - acetaminophen 650 mg every 4 hours as needed for pain or fever - albuterol sulfate inhaler two puffs inhaled every 4 hours as needed for shortness of breath - Lipitor 40 mg daily - folic acid 1 mg daily - lisinopril 5 mg daily - milk of magnesia 30 mL by mouth daily as needed for constipation - mirtazapine 30 mg by mouth before bed - multivitamin one tablet daily - senna one tablet daily DISCHARGE PLAN: Will be to followup with physician at the [facility]. His activity should be as tolerated. His diet should be consistent-carbohydrate. MTDD
== END 2017-03-26 11:45 | DRG 638 ==
LOC: M ED 11:24 → M ED INP 15:09 → M ICU 18:05 → M MS5PR 03-13 14:04
PROVIDERS: ADMIT Internal Medicine; ATTEND Family Medicine
DX: E11.10 Type 2 diabetes mellitus with ketoacidosis without coma (principal); I69.354 Hemiplegia and hemiparesis following cerebral infarction affecting left non-dominant side; Z68.1 Body mass index [BMI] 19.9 or less, adult; N17.9 Acute kidney failure, unspecified; E11.65 Type 2 diabetes mellitus with hyperglycemia; F03.90 Unspecified dementia, unspecified severity, without behavioral disturbance, psychotic disturbance, mood disturbance, and anxiety; D64.9 Anemia, unspecified; I10 Essential (primary) hypertension; E11.649 Type 2 diabetes mellitus with hypoglycemia without coma; F32.9 Major depressive disorder, single episode, unspecified; H40.9 Unspecified glaucoma; R63.6 Underweight; J45.909 Unspecified asthma, uncomplicated; Z85.828 Personal history of other malignant neoplasm of skin; Z79.4 Long term (current) use of insulin; Z79.01 Long term (current) use of anticoagulants; Z79.899 Other long term (current) drug therapy; Z79.82 Long term (current) use of aspirin